=== PATIENT | male | born 1950 | race Caucasian/White ===

== ENCOUNTER 2017-09-14 14:21 | Inpatient (IN) ==
--- NOTE | 2017-09-14 14:33 | Emergency Department Note ---
Disposition Clinical Impression: Cellulitis Disposition: Admitted As Inpatient Condition: Fair Referrals: [facility]Other] [facility] Care Provider[facility] - Forms: ED Satisfaction Letter, Work/School Release General Adult HPI - General Chief complaint: ED General Medical Stated complaint: Septic Time Seen by Provider: 09/14/17 14:27 Source: patient, EMS - History of Present Illness Pain Scale: 0 - Related Data Home Medications Medication Instructions Recorded Confirmed Apixaban [Eliquis] 5 mg PO BID 09/14/17 09/14/17 Atenolol [Tenormin] 12.5 mg PO DAILY 09/14/17 09/14/17 Atorvastatin [Lipitor] 10 mg PO HS 09/14/17 09/14/17 Buspirone HCl [Buspar] 10 mg PO TID 09/14/17 09/14/17 Chlorhexidine Rinse 15 ml MM BID 09/14/17 09/14/17 Cholecalciferol (Vitamin D3) 1,000 unit PO DAILY 09/14/17 09/14/17 [Vitamin D3] Clopidogrel [Plavix] 75 mg PO DAILY 09/14/17 09/14/17 Cyclobenzaprine [Flexeril] 10 mg PO TID 09/14/17 09/14/17 Insulin LISPRO [HumaLOG] 3 - 8 units SQ TIDWM PRN 09/14/17 09/14/17 Ipratropium/Albuterol Neb [Duoneb] 3 ml IH Q6HR PRN 09/14/17 09/14/17 Metformin HCl [Glucophage Xr] 750 mg PO BID 09/14/17 Naproxen [Naprosyn] 500 mg PO BID 09/14/17 09/14/17 OxyCODONE Immed Rel [Roxicodone 30 30 mg PO TID 09/14/17 09/14/17 MG] Pantoprazole Sodium [Protonix] 40 mg PO BID 09/14/17 09/14/17 Potassium Chloride [K-Tab ER] 20 meq PO DAILY 09/14/17 09/14/17 Pregabalin [Lyrica] 100 mg PO QID 09/14/17 09/14/17 Tamsulosin HCl [Flomax] 0.4 mg PO DAILY 09/14/17 09/14/17 Vancomycin/0.9 % Sod Chloride 1 gm IV Q12H 09/14/17 09/14/17 [Vancomycin 1 G/100Ml-0.9% NaCl] Allergies Allergy/AdvReac Type Severity Reaction Status Date / Time aspirin Allergy Anaphylaxis Verified 09/14/17 16:21 bee venom protein (honey bee) Allergy Anaphylaxis Verified 09/14/17 16:21 Penicillins Allergy Anaphylaxis Verified 09/14/17 16:21 sucralfate Allergy Anaphylaxis Verified 09/14/17 16:21 Past Medical History - Past Medical History Medical history: Reports: COPD, diabetes Psychiatric history: Reports: no psych history - Social History Smoking Status: Current some day smoker Smokeless Tobacco Status: No Alcohol use: Reports: none Physical Exam - General General appearance: alert, in no apparent distress Course Vital Signs Temperature 99.9 F H 09/14/17 14:22 Pulse Rate 127 09/14/17 14:22 Respiratory Rate 18 09/14/17 14:22 Blood Pressure 137/77 09/14/17 14:22 O2 Sat by Pulse Oximetry 95 09/14/17 14:22 Temperature 99.9 F H 09/14/17 14:22 Pulse Rate 115 09/14/17 16:31 Respiratory Rate 18 09/14/17 16:31 Blood Pressure 96/74 09/14/17 16:31 O2 Sat by Pulse Oximetry 94 09/14/17 16:31 Oxygen Delivery Oxygen Delivery Nasal Cannula Medical Decision Making - Lab Data Lab Results 09/14/17 09/14/17 Range/Units 14:36 14:50 Lactic Acid 2.5 H (0.5-2.2) mmol/L Urine Color Yellow (Yellow) Urine Clarity Clear (Clear) Urine pH 6.0 (5.0-8.0) pH Units Ur Specific [place] > 1.030 H (1.010-1.025) Urine Protein 30 H (Neg-Trace) mg/dL Urine Glucose (UA) 100 H (Normal) mg/dL Urine Ketones Negative (Negative) mg/dL Urine Blood Negative (Negative) Urine Nitrite Negative (Negative) Urine Bilirubin Negative (Negative) Urine Urobilinogen Normal (Normal) mg/dL Ur Leukocyte Esterase Negative (Negative) Urine Microscopic RBC 5-15 H (0-3) per hpf Urine Microscopic WBC 5-15 H (0-3) per hpf Ur Squamous Epith Cells Moderate H (None-Few) per lpf Urine Bacteria None Seen (None-Few) per hpf Hyaline Casts None Seen (None-Few) per lpf Attestation Statement - Attestation Attestation: I examined this patient and my medical decision-making was reviewed with the Resident Physician. I agree with the documented findings, disposition and treatment plan as described except to the extent set forth below. [id number] time provided Patient arrives as a transfer from the [facility] with concern for sepsis. He has experienced tachycardia and fever and recently grew out gram- positive cocci from the blood cultures. He is being treated for cellulitis of his lower extremities with vancomycin and clindamycin. He is tachycardic on exam. But he does not appear in any acute distress. He does have ecchymosis and swelling to bilateral great toes from her recent blunt injury. I suspect this to be the source of the patient's infection
[2017-09-14 14:52] LABS: Bilirubin,Urine Negative (Negative); Blood,Urine Negative (Negative); Clarity,Urine Clear (Clear); Color,Urine Yellow (Yellow); Glucose,Urine (UA) 100 mg/dL (Normal); Ketones,Urine Negative (Negative); Leukocyte Esterase,Urine Negative (Negative); Nitrite,Urine Negative (Negative); Protein,Urine 30 mg/dL (Neg-Trace); Specific Gravity,Urine > 1.030 (1.010-1.025); Urobilinogen,Urine Normal (Normal)
[2017-09-14 14:54] LABS: Bacteria,Urine None Seen per hpf (None-Few); Hyaline Casts,Urine None Seen per lpf (None-Few); Squamous Epithelial Cell,Urine Moderate per lpf (None-Few)
--- NOTE | 2017-09-14 15:17 | Emergency Department Note ---
Disposition Clinical Impression: Cellulitis Qualifiers: Site of cellulitis: extremity Site of cellulitis of extremity: lower extremity Laterality: unspecified laterality Qualified Code(s): L03.119 - Cellulitis of unspecified part of limb Disposition: Admitted As Inpatient Condition: Fair Forms: ED Satisfaction Letter, Work/School Release Time of Disposition: 16:43 General Adult HPI - General Chief complaint: ED General Medical Stated complaint: Septic Time Seen by Provider: 09/14/17 14:27 Source: patient, EMS Mode of arrival: EMS Limitations: no limitations Nursing Notes Reviewed: Yes Vital Signs Reviewed: Yes - History of Present Illness HPI Narrative: 66-year-old male who presents to the emergency department from the [facility] as a transfer for positive blood cultures. His symptom here as they were looking wanting an infectious disease consult. He said patient dropped a heavy mass on his feet on both sides smashing him while he was trying to clean out his toes and up into his skin the cyanosis cellulitis. He was then admitted and placed on clindamycin and vancomycin. They stopped the clindamycin before they sent him over here he has only been on the vancomycin. They noticed that his feet were certainly a more read these have been marked. The saline as a spreading up his legs. They also did blood cultures and came back with gram-positive cocci. At this time I felt the patient needed to have an ID consult they sent him here for evaluation. All labs are been done. Prior to him coming here he also sent a disc which we are uploading into the system. Patient states he only hurts in the feet otherwise he has no pain or shortness of breath or any other symptoms. Disease having these chills with her his body. Patient did have a fever at the [facility]. Patient no other complaints including headache, blurry vision, neck pain, back pain, nausea, vomiting, chest pain, shortness of breath , abdominal pain, pain or tingling down the arms or legs, change in bowel moves , pain with urination. Pain Scale: 0 - Related Data Home Medications Medication Instructions Recorded Confirmed Apixaban [Eliquis] 5 mg PO BID 09/14/17 09/14/17 Atenolol [Tenormin] 12.5 mg PO DAILY 09/14/17 09/14/17 Atorvastatin [Lipitor] 10 mg PO HS 09/14/17 09/14/17 Buspirone HCl [Buspar] 10 mg PO TID 09/14/17 09/14/17 Chlorhexidine Rinse 15 ml MM BID 09/14/17 09/14/17 Cholecalciferol (Vitamin D3) 1,000 unit PO DAILY 09/14/17 09/14/17 [Vitamin D3] Clopidogrel [Plavix] 75 mg PO DAILY 09/14/17 09/14/17 Cyclobenzaprine [Flexeril] 10 mg PO TID 09/14/17 09/14/17 Insulin LISPRO [HumaLOG] 3 - 8 units SQ TIDWM PRN 09/14/17 09/14/17 Ipratropium/Albuterol Neb [Duoneb] 3 ml IH Q6HR PRN 09/14/17 09/14/17 Metformin HCl [Glucophage Xr] 750 mg PO BID 09/14/17 Naproxen [Naprosyn] 500 mg PO BID 09/14/17 09/14/17 OxyCODONE Immed Rel [Roxicodone 30 30 mg PO TID 09/14/17 09/14/17 MG] Pantoprazole Sodium [Protonix] 40 mg PO BID 09/14/17 09/14/17 Potassium Chloride [K-Tab ER] 20 meq PO DAILY 09/14/17 09/14/17 Pregabalin [Lyrica] 100 mg PO QID 09/14/17 09/14/17 Tamsulosin HCl [Flomax] 0.4 mg PO DAILY 09/14/17 09/14/17 Vancomycin/0.9 % Sod Chloride 1 gm IV Q12H 09/14/17 09/14/17 [Vancomycin 1 G/100Ml-0.9% NaCl] Allergies Allergy/AdvReac Type Severity Reaction Status Date / Time aspirin Allergy Anaphylaxis Verified 09/14/17 16:21 bee venom protein (honey bee) Allergy Anaphylaxis Verified 09/14/17 16:21 Penicillins Allergy Anaphylaxis Verified 09/14/17 16:21 sucralfate Allergy Anaphylaxis Verified 09/14/17 16:21 Review of Systems: 10 point review of systems done and negative unless otherwise stated in history of present illness. All systems ED: reviewed and negative except as stated. Review of Systems: As Per HPI Past Medical History - Past Medical History Attestation: Yes The following information was validated with the patient. Medical history: Reports: COPD, diabetes Psychiatric history: Reports: no psych history - Social History Smoking Status: Current some day smoker Smokeless Tobacco Status: No Alcohol use: Reports: none Physical Exam - General Limitations: no limitations General appearance: alert, in no apparent distress - Head Head exam: atraumatic, normocephalic, normal inspection - Eye Eye exam: Present: normal appearance - ENT ENT exam: normal exam, normal oropharynx, mucous membranes moist - Neck Neck exam: Present: normal inspection, full ROM, trachea midline - Chest Chest inspection: Present: normal inspection, symmetric chest wall rise - Respiratory Respiratory exam: Present: normal lung sounds bilaterally. Absent: respiratory distress, wheezes, accessory muscle use - Cardiovascular Cardiovascular exam: Present: regular rate - Abdominal Exam Abdominal exam: Present: soft, Non-Tender. Absent: tenderness, distention, guarding, rebound, rigidity - Expanded Lower Extremity Exam Lower leg exam: Present: normal inspection, full ROM Ankle exam: Present: normal inspection, full ROM Foot/toe exam: Present: full ROM, tenderness (Tenderness at the great toe bilaterally), swelling (Small swelling of the entire feet. Bilaterally), ecchymosis, erythema (Noticeable erythema with markings from the last cellulitis elixir it outside the markings on both feet bilaterally with going up into the ankles.), other (No signs of fluctuance or draining fluid at the site of the toes.) Neurovascular/Tendon exam: Present: normal capillary refill. Absent: pulse deficit, motor deficit, sensory deficit, tendon deficit - Back Exam Back exam: Present: normal inspection, full ROM. Absent: tenderness, CVA tenderness (R), CVA tenderness (L) - Neurological Exam Neurological exam: Present: alert, oriented X3 - Skin Skin exam: Present: warm, dry, intact, normal color Course Course Narrative: 66 [facility] as he is now septic meeting SIRS criteria as he was tachycardic as well as leukocytosis with a site of infection in the feet. We will get a urinalysis as well as chest x-ray. Continue the vancomycin will admit to the hospitalist service. [facility] the [facility] 12 showed a leukocytosis of 16.8 with a September 14 is now 11.0. Urinalysis had no acute findings. CMP had no acute findings other than a normalizing creatinine were was 1.31 is now 1.09. [facility] so that their blood cultures showed gram-positive cocci. Vital Signs Temperature 99.9 F H 09/14/17 14:22 Pulse Rate 127 09/14/17 14:22 Respiratory Rate 18 09/14/17 14:22 Blood Pressure 137/77 09/14/17 14:22 O2 Sat by Pulse Oximetry 95 09/14/17 14:22 Temperature 99.9 F H 09/14/17 14:22 Pulse Rate 127 09/14/17 14:22 Respiratory Rate 18 09/14/17 14:22 Blood Pressure 137/77 09/14/17 14:22 O2 Sat by Pulse Oximetry 95 09/14/17 14:22 Oxygen Delivery Oxygen Delivery Nasal Cannula Medical Decision Making - MDM Narrative Medical decision making narrative: 66-year-old male presenting to the emergency department from the [facility] for bacteremia. He was positive for gram-positive cocci. They have him on vancomycin and clindamycin. This is all for cellulitis in the foot. We did chest x-ray as well as basic labs and urinalysis which showed no other source of infection other than the feet. We did look at the wounds and it looks like the cellulitis is spreading as it is outside the drawn anthony. X-rays were done there which did not show any bone involvement. Patient denies fever here but at the [facility] he did a fever 100.4. We do not give making for fevers he is not feverish here. Patient will be admitted to the hospitalist service as they are looking for an infectious disease consult from the [facility]. Patient is admitted to hospice or stable condition. He was accepted by Dr. Lord Chest X-Ray 09/14/17 14:36 IMPRESSION: No evidence of pneumonia. Possible mild pulmonary vascular congestion. D/ / Brody Eubanks MD / Brody Eubanks MD Interpreting Provider: Brody Eubanks MD - Medical Records Medical records reviewed: Yes I reviewed the patient's medical records. - Lab Data Lab results reviewed: Yes I reviewed the patient's lab results. Lab Results 09/14/17 Range/Units 14:36 Urine Color Yellow (Yellow) Urine Clarity Clear (Clear) Urine pH 6.0 (5.0-8.0) pH Units Ur Specific [place] > 1.030 H (1.010-1.025) Urine Protein 30 H (Neg-Trace) mg/dL Urine Glucose (UA) 100 H (Normal) mg/dL Urine Ketones Negative (Negative) mg/dL Urine Blood Negative (Negative) Urine Nitrite Negative (Negative) Urine Bilirubin Negative (Negative) Urine Urobilinogen Normal (Normal) mg/dL Ur Leukocyte Esterase Negative (Negative) Urine Microscopic RBC 5-15 H (0-3) per hpf Urine Microscopic WBC 5-15 H (0-3) per hpf Ur Squamous Epith Cells Moderate H (None-Few) per lpf Urine Bacteria None Seen (None-Few) per hpf Hyaline Casts None Seen (None-Few) per lpf - Radiology Data Radiology results reviewed: Yes I reviewed the patient's radiology results.
[2017-09-14] MEDS ORDERED: Acetaminophen 325 MG TABLET PO ONE (17:41)
--- NOTE | 2017-09-14 17:41 | Internal Med History&Physical ---
Date of Encounter: 09/14/17 Time of Encounter: 17:00 Assessment and Plan (1) Cellulitis Current visit: Yes Status: Acute Patient with cellulitis of his left foot, x-ray shows no evidence of osteomyelitis. Patient will need podiatry consult. He is currently on vancomycin which I will continue, he was also started on Levaquin which I will also continue his Cipro for concerns of Pseudomonas. He should and has listed anaphylactic reaction to penicillin. I suspect he likely has significant vascular disease as well, and will likely need a vascular surgery consult at some point. We will await podiatry evaluation. From a perioperative perspective, patient is a moderate risk for surgical complications, however would not delay necessary surgery given his sepsis and acute infection. He will need close monitoring of his pulse oximetry given his underlying lung disease. Does have a good exercise tolerance of at least greater than 4 metabolic equivalents of energy prior to becoming ill with this infection. Patient is currently on vancomycin and Levaquin at least day #1, cannot tell from records. We will continue vancomycin IV, and Cipro to cover for potential pseudomonas infection. Patient has a history of anaphylaxis from penicillin. Qualifiers: Site of cellulitis: extremity Site of cellulitis of extremity: lower extremity Laterality: unspecified laterality Qualified Code(s): L03.119 - Cellulitis of unspecified part of limb (2) Staphylococcus aureus bacteremia Current visit: Yes Status: Acute Likely due to cellulitis of his foot. He is currently on vancomycin started at the [place]. We will continue this with pharmacy to dose. His blood cultures came positive on the . We will repeat blood cultures to assess clearance. Inf Disease consultation will be requested. I do not have lots of good records but I would at least say he is least vancomycin day 1, Levaquin day #1. We will attempt to clarify. (3) Sepsis affecting skin Current visit: Yes Status: Acute See above. Supportive care. IV fluids. Close monitoring. Sepsis protocol. Repeat Lactic Acid ordered this evening, IVF, telemetry, O2 (4) COPD (chronic obstructive pulmonary disease) Current visit: Yes Status: Acute No evidence of acute exacerbation. Will use aggressive bronchodilator therapy and incentive spirometry. Qualifiers: COPD type: unspecified COPD Qualified Code(s): J44.9 - Chronic obstructive pulmonary disease, unspecified (5) Lung nodule Current visit: Yes Status: Acute Concern for malignancy. Appears to have progressed since [facility] CAT scan in 2017. Future PET scan and oncology follow-up. (6) Lethargy Current visit: Yes Status: Acute Suspect multifactorial due to sepsis, multiple narcotics and Lyrica, but we will also check an ABG to rule out CO2 retention. As a nonfocal neurological exam. He is able to converse and is awake and oriented, but is somewhat slow mentation. (7) Tobacco abuse Current visit: Yes Status: Acute She has not smoked for over a month. Patient is encouraged for ongoing tobacco cessation. (8) PVD (peripheral vascular disease) Current visit: Yes Status: Acute Ending podiatry evaluation, will likely need vascular surgery evaluation as well. (9) Diabetes Current visit: Yes Status: Acute She was on oral medications at home. We will place on basal bolus insulin while in the hospital Check A1c. Qualifiers: Diabetes mellitus type: type 2 Diabetes mellitus complication status: with circulatory complication Diabetes mellitus terminal manager insulin use: without assisted use Qualified Code(s): E11.59 - Type 2 diabetes mellitus with other circulatory complications (10) HTN (hypertension) Current visit: Yes Status: Acute Blood pressure is currently controlled. Closely monitor. Qualifiers: Hypertension type: essential hypertension Qualified Code(s): I10 - Essential (primary) hypertension (11) CAD (coronary artery disease) Current visit: Yes Status: Acute Do not have records with regards to this. Continue medical management. I am checking an echocardiogram. Qualifiers: Coronary Disease-Associated Artery/Lesion type: unspecified vessel or lesion type [place] vs. transplanted heart: [place] heart Associated angina: without angina Qualified Code(s): I25.10 - Atherosclerotic heart disease of [place] coronary artery without angina pectoris (12) Chronic pain Current visit: Yes Status: Acute Due to peripheral neuropathy and chronic back pain. He is on Lyrica. Qualifiers: Chronic pain type: chronic pain syndrome Qualified Code(s): G89.4 - Chronic pain syndrome (13) Atrial fibrillation Current visit: Yes Status: Acute On Apixaban. Rate controlled Check coagulation is held due to potential need for surgery Qualifiers: Atrial fibrillation type: paroxysmal Qualified Code(s): I48.0 - Paroxysmal atrial fibrillation Internal Medicine - H&P: HPI Chief complaint: LEft foot redness and swelling Admitted From: Emergency Dept Plans for Post Hospital Care: Home History of present illness: Mr. Magana is a 66 year old male with multiple medical problems including COPD , sometimes on supplement oxygen, Afib on Apixaban, peripheral vascular disease , prior history of alcohol abuse, diabetes mellitus non-insulin requiring, DVT of the iliofemoral vein, sleep apnea, coronary artery disease, recently diagnosed left upper lobe lung nodule 1 cm, concern for malignancy and in need of a future PET scan, depression, chronic back pain, peripheral neuropathy. Patient is normally fairly active but does use oxygen on occasion. He states that he had his toenails trimmed about a week ago. He states that about shortly thereafter he began experiencing pain redness and swelling of his left foot. Patient presented to the [facility] where he was admitted for left foot cellulitis. Patient was admitted on 09/12/2017. He was seen by account review specialist, had a I&D done of his left toe I do not have any data with results to this. He was being treated with antibiotics including Levaquin and vancomycin during his hospital stay. Today he was noted to have 2 out of 2 blood cultures positive for staph aureus and he was referred here for further treatment and evaluation. He was sent to the emergency room and he is being admitted from the emergency department. states he denies fevers but does feel cold at times. He denies any chest pain. He does have shortness of breath which is not a new issue for him. His states that he has been somewhat somnolent since he became ill. Patient is not complaining of any pain in his foot but has noticed markedly redness and swelling. He denies any nausea, vomiting, diarrhea. No abdominal pain. He states he has never had a foot infection before. He does have peripheral neuropathy for which he takes Lyrica. He denies any trauma to his feet other than the recent trimming of his toenails. Of note has a history of a penicillin allergy with listed anaphylaxis as the reaction. Patient quit smoking 1 month ago. He has greater than a [id number] history. History of alcohol abuse but now drinks only on occasion. No drug use. On arrival to the emergency department patient met sepsis criteria with a temperature 99.9, heart rate of 127, respiratory rate of 18, blood pressure 137/ 72, O2 sat 98% on room air. On exam patient was ill-appearing and somnolent. His oropharynx showed markedly dry mucous membranes, skin was diaphoretic. Lungs show diminished breath sounds bilaterally, heart was tachycardic but no murmur. Abdomen was benign. Extremities showed evidence of severe peripheral vascular disease bilaterally with a red swollen left foot, predominantly on the dorsum of his foot and including the great toe. He had evidence of open wound which is appeared to heal on the lateral aspect of his distal great toe. No obvious drainage noted presently. His foot is somewhat dusky in appearance, a pulse is palpable dorsalis pedis, but diminished. Right foot shows evidence of peripheral vascular disease as well but no obvious infection. X-ray showed prominent pulmonary vasculature but no acute process. Patient was admitted for further treatment Past Med Surg Social Fam HX - Past Medical History Medical history: COPD, diabetes, peripheral artery disease Psychiatric history: depression - Past Surgical History Surgical History: cholecystectomy (States he had some vascular surgery to his left lower extremity.) - Social History Smoking Status: Current some day smoker Packs per day: To 2 packs per day for the last 60 years, states he quit 1 month ago Smokeless Tobacco Status: No Alcohol use: occasionally Drug use: none Occupational status: retired Current living situation: Home - Independent Activity Level: Independent ambulation Recent Out of Country Travel Within the Last 8 Weeks: No Exposure or Possible Exposure to Illness During Travel: No Internal Medicine - H&P: Meds Apixaban [Eliquis] 5 mg PO BID 09/14/17 [History] Atenolol [Tenormin] 12.5 mg PO DAILY 09/14/17 [History] Atorvastatin [Lipitor] 10 mg PO HS 09/14/17 [History] Buspirone HCl [Buspar] 10 mg PO TID 09/14/17 [History] Chlorhexidine Rinse 15 ml MM BID 09/14/17 [History] Cholecalciferol (Vitamin D3) [Vitamin D3] 1,000 unit PO DAILY 09/14/17 [History] Clopidogrel [Plavix] 75 mg PO DAILY 09/14/17 [History] Cyclobenzaprine [Flexeril] 10 mg PO TID 09/14/17 [History] Insulin LISPRO [HumaLOG] 3 - 8 units SQ TIDWM PRN 09/14/17 [History] Ipratropium/Albuterol Neb [Duoneb] 3 ml IH Q6HR PRN 09/14/17 [History] Metformin HCl [Glucophage Xr] 750 mg PO BID 09/14/17 [History] Naproxen [Naprosyn] 500 mg PO BID 09/14/17 [History] OxyCODONE Immed Rel [Roxicodone 30 MG] 30 mg PO TID 09/14/17 [History] Pantoprazole Sodium [Protonix] 40 mg PO BID 09/14/17 [History] Potassium Chloride [K-Tab ER] 20 meq PO DAILY 09/14/17 [History] Pregabalin [Lyrica] 100 mg PO QID 09/14/17 [History] Tamsulosin HCl [Flomax] 0.4 mg PO DAILY 09/14/17 [History] Vancomycin/0.9 % Sod Chloride [Vancomycin 1 G/100Ml-0.9% NaCl] 1 gm IV Q12H [History] 3 Allergy/AdvReac Type Severity Reaction Status Date / Time aspirin Allergy Anaphylaxis Verified 09/14/17 16:21 bee venom protein (honey bee) Allergy Anaphylaxis Verified 09/14/17 16:21 Penicillins Allergy Anaphylaxis Verified 09/14/17 16:21 sucralfate Allergy Anaphylaxis Verified 09/14/17 16:21 All Systems PM: A 10-system review of systems was performed and is negative for pertinent findings except as documented above in the HPI. Review of systems: Other than history of present illness a 10 point review of systems is negative. - Constitutional Constitutional: no chills, no fever(s), no night sweats - EENT Eyes: no change in vision, no discharge, no pain, no photophobia Ears: no ear discharge, no ear pain, no tinnitus Nose, mouth and throat: no dysphagia, no nasal discharge, no neck pain, no sore throat - Cardiovascular Cardiovascular ROS IM: no chest pain, no diaphoresis, no dyspnea, no lightheadedness, no palpitations, no syncope - Respiratory Respiratory: no cough, no dyspnea, no wheezing, no excessive phlegm production - Gastrointestinal Gastrointestinal: no abdominal pain, no diarrhea, no hematemesis, no hematochezia, no melena, no nausea, no vomiting - Musculoskeletal Musculoskeletal ROS IM: no numbness, no tingling - Integumentary Integumentary IM: no rash, no unusual bruising - Neurological Neurological ROS: no confusion, no convulsions, no focal weakness, no numbness, no tingling, no tremor(s) - Hematologic/Lymphatic Hematologic/Lymphatic: no easy bruising - Constitutional Vitals: Temp Pulse Resp BP Pulse Ox 99.9 F H 115 18 96/74 94 09/14/17 14:22 09/14/17 16:31 09/14/17 16:31 09/14/17 16:31 09/14/17 16:31 General appearance: Present: mild distress, A&O X 3 - Head Head exam: Present: atraumatic, normocephalic - Eye Eye exam: Present: conjuntiva pink, sclera anicteric - ENT ENT exam: Present: mucous membranes dry Additional comments: Poor dentition, multiple missing teeth, no obvious dental infection. - Respiratory Respiratory exam: Present: accessory muscle use, decreased breath sounds. Absent: rales, rhonchi, wheezes - Cardiovascular Cardiovascular exam: Present: +S1, +S2, tachycardia. Absent: diastolic murmur, gallop, rubs, systolic murmur - GI/Abdominal GI/Abdominal exam: Present: normal bowel sounds, soft, no peritoneal signs. Absent: distended, tenderness - Extremities Exam Extremities exam: Present: cyanotic, pedal edema, warm, radial pulses palpable and symmetrical. Absent: calf tenderness Additional comments: Reason has markedly swelling and erythema of his left foot, particularly on the dorsal aspect medially and including his great toe. Foot is also dusky in appearance with diminished dorsalis pedis pulse. Patient has what appears to be an area where 90 hours performed on his left great toe, no drainage noted presently He has evidence of peripheral vascular disease as well, with smooth shiny skin. His right foot has a similar appearance but without evidence of cellulitis or acute infection. Capillary refill less than 2.5 seconds - Skin Skin exam: Present: dry, mottled Internal Med - H&P Results - Labs Labs: Urine 09/14/17 Range/Units 14:36 Urine Color Yellow (Yellow) Urine Clarity Clear (Clear) Urine pH 6.0 (5.0-8.0) pH Units Ur Specific [place] > 1.030 H (1.010-1.025) Urine Protein 30 H (Neg-Trace) mg/dL Urine Glucose (UA) 100 H (Normal) mg/dL - Impressions ITS Impressions Chest X-Ray 09/14/17 14:36 IMPRESSION: No evidence of pneumonia. Possible mild pulmonary vascular congestion. D/ / Brody Eubanks MD / Brody Eubanks MD Interpreting Provider: Brody Eubanks MD
[2017-09-14] MEDS ORDERED: Ondansetron 4 MG/2 ML VIAL IVP PRN (18:13)
[2017-09-14] MEDS ORDERED: Acetaminophen 325 MG TABLET PO PRN (18:13)
[2017-09-14] MEDS ORDERED: Naloxone 0.4 MG/ML INJ IVP PRN (18:13)
[2017-09-14] MEDS ORDERED: *HR* HYDROcodone/Acet 5/325 mg TABLET PO PRN (18:13)
[2017-09-14] MEDS ORDERED: D5% in Water 1,000 ML IVC PRN (18:20)
[2017-09-14] MEDS ORDERED: Dextrose Gel 15 GM/37.5 ML TUBE PO PRN ×2 (18:20)
[2017-09-14] MEDS ORDERED: *HR* Dextrose 50 % in Water (Syg) 50 ML SYRINGE IVP PRN (18:20)
[2017-09-14] MEDS ORDERED: Albuterol 2.5 MG/3 ML NEBULIZER IH PRN (18:21)
[2017-09-14] MEDS ORDERED: SOD CHLORIDE IV SCH (18:30)
[2017-09-14] MEDS ORDERED: VANCOMYCIN IV SCH (18:30)
[2017-09-14] MEDS ORDERED: [UNRECOGNIZED DRUG - OTHER] IV SCH (18:30)
[2017-09-14] MEDS ORDERED: Vancomycin 1,250 MG in D5% in Water 250 ML IVPB SCH (19:00)
[2017-09-14] MEDS: Ipratropium/Albuterol Neb 3 ML IH SCH ×2 (19:29→21:54)
[2017-09-14] MEDS: 0.9 % Sodium Chloride w KCl 20 MEQ/1,000 ML MLS IVC SCH (19:59)
[2017-09-14] MEDS: Chlorhexidine Rinse 15 ML MOUTHWASH MM SCH (20:01)
[2017-09-14 21:33] LABS: Blood Urea Nitrogen 28 mg/dL (8-23); eGFR For African Americans > 60 (> 60); eGFR For Non-African Americans > 60 (> 60)
[2017-09-14 21:42] LABS: Vancomycin,Random 10.9 mcg/mL
--- NOTE | 2017-09-14 22:56 | Podiatry Consult Note ---
Date of Encounter: 09/14/17 Time of Encounter: 22:53 Assessment and Plan (1) Ischemia of foot Current visit: Yes Status: Acute At this time there seems to be more ischemia than infection. I recommend at this time ABIs and a vascular consult sooner than later. ABIs will be ordered and after the ABIs are received we can determine whether the patient is in need of foot amputation or proximal amputation. History of Present Illness Chief complaint: Ischemia of the digits with possible infection HPI: Mr. Magana is a 66 year old male who has difficulty in her medical history. Patient relates that he thinks he may drop something on his over a week ago. Patient relates that his feet feel numb. Patient relates that he has had vascular surgery in the past but is unsure of who the doctor was. Past Med Surg Social Fam HX - Past Medical History Medical history: COPD, diabetes, peripheral artery disease Psychiatric history: depression - Past Surgical History Surgical History: cholecystectomy - Social History Smoking Status: Former smoker Packs per day: To 2 packs per day for the last 60 years, states he quit 1 month ago Smokeless Tobacco Status: No Alcohol use: occasionally Drug use: none - Family History Father Living Status: Age at : 78 Cause of : Cancer Hx Family Respiratory Disorders: Yes (mesothelioma) Mother Living Status: Age at : 60 Cause of : during heart cath Hx Family Cardiac Disorders: Yes Medications and Allergies Apixaban [Eliquis] 5 mg PO BID 09/14/17 [History] Atenolol [Tenormin] 12.5 mg PO DAILY 09/14/17 [History] Atorvastatin [Lipitor] 10 mg PO HS 09/14/17 [History] Buspirone HCl [Buspar] 10 mg PO TID 09/14/17 [History] Chlorhexidine Rinse 15 ml MM BID 09/14/17 [History] Cholecalciferol (Vitamin D3) [Vitamin D3] 1,000 unit PO DAILY 09/14/17 [History] Clopidogrel [Plavix] 75 mg PO DAILY 09/14/17 [History] Cyclobenzaprine [Flexeril] 10 mg PO TID 09/14/17 [History] Insulin LISPRO [HumaLOG] 3 - 8 units SQ TIDWM PRN 09/14/17 [History] Ipratropium/Albuterol Neb [Duoneb] 3 ml IH Q6HR PRN 09/14/17 [History] Metformin HCl [Glucophage Xr] 750 mg PO BID 09/14/17 [History] Naproxen [Naprosyn] 500 mg PO BID 09/14/17 [History] OxyCODONE Immed Rel [Roxicodone 30 MG] 30 mg PO TID 09/14/17 [History] Pantoprazole Sodium [Protonix] 40 mg PO BID 09/14/17 [History] Potassium Chloride [K-Tab ER] 20 meq PO DAILY 09/14/17 [History] Pregabalin [Lyrica] 100 mg PO QID 09/14/17 [History] Tamsulosin HCl [Flomax] 0.4 mg PO DAILY 09/14/17 [History] Vancomycin/0.9 % Sod Chloride [Vancomycin 1 G/100Ml-0.9% NaCl] 1 gm IV Q12H [History] 3 Allergy/AdvReac Type Severity Reaction Status Date / Time aspirin Allergy Anaphylaxis Verified 09/14/17 16:21 bee venom protein (honey bee) Allergy Anaphylaxis Verified 09/14/17 16:21 Penicillins Allergy Anaphylaxis Verified 09/14/17 16:21 sucralfate Allergy Anaphylaxis Verified 09/14/17 16:21 All Systems Reviewed: A 10-system review of systems was performed and is negative for pertinent findings except as documented above in the HPI. Physical Exam - Constitutional Vitals: Temp Pulse Resp BP Pulse Ox 97.3 F L 85 16 102/65 97 09/14/17 20:45 09/14/17 20:45 09/14/17 21:54 09/14/17 20:45 09/14/17 21:54 Exam: Very difficult to palpate pulses and capillary fill time is sluggish. The great toe the left foot is noted to be ischemic, the ischemia extends to the metatarsophalangeal joint. The right foot has a small area of ischemia in the great toe which measures approximately 1 cm in diameter along the plantar lateral aspect of the toe. No excessive warmth was noted to the left foot in the area of the possible infection and cellulitis. The feet felt cool to the touch. Results - Labs Result Diagrams: 09/14/17 21:06 Labs: Abnormal lab results BUN 28 mg/dL (8-23) H 09/14/17 21:06 Lactic Acid 2.5 mmol/L (0.5-2.2) H 09/14/17 14:50 Ur Specific [place] > 1.030 (1.010-1.025) H 09/14/17 14:36 Urine Protein 30 mg/dL (Neg-Trace) H 09/14/17 14:36 Urine Glucose (UA) 100 mg/dL (Normal) H 09/14/17 14:36 Urine Microscopic RBC 5-15 per hpf (0-3) H 09/14/17 14:36 Urine Microscopic WBC 5-15 per hpf (0-3) H 09/14/17 14:36 Ur Squamous Epith Cells Moderate per lpf (None-Few) H 09/14/17 14:36 All other labs normal. Consult Discharge Plan - Plan [facility]errals: [facility]Primary Care Provider[facility] - [facility] [Other]
[2017-09-15 00:25] LABS: Hemoglobin A1C 7.2 %
[2017-09-15] MEDS: 0.9 % Sodium Chloride w KCl 20 MEQ/1,000 ML MLS IVC SCH ×5 (00:37→23:11)
[2017-09-15] MEDS: Vancomycin 1,250 MG in D5% in Water 250 ML IVPB SCH ×2 (00:37→12:18)
[2017-09-15] MEDS: Insulin LISPRO 300 UNITS/3 ML VIAL SQ SCH ×5 (00:38→21:10)
[2017-09-15] MEDS ORDERED: Nitroglycerin 0.4 MG TAB.SUBL SL PRN (02:00)
[2017-09-15] MEDS ORDERED: methylPREDNISolone 125 MG/2 ML VIAL IVP ONE (02:05)
[2017-09-15 03:35] LABS: Acinetobacter baumannii by PCR Not Detected (Not Detect); Candida albicans by PCR Not Detected (Not Detect); Candida glabrata by PCR Not Detected (Not Detect); Candida krusei by PCR Not Detected (Not Detect); Candida parapsilosis by PCR Not Detected (Not Detect); Candida tropicalis by PCR Not Detected (Not Detect); Enterococcus by PCR Not Detected (Not Detect); Escherichia coli by PCR ***DETECTED*** (Not Detect); Klebsiella oxytoca by PCR Not Detected (Not Detect); Klebsiella pneumoniae by PCR Not Detected (Not Detect); Pseudomonas aeruginosa by PCR Not Detected (Not Detect); Serratia marcescens by PCR Not Detected (Not Detect); Staphylococcus aureus by PCR Not Detected (Not Detect); Streptococcus agalactiae(B)PCR Not Detected (Not Detect); Streptococcus by PCR Not Detected (Not Detect); Streptococcus pneumoniae PCR Not Detected (Not Detect); Streptococcus pyogenes (A) PCR Not Detected (Not Detect); blaKPC Carbapenem-Resist Gene Not Detected (Not Detect); mecA Methicillin-Resist Gene Not Detected (Not Detect); vanA/B Vancomycin-Resist Genes Not Detected (Not Detect)
[2017-09-15 04:04] LABS: Alanine Aminotransferase 61 Units/L (7-52); Albumin 2.8 g/dL (3.5-5.7); Albumin/Globulin Ratio 0.8 (1.1-2.2); Alkaline Phosphatase 168 Units/L (34-104); Aspartate Amino Transferase 84 Units/L (13-39); BUN/Creatinine Ratio 24 (6-26); Bilirubin,Total 0.6 mg/dL (0.3-1.0); Blood Urea Nitrogen 26 mg/dL (8-23); Calcium 7.8 mg/dL (8.6-10.3); Carbon Dioxide 18 mEq/L (23-29); Chloride 108 mEq/L (98-107); Globulin 3.3 g/dL (2.4-3.5); Glucose 192 mg/dL (70-105); Magnesium 1.5 mg/dL (1.6-2.6); Osmolality,Calculated 292 (280-300); Potassium 3.5 mEq/L (3.5-5.1); Sodium 136 mEq/L (136-145); Total Protein 6.1 g/dL (6.4-8.9); eGFR For African Americans > 60 (> 60); eGFR For Non-African Americans > 60 (> 60)
[2017-09-15] MEDS: Ipratropium/Albuterol Neb 3 ML IH SCH ×6 (04:16→23:23)
[2017-09-15] MEDS ORDERED: Magnesium Sulfate 3 GM in D5% in Water 100 ML IVPB ONE (04:45)
--- NOTE | 2017-09-15 05:00 | Event Note ---
Date of Encounter: 09/15/17 Time of Encounter: 02:15 Paged by nursing d/t patient acutely dyspneic also complaining of moderate chest pressure. HR 120-130 and RR 25-30 initially. Expiratory wheezes heard throughout; PRN neb tx given -- rapid symptomatic relief with return to normal vitals. EKG showed no ischemic change. Troponin 0.75. Subsequent orders include Mg++ IVPB, recheck troponin at 0900 & 1500, and repeat EKG at 0900a.
[2017-09-15] MEDS ORDERED: Magnesium Sulfate 3 GM in 0.9 % Sodium Chloride 100 ML IVPB ONE (05:15)
[2017-09-15] MEDS: *HR* HYDROcodone/Acet 5/325 mg TABLET PO PRN ×3 (05:41→19:49)
[2017-09-15] MEDS: Chlorhexidine Rinse 15 ML MOUTHWASH MM SCH ×2 (07:51→19:50)
[2017-09-15] MEDS ORDERED: *HR* Heparin 5,000 UNIT/ML VIAL SQ SCH (08:00)
[2017-09-15 08:29] LABS: Acinetobacter baumannii by PCR Not Detected (Not Detect); Candida albicans by PCR Not Detected (Not Detect); Candida glabrata by PCR Not Detected (Not Detect); Candida krusei by PCR Not Detected (Not Detect); Candida parapsilosis by PCR Not Detected (Not Detect); Candida tropicalis by PCR Not Detected (Not Detect); Enterococcus by PCR Not Detected (Not Detect); Escherichia coli by PCR ***DETECTED*** (Not Detect); Klebsiella oxytoca by PCR Not Detected (Not Detect); Klebsiella pneumoniae by PCR Not Detected (Not Detect); Pseudomonas aeruginosa by PCR Not Detected (Not Detect); Serratia marcescens by PCR Not Detected (Not Detect); Staphylococcus aureus by PCR ***DETECTED*** (Not Detect); Streptococcus agalactiae(B)PCR ***DETECTED*** (Not Detect); Streptococcus by PCR ***DETECTED*** (Not Detect); Streptococcus pneumoniae PCR Not Detected (Not Detect); Streptococcus pyogenes (A) PCR Not Detected (Not Detect); blaKPC Carbapenem-Resist Gene Not Detected (Not Detect); mecA Methicillin-Resist Gene Not Detected (Not Detect); vanA/B Vancomycin-Resist Genes Not Detected (Not Detect)
[2017-09-15] MEDS ORDERED: *HR* Heparin 5,000 UNIT/ML VIAL IVP ONE (08:44)
[2017-09-15] MEDS ORDERED: *HR* Heparin 5,000 UNIT/ML VIAL IVP PRN (08:55)
[2017-09-15 09:53] LABS: Hematocrit 31.1 % (37.5-50.1); Hemoglobin 10.1 g/dL (12.9-16.9); Mean Corpuscular HGB Conc 32.5 g/dL (31.6-35.5); Mean Corpuscular Hemoglobin 28.6 pg (28.0-33.3); Mean Corpuscular Volume 88.1 fL (83.0-100.0); Mean Platelet Volume 11.7 fL (9.4-12.4); Platelet Count 141 K/mcL (140-400); Red Blood Count 3.53 M/mcL (4.19-5.50); Red Cell Distribution Width 13.7 % (11.5-14.5)
[2017-09-15 10:01] LABS: INR 1.5; Prothrombin Time 15.8 Seconds (9.4-12.1)
[2017-09-15] MEDS: Heparin 25,000 UNIT/500 ML D5W 25,000 UNIT/500 ML BAG IVC SCH (10:01)
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
[2017-09-15] MEDS ORDERED: Insulin DETEMIR 100 UNIT/ML X5UNITS SQ SCH (21:00)
--- NOTE | 2017-09-15 21:56 | Podiatry Progress Note ---
Date of Encounter: 09/15/17 Time of Encounter: 21:53 - Assessment and Plan (1) Ischemia of foot Current Visit: Yes Status: Acute After reviewing the preliminary ABIs, it appears as though the site may heal if we perform surgery. The patient was instructed that a left great toe amputation may be necessary. The patient was instructed that we will try to perform an incision and drainage but that may require a left great toe amputation. The surgery was discussed with the patient at length.Patient was informed of the risks and complications of surgery. These may include but are not limited to the following; nerve damage, numbness, tingling, RSD/CRPS, loss of motor function, loss of toe, loss of limb, loss of life, ischemia, wound healing issues, infection, scarring, keloid formation, continued pain, arthritis, non-union, mal-union, prominent hardware, displaced hardware, reaction to hardware, the need to remove hardware, bruising, continued limp, the need for future surgery, over correction, under correction, chronic swelling , the need for physical therapy, stiffness of joints, ulceration, slow healing, wound dehiscence, reaction to implant, reaction to sutures. The patient was informed of the possible conservative treatments available which may include but are not limited to the following: Orthotics, bracing, non -weight bearing, physical therapy, padding, taping, steroid injections, NSAIDS, casting. The patient was given the option to seek a second opinion. It was explained that surgery is an art and not an exact science therefore results cannot be guaranteed. All the patients questions and concerns were addressed. Patient agrees to have the surgery despite the possible risks and complications. Absolutely no guarantees were given or implied. Subjective Principal diagnosis: foot infection Interval history: The patient relates that he is feeling much better today. Patient relates that he is not as confused. Patient denies any other new issues. Objective - Vital Signs Vital Signs: Vital Signs Temp Pulse Resp BP Pulse Ox 09/15/17 20:05 16 98 09/15/17 19:29 97.8 F 85 16 119/72 97 09/15/17 15:23 16 97 09/15/17 15:00 97.6 F 85 15 125/72 93 09/15/17 11:57 17 98 09/15/17 10:32 97.6 F 85 15 104/67 98 09/15/17 08:56 99 09/15/17 07:44 16 99 09/15/17 06:42 97.9 F 89 16 108/66 95 09/15/17 04:27 98.1 F 96 15 102/66 96 09/15/17 04:16 16 96 09/15/17 00:19 98.5 F 83 15 117/69 92 09/14/17 21:54 16 97 Intake and Output 09/15/17 09/15/17 09/15/17 07:59 15:59 23:59 Intake Total 2600 / 2600 2280 / 2280 125 / 125 Output Total 300 / 300 400 / 400 800 / 800 Balance 2300 / 2300 1880 / 1880 -675 / -675 Intake: IV Fluids 1999 / 1999 1600 / 1600 125 / 125 KCl 20 mEq in 0.9% Sodium 1999 / 2000 1000 / 1000 Chloride 20 meq In 1,000 ml @ 200 mls/hr IVC .Q5H [facility] Rx#: [id number] Heparin 25,000 UNIT/500 ML D5W 125 / 125 25,000 unit In 500 ml @ 12 UNIT /KG/HR 19.599 mls/hr IVC .Q24H [facility] Rx#:[id number] Magnesium Sulfate 3 GM In 0.9 % 100 / 100 Sodium Chloride 100 ML @ 53 mls/hr IVPB ONCE ONE Rx#: [id number] Vancocin 1,250 MG In Dextrose 5 500 / 500 % 250 ML @ 166.667 mls/hr IVPB Q12H [facility] Rx#:[id number] Oral 600 / 600 680 / 680 0 / 0 Output: Urine 300 / 300 400 / 400 800 / 800 Other: Meal Breakfast Percent of Meal Consumed 100% # Voids 0 Weight 81.664 kg Blood Glucose* [phone] Patient Weight 09/15/17 23:59 Weight 81.664 kg - Exam Exam: Pedal pulses difficult to palpate. Capillary fill time intact to the digits 1 through 5 with the exception of the great toes which appear to be ischemic. No new open lesions. Continued erythema noted to the left foot great toe. - Lab Result Diagrams: 09/15/17 09:19 09/15/17 02:58 Labs: Abnormal lab results RBC 3.53 M/mcL (4.19-5.50) L 09/15/17 09:19 Hgb 10.1 g/dL (12.9-16.9) L 09/15/17 09:19 Hct 31.1 % (37.5-50.1) L 09/15/17 09:19 PT 15.8 Seconds (9.4-12.1) H 09/15/17 09:19 APTT 39.8 Seconds (26.0-36.0) H 09/15/17 15:40 Chloride 108 mEq/L (98-107) H 09/15/17 02:58 Carbon Dioxide 18 mEq/L (23-29) L 09/15/17 02:58 BUN 26 mg/dL (8-23) H 09/15/17 02:58 Glucose 192 mg/dL (70-105) H 09/15/17 02:58 POC Glucose 336 (58-89) H 09/15/17 16:33 Hemoglobin A1c 7.2 % (-5.6) H 09/14/17 22:25 Lactic Acid 2.4 mmol/L (0.5-2.2) H 09/14/17 22:25 Calcium 7.8 mg/dL (8.6-10.3) L 09/15/17 02:58 Magnesium 1.5 mg/dL (1.6-2.6) L 09/15/17 02:58 AST 84 Units/L (13-39) H 09/15/17 02:58 ALT 61 Units/L (7-52) H 09/15/17 02:58 Alkaline Phosphatase 168 Units/L (34-104) H 09/15/17 02:58 Troponin I 0.53 ng/mL (< 0.04) H* 09/15/17 15:40 Serum Total Protein 6.1 g/dL (6.4-8.9) L 09/15/17 02:58 Albumin 2.8 g/dL (3.5-5.7) L 09/15/17 02:58 Albumin/Globulin Ratio 0.8 (1.1-2.2) L 09/15/17 02:58 Ur Specific [place] > 1.030 (1.010-1.025) H 09/14/17 14:36 Urine Protein 30 mg/dL (Neg-Trace) H 09/14/17 14:36 Urine Glucose (UA) 100 mg/dL (Normal) H 09/14/17 14:36 Urine Microscopic RBC 5-15 per hpf (0-3) H 09/14/17 14:36 Urine Microscopic WBC 5-15 per hpf (0-3) H 09/14/17 14:36 Ur Squamous Epith Cells Moderate per lpf (None-Few) H 09/14/17 14:36 Enterobacteriac sp PCR DETECTED (Not Detect) A 09/14/17 14:50 E. coli (PCR) DETECTED (Not Detect) A 09/14/17 14:50 Consult Discharge Plan - Plan Referrals: [facility] [Other] [facility] [Primary Care Provider[facility] -
[2017-09-15] MEDS: *HR* Heparin 5,000 UNIT/ML VIAL IVP PRN (23:09)
--- NOTE | 2017-09-15 23:42 | Cardiology Consult Note ---
Date of Encounter: 09/16/17 Time of Encounter: 21:00 Assessment and Plan (1) Cellulitis Current Visit: Yes Status: Acute Cellulitis of both great toes, L > right, [facility], [facility] results pending, concerned for endocarditis with sepsis, appreciate antibiotic coverage per primary care team. Qualifiers: Site of cellulitis of extremity: toe Laterality: unspecified laterality Qualified Code(s): L03.039 - Cellulitis of unspecified toe (2) Elevated troponin I level Current Visit: Yes Status: Acute Elevation of troponin of unclear significance, concerned may be due to endocarditis, will make NPO at midnight for possible GAMALIEL, surface echo ordered. If no endocarditis then would consider LHC/possible when blood cultures clear. Would anticpate significant CAD, high probablilty of needing PCI, would like blood cultures clear before placement of endoluminal prosthesis. Serial EKGs and troponin. (3) PVD (peripheral vascular disease) Current Visit: Yes Status: Acute Severe bilateral lower extremity abnormal ABIs, will need AIf with bifem runoffs, eval for possible revascularization, recommend Vasc surgical consult for limb salvage in AM, coordination of cardiac cath and lower extremity angingrams for renal sparing. (4) Staphylococcus aureus bacteremia with sepsis Current Visit: Yes Status: Acute Appreciate ID consult, cultures pending. (5) Atrial fibrillation Current Visit: Yes Status: Acute Paroxysmal, regular rhythm this evening, systemic anticoagulation on hold. Qualifiers: Atrial fibrillation type: paroxysmal Qualified Code(s): I48.0 - Paroxysmal atrial fibrillation Discussion w patient/family: The assessment and plan as outlined above was discussed with the patient and/or family members who expressed understanding and agreement. All questions were answered. Thank you for involving us in the care of your patient. Please call with any questions. History of Present Illness Consult date: 09/15/17 Requesting physician: Rocael Diaz Consult reason: Elevated troponin Chief complaint: toe pain History of present illness: Mr. Magana is a 67 year old male who was referred to [facility] from the [facility] with sepsis, due to left foot cellulitis. He was recently admitted to the [facility] with complaints of redness and swelling in his left foot after dropping a piece of metal on his toes, subsequently trimming his bruised toenails, which became infected. He was evalutated by a [facility] it software engineer, had I&D, blood cultures x 2. which are reported positive for staph aureus, and the patient transferred for ID expertise. Noted in the initial lab work was a positive troponin, unexplained. The patient denies chest pain, pressure or shortness of breath. He admits to positive cardiac history with palpitations and shortness of breath following sub cut epi for a bee sting, with subsequent evaluation at the [facility] in [place], where he was told he had damaged the back of his heart. He denies previous LHC, reports last stress was at the [facility] in [place] three years ago, reportedly normal He is currently pain free, conversant, remembers most of his medical history but is easily confused. Past Med Surg Social Fam HX - Past Medical History Medical history: COPD, diabetes, peripheral artery disease Psychiatric history: depression - Past Surgical History Surgical History: cholecystectomy - Social History Smoking Status: Former smoker Packs per day: To 2 packs per day for the last 60 years, states he quit 1 month ago Smokeless Tobacco Status: No Alcohol use: occasionally Drug use: none - Family History Father Living Status: Age at : 78 Cause of : Cancer Hx Family Respiratory Disorders: Yes (mesothelioma) Mother Living Status: Age at : 60 Cause of : during heart cath Hx Family Cardiac Disorders: Yes Medications and Allergies Apixaban [Eliquis] 5 mg PO BID 09/14/17 [History] Atenolol [Tenormin] 12.5 mg PO DAILY 09/14/17 [History] Atorvastatin [Lipitor] 10 mg PO HS 09/14/17 [History] Buspirone HCl [Buspar] 10 mg PO TID 09/14/17 [History] Chlorhexidine Rinse 15 ml MM BID 09/14/17 [History] Cholecalciferol (Vitamin D3) [Vitamin D3] 1,000 unit PO DAILY 09/14/17 [History] Clopidogrel [Plavix] 75 mg PO DAILY 09/14/17 [History] Cyclobenzaprine [Flexeril] 10 mg PO TID 09/14/17 [History] Insulin LISPRO [HumaLOG] 3 - 8 units SQ TIDWM PRN 09/14/17 [History] Ipratropium/Albuterol Neb [Duoneb] 3 ml IH Q6HR PRN 09/14/17 [History] Metformin HCl [Glucophage Xr] 750 mg PO BID 09/14/17 [History] Naproxen [Naprosyn] 500 mg PO BID 09/14/17 [History] OxyCODONE Immed Rel [Roxicodone 30 MG] 30 mg PO TID 09/14/17 [History] Pantoprazole Sodium [Protonix] 40 mg PO BID 09/14/17 [History] Potassium Chloride [K-Tab ER] 20 meq PO DAILY 09/14/17 [History] Pregabalin [Lyrica] 100 mg PO QID 09/14/17 [History] Tamsulosin HCl [Flomax] 0.4 mg PO DAILY 09/14/17 [History] Vancomycin/0.9 % Sod Chloride [Vancomycin 1 G/100Ml-0.9% NaCl] 1 gm IV Q12H [History] 3 Allergy/AdvReac Type Severity Reaction Status Date / Time aspirin Allergy Anaphylaxis Verified 09/14/17 16:21 bee venom protein (honey bee) Allergy Anaphylaxis Verified 09/14/17 16:21 Penicillins Allergy Anaphylaxis Verified 09/14/17 16:21 sucralfate Allergy Anaphylaxis Verified 09/14/17 16:21 All Systems Review: A 10-system review of systems was performed and is negative for pertinent findings except as documented above in the HPI. - Constitutional Constitutional: fatigue, fever(s) - Cardiovascular Cardiovascular: leg edema, lightheadedness - Respiratory Respiratory: cough - Musculoskeletal Musculoskeletal: abnormal gait, other (Both greath toes are black, necrotic, non -tender) - Integumentary Integumentary: other (Great toes bilaterally red and swollen ) Physical Examination Vital Signs, Last 4 Hours Resp Pulse Ox 09/15/17 23:23 16 98 09/15/17 20:05 16 98 General: Conversant, No Apparent Distress HEENT: Atraumatic, Normocephaly Neck: No JVD, Normal carotid pulses Cardiac: Reg Rate and Rhythm, Normal S1 and S2 Lungs: Normal Breath Sounds, No Wheeze, Rales, Rhonchi, Other (breath sounds decreased) Neuro: Alert and responsive, No focal deficits noted Abdomen: Soft, Non-Tender Skin: No rashes noted on visualized skin Musculoskeletal: No Chest Wall Tenderness (both great toes black at distal phalnx, red and swollen on proximal toes bilat. ) Results 09/15/17 09:19 09/15/17 02:58 Lab Results 09/15/17 09/15/17 09/15/17 02:58 02:58 08:49 WBC Hgb Hct Plt Count INR APTT Sodium 136 Potassium 3.5 Chloride 108 H Carbon Dioxide 18 L BUN 26 H Creatinine 1.09 Glucose 192 H Calcium 7.8 L Magnesium 1.5 L Total Bilirubin 0.6 AST 84 H ALT 61 H Alkaline Phosphatase 168 H Troponin I 0.75 H* 0.69 H* 09/15/17 09/15/17 09/15/17 09:19 09:19 15:40 WBC 10.9 Hgb 10.1 L Hct 31.1 L Plt Count 141 INR 1.5 APTT 28.0 Sodium Potassium Chloride Carbon Dioxide BUN Creatinine Glucose Calcium Magnesium Total Bilirubin AST ALT Alkaline Phosphatase Troponin I 0.53 H* 09/15/17 09/15/17 15:40 22:18 WBC Hgb Hct Plt Count INR APTT 39.8 H 49.9 H Sodium Potassium Chloride Carbon Dioxide BUN Creatinine Glucose Calcium Magnesium Total Bilirubin AST ALT Alkaline Phosphatase Troponin I Consult Discharge Plan - Plan Referrals: [facility] [Other] [facility]Primary Care Provider[facility] -
[2017-09-16] MEDS: Vancomycin 1,250 MG in D5% in Water 250 ML IVPB SCH ×2 (01:00→17:30)
[2017-09-16] MEDS: Ipratropium/Albuterol Neb 3 ML IH SCH ×5 (03:55→19:57)
[2017-09-16] MEDS: Insulin LISPRO 300 UNITS/3 ML VIAL SQ SCH ×4 (05:41→16:47)
[2017-09-16 05:42] LABS: Basophils % 0.2 %; Eosinophils % 0.3 %; Hematocrit 29.5 % (37.5-50.1); Immature Granulocytes % 2.9 % (0-4); Lymphocytes # 1.4 K/mcL (0.6-4.6); Lymphocytes % 11.6 %; Mean Corpuscular HGB Conc 33.9 g/dL (31.6-35.5); Mean Corpuscular Volume 85.5 fL (83.0-100.0); Mean Platelet Volume 11.7 fL (9.4-12.4); Monocytes # 0.6 K/mcL (0.0-1.3); Monocytes % 4.7 %; Neutrophils # 9.6 K/mcL (1.6-8.9); Nucleated Red Blood Cells 0.2 /100 WBC (0); Platelet Count 182 K/mcL (140-400); Red Blood Count 3.45 M/mcL (4.19-5.50); Red Cell Distribution Width 13.9 % (11.5-14.5); Segmented Neutrophils % 80.3 %
[2017-09-16] MEDS: Heparin 25,000 UNIT/500 ML D5W 25,000 UNIT/500 ML BAG IVC SCH ×3 (05:46→23:28)
[2017-09-16 06:00] LABS: BUN/Creatinine Ratio 18 (6-26); Blood Urea Nitrogen 15 mg/dL (8-23); Calcium 8.6 mg/dL (8.6-10.3); Carbon Dioxide 22 mEq/L (23-29); Chloride 112 mEq/L (98-107); Chol/HDL Ratio 13.3 (0-4.9); Cholesterol 93 mg/dL (< 200); Glucose 207 mg/dL (70-105); HDL Cholesterol 7 mg/dL (40-59); LDL Cholesterol,Calculated 41 mg/dL (0-99); Osmolality,Calculated 295 (280-300); Potassium 3.2 mEq/L (3.5-5.1); Sodium 139 mEq/L (136-145); Triglycerides 226 mg/dL (< 150); eGFR For African Americans > 60 (> 60); eGFR For Non-African Americans > 60 (> 60)
[2017-09-16 06:16] LABS: Thyroid Stimulating Hormone 1.071 mcIU/mL (0.340-5.600)
[2017-09-16] MEDS: *HR* Heparin 5,000 UNIT/ML VIAL IVP PRN ×2 (06:20→17:28)
[2017-09-16] MEDS ORDERED: *HR* Midazolam HCl 5 MG/5 ML VIAL IVP ONE (09:05)
[2017-09-16] MEDS ORDERED: *HR* Water for inj. (sterile) 10 ML VIAL IV ONE (09:05)
[2017-09-16] MEDS ORDERED: *HR* Etomidate 40 MG/20 ML VIAL IVP ONE (09:05)
[2017-09-16] MEDS ORDERED: *HR* Midazolam HCl 2 MG/2 ML VIAL IV ONE (09:05)
[2017-09-16] MEDS: *HR* HYDROcodone/Acet 5/325 mg TABLET PO PRN (09:14)
[2017-09-16] MEDS: Chlorhexidine Rinse 15 ML MOUTHWASH MM SCH (09:14)
--- NOTE | 2017-09-16 11:21 | Cardiology Progress Note ---
Date of Encounter: 09/16/17 Time of Encounter: 11:14 Assessment and Plan (1) NSTEMI (non-ST elevated myocardial infarction) Current Visit: Yes Status: Acute Troponin elevated up to 0.75. Possible NSTEMI. He is asymptomatic. Cardiac risk factors include DM type II, HTN, HLD, and tobacco use. Reports LHC in the late . No intervention at that time. 06/22/17- Stress test was negative. TTE completed shows EF 55%. Mild MR. Mild to moderate tricuspid regurgitation, mild to moderate pulmonary hypertension. LHC indication, risk, adverse events, and benefits discussed. He agrees to proceed. Noted patient is allergic to asa- causes anaphylaxis. May need asa desensitization. Possible LHC tomorrow. On plavix, statin, and bb. Continue heparin gtt. (2) Staphylococcus aureus bacteremia Current Visit: Yes Status: Acute Blood culture positive for e-coli, strep agalectie, and staph aureus x2. GAMALIEL is recommended to r/o endocarditis. No vegitation seen on surface echo. No peripheral stigmata of endocarditis seen. GAMALIEL ordered for today. Planning for bilateral toe I&D and possible amputation for necrotic wounds. On IV antibiotics. (3) Atrial fibrillation Current Visit: Yes Status: Acute H/[facility]. On eliquis. Currently on hold and patient on eliquis. Currently NSR. Continue atenolol. Qualifiers: Atrial fibrillation type: paroxysmal Qualified Code(s): I48.0 - Paroxysmal atrial fibrillation Discussion w patient/family: The assessment and plan as outlined above was discussed with the patient and/or family members who expressed understanding and agreement. All questions were answered. Thank you for involving us in the care of your patient. Please call with any questions. Subjective Principal diagnosis: foot infection Interval history: Mr. Magana denies chest pain or SOB. Denies othopnea, PND, or edema. Denies palpitations. Objective Vital Signs, Last 4 Hours Temp Pulse Resp BP Pulse Ox 09/16/17 10:18 98.4 F 64 18 155/82 90 09/16/17 08:00 90 General: Conversant, No Apparent Distress HEENT: Atraumatic, Normocephaly, Mucus Membranes Moist Neck: No JVD, Normal carotid pulses Cardiac: Reg Rate and Rhythm, Normal S1 and S2, No Murmur Lungs: Normal Breath Sounds, No Wheeze, Rales, Rhonchi Neuro: Alert and responsive, No focal deficits noted Abdomen: Soft, Non-Tender Skin: No rashes noted on visualized skin Musculoskeletal: No Chest Wall Tenderness Extremities: No Edema, Normal Pulses, Other (Bilateral great toe necrotic.) Results 09/16/17 05:20 09/16/17 05:20 Lab Results 09/15/17 09/15/17 09/15/17 15:40 15:40 22:18 WBC Hgb Hct Plt Count APTT 39.8 H 49.9 H Sodium Potassium Chloride Carbon Dioxide BUN Creatinine Glucose Calcium Troponin I 0.53 H* TSH 09/16/17 09/16/17 09/16/17 05:20 05:20 05:20 WBC 11.9 H Hgb 10.0 L Hct 29.5 L Plt Count 182 APTT 46.8 H Sodium 139 Potassium 3.2 L Chloride 112 H Carbon Dioxide 22 L BUN 15 Creatinine 0.84 Glucose 207 H Calcium 8.6 Troponin I TSH 1.071 - Imaging and Cardiology Echo: report reviewed - EKG Interpretation EKG results cardiology: personally reviewed (SR with no acute ST changes.) Consult Discharge Plan - Plan Referrals: [facility] [Other] [facility] [Primary Care Provider] -
[2017-09-16] MEDS: 0.9 % Sodium Chloride w KCl 20 MEQ/1,000 ML MLS IVC SCH ×2 (12:49→19:06)
[2017-09-16] MEDS ORDERED: Lidocaine Viscous Oral Soln 15 ML SOLUTION MM PRN (13:06)
[2017-09-16] MEDS ORDERED: 0.9 % Sodium Chloride 500 ML IVC ONE ×2 (13:07→18:23)
[2017-09-16] MEDS ORDERED: Tetracaine/Benzocaine/Butamben 200MG/SPRAY (100SPY/BOT) MM ONE (13:07)
[2017-09-16] MEDS: *HR* FentaNYL (PF) 100 MCG/2 ML VIAL IVP PRN ×5 (13:55→14:15)
[2017-09-16] MEDS: *HR* Midazolam HCl 5 MG/5 ML VIAL IVP PRN ×5 (13:55→14:15)
[2017-09-16] MEDS ORDERED: *HR* HYDROcodone/Acet 5/325 mg TABLET PO PRN (15:19)
--- NOTE | 2017-09-16 15:29 | Allergy Consult Note ---
Date of Encounter: 09/17/17 Time of Encounter: 13:30 Assessment and Plan (1) Aspirin allergy Current Visit: Yes Status: Acute 09/16/17 at 1400: Patient has history of Aspirin and penicllin allergy. He is requiring heart catherization and cardiology is requesting desensitization. 1. I am unable to see patient at the time as he is in a procedure however we will plan to do aspirin desensitization when an ICU bed is available. 2. Please hold Beta aguila 3. NPO after midnight prior to procedure 4. He should have singulair and claritin the morning of procedure. 5. I also recommend penicillin testing at some point. If we are unable to do the desensitization tomorrow then I would consider doing a penicillin test which we could do on 3A. I would hold his beta aguila for this as well. 6. I spoke to ICU, Jimenez Oshea and podiatry for coordination of care. Updated: 09/17/17 at 1450 Patient is now intubated due to sepsis and I am unable to do aspirin desensitization or penicillin testing at this time. When patient is awake and oriented then please notify me if aspirin desensitization or penicillin testing is still needed. History of Present Illness Reason for consult: Drug allergy History of present illness: Patient is a 67 year old male who has a history of penicillin allergy and aspirin allergy. HPI is per chart review as patient is intubated at this time. Patient at first claimed that he had an upset stomach with aspirin but later on said that he collapsed and started shaking. Past Med Surg Social Fam HX - Past Medical History Medical history: COPD, diabetes, peripheral artery disease Psychiatric history: depression - Past Surgical History Surgical History: cholecystectomy, orthopedic, other - Social History Smoking Status: Former smoker Packs per day: To 2 packs per day for the last 60 years, states he quit 1 month ago Smokeless Tobacco Status: No Alcohol use: occasionally Drug use: none - Family History Father Living Status: Age at : 78 Cause of : Cancer Hx Family Respiratory Disorders: Yes (mesothelioma) Mother Living Status: Age at : 60 Cause of : during heart cath Hx Family Cardiac Disorders: Yes Medications and Allergies Apixaban [Eliquis] 5 mg PO BID 09/14/17 [History] Atenolol [Tenormin] 12.5 mg PO DAILY 09/14/17 [History] Atorvastatin [Lipitor] 10 mg PO HS 09/14/17 [History] Buspirone HCl [Buspar] 10 mg PO TID 09/14/17 [History] Chlorhexidine Rinse 15 ml MM BID 09/14/17 [History] Cholecalciferol (Vitamin D3) [Vitamin D3] 1,000 unit PO DAILY 09/14/17 [History] Clopidogrel [Plavix] 75 mg PO DAILY 09/14/17 [History] Cyclobenzaprine [Flexeril] 10 mg PO TID 09/14/17 [History] Insulin LISPRO [HumaLOG] 3 - 8 units SQ TIDWM PRN 09/14/17 [History] Ipratropium/Albuterol Neb [Duoneb] 3 ml IH Q6HR PRN 09/14/17 [History] Metformin HCl [Glucophage Xr] 750 mg PO BID 09/14/17 [History] Naproxen [Naprosyn] 500 mg PO BID 09/14/17 [History] OxyCODONE Immed Rel [Roxicodone 30 MG] 30 mg PO TID 09/14/17 [History] Pantoprazole Sodium [Protonix] 40 mg PO BID 09/14/17 [History] Potassium Chloride [K-Tab ER] 20 meq PO DAILY 09/14/17 [History] Pregabalin [Lyrica] 100 mg PO QID 09/14/17 [History] Tamsulosin HCl [Flomax] 0.4 mg PO DAILY 09/14/17 [History] Vancomycin/0.9 % Sod Chloride [Vancomycin 1 G/100Ml-0.9% NaCl] 1 gm IV Q12H [History] 3 Allergy/AdvReac Type Severity Reaction Status Date / Time aspirin Allergy Anaphylaxis Verified 09/14/17 16:21 bee venom protein (honey bee) Allergy Anaphylaxis Verified 09/14/17 16:21 Penicillins Allergy Anaphylaxis Verified 09/14/17 16:21 sucralfate Allergy Anaphylaxis Verified 09/14/17 16:21 ROS Allergy ROS unobtainable: due to endotracheal tube Allergy Exam Initial Vital Signs Temp Pulse Resp BP Pulse Ox 99.9 F H 127 18 137/77 95 09/14/17 14:22 09/14/17 14:22 09/14/17 14:22 09/14/17 14:22 09/14/17 14:22 - General physical appearance other (sedated) - Respiratory clear to auscultation - Integumentary other (swelling and breakdown of skin on toes) Results - Labs 09/17/17 05:30 09/17/17 05:30 Abnormal lab results WBC 11.9 K/mcL (4.3-11.1) H 09/16/17 05:20 RBC 3.45 M/mcL (4.19-5.50) L 09/16/17 05:20 Hgb 10.0 g/dL (12.9-16.9) L 09/16/17 05:20 Hct 29.5 % (37.5-50.1) L 09/16/17 05:20 Neutrophils # 9.6 K/mcL (1.6-8.9) H 09/16/17 05:20 Nucleated RBCs/100 WBC 0.2 /100 WBC (0) H 09/16/17 05:20 ESR 116 mm/hr (0-10) H 09/15/17 22:18 PT 15.8 Seconds (9.4-12.1) H 09/15/17 09:19 APTT 46.8 Seconds (26.0-36.0) H 09/16/17 05:20 Potassium 3.2 mEq/L (3.5-5.1) L 09/16/17 05:20 Chloride 112 mEq/L (98-107) H 09/16/17 05:20 Carbon Dioxide 22 mEq/L (23-29) L 09/16/17 05:20 Glucose 207 mg/dL (70-105) H 09/16/17 05:20 POC Glucose 192 (58-89) H 09/16/17 10:58 Hemoglobin A1c 7.2 % (-5.6) H 09/14/17 22:25 Lactic Acid 2.4 mmol/L (0.5-2.2) H 09/14/17 22:25 Magnesium 1.5 mg/dL (1.6-2.6) L 09/15/17 02:58 AST 84 Units/L (13-39) H 09/15/17 02:58 ALT 61 Units/L (7-52) H 09/15/17 02:58 Alkaline Phosphatase 168 Units/L (34-104) H 09/15/17 02:58 Troponin I 0.53 ng/mL (< 0.04) H* 09/15/17 15:40 C-Reactive Protein 203 mg/L (Less than 10) H 09/15/17 22:18 Serum Total Protein 6.1 g/dL (6.4-8.9) L 09/15/17 02:58 Albumin 2.8 g/dL (3.5-5.7) L 09/15/17 02:58 Albumin/Globulin Ratio 0.8 (1.1-2.2) L 09/15/17 02:58 Triglycerides 226 mg/dL (< 150) H 09/16/17 05:20 VLDL Cholesterol, Calc 45 mg/dL (< 31) H 09/16/17 05:20 HDL Cholesterol 7 mg/dL (40-59) L 09/16/17 05:20 Cholesterol/HDL Ratio 13.3 (0-4.9) H 09/16/17 05:20 Ur Specific [place] > 1.030 (1.010-1.025) H 09/14/17 14:36 Urine Protein 30 mg/dL (Neg-Trace) H 09/14/17 14:36 Urine Glucose (UA) 100 mg/dL (Normal) H 09/14/17 14:36 Urine Microscopic RBC 5-15 per hpf (0-3) H 09/14/17 14:36 Urine Microscopic WBC 5-15 per hpf (0-3) H 09/14/17 14:36 Ur Squamous Epith Cells Moderate per lpf (None-Few) H 09/14/17 14:36 Vancomycin Trough 13 mcg/mL (5-10) H 09/16/17 11:12 Enterobacteriac sp PCR DETECTED (Not Detect) A 09/14/17 14:50 E. coli (PCR) DETECTED (Not Detect) A 09/14/17 14:50 Diabetes panel 09/16/17 Range/Units 05:20 Sodium 139 (136-145) mEq/L Potassium 3.2 L (3.5-5.1) mEq/L Chloride 112 H (98-107) mEq/L Carbon Dioxide 22 L (23-29) mEq/L BUN 15 (8-23) mg/dL Creatinine 0.84 (0.70-1.30) mg/dL Glucose 207 H (70-105) mg/dL Calcium 8.6 (8.6-10.3) mg/dL Triglycerides 226 H (< 150) mg/dL HDL Cholesterol 7 L (40-59) mg/dL Thyroid panel 09/16/17 Range/Units 05:20 TSH 1.071 (0.340-5.600) mcIU/mL Calcium panel 09/16/17 Range/Units 05:20 Calcium 8.6 (8.6-10.3) mg/dL Pituitary panel 09/16/17 Range/Units 05:20 Sodium 139 (136-145) mEq/L Potassium 3.2 L (3.5-5.1) mEq/L Chloride 112 H (98-107) mEq/L Carbon Dioxide 22 L (23-29) mEq/L BUN 15 (8-23) mg/dL Creatinine 0.84 (0.70-1.30) mg/dL Glucose 207 H (70-105) mg/dL Calcium 8.6 (8.6-10.3) mg/dL TSH 1.071 (0.340-5.600) mcIU/mL Adrenal panel 09/16/17 Range/Units 05:20 Sodium 139 (136-145) mEq/L Potassium 3.2 L (3.5-5.1) mEq/L Chloride 112 H (98-107) mEq/L Carbon Dioxide 22 L (23-29) mEq/L BUN 15 (8-23) mg/dL Creatinine 0.84 (0.70-1.30) mg/dL Glucose 207 H (70-105) mg/dL Calcium 8.6 (8.6-10.3) mg/dL All other labs normal. Consult Discharge Plan - Plan Referrals: [facility] [Other] [facility] [Primary Care Provider[facility] -
[2017-09-16] MEDS ORDERED: Dextrose Gel 15 GM/37.5 ML TUBE PO PRN ×2 (15:58)
[2017-09-16] MEDS ORDERED: Naloxone 0.4 MG/ML INJ IVP PRN (15:58)
[2017-09-16] MEDS ORDERED: D5% in Water 1,000 ML IVC PRN (15:58)
[2017-09-16] MEDS ORDERED: 0.9 % Sodium Chloride w KCl 20 MEQ/1,000 ML MLS IVC SCH (15:58)
[2017-09-16] MEDS ORDERED: Acetaminophen 325 MG TABLET PO PRN (15:58)
[2017-09-16] MEDS ORDERED: Ondansetron 4 MG/2 ML VIAL IVP PRN (15:58)
[2017-09-16] MEDS ORDERED: *HR* Heparin 5,000 UNIT/ML VIAL IVP PRN (15:58)
[2017-09-16] MEDS ORDERED: Albuterol 2.5 MG/3 ML NEBULIZER IH PRN (15:58)
[2017-09-16] MEDS ORDERED: *HR* Dextrose 50 % in Water (Syg) 50 ML SYRINGE IVP PRN (15:58)
[2017-09-16] MEDS ORDERED: Nitroglycerin 0.4 MG TAB.SUBL SL PRN (15:58)
--- NOTE | 2017-09-16 17:27 | Podiatry Progress Note ---
Date of Encounter: 09/17/17 Time of Encounter: 12:30 - Assessment and Plan (1) Cellulitis Current Visit: Yes Status: Acute Cellulitis to the left great toe with eschar, scant amount of serous drainage observed to dressing. Dried eschar to the right great toe, no active drainage. WBC: 11.9, a febrile. Right HERMANN demonstrates moderate arterial insufficiency on the right at rest. Left HERMANN demonstrates mild arterial insufficiency on the left at rest. [facility] E. coli, GBS, and MSSA. Plan: Dr. Barbosa to plan on performing an I&D of the left great toe and possible amputation once Cardiology has cleared patient for surgery. Patient is scheduled to have a GAMALIEL today and a cardiac cath once an aspirin desensitization is completed. Currently receiving IV Cipro and Vancomycin. Spoke with Dr. Orellana in regards to completing a penicillin desensitization, consulted with Dr. Barbosa and agreeable to plan of care. Dr. Orellana will speak with the Hospitalist in the morning. Qualifiers: Site of cellulitis: extremity Site of cellulitis of extremity: toe Laterality: unspecified laterality Qualified Code(s): L03.039 - Cellulitis of unspecified toe (2) Diabetes Current Visit: Yes Status: Acute Glucose control and close monitoring to aid in wound healing. Qualifiers: Diabetes mellitus type: type 2 Diabetes mellitus complication status: with circulatory complication Diabetes mellitus complication detail: with peripheral angiopathy without gangrene Diabetes mellitus fci insulin use : without fci use Qualified Code(s): E11.51 - Type 2 diabetes mellitus with diabetic peripheral angiopathy without gangrene (3) Ischemia of foot Current Visit: Yes Status: Acute Arterial study completed on 09/15/17: Right HERMANN demonstrates moderate arterial insufficiency on the right at rest. Left HERMANN demonstrates mild arterial insufficiency on the left at rest. Vascular consulted. Subjective Principal diagnosis: foot infection Interval history: Patient is lying in bed with dressings intact to both feet. Patient was evaluated by Dr. Barbosa upon admission for cellulitis of the left great toe. Dr. Barbosa to plan on performing an I&D of the left great toe with possible amputation. Cardiology is at the bedside and are planning on performing a GAMALIEL today and a cardiac cath in the next few days once an aspirin desensitization is completed. No c/o pain, fever or chills. Objective - Vital Signs Vital Signs: Vital Signs Temp Pulse Resp BP Pulse Ox 09/16/17 15:50 98.1 F 84 14 149/85 93 09/16/17 13:08 97.8 F 84 18 158/88 94 09/16/17 11:20 18 90 09/16/17 10:18 98.4 F 64 18 155/82 90 09/16/17 08:00 90 09/16/17 06:59 98.6 F 84 16 147/80 94 09/16/17 04:16 98.3 F 90 16 121/65 97 09/15/17 23:23 16 98 09/15/17 20:05 16 98 09/15/17 19:29 97.8 F 85 16 119/72 97 Intake and Output 09/16/17 09/16/17 09/16/17 07:59 15:59 23:59 Intake Total 493 / 493 1286 / 1286 Output Total 850 / 850 225 / 225 Balance -357 / -357 1061 / 1061 Intake: IV Fluids 493 / 493 1286 / 1286 0.9 % Sodium Chloride 500 ML @ 286 / 286 150 mls/hr IVC .Q3H20M [facility] Rx#: [id number] KCl 20 mEq in 0.9% Sodium 1000 / 1000 Chloride 20 meq In 1,000 ml @ 75 mls/hr IVC .[id number] [facility] Rx#: [id number] Heparin 25,000 UNIT/500 ML D5W 243 / 243 25,000 unit In 500 ml @ 12 UNIT /KG/HR 19.599 mls/hr IVC .Q24H [facility] Rx#:[id number] Vancocin 1,250 MG In Dextrose 5 250 / 250 % 250 ML @ 166.667 mls/hr IVPB Q12H [facility] Rx#:[id number] Oral 0 / 0 Output: Urine 850 / 850 225 / 225 Other: Meal NPO Weight 81.565 kg 81.193 kg Blood Glucose* 198 192 133 Patient Weight 09/16/17 23:59 Weight 81.193 kg - Exam Exam: General appearance: alert awake oriented X 3. Calm and pleasant, no acute distress.. Vascular: Pedal pulses non palpable, Edema graded at 1+/4, Skin Temperature warm , No calf pain with manual compression. capillary refill time is immediate to digits. Neurologic: Sensation intact with light touch to foot. Integument: Eschar to the right great toe dorsal lateral aspect extending to the plantar aspect with light periwound erythema to dorsal aspect, no streaking , no pus, no odor, no active drainage. Eschar to the dorsal aspect of the left great toe, left great toe is erythematous and edematous, erythema is receding to dorsum of left foot, no pus, no odor, scant amount of serous drainage observed to dressing. - Lab Result Diagrams: 09/17/17 05:30 09/17/17 05:30 Labs: Abnormal lab results WBC 11.9 K/mcL (4.3-11.1) H 09/16/17 05:20 RBC 3.45 M/mcL (4.19-5.50) L 09/16/17 05:20 Hgb 10.0 g/dL (12.9-16.9) L 09/16/17 05:20 Hct 29.5 % (37.5-50.1) L 09/16/17 05:20 Neutrophils # 9.6 K/mcL (1.6-8.9) H 09/16/17 05:20 Nucleated RBCs/100 WBC 0.2 /100 WBC (0) H 09/16/17 05:20 ESR 116 mm/hr (0-10) H 09/15/17 22:18 PT 15.8 Seconds (9.4-12.1) H 09/15/17 09:19 APTT 56.6 Seconds (26.0-36.0) H 09/16/17 16:40 Potassium 3.2 mEq/L (3.5-5.1) L 09/16/17 05:20 Chloride 112 mEq/L (98-107) H 09/16/17 05:20 Carbon Dioxide 22 mEq/L (23-29) L 09/16/17 05:20 Glucose 207 mg/dL (70-105) H 09/16/17 05:20 POC Glucose 192 (58-89) H 09/16/17 10:58 Hemoglobin A1c 7.2 % (-5.6) H 09/14/17 22:25 Lactic Acid 2.4 mmol/L (0.5-2.2) H 09/14/17 22:25 Magnesium 1.5 mg/dL (1.6-2.6) L 09/15/17 02:58 AST 84 Units/L (13-39) H 09/15/17 02:58 ALT 61 Units/L (7-52) H 09/15/17 02:58 Alkaline Phosphatase 168 Units/L (34-104) H 09/15/17 02:58 Troponin I 0.53 ng/mL (< 0.04) H* 09/15/17 15:40 C-Reactive Protein 203 mg/L (Less than 10) H 09/15/17 22:18 Serum Total Protein 6.1 g/dL (6.4-8.9) L 09/15/17 02:58 Albumin 2.8 g/dL (3.5-5.7) L 09/15/17 02:58 Albumin/Globulin Ratio 0.8 (1.1-2.2) L 09/15/17 02:58 Triglycerides 226 mg/dL (< 150) H 09/16/17 05:20 VLDL Cholesterol, Calc 45 mg/dL (< 31) H 09/16/17 05:20 HDL Cholesterol 7 mg/dL (40-59) L 09/16/17 05:20 Cholesterol/HDL Ratio 13.3 (0-4.9) H 09/16/17 05:20 Ur Specific Mutual > 1.030 (1.010-1.025) H 09/14/17 14:36 Urine Protein 30 mg/dL (Neg-Trace) H 09/14/17 14:36 Urine Glucose (UA) 100 mg/dL (Normal) H 09/14/17 14:36 Urine Microscopic RBC 5-15 per hpf (0-3) H 09/14/17 14:36 Urine Microscopic WBC 5-15 per hpf (0-3) H 09/14/17 14:36 Ur Squamous Epith Cells Moderate per lpf (None-Few) H 09/14/17 14:36 Vancomycin Trough 13 mcg/mL (5-10) H 09/16/17 11:12 Enterobacteriac sp PCR DETECTED (Not Detect) A 09/14/17 14:50 E. coli (PCR) DETECTED (Not Detect) A 09/14/17 14:50 Consult Discharge Plan - Plan Referrals: [facility] [Other] [facility] Care Provider[facility] -
--- NOTE | 2017-09-16 17:55 | Internal Med Progress Note ---
Date of Encounter: 09/16/17 Time of Encounter: 17:46 - Assessment and plan (1) Severe sepsis Current Visit: Yes Status: Acute Assessment and plan: [facility] as G+ve cocci in blood however here now he is growing G-ve rods - mostly E. Coli Cont Vancomycin + Cipro He is allergic to PCN ID consulted will obtain updated [facility] Cont gentle IV hydration He did not have GAMALIEL today will talk to Card about this Pt still look very spetic and high risk for shock.. Need higher level of care and close monitoring will transfer him to ( step down unit ) (2) Ischemia of foot Current Visit: Yes Status: Acute Assessment and plan: Need amputation of Left great toe and I & D of rt foot Podiatry and Vascular surgery on board waiting on cardiac eval (3) E coli bacteremia Current Visit: Yes Status: Acute (4) NSTEMI (non-ST elevated myocardial infarction) Current Visit: Yes Status: Acute Assessment and plan: Currently on Heparin gtt cont Plavix Need C Card on board.. planning on GAMALIEL prior to that (5) PVD (peripheral vascular disease) Current Visit: Yes Status: Acute Assessment and plan: He does have significant PAD Right HERMANN demonstrates moderate arterial insufficiency on the right at rest. Left HERMANN demonstrates mild arterial insufficiency on the left at rest. Vascular surgery on board (6) CAD (coronary artery disease) Current Visit: Yes Status: Acute Qualifiers: Coronary Disease-Associated Artery/Lesion type: unspecified vessel or lesion type [place] vs. transplanted heart: [place] heart Associated angina: without angina Qualified Code(s): I25.10 - Atherosclerotic heart disease of [place] coronary artery without angina pectoris (7) Atrial fibrillation Current Visit: Yes Status: Acute Assessment and plan: Paroxysmal A fib rate controlled on Heparin gtt Qualifiers: Atrial fibrillation type: paroxysmal Qualified Code(s): I48.0 - Paroxysmal atrial fibrillation (8) Aspirin allergy Current Visit: Yes Status: Acute Assessment and plan: Consulted allergic specialist for desensitization (9) COPD (chronic obstructive pulmonary disease) Current Visit: Yes Status: Acute Assessment and plan: No evidence of acute exacerbation. With chronic hypoxemic respiratory failure(usually wears oxygen at home) Continue scheduled DuoNeb nebs, when necessary albuterol, incentive spirometry Qualifiers: COPD type: unspecified COPD Qualified Code(s): J44.9 - Chronic obstructive pulmonary disease, unspecified (10) Tobacco abuse Current Visit: Yes Status: Acute Assessment and plan: Patient has greater than 100 pack year history One month ago after being told he has a lung nodule. Ongoing cessation is encouraged - Subjective Interval history: Mr. Magana is a 66 year old male with known COPD, HTN, DM2 and severe PAD who was [place] [facility] [place] with [place], due to left foot cellulitis. He was recently admitted [place] the [place] with complaints of redness and swelling in his left foot after dropping a piece of metal on his toes, subsequently trimming his bruised toenails, which became infected. He was evalutated by a [facility] larriman helper, had I&D, blood cultures x 2. which are reported positive for staph aureus, and the patient transferred here for further care. Pt was admitted here and started him on on empirical abx Cipro and Vancomycin. He is allergic to PCN. Later he developed NSTEMI, his Trop peaked at 0.75. Pt was seen by Card and suggested for GAMALIEL first then LHC.. However he did not co operate this afternoon for GAMALIEL even under sedation. Pt is c/o of [place] now , looks little confused. Denied any CP / SOB. Talked to pt's at bed side and explained to her about current care - Constitutional Vitals: Temp Pulse Resp BP Pulse Ox 98.1 F 84 14 149/85 93 09/16/17 15:50 09/16/17 15:50 09/16/17 15:50 09/16/17 15:50 09/16/17 15:50 General appearance: Present: mild distress, A&O X 3, answers questions appropriately - Head Head exam: Present: atraumatic, normal inspection - Neck Neck exam general surgery: Present: supple - Respiratory Respiratory exam: Present: decreased breath sounds, wheezes. Absent: rales, respiratory distress, rhonchi - Cardiovascular Cardiovascular exam: Present: RRR, +S1, +S2, tachycardia - GI/Abdominal GI/Abdominal exam: Present: normal bowel sounds, soft. Absent: rebound, rigid, tenderness - Extremities Exam Extremities exam: Present: pedal edema, tenderness (b/l foot). Absent: calf tenderness Additional comments: Severely diminished peripheral pulses The great toe the left foot seems to be ischemic with black discoloration Small area of discoloration noticed over Rt great toe plantar lateral region Erythema noticed in both foot Internal Medicine: Result - Labs CBC & Chem 7: 09/16/17 05:20 09/16/17 05:20 Labs: Short CBC 09/16/17 Range/Units 05:20 WBC 11.9 H (4.3-11.1) K/mcL Hgb 10.0 L (12.9-16.9) g/dL Hct 29.5 L (37.5-50.1) % Plt Count 182 (140-400) K/mcL Neutrophils # 9.6 H (1.6-8.9) K/mcL BMP 09/16/17 05:20 Sodium 139 Potassium 3.2 L Chloride 112 H Carbon Dioxide 22 L BUN 15 Creatinine 0.84 Glucose 207 H Calcium 8.6 - ABG Interpretation ABG results: PT/INR, D-dimer PT 15.8 Seconds (9.4-12.1) H 09/15/17 09:19 - Impressions Impressions Echocardiogram 09/14/17 18:24 Impressions: LVEF 55%. Mild left ventricular diastolic dysfunction. Normal right ventricular structure and function. Mild mitral regurgitation. Mild-moderate tricuspid regurgitation. Mild-moderate pulmonary hypertension. Left Ventricular Wall Motion: Rest Echo Findings All wall segments showed normal motion. Findings: Study Quality * Technically adequate exam. ECG Findings * Normal sinus rhythm. Left Ventricle * LVEF 55%. * Normal LV chamber size, wall thickness and function. * Mild left ventricular diastolic dysfunction. Right Ventricle * Normal right ventricular structure and function. Left Atrium * Moderately dilated left atrium. Right Atrium * Normal right atrial size. Aortic Valve * No aortic regurgitation. * Trileaflet aortic valve. * No aortic stenosis. Mitral Valve * Normal mitral valve structure. * No mitral stenosis. * Mild mitral regurgitation. Tricuspid Valve * Normal tricuspid valve structure. * Mild-moderate tricuspid regurgitation. * Estimated RA pressure is 8 mmHg. * Estimated RVSP is 49 mmHg. * Mild-moderate pulmonary hypertension. Pulmonic Valve * Pulmonic valve is not well visualized. * No pulmonic stenosis. * No pulmonic regurgitation. Pulmonary Artery * Pulmonary artery not well visualized. Aorta * Normally sized aortic root. Interatrial Septum * No evidence of PFO by color Doppler. Pericardium * There is no pericardial effusion present. IVC * The IVC is not dilated. * < 50% respiratory change. Consult Discharge Plan - Plan Referrals: [facility] [Other] [facility] Provider[facility] -
[2017-09-16] MEDS ORDERED: *HR* OxyCODONE/APAP 5/325 TABLET PO PRN (18:20)
[2017-09-16] MEDS ORDERED: Haloperidol Lactate 5 MG/ML VIAL IVP PRN (19:01)
[2017-09-16 19:12] LABS: Basophils # 0.1 K/mcL (0.0-0.2); Basophils % 0.4 %; Eosinophils # 0.1 K/mcL (0.0-0.6); Eosinophils % 0.5 %; Hematocrit 33.5 % (37.5-50.1); Hemoglobin 10.8 g/dL (12.9-16.9); Immature Granulocytes % 3.9 % (0-4); Lymphocytes # 3.5 K/mcL (0.6-4.6); Lymphocytes % 23.5 %; Mean Corpuscular HGB Conc 32.2 g/dL (31.6-35.5); Mean Corpuscular Hemoglobin 28.7 pg (28.0-33.3); Mean Corpuscular Volume 89.1 fL (83.0-100.0); Mean Platelet Volume 11.1 fL (9.4-12.4); Monocytes % 6.5 %; Neutrophils # 9.8 K/mcL (1.6-8.9); Nucleated Red Blood Cells 0.3 /100 WBC (0); Platelet Count 274 K/mcL (140-400); Red Blood Count 3.76 M/mcL (4.19-5.50); Red Cell Distribution Width 14.3 % (11.5-14.5); Segmented Neutrophils % 65.2 %
[2017-09-16 19:30] LABS: BUN/Creatinine Ratio 13 (6-26); Blood Urea Nitrogen 14 mg/dL (8-23); Carbon Dioxide 17 mEq/L (23-29); Chloride 109 mEq/L (98-107); Glucose 266 mg/dL (70-105); Magnesium 1.6 mg/dL (1.6-2.6); Osmolality,Calculated 296 (280-300); Potassium 3.4 mEq/L (3.5-5.1); Sodium 138 mEq/L (136-145); eGFR For African Americans > 60 (> 60); eGFR For Non-African Americans > 60 (> 60)
[2017-09-16] MEDS ORDERED: *HR* LORazepam 2 MG/ML VIAL IVP ONE ×2 (19:44→21:04)
[2017-09-16] MEDS ORDERED: *HR* Metoprolol 5 MG/5 ML VIAL IVP PRN (19:45)
[2017-09-16] MEDS ORDERED: *HR* LORazepam 2 MG/ML VIAL ONE ×2 (20:18→20:59)
[2017-09-16] MEDS ORDERED: 0.9 % Sodium Chloride 1,000 ML ONE (20:18)
--- NOTE | 2017-09-16 20:29 | Event Note ---
Date of Encounter: 09/16/17 Time of Encounter: 20:00 Sign out by day shift pt has anxiety, tachycardia to 150s. Saw pt bedside, pt is anxious, c/o chest pain and SOB. Lungs are clear. HR 130-150, sinus rhythm. EKG shows new I, AVL T wave inversion. Lab shows WBC 15k, increased from 11k this morning. Lactate 7.0. Consider sepsis. - Give IVF 1000ml stat, cont 125ml/hr, repeat lactate in 6 hours. - Add meropenam 500mg iv q8hr - Pt is already on heparin drip, plavix, BB, and liptor, add metoprolol iv PRN, ativan for anxiety. - Cont closely monitor pt.
[2017-09-16] MEDS ORDERED: *HR* Metoprolol 5 MG/5 ML VIAL IVP ONE (20:30)
[2017-09-16 20:40] LABS: Platelet Estimate Normal (Normal); Reactive Lymphocytes Present (Not Present)
[2017-09-16] MEDS ORDERED: Insulin DETEMIR 100 UNIT/ML X5UNITS SQ SCH (21:00)
[2017-09-16] MEDS ORDERED: Chlorhexidine Rinse 15 ML MOUTHWASH MM SCH (21:00)
[2017-09-16 21:23] LABS: ABG Base Excess -11 mEq/L (-2 to 3); ABG HCO3 14 mEq/L (21-27); ABG Oxygen Saturation 82 % (95-98); ABG PCO2 28 mmHg (35-45); ABG PO2 50 mmHg (85-104); ABG TCO2 15 mEq/L (20-26)
[2017-09-16] MEDS ORDERED: *HR* FentaNYL (PF) 100 MCG/2 ML VIAL ONE (21:42)
[2017-09-16] MEDS ORDERED: Lacri-Lube 3.5 GM TUBE BOTH EYES PRN (21:57)
--- NOTE | 2017-09-16 22:17 | Event Note ---
<Cade Garcia - Last Filed: 09/16/17 22:25> Date of Encounter: 09/16/17 Time of Encounter: 21:30 Patient was transported to the ICU due to respiratory distress in the setting of severe sepsis. Patient was tachycardic with HR 133 bpm and O2 saturation was 89%. Patient was combative and was placed in restraints. Was given the following medications for sedation prior to intubation: 4 mg versed, 100 mcg fentayl, 40 mg etomidate, which was ineffective, and then 50 mg rocuronium. Patient was then intubated by RT. Lung sounds appreciated b/l on physical exam post intubation. CXR has been ordered to verify correct tube placement. He was placed on the following ventilator settings: RR 16, TV 550, FiO2 100%, and PEEP of 5. Patient was also started on fentanyl drip at 50 mcg/hr and propofol drip at 5mcg/kg/min. <Nereyda Dc - Last Filed: 09/17/17 00:03> Date of Encounter: 09/16/17 Time of Encounter: 21:30
[2017-09-16] MEDS: FentaNYL (PF) 1,000 MCG in 0.9 % Sodium Chloride 80 ML IVC SCH (23:05)
[2017-09-17 00:07] LABS: ABG Base Excess -9 mEq/L (-2 to 3); ABG HCO3 18 mEq/L (21-27); ABG Oxygen Saturation 98 % (95-98); ABG PCO2 37 mmHg (35-45); ABG PH 7.28 pH Units (7.32-7.45); ABG PO2 113 mmHg (85-104); ABG TCO2 19 mEq/L (20-26); Blood Gas Modality VC; Blood Gas PEEP 5 cm H2O; Blood Gas Respiration Rate 16; Blood Gas VT 550 cc
[2017-09-17] MEDS: Lacri-Lube 3.5 GM TUBE BOTH EYES SCH ×7 (00:11→23:33)
[2017-09-17] MEDS: Ipratropium/Albuterol Neb 3 ML IH SCH ×7 (00:16→23:04)
[2017-09-17] MEDS: Insulin LISPRO 300 UNITS/3 ML VIAL SQ SCH ×8 (00:21→23:33)
[2017-09-17 00:38] LABS: BUN/Creatinine Ratio 19 (6-26); Blood Urea Nitrogen 19 mg/dL (8-23); Calcium 7.8 mg/dL (8.6-10.3); Carbon Dioxide 16 mEq/L (23-29); Chloride 113 mEq/L (98-107); Glucose 291 mg/dL (70-105); Magnesium 1.6 mg/dL (1.6-2.6); Osmolality,Calculated 299 (280-300); Sodium 138 mEq/L (136-145); eGFR For African Americans > 60 (> 60); eGFR For Non-African Americans > 60 (> 60)
[2017-09-17] MEDS ORDERED: Magnesium Sulfate 2 GM in D5% in Water 100 ML IVPB ONE (00:49)
[2017-09-17] MEDS ORDERED: Meropenem 500 MG in Water for inj. (sterile) 20 ML 10 ML IVPB SCH (01:00)
[2017-09-17] MEDS: methylPREDNISolone 125 MG/2 ML VIAL IVP SCH ×2 (01:22→08:32)
[2017-09-17] MEDS ORDERED: Albumin 25% 25gram/100mL 25 GM/100 ML IV.SOLN IVPB ONE (01:50)
[2017-09-17] MEDS ORDERED: Furosemide 20 MG/2 ML VIAL IVP ONE (01:50)
[2017-09-17] MEDS: 0.9 % Sodium Chloride w KCl 20 MEQ/1,000 ML MLS IVC SCH ×3 (03:18→17:59)
[2017-09-17 05:41] LABS: Basophils % 0.2 %; Eosinophils % 0.1 %; Hematocrit 30.3 % (37.5-50.1); Immature Granulocytes % 2.1 % (0-4); Lymphocytes # 1.1 K/mcL (0.6-4.6); Lymphocytes % 12.2 %; Mean Corpuscular Hemoglobin 28.9 pg (28.0-33.3); Mean Corpuscular Volume 87.6 fL (83.0-100.0); Mean Platelet Volume 11.5 fL (9.4-12.4); Monocytes # 0.3 K/mcL (0.0-1.3); Monocytes % 3.8 %; Neutrophils # 7.1 K/mcL (1.6-8.9); Nucleated Red Blood Cells 0.3 /100 WBC (0); Platelet Count 190 K/mcL (140-400); Red Blood Count 3.46 M/mcL (4.19-5.50); Red Cell Distribution Width 14.6 % (11.5-14.5); Segmented Neutrophils % 81.6 %
[2017-09-17] MEDS: *HR* Heparin 5,000 UNIT/ML VIAL IVP PRN (06:00)
[2017-09-17 06:05] LABS: VBG PH 7.33 pH Units (7.32-7.42)
[2017-09-17] MEDS: Vancomycin 1,250 MG in D5% in Water 250 ML IVPB SCH (06:14)
[2017-09-17 06:22] LABS: BUN/Creatinine Ratio 19 (6-26); Blood Urea Nitrogen 21 mg/dL (8-23); Calcium 7.9 mg/dL (8.6-10.3); Carbon Dioxide 20 mEq/L (23-29); Chloride 109 mEq/L (98-107); Glucose 284 mg/dL (70-105); Osmolality,Calculated 299 (280-300); Phosphorous 3.7 mg/dL (2.7-4.5); Potassium 4.3 mEq/L (3.5-5.1); Sodium 138 mEq/L (136-145); eGFR For African Americans > 60 (> 60); eGFR For Non-African Americans > 60 (> 60)
[2017-09-17] MEDS: FentaNYL (PF) 1,000 MCG in 0.9 % Sodium Chloride 80 ML IVC SCH ×2 (07:40→17:54)
--- NOTE | 2017-09-17 08:05 | Pulmonology Consult Note ---
<Seth Mckenzie - Last Filed: 09/17/17 14:29> Date of Encounter: 09/17/17 Time of Encounter: 08:05 Assessment and Plan (1) Respiratory failure with hypoxia Current Visit: Yes Status: Acute Patient was found to be in respiratory distress up on the floor with tachycardia of 133 and O2 89% He was also found to be initially combative and required excessive sedation with 4 mg of Versed, 100 mcg of fentanyl and 40 mg of etomidate that was not effective. 50mg Rocuronium was added and provided adequate sedation for intubation by respiratory therapy. Chest x-ray demonstrates corrective placement and noted worsening pulmonary edema at that time Chest x-ray this morning shows significant improvement in vascular congestion Etiology for flash pulmonary edema vs severe sepsis Ventilator settings: 16, 550, 10, 5 Sedation: Versed, fentanyl, Precedex Most recent ABG demonstrates pH 7.28, PCO2 37, PO2 113, HCO3 18 Sputum cultures pending We will continue ventilator support with IV antibiotics and bronchodilators Patient remains high-risk and we will continue to monitor closely for today (2) NSTEMI (non-ST elevated myocardial infarction) Current Visit: Yes Status: Acute Patient is now on ACS protocol with heparin drip Cardiology was consulted to manage Plan for GAMALIEL today Patient documented anaphylactic reaction to aspirin that should be desensitized prior to [facility] Plavix, statin (3) Diabetic wet gangrene of the foot Current Visit: Yes Status: Acute Podiatry and vascular surgery on board History of diabetes and peripheral vascular disease Diminished peripheral pulses in the dorsalis pedis on the left ABIs in the left were 0.96 in the right 0.76 Examination demonstrates area of eschar about the left great toe that is erythematous We will defer to podiatry recommendations, but we will continue IV antibiotics and plan for I&D with possible amputation pending GAMALIEL results (4) Severe sepsis Current Visit: Yes Status: Acute Records from the [place] demonstrate gram-positive cocci in the blood, however he is now growing Escherichia coli and GBS Continue IV antibiotics with vancomycin, meropenem and ciprofloxacin Continue gentle IVF GAMALIEL scheduled for today Patient continues to be high risk for septic shock and will require close monitoring throughout the day (5) E coli bacteremia Current Visit: Yes Status: Acute First blood cultures positive for Escherichia coli Second culture positive for Escherichia coli and GBS We will continue IV antibiotics with Vanc, meropenem and Cipro (6) PVD (peripheral vascular disease) Current Visit: Yes Status: Acute No history of reversal peripheral vascular disease Right HERMANN 0.76 and left HERMANN 0.96 Vascular consulted (7) Diabetes Current Visit: Yes Status: Acute Every 6 Accu-Cheks Blood sugars have been up to 280s today Increasing to high-dose sliding scale (8) HTN (hypertension) Current Visit: Yes Status: Acute (9) CAD (coronary artery disease) Current Visit: Yes Status: Acute (10) Aspirin allergy Current Visit: Yes Status: Acute Dr. Orellana was consulted for possible desensitization prior to [facility] (11) COPD (chronic obstructive pulmonary disease) Current Visit: Yes Status: Acute No evidence of acute exacerbation Schedule duonebs As needed albuterol (12) Tobacco abuse Current Visit: Yes Status: Acute Patient has a greater than 100 pack years smoking (13) Lung nodule Current Visit: Yes Status: Acute Concerning for malignancy especially given his extensive tobacco abuse history, and the fact that it has increased size from a prior scan in November 2016 Will ultimately need a PET scan and oncology consultation. (14) DVT prophylaxis Current Visit: Yes Status: Acute Continue heparin drip History of Present Illness History of present illness: Mr. Magana is a very pleasant 67-year-old male with a significant past history of COPD, A. fib on Apixaban, peripheral vascular disease, there is history of alcohol abuse, 100 pack year smoking history, [id number] diabetes, DVT of iliofemoral vein, KEELY, coronary artery disease, depression, chronic back pain, peripheral neuropathy and was recently diagnosed left upper lobe lung nodule 1 cm that was concerning for malignancy and need of a future PET scan presents to the [facility] as a direct transfer [facility]. Patient was admitted on 09/12/17 for left foot cellulitis and was being treated with Levaquin and vancomycin. Patient was seen by general scrap worker that had an I&D done on his left toe. Patient was found to have positive blood cultures DA was subsequently trended to the [facility] emergency room for further management. On arrival, sepsis criteria was met with temperature 99.9, heart rate 127, respiratory rate 18 and BP 137/72. His left foot was somewhat dusky in appearance with a diminished dorsalis pedis pulse. Initial x- ray shows no evidence of osteomyelitis. Initial troponin was 0.75. Podiatry, cardiology and vascular were consulted. Mr. Magana was admitted and started on vancomycin, meropenem and ciprofloxacin. Podiatry was scheduling a I&D with possible amputation but was waiting for cardiology to evaluate. Most recent echocardiogram showed EF of 55% , mild LV diastolic dysfunction, mild MR, mild to moderate TR with no wall motion and modalities. Patient was otherwise asymptomatic and started and NSTEMI procotol with heparin. Cardiology recommended initial evaluation with GAMALIEL but had to terminate the study due to desaturation when obtaining adequate conscious sedation. Patient also has a documented allergy to penicillin with anaphylaxis. Dr. Ramirez to follow-up with possible desensitization. Last night , patient became tachycardic, hypoxic and combative. Significant sedation was required and ultimately patient was intubated and transferred to the intensive care unit for further monitoring. On my evaluation this morning, patient is resting comfortably on the ventilator with Versed, fentanyl and Precedex. Ventilator settings are at 16, 550, 100, 5. Most recent ABG shows pH 7.28, PCO2 37, PO2 113, HCO3 18. Chest x-ray demonstrates what appears to be flash pulmonary edema last night resulting in his tachycardia and hypoxia. Repeat chest x-ray this morning shows significant improvement. Examination of his left foot this morning demonstrates findings consistent with wet gangrene versus ischemic colitis. ABIs were done and showed 0.76 on the right and 0.96 on the left. Blood cultures came back positive for Escherichia coli 2 with second set showing Escherichia coli and group B strep. Discussed the case with cardiology this morning and determined that the GAMALIEL would be very feasible today and they agreed. Pending results of the GAMALIEL, we will proceed with podiatry's plan for I&D and possible amputation as well as desensitization of aspirin for possible left heart cath from cardiology. We will continue to follow patient and offer further recommendations. Past Med Surg Social Fam HX - Past Medical History Medical history: COPD, diabetes, peripheral artery disease Psychiatric history: depression - Past Surgical History Surgical History: cholecystectomy, orthopedic, other - Social History Smoking Status: Former smoker Packs per day: To 2 packs per day for the last 60 years, states he quit 1 month ago Smokeless Tobacco Status: No Alcohol use: occasionally Drug use: none - Family History Father Living Status: Age at : 78 Cause of : Cancer Hx Family Respiratory Disorders: Yes (mesothelioma) Mother Living Status: Age at : 60 Cause of : during heart cath Hx Family Cardiac Disorders: Yes Medications and Allergies Apixaban [Eliquis] 5 mg PO BID 09/14/17 [History] Atenolol [Tenormin] 12.5 mg PO DAILY 09/14/17 [History] Atorvastatin [Lipitor] 10 mg PO HS 09/14/17 [History] Buspirone HCl [Buspar] 10 mg PO TID 09/14/17 [History] Chlorhexidine Rinse 15 ml MM BID 09/14/17 [History] Cholecalciferol (Vitamin D3) [Vitamin D3] 1,000 unit PO DAILY 09/14/17 [History] Clopidogrel [Plavix] 75 mg PO DAILY 09/14/17 [History] Cyclobenzaprine [Flexeril] 10 mg PO TID 09/14/17 [History] Insulin LISPRO [HumaLOG] 3 - 8 units SQ TIDWM PRN 09/14/17 [History] Ipratropium/Albuterol Neb [Duoneb] 3 ml IH Q6HR PRN 09/14/17 [History] Metformin HCl [Glucophage Xr] 750 mg PO BID 09/14/17 [History] Naproxen [Naprosyn] 500 mg PO BID 09/14/17 [History] OxyCODONE Immed Rel [Roxicodone 30 MG] 30 mg PO TID 09/14/17 [History] Pantoprazole Sodium [Protonix] 40 mg PO BID 09/14/17 [History] Potassium Chloride [K-Tab ER] 20 meq PO DAILY 09/14/17 [History] Pregabalin [Lyrica] 100 mg PO QID 09/14/17 [History] Tamsulosin HCl [Flomax] 0.4 mg PO DAILY 09/14/17 [History] Vancomycin/0.9 % Sod Chloride [Vancomycin 1 G/100Ml-0.9% NaCl] 1 gm IV Q12H [History] 3 Allergy/AdvReac Type Severity Reaction Status Date / Time aspirin Allergy Anaphylaxis Verified 09/14/17 16:21 bee venom protein (honey bee) Allergy Anaphylaxis Verified 09/14/17 16:21 Penicillins Allergy Anaphylaxis Verified 09/14/17 16:21 sucralfate Allergy Anaphylaxis Verified 09/14/17 16:21 ROS unobtainable: due to endotracheal tube All Systems: A 10-system review of systems was performed and is negative for pertinent findings except as documented above in the HPI. Physical Examination Vital Signs: Vital Signs, Last 4 Hours Temp Pulse Resp BP Pulse Ox 09/17/17 07:34 19 102/72 100 09/17/17 07:28 97.7 F 09/17/17 07:00 69 20 98/77 100 09/17/17 06:30 20 107/77 100 09/17/17 06:00 70 21 107/77 100 09/17/17 05:00 73 25 102/71 100 09/17/17 04:59 73 25 102/71 100 General appearance: no acute distress Eyes: nonicteric ENT: oropharynx moist Neck: supple Effort: normal Inspection: normal Auscultation: bilateral: diminished breath sounds (with crackles) Cardiovascular: regular rate and rhythm Gastrointestinal: normoactive bowel sounds, non-distended Integumentary: normal Extremities: no cyanosis, no edema, no clubbing Musculoskeletal: no deformities, ROM normal unable to assess due to mental status Ventilator Settings Ventilator Settings: Ventilator Settings, Last 8 Hours Ventilator Mode VC+ Ventilator Mode VC+ Ventilator Mode A/C Ventilator Mode A/C Ventilator Mode A/C Ventilator Mode A/C Ventilator Mode A/C Ventilator Mode A/C Ventilator Mode A/C Ventilator Mode A/C Ventilator Mode A/C Ventilator Mode A/C Ventilator Tidal Volume 550 Setting Ventilator Tidal Volume 550 Setting Ventilator Tidal Volume 550 Setting Ventilator Tidal Volume 550 Setting Ventilator Tidal Volume 550 Setting Ventilator Tidal Volume 550 Setting Ventilator Tidal Volume 550 Setting Ventilator Tidal Volume 550 Setting Ventilator Tidal Volume 550 Setting Ventilator Tidal Volume 550 Setting Ventilator Tidal Volume 550 Setting Ventilator Tidal Volume 550 Setting Ventilator Respiratory Rate 16 Setting Ventilator Respiratory Rate 16 Setting Ventilator Respiratory Rate 16 Setting Ventilator Respiratory Rate 16 Setting Ventilator Respiratory Rate 16 Setting Ventilator Respiratory Rate 16 Setting Ventilator Respiratory Rate 16 Setting Ventilator Respiratory Rate 16 Setting Ventilator Respiratory Rate 16 Setting Ventilator Respiratory Rate 16 Setting Ventilator Respiratory Rate 16 Setting Ventilator Respiratory Rate 16 Setting Actual Respiratory Rate 21 Actual Respiratory Rate 20 Actual Respiratory Rate 20 Actual Respiratory Rate 21 Actual Respiratory Rate 20 Actual Respiratory Rate 20 Actual Respiratory Rate 24 Actual Respiratory Rate 24 Actual Respiratory Rate 22 Actual Respiratory Rate 25 Actual Respiratory Rate 22 Actual Respiratory Rate 28 Positive End Expiratory 5 Pressure Positive End Expiratory 5 Pressure Positive End Expiratory 5 Pressure Positive End Expiratory 5 Pressure Positive End Expiratory 5 Pressure Positive End Expiratory 5 Pressure Positive End Expiratory 5 Pressure Positive End Expiratory 5 Pressure Positive End Expiratory 5 Pressure Positive End Expiratory 5 Pressure Positive End Expiratory 5 Pressure Positive End Expiratory 5 Pressure Peak Inspiratory Airway 25 Pressure Peak Inspiratory Airway 29 Pressure Peak Inspiratory Airway 26 Pressure Peak Inspiratory Airway 26 Pressure Peak Inspiratory Airway 27 Pressure Peak Inspiratory Airway 23 Pressure Peak Inspiratory Airway 25 Pressure Peak Inspiratory Airway 24 Pressure Peak Inspiratory Airway 26 Pressure Peak Inspiratory Airway 27 Pressure Peak Inspiratory Airway 29 Pressure Peak Inspiratory Airway 29 Pressure Results - Laboratory Findings CBC and BMP: 09/17/17 05:30 09/17/17 05:30 ABG ABG pH 7.28 pH Units (7.32-7.45) L 09/17/17 00:04 ABG pCO2 37 mmHg (35-45) 09/17/17 00:04 ABG pO2 113 mmHg (85-104) H D 09/17/17 00:04 ABG O2 Saturation 98 % (95-98) 09/17/17 00:04 PT/INR, D-dimer PT 15.8 Seconds (9.4-12.1) H 09/15/17 09:19 Abnormal lab findings: Abnormal lab results RBC 3.46 M/mcL (4.19-5.50) L 09/17/17 05:30 Hgb 10.0 g/dL (12.9-16.9) L 09/17/17 05:30 Hct 30.3 % (37.5-50.1) L 09/17/17 05:30 RDW 14.6 % (11.5-14.5) H 09/17/17 05:30 Nucleated RBCs/100 WBC 0.3 /100 WBC (0) H 09/17/17 05:30 Reactive Lymphocytes Present (Not Present) A 09/16/17 19:01 ESR 116 mm/hr (0-10) H 09/15/17 22:18 PT 15.8 Seconds (9.4-12.1) H 09/15/17 09:19 APTT 43.7 Seconds (26.0-36.0) H 09/17/17 05:30 ABG pH 7.28 pH Units (7.32-7.45) L 09/17/17 00:04 ABG pO2 113 mmHg (85-104) H D 09/17/17 00:04 ABG HCO3 18 mEq/L (21-27) L 09/17/17 00:04 ABG Total CO2 19 mEq/L (20-26) L 09/17/17 00:04 ABG Base Excess -9 mEq/L (-2 to 3) L 09/17/17 00:04 Chloride 109 mEq/L (98-107) H 09/17/17 05:30 Carbon Dioxide 20 mEq/L (23-29) L 09/17/17 05:30 Glucose 284 mg/dL (70-105) H 09/17/17 05:30 POC Glucose 295 (58-89) H 09/17/17 05:40 Hemoglobin A1c 7.2 % (-5.6) H 09/14/17 22:25 Calcium 7.9 mg/dL (8.6-10.3) L 09/17/17 05:30 Venous Ioniz Calcium 1.10 mmol/L (1.15-1.35) L 09/17/17 06:03 AST 84 Units/L (13-39) H 09/15/17 02:58 ALT 61 Units/L (7-52) H 09/15/17 02:58 Alkaline Phosphatase 168 Units/L (34-104) H 09/15/17 02:58 Troponin I 0.49 ng/mL (< 0.04) H* 09/16/17 23:54 C-Reactive Protein 203 mg/L (Less than 10) H 09/15/17 22:18 B-Natriuretic Peptide 787 pg/mL (Less than 100) H 09/16/17 23:21 Serum Total Protein 6.1 g/dL (6.4-8.9) L 09/15/17 02:58 Albumin 2.8 g/dL (3.5-5.7) L 09/15/17 02:58 Albumin/Globulin Ratio 0.8 (1.1-2.2) L 09/15/17 02:58 Triglycerides 226 mg/dL (< 150) H 09/16/17 05:20 VLDL Cholesterol, Calc 45 mg/dL (< 31) H 09/16/17 05:20 HDL Cholesterol 7 mg/dL (40-59) L 09/16/17 05:20 Cholesterol/HDL Ratio 13.3 (0-4.9) H 09/16/17 05:20 Ur Specific Mentor > 1.030 (1.010-1.025) H 09/14/17 14:36 Urine Protein 30 mg/dL (Neg-Trace) H 09/14/17 14:36 Urine Glucose (UA) 100 mg/dL (Normal) H 09/14/17 14:36 Urine Microscopic RBC 5-15 per hpf (0-3) H 09/14/17 14:36 Urine Microscopic WBC 5-15 per hpf (0-3) H 09/14/17 14:36 Ur Squamous Epith Cells Moderate per lpf (None-Few) H 09/14/17 14:36 Vancomycin Trough 13 mcg/mL (5-10) H 09/16/17 11:12 Enterobacteriac sp PCR DETECTED (Not Detect) A 09/14/17 14:50 E. coli (PCR) DETECTED (Not Detect) A 09/14/17 14:50 - Clinical Findings Intake & Output: Intake & Output 09/16/17 09/17/17 09/17/17 23:59 07:59 15:59 Intake Total 1236.5 / 1236.5 793.5 / 793.5 Output Total 125 / 125 1175 / 1175 Balance 1111.5 / 1111.5 -381.5 / -381.5 Weight 85.7 kg Consult Discharge Plan - Plan Referrals: [facility] [Other] [facility]Primary Care Provider[facility] - <Eusebia Rosales S - Last Filed: 09/17/17 22:28> Date of Encounter: 09/17/17 All Systems: A 10-system review of systems was performed and is negative for pertinent findings except as documented above in the HPI. Physical Examination Vital Signs: Vital Signs, Last 4 Hours Temp Pulse Resp BP Pulse Ox 09/17/17 21:04 18 114/71 100 09/17/17 21:00 63 18 114/71 100 09/17/17 20:00 65 16 119/71 99 09/17/17 19:20 21 121/79 100 09/17/17 19:00 70 21 121/79 100 09/17/17 18:45 98.3 F 09/17/17 18:00 66 17 124/76 100 Ventilator Settings Ventilator Settings: Ventilator Settings, Last 8 Hours Ventilator Mode VC+ Ventilator Mode VC+ Ventilator Mode VC+ Ventilator Mode VC+ Ventilator Mode VC+ Ventilator Mode VC+ Ventilator Mode VC+ Ventilator Mode VC+ Ventilator Mode VC+ Ventilator Mode VC+ Ventilator Mode VC+ Ventilator Mode VC+ Ventilator Tidal Volume 550 Setting Ventilator Tidal Volume 550 Setting Ventilator Tidal Volume 550 Setting Ventilator Tidal Volume 550 Setting Ventilator Tidal Volume 550 Setting Ventilator Tidal Volume 550 Setting Ventilator Tidal Volume 550 Setting Ventilator Tidal Volume 550 Setting Ventilator Tidal Volume 550 Setting Ventilator Tidal Volume 550 Setting Ventilator Tidal Volume 550 Setting Ventilator Tidal Volume 550 Setting Ventilator Respiratory Rate 16 Setting Ventilator Respiratory Rate 16 Setting Ventilator Respiratory Rate 16 Setting Ventilator Respiratory Rate 16 Setting Ventilator Respiratory Rate 16 Setting Ventilator Respiratory Rate 16 Setting Ventilator Respiratory Rate 16 Setting Ventilator Respiratory Rate 16 Setting Ventilator Respiratory Rate 16 Setting Ventilator Respiratory Rate 16 Setting Ventilator Respiratory Rate 16 Setting Ventilator Respiratory Rate 16 Setting Actual Respiratory Rate 18 Actual Respiratory Rate 18 Actual Respiratory Rate 16 Actual Respiratory Rate 21 Actual Respiratory Rate 20 Actual Respiratory Rate 19 Actual Respiratory Rate 18 Actual Respiratory Rate 21 Positive End Expiratory 5 Pressure Positive End Expiratory 5 Pressure Positive End Expiratory 5 Pressure Positive End Expiratory 5 Pressure Positive End Expiratory 5 Pressure Positive End Expiratory 5 Pressure Positive End Expiratory 5 Pressure Positive End Expiratory 5 Pressure Positive End Expiratory 5 Pressure Positive End Expiratory 5 Pressure Positive End Expiratory 5 Pressure Positive End Expiratory 5 Pressure Peak Inspiratory Airway 12 Pressure Peak Inspiratory Airway 24 Pressure Peak Inspiratory Airway 22 Pressure Peak Inspiratory Airway 14 Pressure Peak Inspiratory Airway 16 Pressure Peak Inspiratory Airway 16 Pressure Peak Inspiratory Airway 11 Pressure Peak Inspiratory Airway 18 Pressure Results - Laboratory Findings CBC and BMP: 09/17/17 05:30 09/17/17 05:30 ABG ABG pH 7.28 pH Units (7.32-7.45) L 09/17/17 00:04 ABG pCO2 37 mmHg (35-45) 09/17/17 00:04 ABG pO2 113 mmHg (85-104) H D 09/17/17 00:04 ABG O2 Saturation 98 % (95-98) 09/17/17 00:04 PT/INR, D-dimer PT 15.8 Seconds (9.4-12.1) H 09/15/17 09:19 Abnormal lab findings: Abnormal lab results RBC 3.46 M/mcL (4.19-5.50) L 09/17/17 05:30 Hgb 10.0 g/dL (12.9-16.9) L 09/17/17 05:30 Hct 30.3 % (37.5-50.1) L 09/17/17 05:30 RDW 14.6 % (11.5-14.5) H 09/17/17 05:30 Nucleated RBCs/100 WBC 0.3 /100 WBC (0) H 09/17/17 05:30 Reactive Lymphocytes Present (Not Present) A 09/16/17 19:01 ESR 116 mm/hr (0-10) H 09/15/17 22:18 PT 15.8 Seconds (9.4-12.1) H 09/15/17 09:19 APTT 129.0 Seconds (26.0-36.0) H* 09/17/17 18:50 Heparin Anti-Xa, Unfract 0.82 IU/mL (0.30-0.70) H 09/17/17 18:50 ABG pH 7.28 pH Units (7.32-7.45) L 09/17/17 00:04 ABG pO2 113 mmHg (85-104) H D 09/17/17 00:04 ABG HCO3 18 mEq/L (21-27) L 09/17/17 00:04 ABG Total CO2 19 mEq/L (20-26) L 09/17/17 00:04 ABG Base Excess -9 mEq/L (-2 to 3) L 09/17/17 00:04 Chloride 109 mEq/L (98-107) H 09/17/17 05:30 Carbon Dioxide 20 mEq/L (23-29) L 09/17/17 05:30 Glucose 284 mg/dL (70-105) H 09/17/17 05:30 POC Glucose 295 (58-89) H 09/17/17 05:40 Hemoglobin A1c 7.2 % (-5.6) H 09/14/17 22:25 Calcium 7.9 mg/dL (8.6-10.3) L 09/17/17 05:30 Venous Ioniz Calcium 1.10 mmol/L (1.15-1.35) L 09/17/17 06:03 AST 84 Units/L (13-39) H 09/15/17 02:58 ALT 61 Units/L (7-52) H 09/15/17 02:58 Alkaline Phosphatase 168 Units/L (34-104) H 09/15/17 02:58 Troponin I 0.49 ng/mL (< 0.04) H* 09/16/17 23:54 C-Reactive Protein 203 mg/L (Less than 10) H 09/15/17 22:18 B-Natriuretic Peptide 787 pg/mL (Less than 100) H 09/16/17 23:21 Serum Total Protein 6.1 g/dL (6.4-8.9) L 09/15/17 02:58 Albumin 2.8 g/dL (3.5-5.7) L 09/15/17 02:58 Albumin/Globulin Ratio 0.8 (1.1-2.2) L 09/15/17 02:58 Triglycerides 226 mg/dL (< 150) H 09/16/17 05:20 VLDL Cholesterol, Calc 45 mg/dL (< 31) H 09/16/17 05:20 HDL Cholesterol 7 mg/dL (40-59) L 09/16/17 05:20 Cholesterol/HDL Ratio 13.3 (0-4.9) H 09/16/17 05:20 Ur Specific Mentor > 1.030 (1.010-1.025) H 09/14/17 14:36 Urine Protein 30 mg/dL (Neg-Trace) H 09/14/17 14:36 Urine Glucose (UA) 100 mg/dL (Normal) H 09/14/17 14:36 Urine Microscopic RBC 5-15 per hpf (0-3) H 09/14/17 14:36 Urine Microscopic WBC 5-15 per hpf (0-3) H 09/14/17 14:36 Ur Squamous Epith Cells Moderate per lpf (None-Few) H 09/14/17 14:36 Vancomycin Trough 13 mcg/mL (5-10) H 09/16/17 11:12 Enterobacteriac sp PCR DETECTED (Not Detect) A 09/14/17 14:50 E. coli (PCR) DETECTED (Not Detect) A 09/14/17 14:50 - Clinical Findings Intake & Output: Intake & Output 09/17/17 09/17/17 09/17/17 07:59 15:59 23:59 Intake Total 793.5 / 793.5 824 / 824 405 / 405 Output Total 1175 / 1175 575 / 575 510 / 510 Balance -381.5 / -381.5 249 / 249 -105 / -105 - Attending Attestation I saw and evaluated this patient and my medical decision-making was reviewed with the Resident Physician. I agree with the documented findings, disposition and treatment plan as described except to the extent set forth below. We independently had [id number] contact with the patient I spent of 40 minutes Critical Care time with this patient. It involved decision making of high complexity to assess, manipulate, and support vital organ system failure and/or to prevent further life threatening deterioration of the patient's condition. The time involved in the performance of separately reportable procedures was not counted toward critical care time. Patient seen and examined at bedside Labs, radiology, chart personally reviewed. [employer]AK[employer] WORKER:Patient is not following commands is intubated and sedated Toxic /metabolic encephalopathy due to underlying severe sepsis Pulm:Patient developed acute respiratory failure secondary to pulmonary edema secondary to worsening diastolic dysfunction vs pneumonia to continue low tidal volume ventilation Cards:Patient has an NSTEMI needs cardiac cath troponin are trending down needs aspirin desensitization GAMALIEL today as he is intubated and sedated FEN-GI:NPO Renal: Labs reviewed ID:MSSA and E coli bactremia will need foot amputation as foot is most likely source appreciate ID consult Antibiotics to be changed to Cefazolin Heme/Onc: Labs reviewed Endo: Glucose Monitored Integ/MSK: Skin Care per routine ICU Nursing Protocol to prevent ulcers. Patient has left foot most likely wet gangrene Lines: Has peripheral lines Dispo: Critically ill CODE:Full Code
[2017-09-17] MEDS ORDERED: Aminoglycoside Consult 1 EACH MC ONE (08:23)
[2017-09-17] MEDS: Chlorhexidine Rinse 15 ML MOUTHWASH MM SCH ×2 (08:32→20:59)
--- NOTE | 2017-09-17 08:54 | Event Note ---
Date of Encounter: 09/17/17 Time of Encounter: 08:50 - Cardiology Event Note Mr. Magana was intubated last night due to respiratory distress. CXR shows multi-lobular pneumonia verses pulmonary edema. IVF discontinued. IV antibiotics adjusted by primary team. IV diuretic given. Unable to complete GAMALIEL yesterday due to patient not cooperative despite sedation. Will order GAMALIEL to be completed today while intubated and sedated. Currently hemodynamically stable. HR 60 SR. Noted to have sinus tachycardia yesterday. Now resolved. LHC recommended prior to surgery for troponin elevation/ NSTEMI. Immunology consulted for asa desensitization prior to LHC. Plan for GAMALIEL today.
[2017-09-17] MEDS ORDERED: Meropenem 1,000 MG in Water for inj. (sterile) 10 ML IVP SCH (09:00)
--- NOTE | 2017-09-17 12:29 | Vascular/Endovasc Consult Note ---
Date of Encounter: 09/17/17 Time of Encounter: 11:15 Assessment and Plan (1) Atherosclerosis of [place] arteries of extremities with gangrene, bilateral legs Current Visit: Yes Status: Chronic The patient has cellulitis, ulcerations and gangrenous changes in his feet. His right HERMANN and waveforms are consistent with moderate disease. His left HERMANN is normal and his waveforms are mildly abnormal. He has pedal signals bilaterally. Podiatry has recommended debridement with possible toe amputation. His vascular labs studies support wound healing. He is currently intubated and septic with bacteremia. Recommended continue with antibiotics. Treat source of infection with debridement, incision and drainage and amputation if required when patient is stable for procedures. His peripheral vascular disease may be further evaluated after resolution of his bacteremia and acute issues. (2) Cellulitis Current Visit: Yes Status: Acute Qualifiers: Site of cellulitis: extremity Site of cellulitis of extremity: toe Laterality: unspecified laterality Qualified Code(s): L03.039 - Cellulitis of unspecified toe (3) Staphylococcus aureus bacteremia with sepsis Current Visit: Yes Status: Acute (4) COPD (chronic obstructive pulmonary disease) Current Visit: Yes Status: Acute Qualifiers: COPD type: unspecified COPD Qualified Code(s): J44.9 - Chronic obstructive pulmonary disease, unspecified (5) Tobacco abuse Current Visit: Yes Status: Acute (6) Atrial fibrillation Current Visit: Yes Status: Acute Qualifiers: Atrial fibrillation type: paroxysmal Qualified Code(s): I48.0 - Paroxysmal atrial fibrillation - History of Present Illness Consult date: 09/17/17 Requesting physician: Eusebia Rosales Consult reason: Peripheral vascular disease with gangrene. Chief complaint: Peripheral vascular disease with gangrene History of present illness: Mr. Magana is a 67 year old male with a history of diabetes, hypertension, COPD, coronary artery disease, atrial fibrillation, tobacco abuse and peripheral vascular disease. He underwent a trimming of his toenails and then presented with cellulitis on his left foot. He underwent incision and drainage and was treated with antibiotics. He was seen in the ER and noted to be septic. He was started on antibiotics. Podiatry was consulted for further evaluation. A left great toe amputation was recommended if incision and drainage did not resolve his symptoms. He was noted to have an elevated troponin and a left heart cath was planned. The patient was noted to be bacteremic. He required intubation due to his sepsis. Vascular surgery was made aware of the consultation today by Dr. Rosales. Past Med Surg Social Fam HX - Past Medical History Medical history: COPD, diabetes, peripheral artery disease Psychiatric history: depression - Past Surgical History Surgical History: cholecystectomy, orthopedic, other - Social History Smoking Status: Former smoker Packs per day: To 2 packs per day for the last 60 years, states he quit 1 month ago Smokeless Tobacco Status: No Alcohol use: occasionally Drug use: none - Family History Father Living Status: Age at : 78 Cause of : Cancer Hx Family Respiratory Disorders: Yes (mesothelioma) Mother Living Status: Age at : 60 Cause of : during heart cath Hx Family Cardiac Disorders: Yes Medications and Allergies Apixaban [Eliquis] 5 mg PO BID 09/14/17 [History] Atenolol [Tenormin] 12.5 mg PO DAILY 09/14/17 [History] Atorvastatin [Lipitor] 10 mg PO HS 09/14/17 [History] Buspirone HCl [Buspar] 10 mg PO TID 09/14/17 [History] Chlorhexidine Rinse 15 ml MM BID 09/14/17 [History] Cholecalciferol (Vitamin D3) [Vitamin D3] 1,000 unit PO DAILY 09/14/17 [History] Clopidogrel [Plavix] 75 mg PO DAILY 09/14/17 [History] Cyclobenzaprine [Flexeril] 10 mg PO TID 09/14/17 [History] Insulin LISPRO [HumaLOG] 3 - 8 units SQ TIDWM PRN 09/14/17 [History] Ipratropium/Albuterol Neb [Duoneb] 3 ml IH Q6HR PRN 09/14/17 [History] Metformin HCl [Glucophage Xr] 750 mg PO BID 09/14/17 [History] Naproxen [Naprosyn] 500 mg PO BID 09/14/17 [History] OxyCODONE Immed Rel [Roxicodone 30 MG] 30 mg PO TID 09/14/17 [History] Pantoprazole Sodium [Protonix] 40 mg PO BID 09/14/17 [History] Potassium Chloride [K-Tab ER] 20 meq PO DAILY 09/14/17 [History] Pregabalin [Lyrica] 100 mg PO QID 09/14/17 [History] Tamsulosin HCl [Flomax] 0.4 mg PO DAILY 09/14/17 [History] Vancomycin/0.9 % Sod Chloride [Vancomycin 1 G/100Ml-0.9% NaCl] 1 gm IV Q12H [History] 3 Allergy/AdvReac Type Severity Reaction Status Date / Time aspirin Allergy Anaphylaxis Verified 09/14/17 16:21 bee venom protein (honey bee) Allergy Anaphylaxis Verified 09/14/17 16:21 Penicillins Allergy Anaphylaxis Verified 09/14/17 16:21 sucralfate Allergy Anaphylaxis Verified 09/14/17 16:21 ROS unobtainable: due to endotracheal tube, due to mental status All Systems Review: A 10-system review of systems was performed and is negative for pertinent findings except as documented above in the HPI. Exam Vital Signs, Last 4 Hours Temp Pulse Resp BP Pulse Ox 09/17/17 12:00 83 25 122/75 100 09/17/17 11:49 96.5 F L 09/17/17 11:00 71 20 119/78 99 09/17/17 10:24 20 118/81 99 09/17/17 10:00 65 21 118/81 100 09/17/17 09:50 100 09/17/17 09:00 65 21 119/78 99 HEENT: Present: Pupils equal Neck: Absent: Lymphadenopathy, Left Carotid bruit, Right Carotid bruit, Tracheal deviation Cardiac: Present: Normal S1 and S2, No Murmur Lungs: Present: Decreased breath sounds Neuro: Present: Other (sedated and intubated) Abdomen: Present: Soft, Non-tender. Absent: Masses Vascular: Present: Pulse, diminished (pedal signals present on doppler), Color/ Temperature (feet warm, bilateral forefeet cool) Skin: Present: Wound/ulcer(s) (bilateral forefoot cellulutis with ulcerations, some gangrenouts changes. Purulence noted) Consult Discharge Plan - Plan Referrals: [facility] [Other] [facility] [Primary Care Provider] -
[2017-09-17] MEDS: Pantoprazole 40 MG VIAL IVP SCH (14:26)
--- NOTE | 2017-09-17 14:31 | Infectious Disease Consult ---
Date of Encounter: 09/17/17 Time of Encounter: 14:29 Assessment and Plan (1) Severe sepsis Status: Acute Assessment and plan: The patient had fever and leukocytosis on admission to the [facility]. He had tachycardia and leukocytosis on the day he was transferred here. He developed tachycardia and leukocytosis with hypotension and lactic acidosis yesterday. Likely secondary to bacteremia and foot cellulitis. Improved. WBC and lactic acid has normalized. Tachycardia has resolved. He is no longer hypotensive. Blood cultures obtained at the [facility] 09/12/17 x 1 set was positive for MSSA. Repeat culture obtained at the [facility] 09/15/17 is NGTD x 1 set. Additional blood cultures drawn here are positive 2/2 sets for E. coli and 1/2 sets for MSSA (per PCR) and GBS. (2) Bacteremia Status: Acute Assessment and plan: Causative organism: MSSA, E. coli, GBS. Source likely foot cellulitis. Blood cultures obtained at the [facility] 09/12/17 x 1 set was positive for MSSA. Repeat culture obtained at the [facility] 09/15/17 is NGTD x 1 set. Additional blood cultures drawn here are positive 2/2 sets for E. coli and 1/2 sets for MSSA (per PCR) and GBS. Not sure if this is complicated or not since we don't know if there is osteomyelitis or not. Repeat blood cultures x 2 sets drawn 09/16/17 are pending. TTE negative for vegetations. GAMALIEL attempted, but patient unable to be sedated. Per cardiology, will attempt while the patient is sedated on the ventilator. The patient has a documented allergy to Vancomycin with anaphylactic reaction. Discussed this with the patient's sisters who state the patient got a rash when he had PCN several years ago. Discontinue Vancomycin. Start cefazolin 2 grams IV Q8H and monitor closely for signs of allergic reaction. Continue Cipro 400mg IV Q12H. Discontinue Meropenem. Duration of treatment depends on the clinical picture. Monitor renal function and for drug toxicity and dose-adjust antibiotics. (3) Cellulitis Status: Acute Assessment and plan: Location: Bilateral feet, left>right Secondary to bilateral foot trauma. Causative organism E. coli, GBS, and MSSA per wound culture of the left foot obtained at the [facility]. E. coli is randolph-sensitive. ESR 116. X-ray of the left foot done at the [facility] showed no evidence of OM or subcutaneous gas. Podiatry consulted and following. Recommend surgical intervention, but awaiting cardiac clearance prior to surgery. Check CRP. Consider MRI of the feet to evaluate further for OM when the patient is more stable. Recommend getting good intra-op cultures when the patient goes to surgery. Antibiotics as above. Wound care per podiatry's recommendations. Qualifiers: Qualified Code(s): L03.039 - Cellulitis of unspecified toe (4) Respiratory failure with hypoxia Status: Acute Assessment and plan: Likely secondary to fluid volume overload. The patient became hypoxic, dyspneic,hypotensive, and tachycardic requiring emergent intubation. CXR shows findings consistent with pulmonary edema vs. multilobar pneumonia. Given the clinical picture, this is more likely fluid overload. Vent management per the pulmonology team. Check flu PCR. Qualifiers: Qualified Code(s): J96.01 - Acute respiratory failure with hypoxia (5) Lung nodule Status: Acute Assessment and plan: Noted on CT scan at the [facility]. Further evaluation and management per the pulmonology team. (6) PVD (peripheral vascular disease) Status: Acute Assessment and plan: ABIs consistent with moderate RLE disease, left was normal. Vascular surgery consulted. Await recommendations. (7) Diabetes Status: Acute Assessment and plan: HgbA1C 7.2%. Recommend aggressive glucose monitoring and control to promote wound healing and prevent re-infection. Qualifiers: Qualified Code(s): E11.51 - Type 2 diabetes mellitus with diabetic peripheral angiopathy without gangrene (8) HTN (hypertension) Status: Acute Qualifiers: Qualified Code(s): I10 - Essential (primary) hypertension (9) CAD (coronary artery disease) Status: Acute Assessment and plan: Cardiology consulted and following. Qualifiers: Qualified Code(s): I25.10 - Atherosclerotic heart disease of [place] coronary artery without angina pectoris (10) Atrial fibrillation Status: Acute Assessment and plan: Currently is NSR with rate controlled. Cardiology consulted and following. Qualifiers: Qualified Code(s): I48.0 - Paroxysmal atrial fibrillation (11) NSTEMI (non-ST elevated myocardial infarction) Status: Acute Assessment and plan: Troponin peaked at 0.75. Cardiology consulted and following. Plan for LHC when more stable. (12) Aspirin allergy Status: Acute Assessment and plan: [place] Allergy consulted and plan for ASA desensitization when more stable. (13) COPD (chronic obstructive pulmonary disease) Status: Acute Qualifiers: Qualified Code(s): J44.9 - Chronic obstructive pulmonary disease, unspecified Infectious Disease HPI - Data of Consult Patient: new to practice Consult date: 09/17/17 Requesting Physician: Rocael Diaz Primary Care Provider: KO [facility] Family Provider: ADY - Consult Narrative Reason for consult: Foot infection, bacteremia History of present illness: Mr. Magana is a 67 year old male has medical history of COPD, diabetes, A. fib , PVD, alcohol abuse, obstructive sleep apnea, CAD, and peripheral neuropathy. The patient was admitted to the hospital September 14 for bacteremia and cellulitis. We are consulted 2 for antibiotic recommendations regarding left foot cellulitis and bacteremia. , The patient is a 67-year-old male with past medical history as stated above. The patient is currently intubated and sedated on the ventilator so much of the information is obtained from the medical record. There is currently not any family at the bedside during my examination. Apparently, the patient had some sort of trauma to his bilateral feet about a week prior to admission. He apparently trimmed his toenails too short and they became infected. He presented to the [facility] for evaluation where he was admitted for IV antibiotics. While there, he was noted to have bacteremia. His blood cultures came back +1 out of 1 set on September 12 for MSSA. Additional blood cultures obtained September 15 were -1 out of 1 sets. He was treated empirically with IV vancomycin and Levaquin prior to transfer here. He also had a wound culture of the left foot that grew out group B strep, MSSA, and pansensitive Escherichia coli. Once his blood cultures came back positive he was transferred here for additional evaluation. Upon arrival to our emergency department, the patient was afebrile, but he was tachycardic. She was noted to have had a fever with a MAXIMUM TEMPERATURE of 100.4 at the DC. He also had leukocytosis upon presentation there. Additional laboratory studies revealed bandemia with a normal lactic acid. Blood cultures were obtained 2 sets and came back +2 out of 2 sets for Escherichia coli and 1 out of 2 sets for group B strep and MSSA. Chest x-ray was completed that showed mild pulmonary vascular congestion. He was started on IV vancomycin and IV Cipro and admitted to the hospital for further evaluation. Upon admission, the patient was evaluated by podiatry who wears concern about possible ischemia of the toes and recommended ankle-brachial index studies and a vascular consult. The eyes showed moderate disease in the right lower extremity and normal vasculature in the left lower extremity. She also began to complain of chest pain and elevated troponin cardiology was consulted who recommended an echocardiogram and a left heart catheter. Site, the patient began to deteriorate and he became tachycardic with chest pain, shortness of breath, rigors, hypotension, and hypoxia. His lactic acid went up to 7. He was subsequently intubated and transferred to the intensive care unit. A chest x- ray showed bilateral diffuse airspace disease concerning for pulmonary edema versus multilobular pneumonia. This morning, the patient's white blood cell count is normal. His lactic acidosis has resolved. Currently, he is on IV Cipro , IV meropenem, and IV vancomycin. Cardiology did attempt a GAMALIEL yesterday to evaluate for endocarditis due to the bacteremia, but the patient was unable to be adequately sedated to complete the test and it was canceled. Additionally, the tenoner operator was consulted for possible aspirin desensitization due to the patient's elevated troponin and need for aspirin. at this time, the patient remains intubated and sedated and is unable to provide me with any information Pertaining to the review of systems portion of the exam. CC: Rocael Diaz Past Med Surg Social Fam HX - Past Medical History Source: old records reviewed, nursing notes reviewed Medical history: COPD, diabetes, peripheral artery disease, other (ETOH abuse, PVD, DVT, KEELY, CAD, left upper lobe lung nodule) Psychiatric history: depression - Past Surgical History Surgical History: cholecystectomy, orthopedic, other - Social History Smoking Status: Former smoker Packs per day: To 2 packs per day for the last 60 years, states he quit 1 month ago Smokeless Tobacco Status: No Alcohol use: occasionally Drug use: none - Family History Father Living Status: Age at : 78 Cause of : Cancer Hx Family Respiratory Disorders: Yes (mesothelioma) Mother Living Status: Age at : 60 Cause of : during heart cath Hx Family Cardiac Disorders: Yes Infectious Disease-CN:Meds Apixaban [Eliquis] 5 mg PO BID 09/14/17 [History] Atenolol [Tenormin] 12.5 mg PO DAILY 09/14/17 [History] Atorvastatin [Lipitor] 10 mg PO HS 09/14/17 [History] Buspirone HCl [Buspar] 10 mg PO TID 09/14/17 [History] Chlorhexidine Rinse 15 ml MM BID 09/14/17 [History] Cholecalciferol (Vitamin D3) [Vitamin D3] 1,000 unit PO DAILY 09/14/17 [History] Clopidogrel [Plavix] 75 mg PO DAILY 09/14/17 [History] Cyclobenzaprine [Flexeril] 10 mg PO TID 09/14/17 [History] Insulin LISPRO [HumaLOG] 3 - 8 units SQ TIDWM PRN 09/14/17 [History] Ipratropium/Albuterol Neb [Duoneb] 3 ml IH Q6HR PRN 09/14/17 [History] Metformin HCl [Glucophage Xr] 750 mg PO BID 09/14/17 [History] Naproxen [Naprosyn] 500 mg PO BID 09/14/17 [History] OxyCODONE Immed Rel [Roxicodone 30 MG] 30 mg PO TID 09/14/17 [History] Pantoprazole Sodium [Protonix] 40 mg PO BID 09/14/17 [History] Potassium Chloride [K-Tab ER] 20 meq PO DAILY 09/14/17 [History] Pregabalin [Lyrica] 100 mg PO QID 09/14/17 [History] Tamsulosin HCl [Flomax] 0.4 mg PO DAILY 09/14/17 [History] Vancomycin/0.9 % Sod Chloride [Vancomycin 1 G/100Ml-0.9% NaCl] 1 gm IV Q12H [History] 3 Allergy/AdvReac Type Severity Reaction Status Date / Time aspirin Allergy Anaphylaxis Verified 09/14/17 16:21 bee venom protein (honey bee) Allergy Anaphylaxis Verified 09/14/17 16:21 Penicillins Allergy Anaphylaxis Verified 09/14/17 16:21 sucralfate Allergy Anaphylaxis Verified 09/14/17 16:21 ROS unobtainable: due to endotracheal tube, due to mental status Exam - Constitutional Vitals: Temp Pulse Resp BP Pulse Ox 96.5 F L 64 20 129/82 100 09/17/17 11:49 09/17/17 12:00 09/17/17 13:22 09/17/17 13:22 09/17/17 13:22 General appearance: average body habitus, no acute distress, no febrile - Head Head exam: Present: atraumatic, normal inspection, normocephalic - Eye Eye exam: Present: normal appearance, PERRL Pupils: Present: normal accommodation - ENT ENT exam: Present: mucous membranes moist - Neck Neck exam: Present: normal inspection - Respiratory Respiratory exam: Present: rales (Bilaterally). Absent: respiratory distress, rhonchi, wheezes Additional comments: O2 via the ventilator with FiO2 30%, Tv 550, PEEP 5. - Cardiovascular Cardiovascular exam: Present: RRR, +S1, +S2 - GI/Abdominal GI/Abdominal exam: Present: distended, normal bowel sounds, soft. Absent: tenderness Additional comments: OG tube draining gastric contents. Cr catheter noted to be draining clear yellow urine. - Extremities Exam Extremities exam: Absent: joint swelling, pedal edema, tenderness Additional comments: Erythema noted to the left dorsal and plantar forefoot, including the left great toe. Ecchymosis noted to the left great toe with areas of dry necrosis. Left great toe skin peeling. Serous drainage noted. Right great toe with ecchymosis noted to the lateral aspect. Dry necrosis noted to the nail bed. Erythema noted overlying the dorsal and Plantar aspects of the right great toe. No drainage noted. - Neurological Exam Neurological exam: Present: altered (Sedated) Additional comments: Does not open eyes to verbal stimuli or follow commands. - Skin Skin exam: Present: dry, intact, normal color, warm Infectious Disease CN: Results - Labs CBC & Chem 7: 09/17/17 05:30 09/17/17 05:30 Cultures: Cultures 09/14/17 14:45 Blood Culture - Preliminary Peripheral Venipuncture Escherichia coli Strep agalactiae - (Group B) 09/14/17 14:50 Blood Culture - Final Peripheral Venipuncture Escherichia coli Serology: Serology 09/14/17 09/14/17 09/14/17 Range/Units 14:50 14:45 14:36 Urine Color Yellow (Yellow) Urine Clarity Clear (Clear) Urine pH 6.0 (5.0-8.0) pH Units Ur Specific [place] > 1.030 H (1.010-1.025) Urine Protein 30 H (Neg-Trace) mg/dL Urine Glucose (UA) 100 H (Normal) mg/dL Urine Ketones Negative (Negative) mg/dL Urine Blood Negative (Negative) Urine Nitrite Negative (Negative) Urine Bilirubin Negative (Negative) Urine Urobilinogen Normal (Normal) mg/dL Ur Leukocyte Esterase Negative (Negative) Urine Microscopic RBC 5-15 H (0-3) per hpf Urine Microscopic WBC 5-15 H (0-3) per hpf Ur Squamous Epith Cells Moderate H (None-Few) per lpf Urine Bacteria None Seen (None-Few) per hpf Hyaline Casts None Seen (None-Few) per lpf A. baumannii (PCR) Not Detected Not Detected (Not Detect) [place] albicans (PCR) Not Detected Not Detected (Not Detect) C. glabrata (PCR) Not Detected Not Detected (Not Detect) C. krusei (PCR) Not Detected Not Detected (Not Detect) C. parapsilosis (PCR) Not Detected Not Detected (Not Detect) C. tropicalis (PCR) Not Detected Not Detected (Not Detect) Enterobacteriac sp PCR DETECTED A DETECTED A (Not Detect) E. cloacae complex PCR Not Detected Not Detected (Not Detect) Enterococcus sp PCR Not Detected Not Detected (Not Detect) E. coli (PCR) DETECTED A DETECTED A (Not Detect) H. influenzae (PCR) Not Detected Not Detected (Not Detect) Klebsiella oxytoca PCR Not Detected Not Detected (Not Detect) Klebsiella pneumoniae Not Detected Not Detected (Not Detect) List. monocytogenes PCR Not Detected Not Detected (Not Detect) N. meningitidis (PCR) Not Detected Not Detected (Not Detect) Proteus species (PCR) Not Detected Not Detected (Not Detect) Serratia marcescens PCR Not Detected Not Detected (Not Detect) Staphylococcus sp PCR Not Detected DETECTED A (Not Detect) Staph aureus (PCR) Not Detected DETECTED A (Not Detect) mecA-Methicil Res Gene Not Detected Not Detected (Not Detect) Streptococcus sp PCR Not Detected DETECTED A (Not Detect) Group A Strep DNA Not Detected Not Detected (Not Detect) Group B Strep (PCR) Not Detected DETECTED A (Not Detect) Strep pneumoniae (PCR) Not Detected Not Detected (Not Detect) P. aeruginosa (PCR) Not Detected Not Detected (Not Detect) Nadya/B-Vanco Res Genes Not Detected Not Detected (Not Detect) KPC (blaKPC) Detect PCR Not Detected Not Detected (Not Detect) Consult Discharge Plan - Plan Referrals: [facility] [Other] [facility],PCP [Primary Care Provider] - - Attending Attestation I examined this patient and my medical decision-making was reviewed with the Resident Physician. I agree with the documented findings, disposition and treatment plan as described except to the extent set forth below. This is an addendum to original report dictated by Lindsey Borrego CNP. Please refer to Jodi note for full detail. Patient is 67-year-old gentleman that was transferred to [place] from the [facility] with bilateral lower extremity lesions and bacteremia. Apparently patient has had lower extremity lesions and was having weakness and fatigue and fevers and went to the [facility] for evaluation. Cultures were taken from the lower extremity lesions and they grew MSSA, Escherichia coli and group B strep. Patients blood culture was also positive for MSSA so was transferred here for evaluation. Since the patient has been here initially he was stable and started on appropriate antibiotics, patient went into what appears to be septic shock versus cardiogenic shock versus hypovolemic shock and was given aggressive fluid about +67 L. Patient went into acute respiratory failure requiring vent support. X-ray of the chest reveals either multifocal pneumonia versus fluid overload. Patient has been on broad-spectrum antibiotics and was evaluated by podiatry and I appreciate the recommendations. At this point after long discussion with the and the sister who were both at bedside, patients 2 older sisters are at his house sick with the flu. Patient apparently also has penicillin allergies and the thought was that he had anaphylaxis with penicillin allergies but on further questioning the family and checking with her older sister who remembers the episode apparently the patient only had a rash with penicillin. Patient did have a TTE which was not impressive and a GAMALIEL was not performed because he could not sedate the patient. At this point I agree with the antibiotics, I will probably stop the vancomycin and the meropenem and start the patient on cefazolin and continue ciprofloxacin. Monitor closely for possible allergic reaction including hives or angioedema. Patient has tolerated meropenem. Check influenza PCR Continue to monitor labs and for drug toxicity. Dose adjust antibiotics based on creatinine clearance. We will continue to follow.
[2017-09-17] MEDS: Heparin 25,000 UNIT/500 ML D5W 25,000 UNIT/500 ML BAG IVC SCH (15:57)
[2017-09-17] MEDS: CeFAZolin Premix DUPLEX 2,000 MG/50 ML BAG IVPB SCH ×2 (16:02→23:32)
[2017-09-17 16:57] LABS: Influenza A PCR Negative (Negative); Influenza B PCR Negative (Negative)
--- NOTE | 2017-09-17 17:22 | Electrocardiograph Report ---
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
--- NOTE | 2017-09-17 17:23 | Electrocardiograph Report ---
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
[2017-09-17 19:39] LABS: Heparin anti-factor XA UFH 0.82 IU/mL (0.30-0.70)
[2017-09-17] MEDS ORDERED: Meropenem 500 MG in Water for inj. (sterile) 10 ML IVP SCH (19:44)
--- NOTE | 2017-09-17 19:44 | Electrocardiograph Report ---
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
[2017-09-18] MEDS: FentaNYL (PF) 1,000 MCG in 0.9 % Sodium Chloride 80 ML IVC SCH (02:45)
[2017-09-18] MEDS: 0.9 % Sodium Chloride w KCl 20 MEQ/1,000 ML MLS IVC SCH ×2 (02:47→09:00)
[2017-09-18 03:13] LABS: Activated Partial Thrombo Time 124.9 Seconds (26.0-36.0)
[2017-09-18 03:17] LABS: Heparin anti-factor XA UFH 0.75 IU/mL (0.30-0.70)
[2017-09-18] MEDS: Ipratropium/Albuterol Neb 3 ML IH SCH ×7 (03:46→23:09)
[2017-09-18] MEDS: Lacri-Lube 3.5 GM TUBE BOTH EYES SCH ×5 (03:50→20:13)
[2017-09-18 04:06] LABS: ABG Base Excess -1 mEq/L (-2 to 3); ABG HCO3 24 mEq/L (21-27); ABG Oxygen Saturation 98 % (95-98); ABG PCO2 38 mmHg (35-45); ABG PO2 103 mmHg (85-104); ABG TCO2 25 mEq/L (20-26); Blood Gas Modality VC; Blood Gas PEEP 5 cm H2O; Blood Gas Respiration Rate 16; Blood Gas VT 550 cc
[2017-09-18 04:27] LABS: Basophils % 0.2 %; Hemoglobin 10.4 g/dL (12.9-16.9); Immature Granulocytes % 3.1 % (0-4); Lymphocytes # 2.1 K/mcL (0.6-4.6); Lymphocytes % 13.4 %; Mean Corpuscular HGB Conc 32.5 g/dL (31.6-35.5); Mean Corpuscular Hemoglobin 28.7 pg (28.0-33.3); Mean Corpuscular Volume 88.2 fL (83.0-100.0); Mean Platelet Volume 11.6 fL (9.4-12.4); Monocytes # 0.7 K/mcL (0.0-1.3); Monocytes % 4.5 %; Neutrophils # 12.5 K/mcL (1.6-8.9); Nucleated Red Blood Cells 0.4 /100 WBC (0); Platelet Count 226 K/mcL (140-400); Red Blood Count 3.63 M/mcL (4.19-5.50); Red Cell Distribution Width 14.4 % (11.5-14.5); Segmented Neutrophils % 78.8 %
[2017-09-18 04:38] LABS: BUN/Creatinine Ratio 21 (6-26); Blood Urea Nitrogen 21 mg/dL (8-23); Calcium 8.2 mg/dL (8.6-10.3); Carbon Dioxide 27 mEq/L (23-29); Chloride 110 mEq/L (98-107); Glucose 158 mg/dL (70-105); Osmolality,Calculated 298 (280-300); Potassium 3.3 mEq/L (3.5-5.1); Sodium 141 mEq/L (136-145); eGFR For African Americans > 60 (> 60); eGFR For Non-African Americans > 60 (> 60)
[2017-09-18 06:16] LABS: Magnesium 2.4 mg/dL (1.6-2.6)
[2017-09-18] MEDS: Insulin LISPRO 300 UNITS/3 ML VIAL SQ SCH ×3 (06:23→19:11)
--- NOTE | 2017-09-18 06:40 | Pulmonology Progress Note ---
<Seth Mckenzie - Last Filed: 09/18/17 12:13> Date of Encounter: 09/18/17 Time of Encounter: 06:40 Assessment and Plan (1) Respiratory failure with hypoxia Current Visit: Yes Status: Acute Repeat chest and his morning shows improvement of pulmonary congestion Most recent ABG demonstrates pH 7.40, PCO2 38, PO2 103, HCO3 24 Sputum cultures pending Patient self extubated at 0938 and is sating well on BiPAP. We will continue BiPAP with IV antibiotics, bronchodilators and Lasix From a cardiovascular and pulmonary standpoint, patient is stable enough to proceed with I&D/possible amputation today Qualifiers: Chronicity: acute Qualified Code(s): J96.01 - Acute respiratory failure with hypoxia (2) NSTEMI (non-ST elevated myocardial infarction) Current Visit: Yes Status: Acute Patient is now on ACS protocol with heparin drip Cardiology was consulted to manage GAMALIEL shows no valvular vegetations Patient documented anaphylactic reaction to aspirin that should be desensitized prior to [facility] - Spoke with Dr. Orellana today and will plan on de-sensitization tomorrow Plavix, statin (3) Diabetic wet gangrene of the foot Current Visit: Yes Status: Suspected Podiatry and vascular surgery on board History of diabetes and peripheral vascular disease Diminished peripheral pulses in the dorsalis pedis on the left ABIs in the left were 0.96 in the right 0.76 Examination demonstrates area of eschar about the left great toe that is erythematous Spoke with podiatry this morning and will proceed with I&D with possible amputation today (4) Severe sepsis Current Visit: Yes Status: Acute Likely etiology due to bacteremia and foot cellulitis The patient had fever and leukocytosis on admission to the [facility]. He had tachycardia and leukocytosis on the day he was transferred here. He developed tachycardia and leukocytosis with hypotension and lactic acidosis yesterday. WBC has bumped up to 15.8 this morning Additional blood cultures were drawn here on 09/16/17 are pending (5) E coli bacteremia Current Visit: Yes Status: Acute Blood cultures obtained at the [facility] 09/12/17 x 1 set was positive for MSSA. Repeat culture obtained at the [facility] 09/15/17 is NGTD x 1 set. Additional blood cultures drawn here are positive 2/2 sets for E. coli and 1/2 sets for MSSA (per PCR) and GBS. Repeat blood cultures x 2 sets drawn 09/16/17 are pending. Infectious disease was consulted - Recommend discontinuing vancomycin and meropenem and continuing with Cipro and cefazolin (6) PVD (peripheral vascular disease) Current Visit: Yes Status: Acute No history of reversal peripheral vascular disease Right HERMANN 0.76 and left HERMANN 0.96 Vascular consulted (7) Diabetes Current Visit: Yes Status: Acute Every 6hr Accu-Cheks Blood sugars have improved since yesterday after increasing to high-dose sliding scale Qualifiers: Diabetes mellitus type: type 2 Diabetes mellitus complication status: with circulatory complication Diabetes mellitus complication detail: with peripheral angiopathy without gangrene Diabetes mellitus detention insulin use : without detention use Qualified Code(s): E11.51 - Type 2 diabetes mellitus with diabetic peripheral angiopathy without gangrene (8) HTN (hypertension) Current Visit: Yes Status: Acute Qualifiers: Hypertension type: essential hypertension Qualified Code(s): I10 - Essential (primary) hypertension (9) CAD (coronary artery disease) Current Visit: Yes Status: Acute Qualifiers: Coronary Disease-Associated Artery/Lesion type: unspecified vessel or lesion type [place] vs. transplanted heart: [place] heart Associated angina: without angina Qualified Code(s): I25.10 - Atherosclerotic heart disease of [place] coronary artery without angina pectoris (10) Aspirin allergy Current Visit: Yes Status: Acute Dr. Orellana was consulted for desensitization prior to [facility] tomorrow (11) COPD (chronic obstructive pulmonary disease) Current Visit: Yes Status: Acute No evidence of acute exacerbation Schedule duonebs As needed albuterol Qualifiers: COPD type: unspecified COPD Qualified Code(s): J44.9 - Chronic obstructive pulmonary disease, unspecified (12) Tobacco abuse Current Visit: Yes Status: Acute Patient has a greater than 100 pack years smoking (13) Lung nodule Current Visit: Yes Status: Acute Concerning for malignancy especially given his extensive tobacco abuse history, and the fact that it has increased size from a prior scan in November 2016 Will ultimately need a PET scan and oncology consultation. (14) DVT prophylaxis Current Visit: Yes Status: Acute Continue heparin drip Subjective Principal diagnosis: foot infection Interval history: Patient is admitted for ischemic cellulitis of his left foot, NSTEMI in respiratory failure with hypoxia Patient is resting complaint at this morning No concerns overnight per nursing Patient appears comfortable on sedation Objective PUL Vital signs: Last Vital Signs Temp 96.6 F L 09/18/17 02:51 Pulse 55 09/18/17 06:00 Resp 16 09/18/17 06:15 BP 122/71 09/18/17 06:15 Pulse Ox 100 09/18/17 06:15 General appearance: no acute distress Eyes: nonicteric ENT: oropharynx moist Auscultation: bilateral: diminished breath sounds Cardiovascular: regular rate and rhythm Gastrointestinal: normoactive bowel sounds, non-distended Integumentary: other (Left foot with great toe evident area of black eschar that is erythematous ) Extremities: cyanosis (Left great toe) Musculoskeletal: other (See above) unable to assess due to mental status Ventilator Settings Ventilator Settings: Ventilator Settings, Last 8 Hours Ventilator Mode VC+ Ventilator Mode VC+ Ventilator Mode VC+ Ventilator Mode VC+ Ventilator Mode VC+ Ventilator Mode VC+ Ventilator Mode VC+ Ventilator Mode VC+ Ventilator Mode VC+ Ventilator Mode VC+ Ventilator Mode VC+ Ventilator Mode VC+ Ventilator Mode VC+ Ventilator Tidal Volume 550 Setting Ventilator Tidal Volume 550 Setting Ventilator Tidal Volume 550 Setting Ventilator Tidal Volume 550 Setting Ventilator Tidal Volume 550 Setting Ventilator Tidal Volume 550 Setting Ventilator Tidal Volume 550 Setting Ventilator Tidal Volume 550 Setting Ventilator Tidal Volume 550 Setting Ventilator Tidal Volume 550 Setting Ventilator Tidal Volume 550 Setting Ventilator Tidal Volume 550 Setting Ventilator Tidal Volume 550 Setting Ventilator Respiratory Rate 16 Setting Ventilator Respiratory Rate 16 Setting Ventilator Respiratory Rate 16 Setting Ventilator Respiratory Rate 16 Setting Ventilator Respiratory Rate 16 Setting Ventilator Respiratory Rate 16 Setting Ventilator Respiratory Rate 16 Setting Ventilator Respiratory Rate 16 Setting Ventilator Respiratory Rate 16 Setting Ventilator Respiratory Rate 16 Setting Ventilator Respiratory Rate 16 Setting Ventilator Respiratory Rate 16 Setting Ventilator Respiratory Rate 16 Setting Actual Respiratory Rate 16 Actual Respiratory Rate 16 Actual Respiratory Rate 16 Actual Respiratory Rate 16 Actual Respiratory Rate 16 Actual Respiratory Rate 16 Actual Respiratory Rate 16 Actual Respiratory Rate 18 Actual Respiratory Rate 16 Actual Respiratory Rate 16 Actual Respiratory Rate 16 Actual Respiratory Rate 16 Positive End Expiratory 5 Pressure Positive End Expiratory 5 Pressure Positive End Expiratory 5 Pressure Positive End Expiratory 5 Pressure Positive End Expiratory 5 Pressure Positive End Expiratory 5 Pressure Positive End Expiratory 5 Pressure Positive End Expiratory 5 Pressure Positive End Expiratory 5 Pressure Positive End Expiratory 5 Pressure Positive End Expiratory 5 Pressure Positive End Expiratory 5 Pressure Positive End Expiratory 5 Pressure Peak Inspiratory Airway 26 Pressure Peak Inspiratory Airway 27 Pressure Peak Inspiratory Airway 27 Pressure Peak Inspiratory Airway 32 Pressure Peak Inspiratory Airway 34 Pressure Peak Inspiratory Airway 32 Pressure Peak Inspiratory Airway 34 Pressure Peak Inspiratory Airway 23 Pressure Peak Inspiratory Airway 24 Pressure Peak Inspiratory Airway 21 Pressure Peak Inspiratory Airway 30 Pressure Peak Inspiratory Airway 21 Pressure Results - Laboratory Findings CBC and BMP: 09/18/17 04:15 09/18/17 04:15 ABG ABG pH 7.40 pH Units (7.32-7.45) 09/18/17 04:02 ABG pCO2 38 mmHg (35-45) 09/18/17 04:02 ABG pO2 103 mmHg (85-104) 09/18/17 04:02 ABG O2 Saturation 98 % (95-98) 09/18/17 04:02 PT/INR, D-dimer PT 15.8 Seconds (9.4-12.1) H 09/15/17 09:19 Abnormal lab findings: Abnormal lab results WBC 15.8 K/mcL (4.3-11.1) H D 09/18/17 04:15 RBC 3.63 M/mcL (4.19-5.50) L 09/18/17 04:15 Hgb 10.4 g/dL (12.9-16.9) L 09/18/17 04:15 Hct 32.0 % (37.5-50.1) L 09/18/17 04:15 Neutrophils # 12.5 K/mcL (1.6-8.9) H 09/18/17 04:15 Nucleated RBCs/100 WBC 0.4 /100 WBC (0) H 09/18/17 04:15 Reactive Lymphocytes Present (Not Present) A 09/16/17 19:01 ESR 116 mm/hr (0-10) H 09/15/17 22:18 PT 15.8 Seconds (9.4-12.1) H 09/15/17 09:19 APTT 124.9 Seconds (26.0-36.0) H* 09/18/17 02:36 Heparin Anti-Xa, Unfract 0.75 IU/mL (0.30-0.70) H 09/18/17 02:36 Potassium 3.3 mEq/L (3.5-5.1) L 09/18/17 04:15 Chloride 110 mEq/L (98-107) H 09/18/17 04:15 Glucose 158 mg/dL (70-105) H 09/18/17 04:15 POC Glucose 229 (58-89) H 09/17/17 23:18 Hemoglobin A1c 7.2 % (-5.6) H 09/14/17 22:25 Calcium 8.2 mg/dL (8.6-10.3) L 09/18/17 04:15 Venous Ioniz Calcium 1.10 mmol/L (1.15-1.35) L 09/17/17 06:03 AST 84 Units/L (13-39) H 09/15/17 02:58 ALT 61 Units/L (7-52) H 09/15/17 02:58 Alkaline Phosphatase 168 Units/L (34-104) H 09/15/17 02:58 Troponin I 0.49 ng/mL (< 0.04) H* 09/16/17 23:54 C-Reactive Protein 203 mg/L (Less than 10) H 09/15/17 22:18 B-Natriuretic Peptide 787 pg/mL (Less than 100) H 09/16/17 23:21 Serum Total Protein 6.1 g/dL (6.4-8.9) L 09/15/17 02:58 Albumin 2.8 g/dL (3.5-5.7) L 09/15/17 02:58 Albumin/Globulin Ratio 0.8 (1.1-2.2) L 09/15/17 02:58 Triglycerides 226 mg/dL (< 150) H 09/16/17 05:20 VLDL Cholesterol, Calc 45 mg/dL (< 31) H 09/16/17 05:20 HDL Cholesterol 7 mg/dL (40-59) L 09/16/17 05:20 Cholesterol/HDL Ratio 13.3 (0-4.9) H 09/16/17 05:20 Ur Specific [place] > 1.030 (1.010-1.025) H 09/14/17 14:36 Urine Protein 30 mg/dL (Neg-Trace) H 09/14/17 14:36 Urine Glucose (UA) 100 mg/dL (Normal) H 09/14/17 14:36 Urine Microscopic RBC 5-15 per hpf (0-3) H 09/14/17 14:36 Urine Microscopic WBC 5-15 per hpf (0-3) H 09/14/17 14:36 Ur Squamous Epith Cells Moderate per lpf (None-Few) H 09/14/17 14:36 Vancomycin Trough 13 mcg/mL (5-10) H 09/16/17 11:12 Enterobacteriac sp PCR DETECTED (Not Detect) A 09/14/17 14:50 E. coli (PCR) DETECTED (Not Detect) A 09/14/17 14:50 - Microbiology Findings Microbiology Findings: Microbiology, Last 48 Hours 09/16/17 22:19 Blood Culture - Preliminary Peripheral Venipuncture No growth. 09/16/17 22:19 Blood Culture - Preliminary Peripheral Venipuncture No growth. - Clinical Findings Intake & Output: Intake & Output 09/17/17 09/17/17 09/18/17 15:59 23:59 07:59 Intake Total 824 / 824 605 / 605 488 / 488 Output Total 575 / 575 685 / 685 100 / 100 Balance 249 / 249 -80 / -80 388 / 388 Weight 85.7 kg Consult Discharge Plan - Plan Referrals: [facility] [Other] [facility] Care Provider[facility] - <Eusebia Rosales - Last Filed: 09/18/17 22:21> Date of Encounter: 09/18/17 Objective PUL Vital signs: Last Vital Signs Temp 98.7 F 09/18/17 20:53 Pulse 82 09/18/17 21:15 Resp 17 09/18/17 21:15 BP 154/87 09/18/17 21:15 Pulse Ox 100 09/18/17 21:15 Results - Laboratory Findings CBC and BMP: 09/18/17 04:15 09/18/17 04:15 ABG ABG pH 7.40 pH Units (7.32-7.45) 09/18/17 04:02 ABG pCO2 38 mmHg (35-45) 09/18/17 04:02 ABG pO2 103 mmHg (85-104) 09/18/17 04:02 ABG O2 Saturation 98 % (95-98) 09/18/17 04:02 PT/INR, D-dimer PT 15.8 Seconds (9.4-12.1) H 09/15/17 09:19 Abnormal lab findings: Abnormal lab results WBC 15.8 K/mcL (4.3-11.1) H D 09/18/17 04:15 RBC 3.63 M/mcL (4.19-5.50) L 09/18/17 04:15 Hgb 10.4 g/dL (12.9-16.9) L 09/18/17 04:15 Hct 32.0 % (37.5-50.1) L 09/18/17 04:15 Neutrophils # 12.5 K/mcL (1.6-8.9) H 09/18/17 04:15 Nucleated RBCs/100 WBC 0.4 /100 WBC (0) H 09/18/17 04:15 Reactive Lymphocytes Present (Not Present) A 09/16/17 19:01 ESR 116 mm/hr (0-10) H 09/15/17 22:18 PT 15.8 Seconds (9.4-12.1) H 09/15/17 09:19 APTT 271.5 Seconds (26.0-36.0) H* D 09/18/17 08:45 Heparin Anti-Xa, Unfract 1.17 IU/mL (0.30-0.70) H* 09/18/17 08:45 Potassium 3.3 mEq/L (3.5-5.1) L 09/18/17 04:15 Chloride 110 mEq/L (98-107) H 09/18/17 04:15 Glucose 158 mg/dL (70-105) H 09/18/17 04:15 POC Glucose 229 (58-89) H 09/17/17 23:18 Hemoglobin A1c 7.2 % (-5.6) H 09/14/17 22:25 Calcium 8.2 mg/dL (8.6-10.3) L 09/18/17 04:15 Venous Ioniz Calcium 1.10 mmol/L (1.15-1.35) L 09/17/17 06:03 AST 84 Units/L (13-39) H 09/15/17 02:58 ALT 61 Units/L (7-52) H 09/15/17 02:58 Alkaline Phosphatase 168 Units/L (34-104) H 09/15/17 02:58 Troponin I 0.49 ng/mL (< 0.04) H* 09/16/17 23:54 C-Reactive Protein 203 mg/L (Less than 10) H 09/15/17 22:18 B-Natriuretic Peptide 787 pg/mL (Less than 100) H 09/16/17 23:21 Serum Total Protein 6.1 g/dL (6.4-8.9) L 09/15/17 02:58 Albumin 2.8 g/dL (3.5-5.7) L 09/15/17 02:58 Albumin/Globulin Ratio 0.8 (1.1-2.2) L 09/15/17 02:58 Triglycerides 226 mg/dL (< 150) H 09/16/17 05:20 VLDL Cholesterol, Calc 45 mg/dL (< 31) H 09/16/17 05:20 HDL Cholesterol 7 mg/dL (40-59) L 09/16/17 05:20 Cholesterol/HDL Ratio 13.3 (0-4.9) H 09/16/17 05:20 Ur Specific [place] > 1.030 (1.010-1.025) H 09/14/17 14:36 Urine Protein 30 mg/dL (Neg-Trace) H 09/14/17 14:36 Urine Glucose (UA) 100 mg/dL (Normal) H 09/14/17 14:36 Urine Microscopic RBC 5-15 per hpf (0-3) H 09/14/17 14:36 Urine Microscopic WBC 5-15 per hpf (0-3) H 09/14/17 14:36 Ur Squamous Epith Cells Moderate per lpf (None-Few) H 09/14/17 14:36 Vancomycin Trough 13 mcg/mL (5-10) H 09/16/17 11:12 Enterobacteriac sp PCR DETECTED (Not Detect) A 09/14/17 14:50 E. coli (PCR) DETECTED (Not Detect) A 09/14/17 14:50 - Microbiology Findings Microbiology Findings: Microbiology, Last 48 Hours 09/16/17 22:19 Blood Culture - Preliminary Peripheral Venipuncture No growth. 09/16/17 22:19 Blood Culture - Preliminary Peripheral Venipuncture No growth. - Clinical Findings Intake & Output: Intake & Output 09/18/17 09/18/17 09/18/17 07:59 15:59 23:59 Intake Total 595 / 595 350 / 350 50 / 50 Output Total 225 / 225 2350 / 2350 300 / 300 Balance 370 / 370 -2000 / -2000 -250 / -250 Weight 85.7 kg - Attending Attestation I saw and evaluated this patient and my medical decision-making was reviewed with the Resident Physician. I agree with the documented findings, disposition and treatment plan as described except to the extent set forth below. We independently had [id number] contact with the patient I spent of 32 minutes Critical Care time with this patient. It involved decision making of high complexity to assess, manipulate, and support vital organ system failure and/or to prevent further life threatening deterioration of the patient's condition. The time involved in the performance of separately reportable procedures was not counted toward critical care time. Patient seen and examined at bedside Labs, radiology, chart personally reviewed. TECHNICAL SUPPORT ENGINEER:Patient is following commands improving toxic/metabolic encephalopathy Pulm:Patient developed acute respiratory failure secondary to pulmonary edema secondary to worsening diastolic dysfunction vs pneumonia improved gas exchange , patient self extubated decided to put him on BIPAP instead of reintubating observed his gas exchange was adequate Cards:Patient has an NSTEMI needs cardiac cath troponin are trended down needs aspirin desensitization GAMALIEL showed no vegetation since patient is extubated he can go for [facility] and Aspirin desensitization can be done . FEN-GI:NPO Renal: Labs reviewed ID:MSSA and E coli bactremia will need foot amputation as foot is most likely source appreciate ID consult Antibiotics to continue the current regimen of antibiotics , patient is schedule for toe amputation by podiatry Heme/Onc: Labs reviewed Endo: Glucose Monitored Integ/MSK: Skin Care per routine ICU Nursing Protocol to prevent ulcers. Patient has left foot - wet gangrene Lines: Has peripheral lines Dispo: Critically ill CODE:Full Code
[2017-09-18] MEDS: CeFAZolin Premix DUPLEX 2,000 MG/50 ML BAG IVPB SCH ×3 (08:35→23:29)
[2017-09-18] MEDS: Chlorhexidine Rinse 15 ML MOUTHWASH MM SCH ×2 (08:35→20:14)
[2017-09-18] MEDS: Pantoprazole 40 MG VIAL IVP SCH (08:35)
[2017-09-18] MEDS: Heparin 25,000 UNIT/500 ML D5W 25,000 UNIT/500 ML BAG IVC SCH (09:11)
[2017-09-18] MEDS: Furosemide 20 MG/2 ML VIAL IVP SCH (09:15)
[2017-09-18 09:20] LABS: Activated Partial Thrombo Time 271.5 Seconds (26.0-36.0)
[2017-09-18 09:31] LABS: Heparin anti-factor XA UFH 1.17 IU/mL (0.30-0.70)
[2017-09-18] MEDS ORDERED: *HR* LORazepam 2 MG/ML VIAL IVP PRN (11:10)
--- NOTE | 2017-09-18 12:04 | Cardiology Progress Note ---
Date of Encounter: 09/18/17 Time of Encounter: 09:00 Assessment and Plan (1) NSTEMI (non-ST elevated myocardial infarction) Current Visit: Yes Status: Acute Troponin elevated up to 0.75. Possible NSTEMI. He is asymptomatic. Cardiac risk factors include DM type II, HTN, HLD, and tobacco use. Reports [facility] in the late 1989'. No intervention at that time. 06/22/17- Stress test was negative. TTE completed shows EF 55%. Mild MR. Mild to moderate tricuspid regurgitation, mild to moderate pulmonary hypertension. GAMALIEL showed no vegetation but showed mild to moderate reduction in LV function since TTE completed 09/15/17. [facility] indication, risk, adverse events, and benefits discussed. He agreed to proceed. Noted patient is allergic to asa- causes anaphylaxis. Will need asa desensitization. Unfortunately, patient was intubated secondary to respiratory distress on 09/16/16. Asa desensitization was not able to be completed until extubation. Discussed care with primary team today. Due to necrotic toes and high risk for developing septic shock he is recommended to proceed with surgery today. At this point if risk out-weights benefit of waiting for cardiac work-up patient should proceed with surgery. (2) Staphylococcus aureus bacteremia Current Visit: Yes Status: Acute Blood culture positive for e-coli, strep agalectie, and staph aureus x2. GAMALIEL did not show vegetation. ID following. Planning for amputation of bilateral toes today. (3) Atrial fibrillation Current Visit: Yes Status: Acute H/[facility]F [facility] report. On eliquis. Currently on hold and patient on eliquis. Currently NSR. No afib seen. Atenolol on hold for asa desensitization. Qualifiers: Qualified Code(s): I48.0 - Paroxysmal atrial fibrillation Discussion w patient/family: The assessment and plan as outlined above was discussed with the patient and/or family members who expressed understanding and agreement. All questions were answered. Thank you for involving us in the care of your patient. Please call with any questions. Subjective Principal diagnosis: foot infection Interval history: Mr. Magana seen and evaluated this morning. Patient on mechanical ventilation and sedation on my exam. Nurse notified me shortly after that patient self extubated and was placed on bipap. Objective Vital Signs, Last 4 Hours Pulse Resp BP Pulse Ox 09/18/17 11:30 72 09/18/17 11:00 68 12 115/94 100 09/18/17 10:00 77 20 155/92 100 09/18/17 09:38 14 117/107 100 09/18/17 09:00 77 21 142/85 100 General: No Apparent Distress, Other (intubated and sedated) HEENT: Atraumatic, Normocephaly, Mucus Membranes Moist Neck: No JVD, Normal carotid pulses Cardiac: Reg Rate and Rhythm, Normal S1 and S2, No Murmur Lungs: Normal Breath Sounds, No Wheeze, Rales, Rhonchi Neuro: No focal deficits noted, Other (Unable to follow commands due to self extubation) Abdomen: Soft, Non-Tender Skin: No rashes noted on visualized skin Musculoskeletal: No Chest Wall Tenderness Extremities: No Clubbing, No Cyanosis, No Edema, Normal Pulses, Other (Bilat large toes are necrotic. ) Results 09/18/17 04:15 09/18/17 04:15 Lab Results 09/17/17 09/18/17 09/18/17 18:50 02:36 04:15 WBC 15.8 H D Hgb 10.4 L Hct 32.0 L Plt Count 226 APTT 129.0 H* 124.9 H* Sodium Potassium Chloride Carbon Dioxide BUN Creatinine Glucose Calcium Magnesium 09/18/17 09/18/17 04:15 08:45 WBC Hgb Hct Plt Count APTT 271.5 H* D Sodium 141 Potassium 3.3 L Chloride 110 H Carbon Dioxide 27 BUN 21 Creatinine 0.98 Glucose 158 H Calcium 8.2 L Magnesium 2.4 - Imaging and Cardiology Cardiac cath: report reviewed - EKG Interpretation EKG results cardiology: personally reviewed Consult Discharge Plan - Plan Referrals: [facility] [Other] [facility]Primary Care Provider[facility] -
--- NOTE | 2017-09-18 13:26 | Infectious Disease Progress No ---
Date of Encounter: 09/18/17 Time of Encounter: 13:23 - Assessment and Plan (1) Severe sepsis Current Visit: Yes Status: Acute The patient had fever and leukocytosis on admission to the [facility]. He had tachycardia and leukocytosis on the day he was transferred here. He developed tachycardia and leukocytosis with hypotension and lactic acidosis yesterday. Likely secondary to bacteremia and foot cellulitis. Improved. WBC elevated today. Tachycardia and hypotension have resolved.. Blood cultures obtained at the [facility] 09/12/17 x 1 set was positive for MSSA. Repeat culture obtained at the [facility] 09/15/17 is NGTD x 1 set. Additional blood cultures drawn here are positive 2/2 sets for E. coli and 1/2 sets for MSSA (per PCR) and GBS. Repeat blood cultures drawn 09/16/17 are NGTD x 2 sets. (2) Bacteremia Current Visit: Yes Status: Acute Causative organism: MSSA, E. coli, GBS. Source likely foot cellulitis. Blood cultures obtained at the [facility] 09/12/17 x 1 set was positive for MSSA. Repeat culture obtained at the [facility] 09/15/17 is NGTD x 1 set. Additional blood cultures drawn here are positive 2/2 sets for E. coli and 1/2 sets for MSSA (per PCR) and GBS. Repeat blood cultures 09/16/17 are NGTD 2/2 sets. Not sure if this is complicated or not since we don't know if there is osteomyelitis or not. TTE negative for vegetations. GAMALIEL negative for vegetations. The patient has a documented allergy to Vancomycin with anaphylactic reaction. Discussed this with the patient's sisters who state the patient got a rash when he had PCN several years ago. Continue cefazolin 2 grams IV Q8H. Discontinue Cipro. Duration of treatment depends on the clinical picture. Monitor renal function and for drug toxicity and dose-adjust antibiotics. (3) Cellulitis Current Visit: Yes Status: Acute Location: Bilateral feet, left>right Secondary to bilateral foot trauma. Causative organism E. coli, GBS, and MSSA per wound culture of the left foot obtained at the [facility]. E. coli is randolph-sensitive. ESR 116. X-ray of the left foot done at the [facility] showed no evidence of OM or subcutaneous gas. Podiatry consulted and following. Recommend surgical intervention, but awaiting cardiac clearance prior to surgery. ESR 116, CRP 203. Consider MRI of the feet to evaluate further for OM when the patient is more stable. Recommend getting good intra-op cultures when the patient goes to surgery. Antibiotics as above. Wound care per podiatry's recommendations. Qualifiers: Site of cellulitis: extremity Site of cellulitis of extremity: toe Laterality: unspecified laterality Qualified Code(s): L03.039 - Cellulitis of unspecified toe (4) Respiratory failure with hypoxia Current Visit: Yes Status: Acute Likely secondary to fluid volume overload. The patient became hypoxic, dyspneic,hypotensive, and tachycardic requiring emergent intubation. CXR shows findings consistent with pulmonary edema vs. multilobar pneumonia. Given the clinical picture, this is more likely fluid overload. CXR this morning improved. Self-extubated and is tolerating BIPAP well. Further management per the pulmonology team. Flu PCR negative. Qualifiers: Chronicity: acute Qualified Code(s): J96.01 - Acute respiratory failure with hypoxia (5) Lung nodule Current Visit: Yes Status: Acute Noted on CT scan at the [facility]. Further evaluation and management per the pulmonology team. (6) PVD (peripheral vascular disease) Current Visit: Yes Status: Acute ABIs consistent with moderate RLE disease, left was normal. Vascular surgery consulted. Await recommendations. (7) Diabetes Current Visit: Yes Status: Acute HgbA1C 7.2%. Recommend aggressive glucose monitoring and control to promote wound healing and prevent re-infection. Qualifiers: Diabetes mellitus type: type 2 Diabetes mellitus complication status: with circulatory complication Diabetes mellitus complication detail: with peripheral angiopathy without gangrene Diabetes mellitus skilled nursing insulin use : without oil heaterman use Qualified Code(s): E11.51 - Type 2 diabetes mellitus with diabetic peripheral angiopathy without gangrene (8) HTN (hypertension) Current Visit: Yes Status: Acute Qualifiers: Hypertension type: essential hypertension Qualified Code(s): I10 - Essential (primary) hypertension (9) CAD (coronary artery disease) Current Visit: Yes Status: Acute Cardiology consulted and following. Qualifiers: Coronary Disease-Associated Artery/Lesion type: unspecified vessel or lesion type [place] vs. transplanted heart: [place] heart Associated angina: without angina Qualified Code(s): I25.10 - Atherosclerotic heart disease of [place] coronary artery without angina pectoris (10) Atrial fibrillation Current Visit: Yes Status: Acute Currently is NSR with rate controlled. Cardiology consulted and following. Qualifiers: Atrial fibrillation type: paroxysmal Qualified Code(s): I48.0 - Paroxysmal atrial fibrillation (11) NSTEMI (non-ST elevated myocardial infarction) Current Visit: Yes Status: Acute Troponin peaked at 0.75. Cardiology consulted and following. Plan for LHC when more stable. (12) Aspirin allergy Current Visit: Yes Status: Acute Ibeth Allergy consulted and plan for ASA desensitization when more stable. (13) COPD (chronic obstructive pulmonary disease) Current Visit: Yes Status: Acute Qualifiers: COPD type: unspecified COPD Qualified Code(s): J44.9 - Chronic obstructive pulmonary disease, unspecified - Subjective Interval history: Patient seen and examined. No acute events noted overnight. Patient self- extubated this morning and is currently on Bipap and tolerating well. Remains somewhat sedated as sedation turned off 15 minutes prior to exam. Denies pain, but otherwise does not offer any ROS information. No new issues per nursing. Infect Dis PN-Objective Data - Labs CBC & Chem 7: 09/18/17 04:15 09/18/17 04:15 Labs: Laboratory Results - last 24 hr 09/17/17 09/17/17 09/17/17 11:02 15:50 15:54 WBC RBC Hgb Hct MCV MCH MCHC RDW Plt Count MPV Immature Gran % Seg Neutrophils % Lymphocytes % Monocytes % Eosinophils % Basophils % Neutrophils # Lymphocytes # Monocytes # Eosinophils # Basophils # Nucleated RBCs/100 WBC APTT Heparin Anti-Xa, Unfract Sample Site ABG pH ABG pCO2 ABG pO2 ABG HCO3 ABG Total CO2 ABG O2 Saturation ABG Base Excess José Luis Test Respiration Rate O2 Delivery Device Blood Gas Modality Inspired O2 Tidal Volume PEEP Sodium Potassium Chloride Carbon Dioxide BUN Creatinine Est GFR ( Amer) Est GFR (Non-Af Amer) BUN/Creatinine Ratio Glucose POC Glucose 343 H 300 H Calculated Osmolality Calcium Magnesium Influenza Type A (PCR) Negative Influenza Type B (PCR) Negative 09/17/17 09/17/17 09/18/17 18:50 23:18 02:36 WBC RBC Hgb Hct MCV MCH MCHC RDW Plt Count MPV Immature Gran % Seg Neutrophils % Lymphocytes % Monocytes % Eosinophils % Basophils % Neutrophils # Lymphocytes # Monocytes # Eosinophils # Basophils # Nucleated RBCs/100 WBC APTT 129.0 H* 124.9 H* Heparin Anti-Xa, Unfract 0.82 H 0.75 H Sample Site ABG pH ABG pCO2 ABG pO2 ABG HCO3 ABG Total CO2 ABG O2 Saturation ABG Base Excess José Luis Test Respiration Rate O2 Delivery Device Blood Gas Modality Inspired O2 Tidal Volume PEEP Sodium Potassium Chloride Carbon Dioxide BUN Creatinine Est GFR ( Amer) Est GFR (Non-Af Amer) BUN/Creatinine Ratio Glucose POC Glucose 229 H Calculated Osmolality Calcium Magnesium Influenza Type A (PCR) Influenza Type B (PCR) 09/18/17 09/18/17 09/18/17 04:02 04:15 04:15 WBC 15.8 H D RBC 3.63 L Hgb 10.4 L Hct 32.0 L MCV 88.2 MCH 28.7 MCHC 32.5 RDW 14.4 Plt Count 226 MPV 11.6 Immature Gran % 3.1 Seg Neutrophils % 78.8 Lymphocytes % 13.4 Monocytes % 4.5 Eosinophils % 0.0 Basophils % 0.2 Neutrophils # 12.5 H Lymphocytes # 2.1 Monocytes # 0.7 Eosinophils # 0.0 Basophils # 0.0 Nucleated RBCs/100 WBC 0.4 H APTT Heparin Anti-Xa, Unfract Sample Site R Radial ABG pH 7.40 ABG pCO2 38 ABG pO2 103 ABG HCO3 24 ABG Total CO2 25 ABG O2 Saturation 98 ABG Base Excess -1 José Luis Test N/A Respiration Rate 16 O2 Delivery Device Adult Vent Blood Gas Modality VC Inspired O2 30.0 Tidal Volume 550 PEEP 5 Sodium 141 Potassium 3.3 L Chloride 110 H Carbon Dioxide 27 BUN 21 Creatinine 0.98 Est GFR ( Amer) > 60 Est GFR (Non-Af Amer) > 60 BUN/Creatinine Ratio 21 Glucose 158 H POC Glucose Calculated Osmolality 298 Calcium 8.2 L Magnesium 2.4 Influenza Type A (PCR) Influenza Type B (PCR) 09/18/17 08:45 WBC RBC Hgb Hct MCV MCH MCHC RDW Plt Count MPV Immature Gran % Seg Neutrophils % Lymphocytes % Monocytes % Eosinophils % Basophils % Neutrophils # Lymphocytes # Monocytes # Eosinophils # Basophils # Nucleated RBCs/100 WBC APTT 271.5 H* D Heparin Anti-Xa, Unfract 1.17 H* Sample Site ABG pH ABG pCO2 ABG pO2 ABG HCO3 ABG Total CO2 ABG O2 Saturation ABG Base Excess José Luis Test Respiration Rate O2 Delivery Device Blood Gas Modality Inspired O2 Tidal Volume PEEP Sodium Potassium Chloride Carbon Dioxide BUN Creatinine Est GFR ( Amer) Est GFR (Non-Af Amer) BUN/Creatinine Ratio Glucose POC Glucose Calculated Osmolality Calcium Magnesium Influenza Type A (PCR) Influenza Type B (PCR) Cultures: Cultures 09/16/17 22:19 Blood Culture - Preliminary Peripheral Venipuncture No growth. 09/16/17 22:19 Blood Culture - Preliminary Peripheral Venipuncture No growth. Serology 09/17/17 Range/Units 15:50 Influenza Type A (PCR) Negative (Negative) Influenza Type B (PCR) Negative (Negative) - Impressions Impressions KUB X-Ray 09/17/17 12:47 IMPRESSION: Orogastric tube appears vertically oriented within the descending portion the duodenum. D/ / Jhony Duque MD / Jhony Duque MD Interpreting Provider: Jhony Duque MD Chest X-Ray 09/18/17 00:46 IMPRESSION: Endotracheal tube tip is in the mid thoracic trachea, approximately 3 cm above the jareth. Improving bilateral airspace disease. D/ / Elizabeth Sosa MD / Elizabeth Sosa MD Interpreting Provider: Elizabeth Sosa MD Exam - Constitutional Vitals: Temp Pulse Resp BP Pulse Ox 97.7 F 72 12 115/94 100 09/18/17 07:15 09/18/17 11:30 09/18/17 11:00 09/18/17 11:00 09/18/17 11:00 General appearance: average body habitus, cooperative, no acute distress - Head Head exam: Present: atraumatic, normal inspection, normocephalic - Eye Eye exam: Present: EOMI, normal appearance, PERRL Pupils: Present: normal accommodation Additional comments: No subconjunctival hemorrhage noted. - ENT ENT exam: Present: mucous membranes moist - Neck Neck exam: Present: normal inspection - Respiratory Respiratory exam: Present: CTAB. Absent: rales, respiratory distress, rhonchi, wheezes - Cardiovascular Cardiovascular exam: Present: RRR, +S1, +S2 - GI/Abdominal GI/Abdominal exam: Present: normal bowel sounds, soft. Absent: distended, tenderness Additional comments: Cr catheter noted to be draining clear yellow urine. - Extremities Exam Extremities exam: Absent: joint swelling, pedal edema, tenderness Additional comments: Bilateral foot dressings C/D/I. - Neurological Exam Neurological exam: Present: alert. Absent: oriented X3 (Non-verbal at this time. ) Additional comments: Does not follow commands. - Skin Skin exam: Present: dry, intact, normal color, warm Consult Discharge Plan - Plan Referrals: [facility] [Other] [facility] [Primary Care Provider] - - Attending Attestation I examined this patient and my medical decision-making was reviewed with the Resident Physician. I agree with the documented findings, disposition and treatment plan as described except to the extent set forth below.
--- NOTE | 2017-09-18 15:18 | Anesthesia Evaluation PreOp ---
Date of Encounter: 09/18/17 Time of Encounter: 15:15 - Past History Planned Operation: amputation left great toe Cardiac History: HTN, Hyperlipidemia, Arrhythmia (PAF), Other (CAD, PAD with gangrene LE) Pulmonary History: Former smoker, COPD, Other (self extubated this morning) TECHNICAL PLANNER History: Denies Any Significant HX Other Medical History: Diabetes Type II Anesthesia History: No Prior Anesthetic Complications, Past Anesthesia (jasmin, ortho) Alcohol Use: occasionally Drug use: none Medications and Allergies Apixaban [Eliquis] 5 mg PO BID 09/14/17 [History] Atenolol [Tenormin] 12.5 mg PO DAILY 09/14/17 [History] Atorvastatin [Lipitor] 10 mg PO HS 09/14/17 [History] Buspirone HCl [Buspar] 10 mg PO TID 09/14/17 [History] Chlorhexidine Rinse 15 ml MM BID 09/14/17 [History] Cholecalciferol (Vitamin D3) [Vitamin D3] 1,000 unit PO DAILY 09/14/17 [History] Clopidogrel [Plavix] 75 mg PO DAILY 09/14/17 [History] Cyclobenzaprine [Flexeril] 10 mg PO TID 09/14/17 [History] Insulin LISPRO [HumaLOG] 3 - 8 units SQ TIDWM PRN 09/14/17 [History] Ipratropium/Albuterol Neb [Duoneb] 3 ml IH Q6HR PRN 09/14/17 [History] Metformin HCl [Glucophage Xr] 750 mg PO BID 09/14/17 [History] Naproxen [Naprosyn] 500 mg PO BID 09/14/17 [History] OxyCODONE Immed Rel [Roxicodone 30 MG] 30 mg PO TID 09/14/17 [History] Pantoprazole Sodium [Protonix] 40 mg PO BID 09/14/17 [History] Potassium Chloride [K-Tab ER] 20 meq PO DAILY 09/14/17 [History] Pregabalin [Lyrica] 100 mg PO QID 09/14/17 [History] Tamsulosin HCl [Flomax] 0.4 mg PO DAILY 09/14/17 [History] Vancomycin/0.9 % Sod Chloride [Vancomycin 1 G/100Ml-0.9% NaCl] 1 gm IV Q12H [History] 3 Allergy/AdvReac Type Severity Reaction Status Date / Time aspirin Allergy Anaphylaxis Verified 09/14/17 16:21 bee venom protein (honey bee) Allergy Anaphylaxis Verified 09/14/17 16:21 Penicillins Allergy Anaphylaxis Verified 09/14/17 16:21 sucralfate Allergy Anaphylaxis Verified 09/14/17 16:21 - Meds/Allergy Pre-op Review Medications Reviewed: Yes Allergies Reviewed: Yes Beta Blockers on Current Med List: Yes (ordered iv prn) Anesthesia Results - Labs 09/18/17 04:15 09/18/17 04:15 - Imaging Additional studies: GMAALIEL: Impressions: Valvular vegetations are not visualized. LV systolic function appears mild to moderately reduced on this study, new when compared to TTE performed 09/15/2017. TTE: Impressions: LVEF 55%. Mild left ventricular diastolic dysfunction. Normal right ventricular structure and function. Mild mitral regurgitation. Mild-moderate tricuspid regurgitation. Mild-moderate pulmonary hypertension. Anesthesia Exam Selected Entries 09/18/17 11:00 09/18/17 14:00 Temperature 98.1 F Pulse Rate 60 Respiratory Rate 13 Blood Pressure 149/78 O2 Sat by Pulse Oximetry 100 Oxygen Delivery Method BiPAP - HEENT Pupil (Motor): EOMI Mallampati: III (patient has BiPAP in place, unable to evaluate airway) - TECHNICAL PLANNER LOC: Confused (and sedated) TECHNICAL PLANNER Motor: Normal RUE, Normal LUE, Normal RLE, Normal LLE, Normal Face TECHNICAL PLANNER Sensory: Normal: RUE, LUE, RLE, LLE, Face - Cardiac Rhythm: Regular Murmur: None - Pulmonary Breath Sounds: bilateral Clear Respiratory Effort: Symmetrical Anesthesia Assess/Plan ASA Score: 4 Modified Myah Scale for Level of Consciousness: Drowsy, but responsive to commands Anesthetic Plan: MAC Monitoring Plan: Standard Monitors Recovery Plan: ICU (girlfriend of 14 years gives consent for MAC. I did make them aware that we will try to avoid intubation but it is a possibility)
[2017-09-18] MEDS ORDERED: Bupivacaine/Clonidine Syringe 1 EACH SYRINGE ONE (17:14)
[2017-09-18] MEDS ORDERED: 0.9 % Sodium Chloride 1,000 ML ONE (17:16)
[2017-09-18] MEDS ORDERED: *HR* Midazolam HCl 2 MG/2 ML VIAL ONE (17:47)
[2017-09-19] MEDS: Insulin LISPRO 300 UNITS/3 ML VIAL SQ SCH ×4 (00:28→18:10)
[2017-09-19] MEDS: Lacri-Lube 3.5 GM TUBE BOTH EYES SCH ×3 (00:28→08:35)
[2017-09-19] MEDS: OXYCODONE Oral CONC 10 MG/0.5 ML ORAL.SYG SL SCH ×6 (01:03→19:45)
[2017-09-19] MEDS: Ipratropium/Albuterol Neb 3 ML IH SCH ×5 (03:21→19:45)
[2017-09-19 06:19] LABS: VBG Ionized Calcium 1.04 mmol/L (1.15-1.35); VBG PH 7.45 pH Units (7.32-7.42)
[2017-09-19 06:45] LABS: Magnesium 1.8 mg/dL (1.6-2.6); Phosphorous 3.5 mg/dL (2.7-4.5); Potassium 2.9 mEq/L (3.5-5.1)
--- NOTE | 2017-09-19 06:56 | Pulmonology Progress Note ---
<Seth Mckenzie - Last Filed: 09/19/17 10:49> Date of Encounter: 09/19/17 Time of Encounter: 06:52 Assessment and Plan (1) Respiratory failure with hypoxia Current Visit: Yes Status: Acute Repeat chest x-ray are shows improvement of pulmonary congestion Most recent ABG demonstrates pH 7.49, PCO2 42, PO2 119, HCO3 32 Sputum cultures pending Patient self extubated at 0938 yesterday Tolerating BiPAP well overnight We will continue BiPAP with IV antibiotics, bronchodilators and Lasix and monitor closely throughout the day Qualifiers: Chronicity: acute Qualified Code(s): J96.01 - Acute respiratory failure with hypoxia (2) NSTEMI (non-ST elevated myocardial infarction) Current Visit: Yes Status: Acute Patient is now on ACS protocol with heparin drip Cardiology was consulted to manage GAMALIEL shows no valvular vegetations Patient documented anaphylactic reaction to aspirin that should be desensitized prior to [facility] Spoke with Dr. Orellana and will perform de-sensitization today with subsequent left heart cath (3) Ischemia of foot Current Visit: Yes Status: Acute POD #1 status post left great toe amputation and I&D of the right great toe Dressings are clean dry and intact Management per podiatry Pain control adequate (4) Severe sepsis Current Visit: Yes Status: Acute Likely etiology due to bacteremia and foot cellulitis The patient had fever and leukocytosis on admission to the [facility]. He had tachycardia and leukocytosis on the day he was transferred here. He developed tachycardia and leukocytosis with hypotension and lactic acidosis WBC trending Additional blood cultures were drawn here on 09/16/17 showed no growth to date (5) Bacteremia Current Visit: Yes Status: Acute Blood cultures obtained at the [facility] 09/12/17 x 1 set was positive for MSSA. Repeat culture obtained at the [facility] 09/15/17 is NGTD x 1 set. Additional blood cultures drawn here are positive 2/2 sets for E. coli and 1/2 sets for MSSA (per PCR) and GBS. 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 will likely reuiqre 4 week regimen (6) PVD (peripheral vascular disease) Current Visit: Yes Status: Acute No history of reversal peripheral vascular disease Right HERMANN 0.76 and left HERMANN 0.96 Vascular consulted (7) Diabetes Current Visit: Yes Status: Acute Every 6hr Accu-Cheks Blood sugars have improved after increasing to high-dose sliding scale Qualifiers: Diabetes mellitus type: type 2 Diabetes mellitus complication status: with circulatory complication Diabetes mellitus complication detail: with peripheral angiopathy without gangrene Diabetes mellitus penitentiary insulin use : without penitentiary use Qualified Code(s): E11.51 - Type 2 diabetes mellitus with diabetic peripheral angiopathy without gangrene (8) HTN (hypertension) Current Visit: Yes Status: Acute Qualifiers: Hypertension type: essential hypertension Qualified Code(s): I10 - Essential (primary) hypertension (9) CAD (coronary artery disease) Current Visit: Yes Status: Acute Qualifiers: Coronary Disease-Associated Artery/Lesion type: unspecified vessel or lesion type [place] vs. transplanted heart: [place] heart Associated angina: without angina Qualified Code(s): I25.10 - Atherosclerotic heart disease of [place] coronary artery without angina pectoris (10) Aspirin allergy Current Visit: Yes Status: Acute Dr. Orellana was consulted for desensitization prior to [facility] today (11) COPD (chronic obstructive pulmonary disease) Current Visit: Yes Status: Acute No evidence of acute exacerbation Schedule duonebs As needed albuterol Qualifiers: COPD type: unspecified COPD Qualified Code(s): J44.9 - Chronic obstructive pulmonary disease, unspecified (12) Tobacco abuse Current Visit: Yes Status: Acute Patient has a greater than 100 pack years smoking (13) Lung nodule Current Visit: Yes Status: Acute Concerning for malignancy especially given his extensive tobacco abuse history, and the fact that it has increased size from a prior scan in November 2016 Will ultimately need a PET scan and oncology consultation. (14) DVT prophylaxis Current Visit: Yes Status: Acute Continue heparin drip Subjective Principal diagnosis: foot infection Interval history: Patient is admitted for ischemic cellulitis of his left foot, NSTEMI in respiratory failure with hypoxia POD#1 s/p left great toe amputation and partial thickness amputation of right great toe Plan for ASA de-sensitization today Patient is resting comfortably this morning Adequate pain control No concerns overnight per nursing Objective PUL Vital signs: Last Vital Signs Temp 99.4 F 09/19/17 04:54 Pulse 81 09/19/17 06:00 Resp 22 09/19/17 06:00 BP 152/81 09/19/17 06:00 Pulse Ox 100 09/19/17 06:00 General appearance: no acute distress Eyes: nonicteric ENT: other (BiPAP in place) Effort: normal Auscultation: bilateral: diminished breath sounds (Lower lobes) Cardiovascular: regular rate and rhythm Gastrointestinal: normoactive bowel sounds, non-distended Integumentary: other (Dressings intact bilateral feet; no shadowing present or drainage) Extremities: no edema, pulses normal Musculoskeletal: no deformities other (Patient is able to state his full name but is unable to answer where he is and his date of . Unaware of baseline) Results - Laboratory Findings CBC and BMP: 09/19/17 07:49 09/19/17 07:49 ABG ABG pH 7.40 pH Units (7.32-7.45) 09/18/17 04:02 ABG pCO2 38 mmHg (35-45) 09/18/17 04:02 ABG pO2 103 mmHg (85-104) 09/18/17 04:02 ABG O2 Saturation 98 % (95-98) 09/18/17 04:02 PT/INR, D-dimer PT 15.8 Seconds (9.4-12.1) H 09/15/17 09:19 Abnormal lab findings: Abnormal lab results WBC 15.8 K/mcL (4.3-11.1) H D 09/18/17 04:15 RBC 3.63 M/mcL (4.19-5.50) L 09/18/17 04:15 Hgb 10.4 g/dL (12.9-16.9) L 09/18/17 04:15 Hct 32.0 % (37.5-50.1) L 09/18/17 04:15 Neutrophils # 12.5 K/mcL (1.6-8.9) H 09/18/17 04:15 Nucleated RBCs/100 WBC 0.4 /100 WBC (0) H 09/18/17 04:15 Reactive Lymphocytes Present (Not Present) A 09/16/17 19:01 ESR 116 mm/hr (0-10) H 09/15/17 22:18 PT 15.8 Seconds (9.4-12.1) H 09/15/17 09:19 APTT 43.6 Seconds (26.0-36.0) H D 09/19/17 06:03 Heparin Anti-Xa, Unfract 1.17 IU/mL (0.30-0.70) H* 09/18/17 08:45 VBG pH 7.45 pH Units (7.32-7.42) H 09/19/17 06:17 Potassium 2.9 mEq/L (3.5-5.1) L 09/19/17 06:03 Chloride 110 mEq/L (98-107) H 09/18/17 04:15 Glucose 158 mg/dL (70-105) H 09/18/17 04:15 POC Glucose 93 (58-89) H 09/19/17 00:26 Hemoglobin A1c 7.2 % (-5.6) H 09/14/17 22:25 Calcium 8.2 mg/dL (8.6-10.3) L 09/18/17 04:15 Venous Ioniz Calcium 1.04 mmol/L (1.15-1.35) L 09/19/17 06:17 AST 84 Units/L (13-39) H 09/15/17 02:58 ALT 61 Units/L (7-52) H 09/15/17 02:58 Alkaline Phosphatase 168 Units/L (34-104) H 09/15/17 02:58 Troponin I 0.49 ng/mL (< 0.04) H* 09/16/17 23:54 C-Reactive Protein 203 mg/L (Less than 10) H 09/15/17 22:18 B-Natriuretic Peptide 787 pg/mL (Less than 100) H 09/16/17 23:21 Serum Total Protein 6.1 g/dL (6.4-8.9) L 09/15/17 02:58 Albumin 2.8 g/dL (3.5-5.7) L 09/15/17 02:58 Albumin/Globulin Ratio 0.8 (1.1-2.2) L 09/15/17 02:58 Triglycerides 226 mg/dL (< 150) H 09/16/17 05:20 VLDL Cholesterol, Calc 45 mg/dL (< 31) H 09/16/17 05:20 HDL Cholesterol 7 mg/dL (40-59) L 09/16/17 05:20 Cholesterol/HDL Ratio 13.3 (0-4.9) H 09/16/17 05:20 Ur Specific Wolsey > 1.030 (1.010-1.025) H 09/14/17 14:36 Urine Protein 30 mg/dL (Neg-Trace) H 09/14/17 14:36 Urine Glucose (UA) 100 mg/dL (Normal) H 09/14/17 14:36 Urine Microscopic RBC 5-15 per hpf (0-3) H 09/14/17 14:36 Urine Microscopic WBC 5-15 per hpf (0-3) H 09/14/17 14:36 Ur Squamous Epith Cells Moderate per lpf (None-Few) H 09/14/17 14:36 Vancomycin Trough 13 mcg/mL (5-10) H 09/16/17 11:12 Enterobacteriac sp PCR DETECTED (Not Detect) A 09/14/17 14:50 E. coli (PCR) DETECTED (Not Detect) A 09/14/17 14:50 - Microbiology Findings Microbiology Findings: Microbiology, Last 48 Hours 09/16/17 22:19 Blood Culture - Preliminary Peripheral Venipuncture No growth. 09/16/17 22:19 Blood Culture - Preliminary Peripheral Venipuncture No growth. - Clinical Findings Intake & Output: Intake & Output 09/18/17 09/18/17 09/19/17 15:59 23:59 07:59 Intake Total 350 / 350 50 / 50 258 / 258 Output Total 2350 / 2350 300 / 300 675 / 675 Balance -2000 / -2000 -250 / -250 -417 / -417 Weight 84.7 kg Consult Discharge Plan - Plan Referrals: [facility] [Other] [facility]Primary Care Provider[facility] - <Eusebia Rosales - Last Filed: 09/19/17 23:26> Date of Encounter: 09/19/17 Objective PUL Vital signs: Last Vital Signs Temp 99.4 F 09/19/17 20:12 Pulse 75 09/19/17 22:00 Resp 14 09/19/17 22:00 BP 113/56 09/19/17 22:00 Pulse Ox 96 09/19/17 22:00 Results - Laboratory Findings CBC and BMP: 09/19/17 07:49 09/19/17 17:27 ABG ABG pH 7.49 pH Units (7.32-7.45) H 09/19/17 07:51 ABG pCO2 42 mmHg (35-45) 09/19/17 07:51 ABG pO2 119 mmHg (85-104) H 09/19/17 07:51 ABG O2 Saturation 99 % (95-98) H 09/19/17 07:51 PT/INR, D-dimer PT 15.8 Seconds (9.4-12.1) H 09/15/17 09:19 Abnormal lab findings: Abnormal lab results WBC 12.0 K/mcL (4.3-11.1) H 09/19/17 07:49 RBC 3.73 M/mcL (4.19-5.50) L 09/19/17 07:49 Hgb 10.8 g/dL (12.9-16.9) L 09/19/17 07:49 Hct 32.7 % (37.5-50.1) L 09/19/17 07:49 Nucleated RBCs/100 WBC 0.6 /100 WBC (0) H 09/19/17 07:49 Reactive Lymphocytes Present (Not Present) A 09/19/17 07:49 ESR 116 mm/hr (0-10) H 09/15/17 22:18 PT 15.8 Seconds (9.4-12.1) H 09/15/17 09:19 APTT 53.7 Seconds (26.0-36.0) H 09/19/17 20:00 Heparin Anti-Xa, Unfract 1.17 IU/mL (0.30-0.70) H* 09/18/17 08:45 ABG pH 7.49 pH Units (7.32-7.45) H 09/19/17 07:51 ABG pO2 119 mmHg (85-104) H 09/19/17 07:51 ABG HCO3 32 mEq/L (21-27) H 09/19/17 07:51 ABG Total CO2 33 mEq/L (20-26) H 09/19/17 07:51 ABG O2 Saturation 99 % (95-98) H 09/19/17 07:51 ABG Base Excess 8 mEq/L (-2 to 3) H 09/19/17 07:51 VBG pH 7.45 pH Units (7.32-7.42) H 09/19/17 06:17 Potassium 3.2 mEq/L (3.5-5.1) L 09/19/17 17:27 Glucose 148 mg/dL (70-105) H 09/19/17 07:49 POC Glucose 187 (58-89) H 09/19/17 12:05 Hemoglobin A1c 7.2 % (-5.6) H 09/14/17 22:25 Calculated Osmolality 301 (280-300) H 09/19/17 07:49 Calcium 8.1 mg/dL (8.6-10.3) L 09/19/17 07:49 Venous Ioniz Calcium 1.04 mmol/L (1.15-1.35) L 09/19/17 06:17 AST 84 Units/L (13-39) H 09/15/17 02:58 ALT 61 Units/L (7-52) H 09/15/17 02:58 Alkaline Phosphatase 168 Units/L (34-104) H 09/15/17 02:58 Troponin I 0.49 ng/mL (< 0.04) H* 09/16/17 23:54 C-Reactive Protein 203 mg/L (Less than 10) H 09/15/17 22:18 B-Natriuretic Peptide 787 pg/mL (Less than 100) H 09/16/17 23:21 Serum Total Protein 6.1 g/dL (6.4-8.9) L 09/15/17 02:58 Albumin 2.8 g/dL (3.5-5.7) L 09/15/17 02:58 Albumin/Globulin Ratio 0.8 (1.1-2.2) L 09/15/17 02:58 Triglycerides 226 mg/dL (< 150) H 09/16/17 05:20 VLDL Cholesterol, Calc 45 mg/dL (< 31) H 09/16/17 05:20 HDL Cholesterol 7 mg/dL (40-59) L 09/16/17 05:20 Cholesterol/HDL Ratio 13.3 (0-4.9) H 09/16/17 05:20 Ur Specific [place] > 1.030 (1.010-1.025) H 09/14/17 14:36 Urine Protein 30 mg/dL (Neg-Trace) H 09/14/17 14:36 Urine Glucose (UA) 100 mg/dL (Normal) H 09/14/17 14:36 Urine Microscopic RBC 5-15 per hpf (0-3) H 09/14/17 14:36 Urine Microscopic WBC 5-15 per hpf (0-3) H 09/14/17 14:36 Ur Squamous Epith Cells Moderate per lpf (None-Few) H 09/14/17 14:36 Vancomycin Trough 13 mcg/mL (5-10) H 09/16/17 11:12 Enterobacteriac sp PCR DETECTED (Not Detect) A 09/14/17 14:50 E. coli (PCR) DETECTED (Not Detect) A 09/14/17 14:50 - Microbiology Findings Microbiology Findings: Microbiology, Last 48 Hours 09/16/17 22:19 Blood Culture - Preliminary Peripheral Venipuncture Gram Negative Jonathan Gram Positive Cocci 09/16/17 22:19 Blood Culture - Preliminary Peripheral Venipuncture No growth. - Clinical Findings Intake & Output: Intake & Output 09/19/17 09/19/17 09/19/17 07:59 15:59 23:59 Intake Total 258 / 258 299 / 299 428 / 428 Output Total 950 / 950 1800 / 1800 900 / 900 Balance -692 / -692 -1501 / -1501 -472 / -472 Weight 84.7 kg - Attending Attestation - Attending Attestation I saw and evaluated this patient and my medical decision-making was reviewed with the Resident Physician. I agree with the documented findings, disposition and treatment plan as described except to the extent set forth below. We independently had [id number] contact with the patient Patient seen and examined at bedside Labs, radiology, chart personally reviewed. 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:Patient is following commands improving toxic/metabolic encephalopathy Pulm:Patient developed acute respiratory failure secondary to pulmonary edema secondary to worsening diastolic dysfunction vs pneumonia improved gas exchange , patient did well on BIPAP will continue BIPAP at night Cards:Patient has an NSTEMI needs cardiac cath troponin are trended down needs aspirin desensitization GAMALIEL showed no vegetation Aspirin desensitization done patient declined C today FEN-GI:Advance diet as tolerated Renal: Labs reviewed ID:MSSA and E coli bactremia had Heme/Onc: Labs reviewed toe amputation and I and D appreciate Podiatry managment , Appreciate ID consult to continue Cefazolin Endo: Glucose Monitored Integ/MSK: Skin Care per routine ICU Nursing Protocol to prevent ulcers. Patient has left foot - wet gangrene supported by I and D , toe amputation Lines: Has peripheral lines Dispo: Critically ill High chance of respiratory failure to continue BIPAP at night CODE:Full Code
--- NOTE | 2017-09-19 07:24 | Operative Note ---
Date of procedure: 09/18/17 Pre-op diagnosis: Infection left and right foot with ischemic left great toe Post-op diagnosis: same Procedure: Incision and drainage left and right foot with amputation of left great toe Complications: None Anesthesia: MAC, local Surgeon: Lb Barbosa Was there an curatorial assistant present: No Estimated blood loss (cc): 5 Specimen: Left great toe culture and pathologic specimen Condition: stable Disposition: ICU Procedure in Detail: The patient was administered IV antibiotics. The patient was transported to the operative room and placed on operating table. Following very light anesthesia the extremity was scrubbed prepped and draped in the usual aseptic fashion. A timeout was performed. An incision was made and deepened through subcutaneous tissue with care taken to identify and retract all vital neurovascular structures. The incision was made circumferentially around the great toe of the left foot and the left great toe was disarticulated at the metatarsal phalangeal joint and the bone was removed from the field. The bone was noted to be ischemic, the tissue surrounding the bone was noted to be ischemic. There is also noted to be infection and tissue damage by infection along the dorsum of the left great toe. Tissue was excised consisting of epidermis, dermis, subcutaneous, fascia, bone. There is mild bleeding noted and a tourniquet was inflated briefly towards the end of the case. The mild drainage was cultured and the toe was sent to pathology. A flap was utilized from the plantar aspect to cover the metatarsal head. The site was irrigated with copious amounts of normal saline. The incision was loosely approximated but not completely closed to allow continued drainage if infection persists. A dry sterile dressing was applied. The attention was then directed to the right great toe. A small incision was made and a very mild amount of drainage was noted. The dark eschar along the lateral aspect of the right great toe was inspected and a small amount of the ischemic tissue was excised to better evaluate the tissue deep to the ischemic tissue. There is noted to be viable tissue deep to the ischemia and there is a high probability that the ischemic tissue will slough off and the ischemic site will heal from the ground up. The site was irrigated and the debridement consisted of epidermis, dermis, subcutaneous tissue. The size of the eschar measures approximately 3 cm in diameter and is on the lateral aspect of the right great toe. A dry sterile dressing was applied. The patient tolerated the procedure and anesthesia well and was transported to the recovery room with vital signs stable and vascular status intact to both feet. The patient will be re-admitted to the floor per anesthesia. The patient and family were instructed that there is a good chance that this wound may not heal and may require long-term wound care. I instructed them that although the ABIs are normal, sometimes they can be falsely elevated. The patient was instructed that he could get recurrent infection as well and that the right great toe has a chance of not healing or getting infected due to the ischemic tissue but that at this time I feel as though there is a possibility that it will heal. The patient will remain minimal weightbearing.
[2017-09-19 07:55] LABS: ABG Base Excess 8 mEq/L (-2 to 3); ABG HCO3 32 mEq/L (21-27); ABG Oxygen Saturation 99 % (95-98); ABG PCO2 42 mmHg (35-45); ABG PH 7.49 pH Units (7.32-7.45); ABG PO2 119 mmHg (85-104); ABG TCO2 33 mEq/L (20-26); Blood Gas Modality CPAP/PS; Blood Gas PEEP 6 cm H2O; Blood Gas Pressure Support 12 cm H2O
[2017-09-19] MEDS ORDERED: Aspirin desensitization 1 mg/ml PO ONE ×3 (08:00)
[2017-09-19] MEDS ORDERED: Aspirin desensitization 4 mg/ml PO ONE ×4 (08:00)
[2017-09-19] MEDS ORDERED: Loratadine 10 MG TABLET PO ONE (08:00)
[2017-09-19] MEDS ORDERED: methylPREDNISolone 125 MG/2 ML VIAL IVP PRN (08:00)
[2017-09-19] MEDS ORDERED: Famotidine 20 MG/2 ML VIAL IVP PRN (08:00)
[2017-09-19] MEDS ORDERED: *HR* EPINEPHrine 1 MG/10 ML SYRINGE IVP PRN (08:00)
[2017-09-19] MEDS ORDERED: *HR* EPINEPHrine 1 MG/ML AMPUL IM PRN (08:00)
[2017-09-19 08:31] LABS: Hematocrit 32.7 % (37.5-50.1); Hemoglobin 10.8 g/dL (12.9-16.9); Mean Corpuscular Volume 87.7 fL (83.0-100.0); Mean Platelet Volume 11.2 fL (9.4-12.4); Nucleated Red Blood Cells 0.6 /100 WBC (0); Platelet Count 253 K/mcL (140-400); Red Blood Count 3.73 M/mcL (4.19-5.50)
[2017-09-19 08:34] LABS: BUN/Creatinine Ratio 21 (6-26); Blood Urea Nitrogen 18 mg/dL (8-23); Calcium 8.1 mg/dL (8.6-10.3); Carbon Dioxide 27 mEq/L (23-29); Chloride 106 mEq/L (98-107); Glucose 148 mg/dL (70-105); Osmolality,Calculated 301 (280-300); Sodium 143 mEq/L (136-145); eGFR For African Americans > 60 (> 60); eGFR For Non-African Americans > 60 (> 60)
--- NOTE | 2017-09-19 08:39 | Vascular/[facility] Progress Note ---
Date of Encounter: 09/18/17 Time of Encounter: 16:15 - Assessment and plan (1) Atherosclerosis of [place] arteries of extremities with gangrene, bilateral legs Current Visit: Yes Status: Chronic The patient has cellulitis, ulcerations and gangrenous changes in his feet. His right HERMANN and waveforms are consistent with moderate disease. His left HERMANN is normal and his waveforms are mildly abnormal. He has pedal signals bilaterally. He is scheduled to undergo debridement and possible toe amputation today. May proceed from a vascular surgery perspective. (2) Cellulitis Current Visit: Yes Status: Acute Qualifiers: Site of cellulitis: extremity Site of cellulitis of extremity: toe Laterality: unspecified laterality Qualified Code(s): L03.039 - Cellulitis of unspecified toe (3) Staphylococcus aureus bacteremia with sepsis Current Visit: Yes Status: Acute (4) COPD (chronic obstructive pulmonary disease) Current Visit: Yes Status: Acute Qualifiers: COPD type: unspecified COPD Qualified Code(s): J44.9 - Chronic obstructive pulmonary disease, unspecified (5) Tobacco abuse Current Visit: Yes Status: Acute (6) Atrial fibrillation Current Visit: Yes Status: Acute Qualifiers: Atrial fibrillation type: paroxysmal Qualified Code(s): I48.0 - Paroxysmal atrial fibrillation - Subjective Interval history: The patient is now extubated and on BIPAP. He is responsive and comfortable. Vital Signs, Last 4 Hours Temp Pulse Resp BP Pulse Ox 09/19/17 08:00 100 22 135/80 99 09/19/17 07:42 83 09/19/17 07:41 17 150/87 100 09/19/17 07:00 97.4 F L 83 20 157/87 100 09/19/17 06:00 81 22 152/81 100 09/19/17 05:00 71 22 149/81 95 09/19/17 04:54 99.4 F - Physical Examination General: Present: No Apparent Distress HEENT: Present: Pupils equal Cardiac: Present: Reg Rate and Rhythm Lungs: Present: Normal Breath Sounds Neuro: Present: Alert and responsive, Motor nerves grossly intact, Sensory nerves grossly intact Results 09/19/17 07:49 09/19/17 07:49 Lab Results, Last 24 hours 09/18/17 09/19/17 09/19/17 08:45 06:03 06:03 WBC Hgb Hct Plt Count APTT 271.5 H* D 43.6 H D Sodium 142 Potassium 2.9 L Chloride Carbon Dioxide BUN Creatinine Glucose Calcium Magnesium 1.8 09/19/17 09/19/17 07:49 07:49 WBC 12.0 H Hgb 10.8 L Hct 32.7 L Plt Count 253 APTT Sodium 143 Potassium 3.0 L Chloride 106 Carbon Dioxide 27 BUN 18 Creatinine 0.84 Glucose 148 H Calcium 8.1 L Magnesium Consult Discharge Plan - Plan Referrals: [facility] [Other] [facility] [Primary Care Provider] -
[2017-09-19] MEDS ORDERED: Potassium Chloride Elixir 20 MEQ/15 ML UDC PO ONE (08:41)
[2017-09-19] MEDS: Furosemide 20 MG/2 ML VIAL IVP SCH (08:44)
[2017-09-19] MEDS: Pantoprazole 40 MG VIAL IVP SCH (08:44)
[2017-09-19] MEDS: CeFAZolin Premix DUPLEX 2,000 MG/50 ML BAG IVPB SCH ×2 (08:44→16:05)
[2017-09-19] MEDS ORDERED: Aspirin 81 MG TAB.CHEW PO ONE (09:00)
[2017-09-19] MEDS: Chlorhexidine Rinse 15 ML MOUTHWASH MM SCH ×2 (09:02→20:20)
--- NOTE | 2017-09-19 10:19 | Event Note ---
Date of Encounter: 09/19/17 Time of Encounter: 10:13 - Cardiology Event Note Patient is now extubated and on nasal cannula. S/p I&D of bilateral big toes. No complications from procedure. He will be undergoing asa desensitization today with plan for [facility]. Plan of care and [facility] R/B/A reviewed with patient and significant other. They agree to proceed later today. All questions answered. Restart statin. BB on hold due to asa desensitization. On heparin gtt per primary team. Past 48 hours for ACS treatment with heparin, ok to d/c from cardiology standpoint.
[2017-09-19 11:37] LABS: Lymphocytes # 2.6 K/mcL (0.6-4.6); Neutrophils # 8.4 K/mcL (1.6-8.9); Platelet Estimate Normal (Normal)
[2017-09-19 11:38] LABS: Reactive Lymphocytes Present (Not Present)
--- NOTE | 2017-09-19 13:23 | Allergy Procedure Note ---
Date of procedure: 09/19/17 Pre-op diagnosis: aspirin allergy Post-op diagnosis: same Procedure: Aspirin Desensitization Patient with history of aspirin allergy. See consult note for HPI details. I discussed risk and benefits with patient. I explained to patient the risk of an allergic reaction including itching, hives, swelling, airway closure, diarrhea, vomiting, drop in blood pressure, heart attack, or . I have explained that he is at increased risk due to recent beta aguila use. Written consent obtained. He has stopped his beta aguila for 24 hours prior to procedure. Patient was premedicated with singulair 10mg and claritin 10mg. Epinephrine, benadryl at bedside. Dose 1- 0.1mg aspirin given PO, patient observed closely x 15 minutes, exam unchanged, patient denies any new complaints, vitals unchanged(see vitals recorded under vitals section) Dose 2- 0.3mg aspirin given PO, patient observed closely x 15 minutes, exam unchanged, patient denies any new complaints, vitals unchanged(see vitals recorded under vitals section) Dose 3- 1mg aspirin given PO, patient observed closely x 15 minutes, exam unchanged, patient denies any new complaints, vitals unchanged(see vitals recorded under vitals section) Dose 4- 3mg aspirin given PO, patient observed closely x 15 minutes, exam unchanged, patient denies any new complaints, vitals unchanged(see vitals recorded under vitals section) Dose 5-10mg aspirin given PO, patient observed closely x 15 minutes, exam unchanged, patient denies any new complaints, vitals unchanged(see vitals recorded under vitals section) Dose 6-20mgmg aspirin given PO, patient observed closely x 15 minutes, exam unchanged, patient denies any new complaints, vitals unchanged(see vitals recorded under vitals section) Dose 7-40mg aspirin given PO, patient observed closely x 15 minutes, exam unchanged, patient denies any new complaints, vitals unchanged(see vitals recorded under vitals section) Dose 8-81mg aspirin given PO, patient observed closely x 60 minutes, exam unchanged, patient denies any new complaints, vitals unchanged(see vitals recorded under vitals section) Patient has tolerated the procedure well. He is desensitized to aspirin. He should take 81mg daily. If he goes longer than 48 hours without aspirin he should then not take it and would need the procedure again. Total time spent with patient 3hours Anesthesia: none Was there an congressional assistant present: No Condition: stable
[2017-09-19] MEDS ORDERED: 0.9 % Sodium Chloride 1,000 ML ONE (13:32)
[2017-09-19] MEDS ORDERED: Heparin 1,000 UNITS/500 mL 0 ML ONE (13:33)
[2017-09-19] MEDS ORDERED: Nitroglycerin 1,000 MCG/10 ML VIAL IV ONE (13:33)
[2017-09-19] MEDS ORDERED: *HR* Heparin 10,000 UNIT/10 ML VIAL ONE (13:33)
[2017-09-19] MEDS ORDERED: ISOVUE-370 200 ML INFUS..BTL IV ONE (13:33)
--- NOTE | 2017-09-19 13:36 | Infectious Disease Progress No ---
Date of Encounter: 09/19/17 Time of Encounter: 13:34 - Assessment and Plan (1) Severe sepsis Current Visit: Yes Status: Acute The patient had fever and leukocytosis on admission to the [facility]. He had tachycardia and leukocytosis on the day he was transferred here. He developed tachycardia and leukocytosis with hypotension and lactic acidosis yesterday. Likely secondary to bacteremia and foot cellulitis. Improved. WBC elevated today. Tachycardia and hypotension have resolved.. Blood cultures obtained at the [facility] 09/12/17 x 1 set was positive for MSSA. Repeat culture obtained at the [facility] 09/15/17 is NGTD x 1 set. Additional blood cultures drawn here are positive 2/2 sets for E. coli and 1/2 sets for MSSA (per PCR) and GBS. Repeat blood cultures drawn 09/16/17 are NGTD x 2 sets. (2) Bacteremia Current Visit: Yes Status: Acute Causative organism: MSSA, E. coli, GBS. Source likely foot cellulitis. Blood cultures obtained at the [facility] 09/12/17 x 1 set was positive for MSSA. Repeat culture obtained at the [facility] 09/15/17 is NGTD x 1 set. Additional blood cultures drawn here are positive 2/2 sets for E. coli and 1/2 sets for MSSA (per PCR) and GBS. Repeat blood cultures 09/16/17 are NGTD 2/2 sets. Not sure if this is complicated or not since we don't know if there is osteomyelitis or not. TTE negative for vegetations. GAMALIEL negative for vegetations. The patient has a documented allergy to Vancomycin with anaphylactic reaction. Discussed this with the patient's sisters who state the patient got a rash when he had PCN several years ago. Continue cefazolin 2 grams IV Q8H. He has been tolerating it without evidence of reaction. Duration of treatment depends on the clinical picture, but the patient will likely require a prolonged course of IV antibiotics due to the infection in his feet. Monitor renal function and for drug toxicity and dose-adjust antibiotics. (3) Cellulitis Current Visit: Yes Status: Acute Location: Bilateral feet, left>right Secondary to bilateral foot trauma. Causative organism E. coli, GBS, and MSSA per wound culture of the left foot obtained at the [facility]. E. coli is randolph-sensitive. X-ray of the left foot done at the [facility] showed no evidence of OM or subcutaneous gas. Podiatry consulted and following. Status post I & D of the left foot with great toe amputation and right great toe I & D. Operative note reviewed. Some pus noted. Ischemic changes of the bone noted as well. Pathology and cultures pending. ESR 116, CRP 203. Antibiotics as above. Wound care per podiatry's recommendations. Duration of treatment depends on the clinical picture, but likely 6 weeks of antibiotics based on the extent of the infection. Qualifiers: Site of cellulitis: extremity Site of cellulitis of extremity: toe Laterality: unspecified laterality Qualified Code(s): L03.039 - Cellulitis of unspecified toe (4) Respiratory failure with hypoxia Current Visit: Yes Status: Acute Likely secondary to fluid volume overload. The patient became hypoxic, dyspneic,hypotensive, and tachycardic requiring emergent intubation. CXR shows findings consistent with pulmonary edema vs. multilobar pneumonia. Given the clinical picture, this was more likely fluid overload. CXR 09/18/17 improved. Self-extubated 09/18/17. Doing well on high flow O2 at this time. Further management per the pulmonology team. Flu PCR negative. Qualifiers: Chronicity: acute Qualified Code(s): J96.01 - Acute respiratory failure with hypoxia (5) Lung nodule Current Visit: Yes Status: Acute Noted on CT scan at the [facility]. Further evaluation and management per the pulmonology team. (6) PVD (peripheral vascular disease) Current Visit: Yes Status: Acute ABIs consistent with moderate RLE disease, left was normal. Vascular surgery consulted. Await recommendations. (7) Diabetes Current Visit: Yes Status: Acute HgbA1C 7.2%. Recommend aggressive glucose monitoring and control to promote wound healing and prevent re-infection. Qualifiers: Diabetes mellitus type: type 2 Diabetes mellitus complication status: with circulatory complication Diabetes mellitus complication detail: with peripheral angiopathy without gangrene Diabetes mellitus continuous churn buttermaker insulin use : without [facility] use Qualified Code(s): E11.51 - Type 2 diabetes mellitus with diabetic peripheral angiopathy without gangrene (8) HTN (hypertension) Current Visit: Yes Status: Acute Qualifiers: Hypertension type: essential hypertension Qualified Code(s): I10 - Essential (primary) hypertension (9) CAD (coronary artery disease) Current Visit: Yes Status: Acute Cardiology consulted and following. Plan for LHC after ASA desensitization complete. Qualifiers: Coronary Disease-Associated Artery/Lesion type: unspecified vessel or lesion type [place] vs. transplanted heart: [place] heart Associated angina: without angina Qualified Code(s): I25.10 - Atherosclerotic heart disease of [place] coronary artery without angina pectoris (10) Atrial fibrillation Current Visit: Yes Status: Acute Currently is NSR with rate controlled. Cardiology consulted and following. Qualifiers: Atrial fibrillation type: paroxysmal Qualified Code(s): I48.0 - Paroxysmal atrial fibrillation (11) NSTEMI (non-ST elevated myocardial infarction) Current Visit: Yes Status: Acute Troponin peaked at 0.75. Cardiology consulted and following. Plan for LHC when more stable. (12) Aspirin allergy Current Visit: Yes Status: Acute [place] All[facility] consulted. ASA desensitization ongoing at this time. (13) COPD (chronic obstructive pulmonary disease) Current Visit: Yes Status: Acute Qualifiers: COPD type: unspecified COPD Qualified Code(s): J44.9 - Chronic obstructive pulmonary disease, unspecified - Subjective Interval history: Patient seen and examined. No acute events noted overnight. Patient on high flow O2, tolerating well. Denies fevers, chills, or rigors. Denies chest pain, shortness of breath, or cough. Reports some back pain, but denies N/T. Reports pain in the bilateral feet. Denies nausea, vomiting, or diarrhea. States he is currently NPO, but he feels hungry and would like to have something to eat. Denies abdominal pain. Cr catheter remains patent. Denies oral thrush or new skin lesions. Infect Dis PN-Objective Data - Labs CBC & Chem 7: 09/19/17 07:49 09/19/17 07:49 Labs: Laboratory Results - last 24 hr 09/18/17 09/18/17 09/19/17 11:16 23:30 00:26 WBC RBC Hgb Hct MCV MCH MCHC RDW Plt Count MPV Seg Neutrophils % Band Neutrophils % Lymphocytes % Monocytes % Neutrophils # Lymphocytes # Monocytes # Nucleated RBCs/100 WBC Reactive Lymphocytes Platelet Estimate APTT Sample Site ABG pH ABG pCO2 ABG pO2 ABG HCO3 ABG Total CO2 ABG O2 Saturation ABG Base Excess José Luis Test VBG pH O2 Delivery Device Blood Gas Modality Inspired O2 PEEP Pressure Support Sodium Potassium Chloride Carbon Dioxide BUN Creatinine Est GFR ( Amer) Est GFR (Non-Af Amer) BUN/Creatinine Ratio Glucose POC Glucose 101 H 64 93 H Calculated Osmolality Calcium Venous Ioniz Calcium Phosphorus Magnesium 09/19/17 09/19/17 09/19/17 06:03 06:03 06:10 WBC RBC Hgb Hct MCV MCH MCHC RDW Plt Count MPV Seg Neutrophils % Band Neutrophils % Lymphocytes % Monocytes % Neutrophils # Lymphocytes # Monocytes # Nucleated RBCs/100 WBC Reactive Lymphocytes Platelet Estimate APTT 43.6 H D Sample Site ABG pH ABG pCO2 ABG pO2 ABG HCO3 ABG Total CO2 ABG O2 Saturation ABG Base Excess José Luis Test VBG pH O2 Delivery Device Blood Gas Modality Inspired O2 PEEP Pressure Support Sodium 142 Potassium 2.9 L Chloride Carbon Dioxide BUN Creatinine Est GFR ( Amer) Est GFR (Non-Af Amer) BUN/Creatinine Ratio Glucose POC Glucose 84 Calculated Osmolality Calcium Venous Ioniz Calcium Phosphorus 3.5 Magnesium 1.8 09/19/17 09/19/17 09/19/17 06:17 07:49 07:49 WBC 12.0 H RBC 3.73 L Hgb 10.8 L Hct 32.7 L MCV 87.7 MCH 29.0 MCHC 33.0 RDW 14.0 Plt Count 253 MPV 11.2 Seg Neutrophils % 68.0 Band Neutrophils % 2.0 Lymphocytes % 22.0 Monocytes % 8.0 Neutrophils # 8.4 Lymphocytes # 2.6 Monocytes # 1.0 Nucleated RBCs/100 WBC 0.6 H Reactive Lymphocytes Present A Platelet Estimate Normal APTT Sample Site ABG pH ABG pCO2 ABG pO2 ABG HCO3 ABG Total CO2 ABG O2 Saturation ABG Base Excess José Luis Test VBG pH 7.45 H O2 Delivery Device Blood Gas Modality Inspired O2 PEEP Pressure Support Sodium 143 Potassium 3.0 L Chloride 106 Carbon Dioxide 27 BUN 18 Creatinine 0.84 Est GFR ( Amer) > 60 Est GFR (Non-Af Amer) > 60 BUN/Creatinine Ratio 21 Glucose 148 H POC Glucose Calculated Osmolality 301 H Calcium 8.1 L Venous Ioniz Calcium 1.04 L Phosphorus Magnesium 09/19/17 09/19/17 09/19/17 07:51 12:05 12:18 WBC RBC Hgb Hct MCV MCH MCHC RDW Plt Count MPV Seg Neutrophils % Band Neutrophils % Lymphocytes % Monocytes % Neutrophils # Lymphocytes # Monocytes # Nucleated RBCs/100 WBC Reactive Lymphocytes Platelet Estimate APTT 39.8 H Sample Site R Radial ABG pH 7.49 H ABG pCO2 42 ABG pO2 119 H ABG HCO3 32 H ABG Total CO2 33 H ABG O2 Saturation 99 H ABG Base Excess 8 H José Luis Test Positive VBG pH O2 Delivery Device BiPAP Blood Gas Modality CPAP/PS Inspired O2 40.0 PEEP 6 Pressure Support 12 Sodium Potassium Chloride Carbon Dioxide BUN Creatinine Est GFR ( Amer) Est GFR (Non-Af Amer) BUN/Creatinine Ratio Glucose POC Glucose 187 H Calculated Osmolality Calcium Venous Ioniz Calcium Phosphorus Magnesium Cultures: Cultures 09/16/17 22:19 Blood Culture - Preliminary Peripheral Venipuncture Gram Negative Jonathan Gram Positive Cocci 09/16/17 22:19 Blood Culture - Preliminary Peripheral Venipuncture No growth. Serology 09/17/17 Range/Units 15:50 Influenza Type A (PCR) Negative (Negative) Influenza Type B (PCR) Negative (Negative) Exam - Constitutional Vitals: Temp Pulse Resp BP Pulse Ox 98.5 F 68 20 119/64 98 09/19/17 11:00 09/19/17 13:00 09/19/17 13:00 09/19/17 13:00 09/19/17 13:00 General appearance: average body habitus, cooperative, no acute distress - Head Head exam: Present: atraumatic, normal inspection, normocephalic - Eye Eye exam: Present: EOMI, normal appearance, PERRL Pupils: Present: normal accommodation Additional comments: No subconjunctival hemorrhage noted. - ENT ENT exam: Present: mucous membranes moist - Neck Neck exam: Present: normal inspection - Respiratory Respiratory exam: Present: CTAB. Absent: rales, respiratory distress, rhonchi, wheezes - Cardiovascular Cardiovascular exam: Present: RRR, +S1, +S2 - GI/Abdominal GI/Abdominal exam: Present: normal bowel sounds, soft. Absent: distended, tenderness Additional comments: Cr catheter noted to be draining clear yellow urine. - Extremities Exam Extremities exam: Present: tenderness (bilateral feet). Absent: joint swelling , pedal edema Additional comments: Bilateral foot dressings C/D/I. - Back Exam Back exam: Present: normal inspection. Absent: paraspinal tenderness, vertebral tenderness - Neurological Exam Neurological exam: Present: alert, oriented X3, no focal deficits - Psychiatric Psychiatric exam: Present: normal affect, normal mood - Skin Skin exam: Present: dry, intact, normal color, warm - VTE Documentation of Mechanical Device: Intermittent pneumatic compression device Consult Discharge Plan - Plan Referrals: [facility] [Other] [place],PCP [Primary Care Provider] - - Attending Attestation I examined this patient and my medical decision-making was reviewed with the Resident Physician. I agree with the documented findings, disposition and treatment plan as described except to the extent set forth below.
--- NOTE | 2017-09-19 14:53 | Cardiology Progress Note ---
Date of Encounter: 09/19/17 Time of Encounter: 14:48 Assessment and Plan (1) NSTEMI (non-ST elevated myocardial infarction) Current Visit: Yes Status: Acute Troponin elevated up to 0.75. Possible NSTEMI. He is asymptomatic. Cardiac risk factors include DM type II, HTN, HLD, and tobacco use. 06/22/17- Stress test was negative. TTE completed shows EF 55%. Mild MR. Mild to moderate tricuspid regurgitation, mild to moderate pulmonary hypertension. GAMALIEL showed no vegetation but showed mild to moderate reduction in LV function since TTE completed 09/15/17. Repeat limited study to check EF. LHC indication, risk, adverse events, and benefits discussed. Noted patient is allergic to asa- and asa desensitization completed. He initially agreed to proceed. Patient now refusing to proceed. Above findings reviewed with patient and significant other. He would like to consider at another time. Limited TTE ordered to re-assess EF. EF decreased on GAMALIEL. Asa, statin, and bb recommended. (2) Staphylococcus aureus bacteremia Current Visit: Yes Status: Acute Blood culture positive for e-coli, strep agalectie, and staph aureus x2. GAMALIEL did not show vegetation. ID following. s/p I&D of BLE. (3) Atrial fibrillation Current Visit: Yes Status: Acute [facility] On eliquis. Currently on hold and patient on eliquis. Currently NSR. No afib seen. Atenolol on hold for asa desensitization. Now completed will restart bb. Qualifiers: Atrial fibrillation type: paroxysmal Qualified Code(s): I48.0 - Paroxysmal atrial fibrillation Discussion w patient/family: The assessment and plan as outlined above was discussed with the patient and/or family members who expressed understanding and agreement. All questions were answered. Thank you for involving us in the care of your patient. Please call with any questions. Subjective Principal diagnosis: foot infection Interval history: Mr. Magana seen and evaluated this morning. Patient was given asa desensitization without complication. Initially we planned for LHC as recommended. He is now declining LHC due to over-all not feeling well. Objective Vital Signs, Last 4 Hours Temp Pulse Resp BP Pulse Ox 09/19/17 13:00 68 20 119/64 98 09/19/17 12:00 65 18 122/61 99 09/19/17 11:33 16 99 09/19/17 11:07 74 09/19/17 11:00 98.5 F 74 20 115/63 99 General: Conversant, No Apparent Distress HEENT: Atraumatic, Normocephaly, Mucus Membranes Moist Neck: No JVD, Normal carotid pulses Cardiac: Reg Rate and Rhythm, Normal S1 and S2, No Murmur Lungs: Normal Breath Sounds, No Wheeze, Rales, Rhonchi Neuro: Alert and responsive, No focal deficits noted Abdomen: Soft, Non-Tender Skin: No rashes noted on visualized skin Musculoskeletal: No Chest Wall Tenderness Extremities: No Clubbing, No Cyanosis, Other (Bilat feet with foot dressing intact, no edema. 1/4+ pulses.) Results 09/19/17 07:49 09/19/17 07:49 Lab Results 09/19/17 09/19/17 09/19/17 06:03 06:03 07:49 WBC 12.0 H Hgb 10.8 L Hct 32.7 L Plt Count 253 APTT 43.6 H D Sodium 142 Potassium 2.9 L Chloride Carbon Dioxide BUN Creatinine Glucose Calcium Magnesium 1.8 09/19/17 09/19/17 07:49 12:18 WBC Hgb Hct Plt Count APTT 39.8 H Sodium 143 Potassium 3.0 L Chloride 106 Carbon Dioxide 27 BUN 18 Creatinine 0.84 Glucose 148 H Calcium 8.1 L Magnesium - Imaging and Cardiology Echo: report reviewed - EKG Interpretation EKG results cardiology: personally reviewed - VTE Documentation of Mechanical Device: Intermittent pneumatic compression device Consult Discharge Plan - Plan Referrals: [facility] [Other] [facility] [Primary Care Provider] -
--- NOTE | 2017-09-19 17:54 | Podiatry Progress Note ---
Date of Encounter: 09/19/17 Time of Encounter: 17:10 - Assessment and Plan (1) Cellulitis Current Visit: Yes Status: Acute S/p Incision and drainage left and right foot with amputation of left great toe by Dr. Barbosa on 09/18/17. WBC: 12.0, a febrile. ESR 116, CRP 203. [facility] isolated E. coli, GBS, and MSSA. Intra op cultures pending. Plan: Dressing changed at bedside, betadine moistened gauze applied to both great toes with dry sterile gauze, kerlix and tape. Antibiotic recommendations per ID. Will most likely need 6 weeks of IV antibiotics. Protective weight bearing to right foot with post op shoe, Non weight bearing to left foot with walker or crutches once patient is medically stable. Weight to only be applied to left heel with transferring. Order placed for post o p shoe bilaterally. Will continue to monitor both great toes daily. Qualifiers: Site of cellulitis: extremity Site of cellulitis of extremity: toe Laterality: unspecified laterality Qualified Code(s): L03.039 - Cellulitis of unspecified toe (2) Diabetes Current Visit: Yes Status: Acute Glucose control and close monitoring to aid in wound healing. Qualifiers: Diabetes mellitus type: type 2 Diabetes mellitus complication status: with circulatory complication Diabetes mellitus complication detail: with peripheral angiopathy without gangrene Diabetes mellitus r d intern insulin use : without [facility] use Qualified Code(s): E11.51 - Type 2 diabetes mellitus with diabetic peripheral angiopathy without gangrene (3) Ischemia of foot Current Visit: Yes Status: Acute Arterial study completed on 09/15/17: Right HERMANN demonstrates moderate arterial insufficiency on the right at rest. Left HERMANN demonstrates mild arterial insufficiency on the left at rest. Vascular consulted. Subjective Principal diagnosis: foot infection Interval history: Patient is lying in bed with dressings intact to both feet. Patient is s/p Incision and drainage left and right foot with amputation of left great toe by Dr. Barbosa on 09/18/17. Patient is lying in bed with girlfriend at bedside. Patient underwent an Aspirin desensitization today. Patient had a GAMALIEL and is now waiting to have an echocardiogram. Objective - Vital Signs Vital Signs: Vital Signs Temp Pulse Resp BP Pulse Ox 09/19/17 17:00 75 18 130/73 95 09/19/17 16:17 16 99 02/01/18 16:00 80 20 140/75 100 09/19/17 15:55 76 09/19/17 15:00 98.3 F 68 20 146/79 99 09/19/17 14:00 67 20 129/75 99 09/19/17 13:00 68 20 119/64 98 09/19/17 12:00 65 18 122/61 99 09/19/17 11:33 16 99 09/19/17 11:07 74 09/19/17 11:00 98.5 F 74 20 115/63 99 09/19/17 09:00 67 24 114/59 96 09/19/17 08:00 100 22 135/80 99 09/19/17 07:42 83 09/19/17 07:41 17 150/87 100 09/19/17 07:00 97.4 F L 83 20 157/87 100 09/19/17 06:00 81 22 152/81 100 09/19/17 05:00 71 22 149/81 95 09/19/17 04:54 99.4 F 09/19/17 04:30 87 19 159/83 100 09/19/17 04:00 81 09/19/17 03:21 20 100 09/19/17 03:00 86 17 149/90 100 09/19/17 02:00 99.9 F H 84 16 147/71 98 09/19/17 01:00 96 17 156/85 100 09/19/17 00:30 103 20 173/100 100 09/19/17 00:14 101.1 F H 09/19/17 00:00 103 09/18/17 23:10 12 100 09/18/17 23:00 87 14 150/84 100 09/18/17 22:00 89 20 151/86 98 09/18/17 21:15 82 17 154/87 100 09/18/17 20:53 98.7 F 09/18/17 20:30 85 14 159/92 96 09/18/17 20:00 87 20 157/81 100 09/18/17 19:45 84 24 154/84 100 09/18/17 19:44 17 100 09/18/17 19:30 80 22 152/90 100 09/18/17 19:15 81 22 150/84 100 09/18/17 19:00 75 20 152/87 100 09/18/17 18:35 81 20 143/84 100 Intake and Output 09/19/17 09/19/17 09/19/17 07:59 15:59 23:59 Intake Total 258 / 258 299 / 299 200 / 200 Output Total 950 / 950 1800 / 1800 750 / 750 Balance -692 / -692 -1501 / -1501 -550 / -550 Intake: IV Fluids 258 / 258 249 / 249 FentaNYL (PF) 1,000 MCG In 0.9 85 / 85 % Sodium Chloride 80 ML @ 50 MCG/HR 5 mls/hr IVC CONT [facility] Rx #:[id number] Heparin 25,000 UNIT/500 ML D5W 123 / 123 199 / 199 25,000 unit In 500 ml @ 12 UNIT /KG/HR 19.599 mls/hr IVC .Q24H [facility] Rx#:[id number] Diprivan 1,000 mg In 100 ml @ 5 0 / 0 MCG/KG/MIN 2.571 mls/hr IVC . Q24H [facility] Rx#:[id number] Ancef Premix DUPLEX 2,000 mg In 50 / 50 50 / 50 50 ml @ 100 mls/hr IVPB Q8HR [facility] Rx#:[id number] Oral 0 / 0 50 / 50 200 / 200 Output: Catheter 950 / 950 1800 / 1800 750 / 750 Other: Weight 84.7 kg Blood Glucose* 84 Patient Weight 09/19/17 23:59 Weight 84.7 kg - Exam Exam: General appearance: alert awake oriented X 3. Calm and pleasant, no acute distress.. Vascular: Pedal pulses palpable, Edema graded at 1+/4, Skin Temperature warm, No calf pain with manual compression. capillary refill time is immediate to digits. Neurologic: Sensation intact with light touch to both feet. Integument: S/p: retention sutures intact to the left foot, periwound erythema, no streaking, scant amount of bloody drainage observed to dressing, no pus, no odor. Right great toe: medial aspect of right great toe with red granulation tissue, lateral aspect with intact eschar to the dorsal lateral aspect extending to the plantar aspect with light periwound erythema to dorsal aspect, no streaking, no pus, no odor, no active drainage. - Lab Result Diagrams: 09/19/17 07:49 09/19/17 17:27 Labs: Abnormal lab results WBC 12.0 K/mcL (4.3-11.1) H 09/19/17 07:49 RBC 3.73 M/mcL (4.19-5.50) L 09/19/17 07:49 Hgb 10.8 g/dL (12.9-16.9) L 09/19/17 07:49 Hct 32.7 % (37.5-50.1) L 09/19/17 07:49 Nucleated RBCs/100 WBC 0.6 /100 WBC (0) H 09/19/17 07:49 Reactive Lymphocytes Present (Not Present) A 09/19/17 07:49 ESR 116 mm/hr (0-10) H 09/15/17 22:18 PT 15.8 Seconds (9.4-12.1) H 09/15/17 09:19 APTT 39.8 Seconds (26.0-36.0) H 09/19/17 12:18 Heparin Anti-Xa, Unfract 1.17 IU/mL (0.30-0.70) H* 09/18/17 08:45 ABG pH 7.49 pH Units (7.32-7.45) H 09/19/17 07:51 ABG pO2 119 mmHg (85-104) H 09/19/17 07:51 ABG HCO3 32 mEq/L (21-27) H 09/19/17 07:51 ABG Total CO2 33 mEq/L (20-26) H 09/19/17 07:51 ABG O2 Saturation 99 % (95-98) H 09/19/17 07:51 ABG Base Excess 8 mEq/L (-2 to 3) H 09/19/17 07:51 VBG pH 7.45 pH Units (7.32-7.42) H 09/19/17 06:17 Potassium 3.0 mEq/L (3.5-5.1) L 09/19/17 07:49 Glucose 148 mg/dL (70-105) H 09/19/17 07:49 POC Glucose 187 (58-89) H 09/19/17 12:05 Hemoglobin A1c 7.2 % (-5.6) H 09/14/17 22:25 Calculated Osmolality 301 (280-300) H 09/19/17 07:49 Calcium 8.1 mg/dL (8.6-10.3) L 09/19/17 07:49 Venous Ioniz Calcium 1.04 mmol/L (1.15-1.35) L 09/19/17 06:17 AST 84 Units/L (13-39) H 09/15/17 02:58 ALT 61 Units/L (7-52) H 09/15/17 02:58 Alkaline Phosphatase 168 Units/L (34-104) H 09/15/17 02:58 Troponin I 0.49 ng/mL (< 0.04) H* 09/16/17 23:54 C-Reactive Protein 203 mg/L (Less than 10) H 09/15/17 22:18 B-Natriuretic Peptide 787 pg/mL (Less than 100) H 09/16/17 23:21 Serum Total Protein 6.1 g/dL (6.4-8.9) L 09/15/17 02:58 Albumin 2.8 g/dL (3.5-5.7) L 09/15/17 02:58 Albumin/Globulin Ratio 0.8 (1.1-2.2) L 09/15/17 02:58 Triglycerides 226 mg/dL (< 150) H 09/16/17 05:20 VLDL Cholesterol, Calc 45 mg/dL (< 31) H 09/16/17 05:20 HDL Cholesterol 7 mg/dL (40-59) L 09/16/17 05:20 Cholesterol/HDL Ratio 13.3 (0-4.9) H 09/16/17 05:20 Ur Specific [place] > 1.030 (1.010-1.025) H 09/14/17 14:36 Urine Protein 30 mg/dL (Neg-Trace) H 09/14/17 14:36 Urine Glucose (UA) 100 mg/dL (Normal) H 09/14/17 14:36 Urine Microscopic RBC 5-15 per hpf (0-3) H 09/14/17 14:36 Urine Microscopic WBC 5-15 per hpf (0-3) H 09/14/17 14:36 Ur Squamous Epith Cells Moderate per lpf (None-Few) H 09/14/17 14:36 Vancomycin Trough 13 mcg/mL (5-10) H 09/16/17 11:12 Enterobacteriac sp PCR DETECTED (Not Detect) A 09/14/17 14:50 E. coli (PCR) DETECTED (Not Detect) A 09/14/17 14:50 Microbiology, Last 48 Hours 09/16/17 22:19 Blood Culture - Preliminary Peripheral Venipuncture Gram Negative Jonathan Gram Positive Cocci 09/16/17 22:19 Blood Culture - Preliminary Peripheral Venipuncture No growth. - VTE Documentation of Mechanical Device: Intermittent pneumatic compression device Consult Discharge Plan - Plan Referrals: [facility] [Other] [facility] [Primary Care Provider] -
[2017-09-19] MEDS: Heparin 25,000 UNIT/500 ML D5W 25,000 UNIT/500 ML BAG IVC SCH (20:25)
[2017-09-20] MEDS: Insulin LISPRO 300 UNITS/3 ML VIAL SQ SCH ×5 (00:07→20:55)
[2017-09-20] MEDS: OXYCODONE Oral CONC 10 MG/0.5 ML ORAL.SYG SL SCH ×3 (00:19→07:36)
[2017-09-20] MEDS: CeFAZolin Premix DUPLEX 2,000 MG/50 ML BAG IVPB SCH ×3 (00:19→15:19)
[2017-09-20] MEDS: Ipratropium/Albuterol Neb 3 ML IH SCH ×7 (03:40→23:09)
[2017-09-20 05:03] LABS: Potassium 3.2 mEq/L (3.5-5.1)
--- NOTE | 2017-09-20 06:58 | Pulmonology Progress Note ---
<Seth Mckenzie - Last Filed: 09/20/17 10:55> Date of Encounter: 09/20/17 Time of Encounter: 06:58 Assessment and Plan (1) Respiratory failure with hypoxia Current Visit: Yes Status: Acute Repeat chest x-ray are shows improvement of pulmonary congestion Most recent ABG demonstrates pH 7.49, PCO2 42, PO2 119, HCO3 32 Sputum cultures pending Patient self extubated at 0938 two days ago Patient required 1 hour of BiPAP overnight and has been otherwise stable on NC 5 L We will continue BiPAP as needed with NC at all times. IV antibiotics, bronchodilators and Lasix to PO and likely transfer out of unit today Qualifiers: Chronicity: acute Qualified Code(s): J96.01 - Acute respiratory failure with hypoxia (2) NSTEMI (non-ST elevated myocardial infarction) Current Visit: Yes Status: Acute Patient is on ACS protocol with heparin drip Cardiology was consulted to manage GAMALIEL shows no valvular vegetations Patient documented anaphylactic reaction to aspirin that should be desensitized prior to [facility] Patient underwent successful de-sensitization yesterday Patient ultimately refused further intervention with [facility] will proceed with medical management Discontinuing heparin drip today and will transition back to [facility] for his history of PAF (3) Cardiomyopathy Current Visit: Yes Status: Acute Likely etiology due to ischemia Echocardiogram on 09/14/17 demonstrates EF of 55% Repeat echo on 09/19/17 showed EF of 30-35% with global LV systolic dysfunction Patient declined left heart cath after aspirin desensitization Defer to cardiology but will continue optimal medical management Aspirin, statin, Plavix, switching to Coreg and adding Zestril Qualifiers: Cardiomyopathy type: unspecified Qualified Code(s): I42.9 - Cardiomyopathy , unspecified (4) Ischemia of foot Current Visit: Yes Status: Acute POD #2 status post left great toe amputation and I&D of the right great toe Dressings are clean dry and intact Management per podiatry Pain control adequate Intraoperative cultures pending (5) Severe sepsis Current Visit: Yes Status: Acute Likely etiology due to bacteremia and foot cellulitis The patient had fever and leukocytosis on admission to the [facility]. He had tachycardia and leukocytosis on the day he was transferred here. He developed tachycardia and leukocytosis with hypotension and lactic acidosis WBC trending down to 12 Additional blood cultures were drawn here on 09/16/17 showed Escherichia coli with gram-positive cocci 1 with the other set showing no growth to date (6) Bacteremia Current Visit: Yes Status: Acute Blood cultures obtained at the [facility] 09/12/17 x 1 set was positive for MSSA. Repeat culture obtained at the [facility] 09/15/17 is NGTD x 1 set. Additional blood cultures drawn here are positive 2/2 sets for E. coli and 1/2 sets for MSSA (per PCR) and GBS. Repeat blood cultures x 1 set drawn 09/16/17 showed E. Coli and GP Cocci with other blood culture 1 drawn 09/16/17 showing no growth to date Infectious disease was consulted - Recommend discontinuing vancomycin and meropenem and continuing with Cipro and cefazolin - Defer to ID for exterminator helper termite management will likely require 6 week regimen - PICC line placement was ordered for today (7) Atrial fibrillation Current Visit: Yes Status: Acute [facility] We will continue with beta blockade and xarelto Qualifiers: Atrial fibrillation type: paroxysmal Qualified Code(s): I48.0 - Paroxysmal atrial fibrillation (8) PVD (peripheral vascular disease) Current Visit: Yes Status: Acute No history of reversal peripheral vascular disease Right HERMANN 0.76 and left HERMANN 0.96 (9) Diabetes Current Visit: Yes Status: Acute Switch to TIDAC with HS MDSS Qualifiers: Diabetes mellitus type: type 2 Diabetes mellitus complication status: with circulatory complication Diabetes mellitus complication detail: with peripheral angiopathy without gangrene Diabetes mellitus exterminator helper termite insulin use : without jail use Qualified Code(s): E11.51 - Type 2 diabetes mellitus with diabetic peripheral angiopathy without gangrene (10) HTN (hypertension) Current Visit: Yes Status: Acute Qualifiers: Hypertension type: essential hypertension Qualified Code(s): I10 - Essential (primary) hypertension (11) CAD (coronary artery disease) Current Visit: Yes Status: Acute Qualifiers: Coronary Disease-Associated Artery/Lesion type: unspecified vessel or lesion type [place] vs. transplanted heart: [place] heart Associated angina: without angina Qualified Code(s): I25.10 - Atherosclerotic heart disease of [place] coronary artery without angina pectoris (12) Aspirin allergy Current Visit: Yes Status: Acute Successful desensitization yesterday (13) COPD (chronic obstructive pulmonary disease) Current Visit: Yes Status: Acute No evidence of acute exacerbation Schedule duonebs As needed albuterol Qualifiers: COPD type: unspecified COPD Qualified Code(s): J44.9 - Chronic obstructive pulmonary disease, unspecified (14) Tobacco abuse Current Visit: Yes Status: Acute Patient has a greater than 100 pack years smoking (15) Lung nodule Current Visit: Yes Status: Acute Concerning for malignancy especially given his extensive tobacco abuse history, and the fact that it has increased size from a prior scan in November 2016 Will ultimately need a PET scan and oncology consultation. (16) DVT prophylaxis Current Visit: Yes Status: Acute Transition from heparin drip to elliquis Subjective Principal diagnosis: foot infection Interval history: Patient is admitted for ischemic cellulitis of his left foot, NSTEMI in respiratory failure with hypoxia POD#2 s/p left great toe amputation and partial thickness amputation of right great toe Successful ASA de-sensitization today Patient is resting comfortably this morning Adequate pain control No concerns overnight per nursing Patient only required roughly 1 hour BiPAP overnight and was otherwise on nasal cannula at 5 L Objective PUL Vital signs: Last Vital Signs Temp 98.3 F 09/20/17 04:23 Pulse 74 09/20/17 06:00 Resp 18 09/20/17 06:00 BP 137/73 09/20/17 06:00 Pulse Ox 98 09/20/17 06:00 General appearance: no acute distress Eyes: nonicteric ENT: oropharynx moist Neck: supple Auscultation: bilateral: other (Crackles) Cardiovascular: regular rate and rhythm Gastrointestinal: normoactive bowel sounds, non-distended Integumentary: normal Extremities: no cyanosis, no edema, no clubbing Musculoskeletal: no deformities Results - Laboratory Findings CBC and BMP: 09/20/17 04:37 09/20/17 04:37 ABG ABG pH 7.49 pH Units (7.32-7.45) H 09/19/17 07:51 ABG pCO2 42 mmHg (35-45) 09/19/17 07:51 ABG pO2 119 mmHg (85-104) H 09/19/17 07:51 ABG O2 Saturation 99 % (95-98) H 09/19/17 07:51 PT/INR, D-dimer PT 15.8 Seconds (9.4-12.1) H 09/15/17 09:19 Abnormal lab findings: Abnormal lab results WBC 12.0 K/mcL (4.3-11.1) H 09/19/17 07:49 RBC 3.73 M/mcL (4.19-5.50) L 09/19/17 07:49 Hgb 10.8 g/dL (12.9-16.9) L 09/19/17 07:49 Hct 32.7 % (37.5-50.1) L 09/19/17 07:49 Nucleated RBCs/100 WBC 0.6 /100 WBC (0) H 09/19/17 07:49 Reactive Lymphocytes Present (Not Present) A 09/19/17 07:49 ESR 116 mm/hr (0-10) H 09/15/17 22:18 PT 15.8 Seconds (9.4-12.1) H 09/15/17 09:19 APTT 61.3 Seconds (26.0-36.0) H 09/20/17 03:19 Heparin Anti-Xa, Unfract 1.17 IU/mL (0.30-0.70) H* 09/18/17 08:45 ABG pH 7.49 pH Units (7.32-7.45) H 09/19/17 07:51 ABG pO2 119 mmHg (85-104) H 09/19/17 07:51 ABG HCO3 32 mEq/L (21-27) H 09/19/17 07:51 ABG Total CO2 33 mEq/L (20-26) H 09/19/17 07:51 ABG O2 Saturation 99 % (95-98) H 09/19/17 07:51 ABG Base Excess 8 mEq/L (-2 to 3) H 09/19/17 07:51 VBG pH 7.45 pH Units (7.32-7.42) H 09/19/17 06:17 Potassium 3.2 mEq/L (3.5-5.1) L 09/20/17 04:37 Glucose 148 mg/dL (70-105) H 09/19/17 07:49 POC Glucose 126 (58-89) H 09/20/17 05:28 Hemoglobin A1c 7.2 % (-5.6) H 09/14/17 22:25 Calculated Osmolality 301 (280-300) H 09/19/17 07:49 Calcium 8.1 mg/dL (8.6-10.3) L 09/19/17 07:49 Venous Ioniz Calcium 1.04 mmol/L (1.15-1.35) L 09/19/17 06:17 AST 84 Units/L (13-39) H 09/15/17 02:58 ALT 61 Units/L (7-52) H 09/15/17 02:58 Alkaline Phosphatase 168 Units/L (34-104) H 09/15/17 02:58 Troponin I 0.49 ng/mL (< 0.04) H* 09/16/17 23:54 C-Reactive Protein 203 mg/L (Less than 10) H 09/15/17 22:18 B-Natriuretic Peptide 787 pg/mL (Less than 100) H 09/16/17 23:21 Serum Total Protein 6.1 g/dL (6.4-8.9) L 09/15/17 02:58 Albumin 2.8 g/dL (3.5-5.7) L 09/15/17 02:58 Albumin/Globulin Ratio 0.8 (1.1-2.2) L 09/15/17 02:58 Triglycerides 226 mg/dL (< 150) H 09/16/17 05:20 VLDL Cholesterol, Calc 45 mg/dL (< 31) H 09/16/17 05:20 HDL Cholesterol 7 mg/dL (40-59) L 09/16/17 05:20 Cholesterol/HDL Ratio 13.3 (0-4.9) H 09/16/17 05:20 Ur Specific [place] > 1.030 (1.010-1.025) H 09/14/17 14:36 Urine Protein 30 mg/dL (Neg-Trace) H 09/14/17 14:36 Urine Glucose (UA) 100 mg/dL (Normal) H 09/14/17 14:36 Urine Microscopic RBC 5-15 per hpf (0-3) H 09/14/17 14:36 Urine Microscopic WBC 5-15 per hpf (0-3) H 09/14/17 14:36 Ur Squamous Epith Cells Moderate per lpf (None-Few) H 09/14/17 14:36 Vancomycin Trough 13 mcg/mL (5-10) H 09/16/17 11:12 Enterobacteriac sp PCR DETECTED (Not Detect) A 09/14/17 14:50 E. coli (PCR) DETECTED (Not Detect) A 09/14/17 14:50 - Microbiology Findings Microbiology Findings: Microbiology, Last 48 Hours 09/16/17 22:19 Blood Culture - Preliminary Peripheral Venipuncture Gram Negative Jonathan Gram Positive Cocci 09/16/17 22:19 Blood Culture - Preliminary Peripheral Venipuncture No growth. - Clinical Findings Intake & Output: Intake & Output 09/19/17 09/19/17 09/20/17 15:59 23:59 07:59 Intake Total 299 / 299 428 / 428 319 / 319 Output Total 1800 / 1800 900 / 900 350 / 350 Balance -1501 / -1501 -472 / -472 -31 / -31 Weight 81.5 kg - VTE Documentation of Mechanical Device: Intermittent pneumatic compression device Consult Discharge Plan - Plan Referrals: [facility] [Other] [facility]Primary Care Provider[facility] - <Eusebia Rosales - Last Filed: 09/20/17 22:36> Date of Encounter: 09/20/17 Objective PUL Vital signs: Last Vital Signs Temp 98.6 F 09/20/17 20:54 Pulse 68 09/20/17 20:54 Resp 12 09/20/17 21:10 BP 162/73 09/20/17 20:54 Pulse Ox 92 09/20/17 21:10 Results - Laboratory Findings CBC and BMP: 09/20/17 04:37 09/20/17 04:37 ABG ABG pH 7.49 pH Units (7.32-7.45) H 09/19/17 07:51 ABG pCO2 42 mmHg (35-45) 09/19/17 07:51 ABG pO2 119 mmHg (85-104) H 09/19/17 07:51 ABG O2 Saturation 99 % (95-98) H 09/19/17 07:51 PT/INR, D-dimer PT 15.8 Seconds (9.4-12.1) H 09/15/17 09:19 Abnormal lab findings: Abnormal lab results RBC 3.76 M/mcL (4.19-5.50) L 09/20/17 04:37 Hgb 10.8 g/dL (12.9-16.9) L 09/20/17 04:37 Hct 33.2 % (37.5-50.1) L 09/20/17 04:37 Nucleated RBCs/100 WBC 0.6 /100 WBC (0) H 09/19/17 07:49 Reactive Lymphocytes Present (Not Present) A 09/19/17 07:49 ESR 116 mm/hr (0-10) H 09/15/17 22:18 PT 15.8 Seconds (9.4-12.1) H 09/15/17 09:19 APTT 61.3 Seconds (26.0-36.0) H 09/20/17 03:19 Heparin Anti-Xa, Unfract 1.17 IU/mL (0.30-0.70) H* 09/18/17 08:45 ABG pH 7.49 pH Units (7.32-7.45) H 09/19/17 07:51 ABG pO2 119 mmHg (85-104) H 09/19/17 07:51 ABG HCO3 32 mEq/L (21-27) H 09/19/17 07:51 ABG Total CO2 33 mEq/L (20-26) H 09/19/17 07:51 ABG O2 Saturation 99 % (95-98) H 09/19/17 07:51 ABG Base Excess 8 mEq/L (-2 to 3) H 09/19/17 07:51 VBG pH 7.45 pH Units (7.32-7.42) H 09/19/17 06:17 Potassium 3.2 mEq/L (3.5-5.1) L 09/20/17 04:37 Glucose 141 mg/dL (70-105) H 09/20/17 04:37 POC Glucose 126 (58-89) H 09/20/17 05:28 Hemoglobin A1c 7.2 % (-5.6) H 09/14/17 22:25 Calcium 7.9 mg/dL (8.6-10.3) L 09/20/17 04:37 Venous Ioniz Calcium 1.04 mmol/L (1.15-1.35) L 09/19/17 06:17 AST 84 Units/L (13-39) H 09/15/17 02:58 ALT 61 Units/L (7-52) H 09/15/17 02:58 Alkaline Phosphatase 168 Units/L (34-104) H 09/15/17 02:58 Troponin I 0.49 ng/mL (< 0.04) H* 09/16/17 23:54 C-Reactive Protein 203 mg/L (Less than 10) H 09/15/17 22:18 B-Natriuretic Peptide 787 pg/mL (Less than 100) H 09/16/17 23:21 Serum Total Protein 6.1 g/dL (6.4-8.9) L 09/15/17 02:58 Albumin 2.8 g/dL (3.5-5.7) L 09/15/17 02:58 Albumin/Globulin Ratio 0.8 (1.1-2.2) L 09/15/17 02:58 Triglycerides 226 mg/dL (< 150) H 09/16/17 05:20 VLDL Cholesterol, Calc 45 mg/dL (< 31) H 09/16/17 05:20 HDL Cholesterol 7 mg/dL (40-59) L 09/16/17 05:20 Cholesterol/HDL Ratio 13.3 (0-4.9) H 09/16/17 05:20 Ur Specific [place] > 1.030 (1.010-1.025) H 09/14/17 14:36 Urine Protein 30 mg/dL (Neg-Trace) H 09/14/17 14:36 Urine Glucose (UA) 100 mg/dL (Normal) H 09/14/17 14:36 Urine Microscopic RBC 5-15 per hpf (0-3) H 09/14/17 14:36 Urine Microscopic WBC 5-15 per hpf (0-3) H 09/14/17 14:36 Ur Squamous Epith Cells Moderate per lpf (None-Few) H 09/14/17 14:36 Vancomycin Trough 13 mcg/mL (5-10) H 09/16/17 11:12 Enterobacteriac sp PCR DETECTED (Not Detect) A 09/14/17 14:50 E. coli (PCR) DETECTED (Not Detect) A 09/14/17 14:50 - Microbiology Findings Microbiology Findings: Microbiology, Last 48 Hours 09/18/17 18:09 Wound Culture - Final Left Foot Strep agalactiae - (Group B) 09/16/17 22:19 Blood Culture - Preliminary Peripheral Venipuncture Escherichia coli Gram Positive Cocci - Clinical Findings Intake & Output: Intake & Output 09/20/17 09/20/17 09/20/17 07:59 15:59 23:59 Intake Total 319 / 319 172 / 172 Output Total 600 / 600 725 / 725 Balance -281 / -281 -553 / -553 Weight 81.5 kg 84.9 kg - Attending Attestation - Attending Attestation I saw and evaluated this patient and my medical decision-making was reviewed with the Resident Physician. I agree with the documented findings, disposition and treatment plan as described except to the extent set forth below. We independently had [id number] contact with the patient Patient seen and examined at bedside Labs, radiology, chart personally reviewed. 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 Patient is on Cefazolin will need 6 weeks of antibiotics will need PICC line Heme/Onc: Labs reviewed toe amputation and I and D appreciate Podiatry managment , Appreciate ID consult to continue Cefazolin will need 6 weeks of antibiotics PICC consult placed Endo: Glucose Monitored Integ/MSK: Skin Care per routine ICU Nursing Protocol to prevent ulcers. Patient has left foot - wet gangrene supported by I and D , toe amputation Lines: Has peripheral lines Dispo: Critically ill High chance of respiratory failure to continue BIPAP at night CODE:Full Code
[2017-09-20 07:45] LABS: Basophils % 0.2 %; Eosinophils # 0.1 K/mcL (0.0-0.6); Eosinophils % 0.9 %; Hematocrit 33.2 % (37.5-50.1); Hemoglobin 10.8 g/dL (12.9-16.9); Immature Granulocytes % 1.5 % (0-4); Lymphocytes % 20.3 %; Mean Corpuscular HGB Conc 32.5 g/dL (31.6-35.5); Mean Corpuscular Hemoglobin 28.7 pg (28.0-33.3); Mean Corpuscular Volume 88.3 fL (83.0-100.0); Mean Platelet Volume 11.4 fL (9.4-12.4); Monocytes # 0.3 K/mcL (0.0-1.3); Monocytes % 3.3 %; Neutrophils # 7.1 K/mcL (1.6-8.9); Platelet Count 216 K/mcL (140-400); Red Blood Count 3.76 M/mcL (4.19-5.50); Segmented Neutrophils % 73.8 %
--- NOTE | 2017-09-20 07:58 | Vascular/[facility] Progress Note ---
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 His wound appears to be healing. continue antibiotics as directed. He has pedal signals by doppler bilaterally. He may follow-up with vascular surgery after discharge. (2) Cellulitis Current Visit: Yes Status: Acute Qualifiers: Site of cellulitis: extremity Site of cellulitis of extremity: toe Laterality: unspecified laterality Qualified Code(s): L03.039 - Cellulitis of unspecified toe (3) COPD (chronic obstructive pulmonary disease) Current Visit: Yes Status: Acute Qualifiers: COPD type: unspecified COPD Qualified Code(s): J44.9 - Chronic obstructive pulmonary disease, unspecified (4) Tobacco abuse Current Visit: Yes Status: Acute He was counseled regarding smoking cesastion. (5) Atrial fibrillation Current Visit: Yes Status: Chronic Qualifiers: Atrial fibrillation type: paroxysmal Qualified Code(s): I48.0 - Paroxysmal atrial fibrillation (6) CAD (coronary artery disease) Current Visit: Yes Status: Chronic The patient is declining a left heart cath. He was advised to consider a heart cath in the near future to reduce his risk of heart attack and . Qualifiers: Coronary Disease-Associated Artery/Lesion type: unspecified vessel or lesion type [place] vs. transplanted heart: tribal heart Associated angina: without angina Qualified Code(s): I25.10 - Atherosclerotic heart disease of [place] coronary artery without angina pectoris - Subjective Interval history: The patient is alert and repsonsive. He states that he is comfortable. He is declining a left heart cath today because he "does not feel he needs on right now". He denies chest pain or shortness of breath. Vital Signs, Last 4 Hours Temp Pulse Resp BP Pulse Ox 09/20/17 07:50 16 94 09/20/17 07:30 84 09/20/17 07:00 98.6 F 74 20 153/74 98 09/20/17 06:00 74 18 137/73 98 09/20/17 05:00 76 20 122/60 97 09/20/17 04:23 98.3 F 09/20/17 04:00 73 16 119/60 95 - Physical Examination General: Present: Conversant, No Apparent Distress HEENT: Present: Pupils equal Neck: Absent: JVD Cardiac: Present: Reg Rate and Rhythm Lungs: Present: Normal Breath Sounds, No Wheeze, Rales, Rhonchi Neuro: Present: Alert and responsive Vascular: Present: Normal capillary refill, Pulse, diminished (pedal signals present bilaterally), Surgical incisions (toe amputation wound clean and dry without any drainage). Absent: Cyanosis, Edema Abdomen: Present: Soft, Non-tender - VTE Documentation of Mechanical Device: Intermittent pneumatic compression device Results 09/20/17 04:37 09/20/17 04:37 Lab Results, Last 24 hours 09/19/17 09/19/17 09/19/17 07:49 07:49 12:18 WBC 12.0 H Hgb 10.8 L Hct 32.7 L Plt Count 253 APTT 39.8 H Sodium 143 Potassium 3.0 L Chloride 106 Carbon Dioxide 27 BUN 18 Creatinine 0.84 Glucose 148 H Calcium 8.1 L 09/19/17 09/19/17 09/20/17 17:27 20:00 03:19 WBC Hgb Hct Plt Count APTT 53.7 H 61.3 H Sodium Potassium 3.2 L Chloride Carbon Dioxide BUN Creatinine Glucose Calcium 09/20/17 09/20/17 04:37 04:37 WBC 9.6 Hgb 10.8 L Hct 33.2 L Plt Count 216 APTT Sodium Potassium 3.2 L Chloride Carbon Dioxide BUN Creatinine Glucose Calcium Consult Discharge Plan - Plan Referrals: [facility] [Other] [facility]Primary Care Provider[facility] -
--- NOTE | 2017-09-20 07:59 | Vascular/[facility] Progress Note ---
Date of Encounter: 09/19/17 Time of Encounter: 15:30 - Assessment and plan (1) Atherosclerosis of [place] arteries of extremities with gangrene, bilateral legs Current Visit: Yes Status: Chronic The patient has cellulitis, ulcerations and gangrenous changes in his feet. His right HERMANN and waveforms are consistent with moderate disease. His left HERMANN is normal and his waveforms are mildly abnormal. He has pedal signals bilaterally. He underwent debridement with a left great toe amputation. His wound appears to be healing. He has pedal signals and his feet are warm. He may follow-up with vascular surgery after discharge. (2) Cellulitis Current Visit: Yes Status: Acute Qualifiers: Site of cellulitis: extremity Site of cellulitis of extremity: toe Laterality: unspecified laterality Qualified Code(s): L03.039 - Cellulitis of unspecified toe (3) Staphylococcus aureus bacteremia with sepsis Current Visit: Yes Status: Acute (4) COPD (chronic obstructive pulmonary disease) Current Visit: Yes Status: Acute Qualifiers: COPD type: unspecified COPD Qualified Code(s): J44.9 - Chronic obstructive pulmonary disease, unspecified (5) Tobacco abuse Current Visit: Yes Status: Acute (6) Atrial fibrillation Current Visit: Yes Status: Acute Qualifiers: Atrial fibrillation type: paroxysmal Qualified Code(s): I48.0 - Paroxysmal atrial fibrillation - Subjective Interval history: The patient is now extubated and on BIPAP. He is responsive and comfortable. Vital Signs, Last 4 Hours Temp Pulse Resp BP Pulse Ox 09/20/17 07:50 16 94 09/20/17 07:30 84 09/20/17 07:00 98.6 F 74 20 153/74 98 09/20/17 06:00 74 18 137/73 98 09/20/17 05:00 76 20 122/60 97 09/20/17 04:23 98.3 F 09/20/17 04:00 73 16 119/60 95 - VTE Documentation of Mechanical Device: Intermittent pneumatic compression device Results 09/20/17 04:37 09/20/17 04:37 Lab Results, Last 24 hours 09/19/17 09/19/17 09/19/17 07:49 07:49 12:18 WBC 12.0 H Hgb 10.8 L Hct 32.7 L Plt Count 253 APTT 39.8 H Sodium 143 Potassium 3.0 L Chloride 106 Carbon Dioxide 27 BUN 18 Creatinine 0.84 Glucose 148 H Calcium 8.1 L 09/19/17 09/19/17 09/20/17 17:27 20:00 03:19 WBC Hgb Hct Plt Count APTT 53.7 H 61.3 H Sodium Potassium 3.2 L Chloride Carbon Dioxide BUN Creatinine Glucose Calcium 09/20/17 09/20/17 04:37 04:37 WBC 9.6 Hgb 10.8 L Hct 33.2 L Plt Count 216 APTT Sodium Potassium 3.2 L Chloride Carbon Dioxide BUN Creatinine Glucose Calcium Consult Discharge Plan - Plan Referrals: [facility] [Other] [facility] [Primary Care Provider[facility] -
[2017-09-20 08:43] LABS: BUN/Creatinine Ratio 18 (6-26); Blood Urea Nitrogen 16 mg/dL (8-23); Calcium 7.9 mg/dL (8.6-10.3); Carbon Dioxide 26 mEq/L (23-29); Chloride 103 mEq/L (98-107); Glucose 141 mg/dL (70-105); Osmolality,Calculated 296 (280-300); Sodium 141 mEq/L (136-145); eGFR For African Americans > 60 (> 60); eGFR For Non-African Americans > 60 (> 60)
[2017-09-20 08:56] LABS: Platelet Estimate Normal (Normal)
[2017-09-20] MEDS ORDERED: Apixaban 5 MG TABLET PO SCH (09:00)
[2017-09-20] MEDS ORDERED: Furosemide 20 MG TABLET PO SCH (09:00)
[2017-09-20] MEDS ORDERED: Aspirin 81 MG TAB.CHEW PO SCH (09:00)
--- NOTE | 2017-09-20 09:30 | Cardiology Progress Note ---
Date of Encounter: 09/20/17 Time of Encounter: 07:45 Assessment and Plan (1) NSTEMI (non-ST elevated myocardial infarction) Current Visit: Yes Status: Acute Troponin elevated up to 0.75. Possible NSTEMI. He is asymptomatic. Cardiac risk factors include DM type II, HTN, HLD, and tobacco use. 06/22/17- Stress test was negative. TTE completed shows EF 55%. Mild MR. Mild to moderate tricuspid regurgitation, mild to moderate pulmonary hypertension. GAMALIEL showed no vegetation but showed mild to moderate reduction in LV function since TTE completed 09/15/17. Repeat limited study ordered to check EF. LHC indication, risk, adverse events, and benefits discussed. Noted patient is allergic to asa- and asa desensitization completed. He initially agreed to proceed. Patient now refusing to proceed. I had a long discussion regarding findings above and LHC. He adamantly continues to decline LHC. Cardiology will sign off. If patient changes his mind or change in status please let us know. Continue asa, plavix, statin, and bb. Out patient will be made in 1-2 weeks with [facility]. (2) Staphylococcus aureus bacteremia Current Visit: Yes Status: Acute Blood culture positive for e-coli, strep agalectie, and staph aureus x2. GAMALIEL did not show vegetation. ID following. s/p I&D of BLE. (3) Atrial fibrillation Current Visit: Yes Status: Acute H/o PAF per report. On eliquis. Patient unsure of history. Currently eliquis on hold. Ok to re-start if no procedures panned.. Currently NSR. No afib seen during stay. Continue atenolol. Qualifiers: Atrial fibrillation type: paroxysmal Qualified Code(s): I48.0 - Paroxysmal atrial fibrillation Discussion w patient/family: The assessment and plan as outlined above was discussed with the patient and/or family members who expressed understanding and agreement. All questions were answered. Thank you for involving us in the care of your patient. Please call with any questions. Subjective Principal diagnosis: foot infection Interval history: Mr. Magana seen and evaluated this morning. No new complaints. Continues to decline LHC. Objective Vital Signs, Last 4 Hours Temp Pulse Resp BP Pulse Ox 09/20/17 09:00 70 16 153/74 98 09/20/17 08:00 68 18 119/60 96 09/20/17 07:50 16 94 09/20/17 07:30 84 09/20/17 07:00 98.6 F 74 20 153/74 98 09/20/17 06:00 74 18 137/73 98 General: Conversant, No Apparent Distress HEENT: Atraumatic, Normocephaly, Mucus Membranes Moist Neck: No JVD, Normal carotid pulses Cardiac: Reg Rate and Rhythm, Normal S1 and S2, No Murmur Lungs: Normal Breath Sounds, No Wheeze, Rales, Rhonchi Neuro: Alert and responsive, No focal deficits noted Abdomen: Soft, Non-Tender Skin: No rashes noted on visualized skin Musculoskeletal: No Chest Wall Tenderness Extremities: No Clubbing, No Cyanosis, Normal Pulses, Other (Dressing D/I on BLE. 1= DP pulses bilat. ) Results 09/20/17 04:37 09/20/17 04:37 Lab Results 09/19/17 09/19/17 09/19/17 12:18 17:27 20:00 WBC Hgb Hct Plt Count APTT 39.8 H 53.7 H Sodium Potassium 3.2 L Chloride Carbon Dioxide BUN Creatinine Glucose Calcium 09/20/17 09/20/17 09/20/17 03:19 04:37 04:37 WBC 9.6 Hgb 10.8 L Hct 33.2 L Plt Count 216 APTT 61.3 H Sodium 141 Potassium 3.2 L Chloride 103 Carbon Dioxide 26 BUN 16 Creatinine 0.87 Glucose 141 H Calcium 7.9 L - Imaging and Cardiology Echo: report reviewed - EKG Interpretation EKG results cardiology: personally reviewed - VTE Documentation of Mechanical Device: Intermittent pneumatic compression device Consult Discharge Plan - Plan Referrals: [facility] [Other] [facility] [Primary Care Provider] -
[2017-09-20] MEDS ORDERED: OXYCODONE Oral CONC 10 MG/0.5 ML ORAL.SYG SL PRN (10:49)
--- NOTE | 2017-09-20 10:58 | Infectious Disease Progress No ---
Date of Encounter: 09/20/17 Time of Encounter: 10:56 - Assessment and Plan (1) Severe sepsis Current Visit: Yes Status: Acute The patient had fever and leukocytosis on admission to the [facility]. He had tachycardia and leukocytosis on the day he was transferred here. He developed tachycardia and leukocytosis with hypotension and lactic acidosis yesterday. Likely secondary to bacteremia and foot cellulitis. Improved. WBC normal today. Tachycardia and hypotension have resolved.. Blood cultures obtained at the [facility] 09/12/17 x 1 set was positive for MSSA. Repeat culture obtained at the [facility] 09/15/17 is NGTD x 1 set. Additional blood cultures drawn here are positive 2/2 sets for E. coli and 1/2 sets for MSSA (per PCR) and GBS. Repeat blood cultures drawn 09/16/17 are positive x 1/2 sets for GPC and E. coli. Final ID and sensitivities are pending. (2) Bacteremia Current Visit: Yes Status: Acute Causative organism: MSSA, E. coli, GBS. Source likely foot cellulitis. Blood cultures obtained at the [facility] 09/12/17 x 1 set was positive for MSSA. Repeat culture obtained at the [facility] 09/15/17 is NGTD x 1 set. Additional blood cultures drawn here are positive 2/2 sets for E. coli and 1/2 sets for MSSA (per PCR) and GBS. Repeat blood cultures drawn 09/16/17 are positive x 1/2 sets for GPC and E. coli. Final ID and sensitivities are pending. Not sure if this is complicated or not since we don't know if there is osteomyelitis or not. TTE negative for vegetations. GAMALIEL negative for vegetations. The patient has a documented allergy to PCN with anaphylactic reaction. Discussed this with the patient's sisters who state the patient got a rash when he had PCN several years ago. Repeat blood cultures x 2 sets now. Continue cefazolin 2 grams IV Q8H. He has been tolerating it without evidence of reaction. Duration of treatment depends on the clinical picture, but the patient will likely require a prolonged course of IV antibiotics due to the infection in his feet. Monitor renal function and for drug toxicity and dose-adjust antibiotics. Avoid insertion of central venous access until blood cultures are negative x 48 hours. (3) Cellulitis Current Visit: Yes Status: Acute Location: Bilateral feet, left>right Secondary to bilateral foot trauma. Causative organism E. coli, GBS, and MSSA per wound culture of the left foot obtained at the [facility]. E. coli is randolph-sensitive. X-ray of the left foot done at the [facility] showed no evidence of OM or subcutaneous gas. Podiatry consulted and following. Status post I & D of the left foot with great toe amputation and right great toe I & D. Operative note reviewed. Some pus noted. Ischemic changes of the bone noted as well. Pathology pending. Culture positive for GBS. ESR 116, CRP 203. Antibiotics as above. Wound care per podiatry's recommendations. Duration of treatment depends on the clinical picture, but likely 6 weeks of antibiotics based on the extent of the infection. Qualifiers: Site of cellulitis: extremity Site of cellulitis of extremity: toe Laterality: unspecified laterality Qualified Code(s): L03.039 - Cellulitis of unspecified toe (4) Respiratory failure with hypoxia Current Visit: Yes Status: Acute Likely secondary to fluid volume overload. The patient became hypoxic, dyspneic,hypotensive, and tachycardic requiring emergent intubation. CXR shows findings consistent with pulmonary edema vs. multilobar pneumonia. Given the clinical picture, this was more likely fluid overload. CXR 09/18/17 improved. Self-extubated 09/18/17. Doing well on nasal cannula O2 at this time. Further management per the pulmonology team. Flu PCR negative. Qualifiers: Chronicity: acute Qualified Code(s): J96.01 - Acute respiratory failure with hypoxia (5) Lung nodule Current Visit: Yes Status: Acute Noted on CT scan at the [facility]. Further evaluation and management per the pulmonology team. (6) PVD (peripheral vascular disease) Current Visit: Yes Status: Acute ABIs consistent with moderate RLE disease, left was normal. Vascular surgery consulted. No intervention required at this time. (7) Diabetes Current Visit: Yes Status: Acute HgbA1C 7.2%. Recommend aggressive glucose monitoring and control to promote wound healing and prevent re-infection. Qualifiers: Diabetes mellitus type: type 2 Diabetes mellitus complication status: with circulatory complication Diabetes mellitus complication detail: with peripheral angiopathy without gangrene Diabetes mellitus buttermaker helper insulin use : without long-term use Qualified Code(s): E11.51 - Type 2 diabetes mellitus with diabetic peripheral angiopathy without gangrene (8) HTN (hypertension) Current Visit: Yes Status: Acute Qualifiers: Hypertension type: essential hypertension Qualified Code(s): I10 - Essential (primary) hypertension (9) CAD (coronary artery disease) Current Visit: Yes Status: Chronic Cardiology consulted and following. Patient refusing LHC at this time. Medical management per the primary and cardiology teams. Qualifiers: Coronary Disease-Associated Artery/Lesion type: unspecified vessel or lesion type [place] vs. transplanted heart: [place] heart Associated angina: without angina Qualified Code(s): I25.10 - Atherosclerotic heart disease of [place] coronary artery without angina pectoris (10) Atrial fibrillation Current Visit: Yes Status: Chronic Currently is NSR with rate controlled. Cardiology consulted and following. Qualifiers: Atrial fibrillation type: paroxysmal Qualified Code(s): I48.0 - Paroxysmal atrial fibrillation (11) NSTEMI (non-ST elevated myocardial infarction) Current Visit: Yes Status: Acute Troponin peaked at 0.75. Cardiology consulted and following. Patient refusing LHC. (12) Aspirin allergy Current Visit: Yes Status: Acute Ibeth Allergy consulted. Status post ASA desensitization. (13) COPD (chronic obstructive pulmonary disease) Current Visit: Yes Status: Acute Qualifiers: COPD type: unspecified COPD Qualified Code(s): J44.9 - Chronic obstructive pulmonary disease, unspecified - Subjective Interval history: Patient seen and examined. No acute events noted overnight. Patient on nasal cannula O2, tolerating well. Denies fevers, chills, or rigors. Denies chest pain , shortness of breath, or cough. Reports some back pain, but denies N/T. Reports pain in the bilateral feet and legs as well. Denies nausea, vomiting, or diarrhea. States he is too tired to eat this morning. Denies abdominal pain. Cr catheter remains patent. Denies oral thrush or new skin lesions. Infect Dis PN-Objective Data - Labs CBC & Chem 7: 09/20/17 04:37 09/20/17 04:37 Labs: Laboratory Results - last 24 hr 09/19/17 09/19/17 09/19/17 06:10 07:49 12:05 WBC RBC Hgb Hct MCV MCH MCHC RDW Plt Count MPV Immature Gran % Seg Neutrophils % 68.0 Band Neutrophils % 2.0 Lymphocytes % 22.0 Monocytes % 8.0 Eosinophils % Basophils % Neutrophils # 8.4 Lymphocytes # 2.6 Monocytes # 1.0 Eosinophils # Basophils # Reactive Lymphocytes Present A Platelet Estimate Normal APTT Sodium Potassium Chloride Carbon Dioxide BUN Creatinine Est GFR ( Amer) Est GFR (Non-Af Amer) BUN/Creatinine Ratio Glucose POC Glucose 84 187 H Calculated Osmolality Calcium 09/19/17 09/19/17 09/19/17 12:18 17:27 20:00 WBC RBC Hgb Hct MCV MCH MCHC RDW Plt Count MPV Immature Gran % Seg Neutrophils % Band Neutrophils % Lymphocytes % Monocytes % Eosinophils % Basophils % Neutrophils # Lymphocytes # Monocytes # Eosinophils # Basophils # Reactive Lymphocytes Platelet Estimate APTT 39.8 H 53.7 H Sodium Potassium 3.2 L Chloride Carbon Dioxide BUN Creatinine Est GFR ( Amer) Est GFR (Non-Af Amer) BUN/Creatinine Ratio Glucose POC Glucose Calculated Osmolality Calcium 09/19/17 09/20/17 09/20/17 23:28 03:19 04:37 WBC RBC Hgb Hct MCV MCH MCHC RDW Plt Count MPV Immature Gran % Seg Neutrophils % Band Neutrophils % Lymphocytes % Monocytes % Eosinophils % Basophils % Neutrophils # Lymphocytes # Monocytes # Eosinophils # Basophils # Reactive Lymphocytes Platelet Estimate APTT 61.3 H Sodium 141 Potassium 3.2 L Chloride 103 Carbon Dioxide 26 BUN 16 Creatinine 0.87 Est GFR ( Amer) > 60 Est GFR (Non-Af Amer) > 60 BUN/Creatinine Ratio 18 Glucose 141 H POC Glucose 103 H Calculated Osmolality 296 Calcium 7.9 L 09/20/17 09/20/17 04:37 05:28 WBC 9.6 RBC 3.76 L Hgb 10.8 L Hct 33.2 L MCV 88.3 MCH 28.7 MCHC 32.5 RDW 14.0 Plt Count 216 MPV 11.4 Immature Gran % 1.5 Seg Neutrophils % 73.8 Band Neutrophils % Lymphocytes % 20.3 Monocytes % 3.3 Eosinophils % 0.9 Basophils % 0.2 Neutrophils # 7.1 Lymphocytes # 2.0 Monocytes # 0.3 Eosinophils # 0.1 Basophils # 0.0 Reactive Lymphocytes Platelet Estimate Normal APTT Sodium Potassium Chloride Carbon Dioxide BUN Creatinine Est GFR ( Amer) Est GFR (Non-Af Amer) BUN/Creatinine Ratio Glucose POC Glucose 126 H Calculated Osmolality Calcium Cultures: Cultures 09/18/17 18:09 Wound Culture - Final Left Foot Strep agalactiae - (Group B) 09/16/17 22:19 Blood Culture - Preliminary Peripheral Venipuncture Escherichia coli Gram Positive Cocci 09/16/17 22:19 Blood Culture - Preliminary Peripheral Venipuncture No growth. Serology 09/17/17 Range/Units 15:50 Influenza Type A (PCR) Negative (Negative) Influenza Type B (PCR) Negative (Negative) - Impressions Impressions Echocardiogram Limited Views 09/19/17 14:48 Impressions: LVEF 30-35%. Normal LV chamber size and wall thickness. Grossly, global left ventricular systolic dysfunction. Atypical septal motion of unclear etiology. Compared to prior TTE report, LVEF has decreased. Future studies should be completed with contrast enhancement. Left Ventricular Wall Motion: Rest Echo Findings The apex, apical inferior, mid inferior, basal inferior, apical anterior, mid anterior, basal anterior, apical septal, mid inferior septal, basal inferior septal, apical lateral, mid anterior lateral, basal anterior lateral, mid anterior septal, mid inferior lateral, basal anterior septal and basal inferior lateral mortensen were hypokinetic. Findings: Study Quality * Technically sub-optimal due to poor echocardiographic windows. ECG Findings * Normal sinus rhythm. Left Ventricle * LVEF 30-35%. * Normal LV chamber size and wall thickness. * Grossly, global left ventricular systolic dysfunction. * Atypical septal motion of unclear etiology. Right Ventricle * Normal right ventricular structure and function. Aorta * Normally sized aortic root. Pericardium * The pericardium appears normal. Exam - Constitutional Vitals: Temp Pulse Resp BP Pulse Ox 98.6 F 72 18 155/98 95 09/20/17 07:00 09/20/17 10:00 09/20/17 10:00 09/20/17 10:00 09/20/17 10:00 General appearance: average body habitus, cooperative, no acute distress - Head Head exam: Present: atraumatic, normal inspection, normocephalic - Eye Eye exam: Present: EOMI, normal appearance, PERRL Pupils: Present: normal accommodation Additional comments: No subconjunctival hemorrhage noted. - ENT ENT exam: Present: mucous membranes moist - Neck Neck exam: Present: normal inspection - Respiratory Respiratory exam: Present: CTAB. Absent: rales, respiratory distress, rhonchi, wheezes - Cardiovascular Cardiovascular exam: Present: RRR, +S1, +S2 - GI/Abdominal GI/Abdominal exam: Present: normal bowel sounds, soft. Absent: distended, tenderness Additional comments: Cr catheter draining clear yellow urine. - Extremities Exam Additional comments: Left foot surgical site dressing partially off with guaze stuck to the wound bed. Erythema improved. No foul odor or rolan drainage. Right foot dressing C/D/I. - Back Exam Back exam: Present: normal inspection. Absent: vertebral tenderness - Neurological Exam Neurological exam: Present: alert, oriented X3, no focal deficits - Psychiatric Psychiatric exam: Present: normal affect, normal mood - Skin Skin exam: Present: dry, intact, normal color, warm - VTE Documentation of Mechanical Device: Intermittent pneumatic compression device Consult Discharge Plan - Plan Referrals: [facility] [Other] [facility] [Primary Care Provider[facility] - - Attending Attestation I examined this patient and my medical decision-making was reviewed with the Resident Physician. I agree with the documented findings, disposition and treatment plan as described except to the extent set forth below.
[2017-09-20] MEDS ORDERED: Sennosides/Docusate Sodium TABLET PO SCH (11:00)
[2017-09-20] MEDS ORDERED: Dextrose Gel 15 GM/37.5 ML TUBE PO PRN ×2 (11:03)
[2017-09-20] MEDS ORDERED: Ondansetron 4 MG/2 ML VIAL IVP PRN (11:03)
[2017-09-20] MEDS ORDERED: D5% in Water 1,000 ML IVC PRN (11:03)
[2017-09-20] MEDS ORDERED: Nitroglycerin 0.4 MG TAB.SUBL SL PRN (11:03)
[2017-09-20] MEDS ORDERED: Haloperidol Lactate 5 MG/ML VIAL IVP PRN (11:03)
[2017-09-20] MEDS ORDERED: Naloxone 0.4 MG/ML INJ IVP PRN (11:03)
[2017-09-20] MEDS ORDERED: *HR* LORazepam 2 MG/ML VIAL IVP PRN (11:03)
[2017-09-20] MEDS ORDERED: *HR* Dextrose 50 % in Water (Syg) 50 ML SYRINGE IVP PRN (11:03)
[2017-09-20] MEDS ORDERED: Albuterol 2.5 MG/3 ML NEBULIZER IH PRN (11:03)
[2017-09-20] MEDS ORDERED: Acetaminophen 325 MG TABLET PO PRN (11:03)
[2017-09-20] MEDS ORDERED: Insulin LISPRO 300 UNITS/3 ML VIAL SQ SCH ×2 (11:30→21:00)
[2017-09-20] MEDS: *HR* OxyCODONE/APAP 5/325 TABLET PO PRN ×2 (12:18→18:08)
[2017-09-20] MEDS: OXYCODONE Oral CONC 10 MG/0.5 ML ORAL.SYG SL PRN ×2 (15:19→21:01)
--- NOTE | 2017-09-20 15:23 | Podiatry Progress Note ---
Date of Encounter: 09/20/17 Time of Encounter: 14:00 - Assessment and Plan (1) Cellulitis Current Visit: Yes Status: Acute S/p Incision and drainage left and right foot with amputation of left great toe by Dr. Barbosa on 09/18/17. Dressing removed at bedside today, cleansed with saline. Pat dry. Appears to be healing as expected. Left foot- adaptic 4x4 and kerlex applied to surgical site Right foot- medial great toe has moderate amount of serous/white drainage causing maceration to toe #2, painted with betadine, maxsorb AG strip and 4x4 applied to wick drainage. Covered with kerlix. WBC: 9.6, a febrile. Will undergo a LHC in a couple of days [facility] isolated E. coli, GBS, and MSSA. Intra op cultures pending. Continue cofezolin 2g Q8H per ID- Has post op shoe at bedside. Qualifiers: Site of cellulitis: extremity Site of cellulitis of extremity: toe Laterality: unspecified laterality Qualified Code(s): L03.039 - Cellulitis of unspecified toe (2) Diabetes Current Visit: Yes Status: Acute Strict glucose control to limit complications and promote healing Qualifiers: Diabetes mellitus type: type 2 Diabetes mellitus complication status: with circulatory complication Diabetes mellitus complication detail: with peripheral angiopathy without gangrene Diabetes mellitus care home insulin use : without intermediate designer use Qualified Code(s): E11.51 - Type 2 diabetes mellitus with diabetic peripheral angiopathy without gangrene Subjective Principal diagnosis: foot infection Interval history: Patient is lying in bed with dressings intact to both feet. Patient is s/p Incision and drainage left and right foot with amputation of left great toe by Dr. Barbosa on 09/18/17. Patient is lying in bed with girlfriend at bedside. Patient underwent GAMALIEL and echocardiogram, was recommended a LHC based on EF 35% - opted to undergo procedure- will likely go on Saturday or Saturday. Denies any pain or issues at this time. Objective - Vital Signs Vital Signs: Vital Signs Temp Pulse Resp BP Pulse Ox 09/20/17 12:09 98.2 F 09/20/17 11:52 72 09/20/17 11:25 16 93 09/20/17 10:00 72 18 155/98 95 09/20/17 09:00 70 16 153/74 98 09/20/17 08:00 68 18 119/60 96 09/20/17 07:50 16 94 09/20/17 07:30 84 09/20/17 07:00 98.6 F 74 20 153/74 98 09/20/17 06:00 74 18 137/73 98 09/20/17 05:00 76 20 122/60 97 09/20/17 04:23 98.3 F 09/20/17 04:00 73 16 119/60 95 09/20/17 03:40 16 95 09/20/17 03:00 80 14 123/71 95 09/20/17 02:00 92 12 114/77 96 09/20/17 01:00 90 16 130/84 100 09/20/17 00:27 99.6 F 09/20/17 00:01 13 127/68 96 09/20/17 00:00 82 17 127/68 96 09/19/17 23:00 80 18 141/77 95 09/19/17 22:00 75 14 113/56 96 09/19/17 21:00 72 16 120/59 98 09/19/17 20:12 99.4 F 09/19/17 20:01 86 20 126/78 100 09/19/17 19:46 17 152/78 94 09/19/17 19:00 80 18 139/78 100 09/19/17 18:00 76 18 106/56 97 09/19/17 17:00 75 18 130/73 95 09/19/17 16:17 16 99 09/19/17 16:00 80 20 140/75 100 09/19/17 15:55 76 Intake and Output 09/19/17 09/20/17 09/20/17 23:59 07:59 15:59 Intake Total 428 / 428 319 / 319 122 / 122 Output Total 900 / 900 600 / 600 325 / 325 Balance -472 / -472 -281 / -281 -203 / -203 Intake: IV Fluids 228 / 228 319 / 319 122 / 122 Heparin 25,000 UNIT/500 ML D5W 178 / 178 269 / 269 122 / 122 25,000 unit In 500 ml @ 12 UNIT /KG/HR 19.599 mls/hr IVC .Q24H [facility] Rx#:[id number] Ancef Premix DUPLEX 2,000 mg In 50 / 50 50 / 50 50 ml @ 100 mls/hr IVPB Q8HR [facility] Rx#:[id number] Oral 200 / 200 Output: Catheter 900 / 900 600 / 600 325 / 325 Other: Meal Lunch Percent of Meal Consumed 50% Weight 81.5 kg Blood Glucose* 140 Patient Weight 09/20/17 23:59 Weight 81.5 kg - Exam Exam: General appearance: alert awake oriented X 3. Calm and pleasant, no acute distress.. Vascular: Pedal pulses palpable, Edema graded at 1+/4, Skin Temperature warm, No calf pain with manual compression. capillary refill time is immediate to digits. Neurologic: Sensation intact with light touch to both feet. Integument: S/p: retention sutures intact to the left foot, periwound erythema, no streaking, scant amount of bloody drainage observed to dressing, no pus, no odor. Right great toe: medial aspect of right great toe with red granulation tissue, lateral aspect with intact eschar to the dorsal lateral aspect extending to the plantar aspect with light periwound erythema to dorsal aspect, no streaking, no pus, no odor, active serous/white dressing to lateral aspect of toe causing slight maceration to medial aspect of toe #2. - Lab Result Diagrams: 09/20/17 04:37 09/20/17 04:37 Labs: Abnormal lab results RBC 3.76 M/mcL (4.19-5.50) L 09/20/17 04:37 Hgb 10.8 g/dL (12.9-16.9) L 09/20/17 04:37 Hct 33.2 % (37.5-50.1) L 09/20/17 04:37 Nucleated RBCs/100 WBC 0.6 /100 WBC (0) H 09/19/17 07:49 Reactive Lymphocytes Present (Not Present) A 09/19/17 07:49 ESR 116 mm/hr (0-10) H 09/15/17 22:18 PT 15.8 Seconds (9.4-12.1) H 09/15/17 09:19 APTT 61.3 Seconds (26.0-36.0) H 09/20/17 03:19 Heparin Anti-Xa, Unfract 1.17 IU/mL (0.30-0.70) H* 09/18/17 08:45 ABG pH 7.49 pH Units (7.32-7.45) H 09/19/17 07:51 ABG pO2 119 mmHg (85-104) H 09/19/17 07:51 ABG HCO3 32 mEq/L (21-27) H 09/19/17 07:51 ABG Total CO2 33 mEq/L (20-26) H 09/19/17 07:51 ABG O2 Saturation 99 % (95-98) H 09/19/17 07:51 ABG Base Excess 8 mEq/L (-2 to 3) H 09/19/17 07:51 VBG pH 7.45 pH Units (7.32-7.42) H 09/19/17 06:17 Potassium 3.2 mEq/L (3.5-5.1) L 09/20/17 04:37 Glucose 141 mg/dL (70-105) H 09/20/17 04:37 POC Glucose 126 (58-89) H 09/20/17 05:28 Hemoglobin A1c 7.2 % (-5.6) H 09/14/17 22:25 Calcium 7.9 mg/dL (8.6-10.3) L 09/20/17 04:37 Venous Ioniz Calcium 1.04 mmol/L (1.15-1.35) L 09/19/17 06:17 AST 84 Units/L (13-39) H 09/15/17 02:58 ALT 61 Units/L (7-52) H 09/15/17 02:58 Alkaline Phosphatase 168 Units/L (34-104) H 09/15/17 02:58 Troponin I 0.49 ng/mL (< 0.04) H* 09/16/17 23:54 C-Reactive Protein 203 mg/L (Less than 10) H 09/15/17 22:18 B-Natriuretic Peptide 787 pg/mL (Less than 100) H 09/16/17 23:21 Serum Total Protein 6.1 g/dL (6.4-8.9) L 09/15/17 02:58 Albumin 2.8 g/dL (3.5-5.7) L 09/15/17 02:58 Albumin/Globulin Ratio 0.8 (1.1-2.2) L 09/15/17 02:58 Triglycerides 226 mg/dL (< 150) H 09/16/17 05:20 VLDL Cholesterol, Calc 45 mg/dL (< 31) H 09/16/17 05:20 HDL Cholesterol 7 mg/dL (40-59) L 09/16/17 05:20 Cholesterol/HDL Ratio 13.3 (0-4.9) H 09/16/17 05:20 Ur Specific [place] > 1.030 (1.010-1.025) H 09/14/17 14:36 Urine Protein 30 mg/dL (Neg-Trace) H 09/14/17 14:36 Urine Glucose (UA) 100 mg/dL (Normal) H 09/14/17 14:36 Urine Microscopic RBC 5-15 per hpf (0-3) H 09/14/17 14:36 Urine Microscopic WBC 5-15 per hpf (0-3) H 09/14/17 14:36 Ur Squamous Epith Cells Moderate per lpf (None-Few) H 09/14/17 14:36 Vancomycin Trough 13 mcg/mL (5-10) H 09/16/17 11:12 Enterobacteriac sp PCR DETECTED (Not Detect) A 09/14/17 14:50 E. coli (PCR) DETECTED (Not Detect) A 09/14/17 14:50 Microbiology, Last 48 Hours 09/18/17 18:09 Wound Culture - Final Left Foot Strep agalactiae - (Group B) 09/16/17 22:19 Blood Culture - Preliminary Peripheral Venipuncture Escherichia coli Gram Positive Cocci - VTE Documentation of Mechanical Device: Intermittent pneumatic compression device Consult Discharge Plan - Plan Referrals: [facility] [Other] [facility] [Primary Care Provider] -
[2017-09-20] MEDS: Apixaban 5 MG TABLET PO SCH (20:54)
[2017-09-20] MEDS: Sennosides/Docusate Sodium TABLET PO SCH (20:54)
[2017-09-21] MEDS: CeFAZolin Premix DUPLEX 2,000 MG/50 ML BAG IVPB SCH ×4 (00:13→23:48)
[2017-09-21] MEDS: *HR* OxyCODONE/APAP 5/325 TABLET PO PRN ×4 (00:29→23:48)
[2017-09-21] MEDS: Ipratropium/Albuterol Neb 3 ML IH SCH ×6 (04:10→23:54)
[2017-09-21] MEDS: OXYCODONE Oral CONC 10 MG/0.5 ML ORAL.SYG SL PRN ×3 (06:21→20:01)
[2017-09-21] MEDS: Insulin LISPRO 300 UNITS/3 ML VIAL SQ SCH ×4 (08:07→20:11)
[2017-09-21] MEDS: Furosemide 20 MG TABLET PO SCH (08:33)
[2017-09-21] MEDS: Apixaban 5 MG TABLET PO SCH (08:33)
[2017-09-21] MEDS: Aspirin 81 MG TAB.CHEW PO SCH (08:34)
[2017-09-21] MEDS: Sennosides/Docusate Sodium TABLET PO SCH ×2 (08:34→20:00)
[2017-09-21 09:23] LABS: Basophils % 0.3 %; Eosinophils # 0.2 K/mcL (0.0-0.6); Eosinophils % 1.5 %; Hematocrit 34.5 % (37.5-50.1); Hemoglobin 11.6 g/dL (12.9-16.9); Immature Granulocytes % 0.7 % (0-4); Lymphocytes # 1.9 K/mcL (0.6-4.6); Lymphocytes % 13.6 %; Mean Corpuscular HGB Conc 33.6 g/dL (31.6-35.5); Mean Corpuscular Hemoglobin 29.2 pg (28.0-33.3); Mean Corpuscular Volume 86.9 fL (83.0-100.0); Mean Platelet Volume 10.4 fL (9.4-12.4); Monocytes # 0.5 K/mcL (0.0-1.3); Monocytes % 3.4 %; Neutrophils # 11.4 K/mcL (1.6-8.9); Platelet Count 244 K/mcL (140-400); Red Blood Count 3.97 M/mcL (4.19-5.50); Red Cell Distribution Width 13.8 % (11.5-14.5); Segmented Neutrophils % 80.5 %
[2017-09-21 09:41] LABS: BUN/Creatinine Ratio 17 (6-26); Blood Urea Nitrogen 15 mg/dL (8-23); Calcium 8.4 mg/dL (8.6-10.3); Carbon Dioxide 27 mEq/L (23-29); Chloride 101 mEq/L (98-107); Glucose 158 mg/dL (70-105); Osmolality,Calculated 284 (280-300); Potassium 3.6 mEq/L (3.5-5.1); Sodium 135 mEq/L (136-145); eGFR For African Americans > 60 (> 60); eGFR For Non-African Americans > 60 (> 60)
[2017-09-21 09:47] LABS: Platelet Estimate Normal (Normal)
--- NOTE | 2017-09-21 13:52 | Internal Med Progress Note ---
Date of Encounter: 09/21/17 Time of Encounter: 12:25 - Assessment and plan (1) Respiratory failure with hypoxia Current Visit: Yes Status: Resolved Assessment and plan: Resolved secondary to volume overload in the setting of CHF decompensation Continue PO dose of lasix O2 supplementation continue to closely monitor fluid restriction diet monitor daily weight strict I/Os Qualifiers: Chronicity: acute Qualified Code(s): J96.01 - Acute respiratory failure with hypoxia (2) Severe sepsis Current Visit: Yes Status: Resolved Assessment and plan: Secondary to E.coli bacteremia and Staph bacteremia clinically improving awaiting repeat blood culture results ID on board continue Cefazolin at this time PICC line in place 2D echo negative for vegatations (3) Bacteremia Current Visit: Yes Status: Acute Assessment and plan: as listed above awaiting repeat blood culture results (4) Acute exacerbation of CHF (congestive heart failure) Current Visit: Yes Status: Acute Assessment and plan: 2D echo reported LVEF of 30-35% with global LV systolic dysfunction, this is an acute change in his LVEF pt needs [facility] however has been changing his mind about going through with the procedure at this point Cardiology on board and consultation appreciated tentatively scheduled for [facility] on Saturday Qualifiers: Congestive heart failure type: systolic Qualified Code(s): I50.23 - Acute on chronic systolic (congestive) heart failure (5) Cellulitis Current Visit: Yes Status: Acute Assessment and plan: continue IV abx Qualifiers: Site of cellulitis: extremity Site of cellulitis of extremity: toe Laterality: unspecified laterality Qualified Code(s): L03.039 - Cellulitis of unspecified toe (6) Atherosclerosis of [place] arteries of extremities with gangrene, bilateral legs Current Visit: Yes Status: Chronic Assessment and plan: s/p left great toe amputation and I&D of right great toe (date of procedure: ) continue daily dressing changes podiatry on board and consultation appreciated awaiting wound intraop wound cultures pain control (7) Aspirin allergy Current Visit: Yes Status: Acute Assessment and plan: pt underwent aspirin desensitization in the ICU (8) Atrial fibrillation Current Visit: Yes Status: Chronic Assessment and plan: rate controlled with BB anticoagulated with Eliquis Qualifiers: Atrial fibrillation type: paroxysmal Qualified Code(s): I48.0 - Paroxysmal atrial fibrillation (9) CAD (coronary artery disease) Current Visit: Yes Status: Chronic Qualifiers: Coronary Disease-Associated Artery/Lesion type: unspecified vessel or lesion type [place] vs. transplanted heart: [place] heart Associated angina: without angina Qualified Code(s): I25.10 - Atherosclerotic heart disease of [place] coronary artery without angina pectoris (10) COPD (chronic obstructive pulmonary disease) Current Visit: Yes Status: Chronic Assessment and plan: not in acute exacerbation continue home meds Qualifiers: COPD type: unspecified COPD Qualified Code(s): J44.9 - Chronic obstructive pulmonary disease, unspecified (11) Diabetes Current Visit: Yes Status: Chronic Assessment and plan: continue sliding scale insulin algorithm monitor FS and BG ADA diet Qualifiers: Diabetes mellitus type: type 2 Diabetes mellitus complication status: with circulatory complication Diabetes mellitus complication detail: with peripheral angiopathy without gangrene Diabetes mellitus penitentiary insulin use : without penitentiary use Qualified Code(s): E11.51 - Type 2 diabetes mellitus with diabetic peripheral angiopathy without gangrene (12) DVT prophylaxis Current Visit: Yes Status: Acute Assessment and plan: on Eliquis (13) NSTEMI (non-ST elevated myocardial infarction) Current Visit: Yes Status: Acute Assessment and plan: Cardio on board awaiting pt's agreement for LHC continue medical management (ASA, Statin, BB, Plavix) (14) PVD (peripheral vascular disease) Current Visit: Yes Status: Acute Assessment and plan: vascular consult appreciated - Subjective Interval history: Patient is a 67y/o male who is transferred from the ICU overnight. Pt was admitted to the ICU for acute respiratory failure secondary to pulmonary edema/CHF decompensation requiring intubation. He was extubated on 09/18/17. Pt was also treated for severe sepsis secondary to bacteremia and infected foot ulcer. Was reported to have gangrenous left great toe requiring amputation. He also was found to have elevated TNI concerning for NSTEMI and LHC has been recommended however pt has been changing his mind on daily basis due to which is LHC has been postponed. At this time he is in agreement to getting LHC, cardiology on board, and tentatively scheduled for LHC on Saturday. Patient seen and examined at bedside. Reports of pain in b/l feet, but denies any chest pain or shortness of breath at this time. - Constitutional Vitals: Temp Pulse Resp BP Pulse Ox 98.8 F 77 17 125/67 96 09/21/17 10:36 09/21/17 10:36 09/21/17 10:36 09/21/17 10:36 09/21/17 10:36 General appearance: Present: A&O X 3, no acute distress, answers questions appropriately - Head Head exam: Present: atraumatic, normocephalic - Eye Eye exam: Present: conjuntiva pink, sclera anicteric - Respiratory Respiratory exam: Absent: respiratory distress, wheezes - Cardiovascular Cardiovascular exam: Present: RRR, +S1, +S2. Absent: diastolic murmur, gallop, rubs, systolic murmur - GI/Abdominal GI/Abdominal exam: Present: normal bowel sounds, soft, no peritoneal signs. Absent: distended, tenderness - Extremities Exam Extremities exam: Present: warm, radial pulses palpable and symmetrical. Absent : calf tenderness, pedal edema (dressing intact in bilateral feet ) - Neurological Exam Neurological exam: Present: alert, oriented X3 - Psychiatric Psychiatric exam: Present: normal affect, normal mood Internal Medicine: Result - Labs CBC & Chem 7: 09/21/17 09:07 09/21/17 09:07 Labs: Short CBC 09/21/17 Range/Units 09:07 WBC 14.1 H (4.3-11.1) K/mcL Hgb 11.6 L (12.9-16.9) g/dL Hct 34.5 L (37.5-50.1) % Plt Count 244 (140-400) K/mcL Neutrophils # 11.4 H (1.6-8.9) K/mcL BMP 09/21/17 09:07 Sodium 135 L Potassium 3.6 Chloride 101 Carbon Dioxide 27 BUN 15 Creatinine 0.86 Glucose 158 H Calcium 8.4 L - ABG Interpretation ABG results: ABG ABG pH 7.49 pH Units (7.32-7.45) H 09/19/17 07:51 ABG pCO2 42 mmHg (35-45) 09/19/17 07:51 ABG pO2 119 mmHg (85-104) H 09/19/17 07:51 ABG O2 Saturation 99 % (95-98) H 09/19/17 07:51 PT/INR, D-dimer PT 15.8 Seconds (9.4-12.1) H 09/15/17 09:19 - VTE Documentation of Mechanical Device: Intermittent pneumatic compression device Consult Discharge Plan - Plan Referrals: [facility] [Other] [facility] [Primary Care Provider] -
[2017-09-22] MEDS: OXYCODONE Oral CONC 10 MG/0.5 ML ORAL.SYG SL PRN ×4 (03:05→23:21)
[2017-09-22] MEDS: Ipratropium/Albuterol Neb 3 ML IH SCH ×6 (03:57→23:24)
[2017-09-22 06:15] LABS: Basophils % 0.3 %; Eosinophils # 0.2 K/mcL (0.0-0.6); Eosinophils % 1.9 %; Hematocrit 32.2 % (37.5-50.1); Hemoglobin 10.4 g/dL (12.9-16.9); Immature Granulocytes % 0.7 % (0-4); Lymphocytes % 21.1 %; Mean Corpuscular HGB Conc 32.3 g/dL (31.6-35.5); Mean Corpuscular Hemoglobin 28.4 pg (28.0-33.3); Mean Platelet Volume 10.5 fL (9.4-12.4); Monocytes # 0.5 K/mcL (0.0-1.3); Monocytes % 5.1 %; Neutrophils # 6.8 K/mcL (1.6-8.9); Platelet Count 230 K/mcL (140-400); Red Blood Count 3.66 M/mcL (4.19-5.50); Red Cell Distribution Width 13.6 % (11.5-14.5); Segmented Neutrophils % 70.9 %
[2017-09-22 06:37] LABS: BUN/Creatinine Ratio 18 (6-26); Blood Urea Nitrogen 15 mg/dL (8-23); Calcium 8.4 mg/dL (8.6-10.3); Carbon Dioxide 27 mEq/L (23-29); Chloride 103 mEq/L (98-107); Glucose 114 mg/dL (70-105); Magnesium 1.9 mg/dL (1.6-2.6); Osmolality,Calculated 286 (280-300); Phosphorous 2.9 mg/dL (2.7-4.5); Potassium 3.5 mEq/L (3.5-5.1); Sodium 137 mEq/L (136-145); eGFR For African Americans > 60 (> 60); eGFR For Non-African Americans > 60 (> 60)
[2017-09-22] MEDS: Furosemide 20 MG TABLET PO SCH (08:08)
[2017-09-22] MEDS: Sennosides/Docusate Sodium TABLET PO SCH ×2 (08:08→19:51)
[2017-09-22] MEDS: *HR* OxyCODONE/APAP 5/325 TABLET PO PRN ×2 (08:08→14:28)
[2017-09-22] MEDS: Aspirin 81 MG TAB.CHEW PO SCH (08:09)
[2017-09-22] MEDS: Insulin LISPRO 300 UNITS/3 ML VIAL SQ SCH ×3 (08:09→17:08)
[2017-09-22] MEDS: CeFAZolin Premix DUPLEX 2,000 MG/50 ML BAG IVPB SCH ×3 (09:45→23:21)
--- NOTE | 2017-09-22 15:10 | Internal Med Progress Note ---
Date of Encounter: 09/22/17 Time of Encounter: 14:46 - Assessment and plan (1) Respiratory failure with hypoxia Current Visit: Yes Status: Resolved Assessment and plan: Resolved secondary to volume overload in the setting of CHF decompensation Continue PO dose of lasix O2 supplementation continue to closely monitor fluid restriction diet monitor daily weight strict I/Os Qualifiers: Chronicity: acute Qualified Code(s): J96.01 - Acute respiratory failure with hypoxia (2) Severe sepsis Current Visit: Yes Status: Resolved Assessment and plan: Secondary to E.coli bacteremia and Staph bacteremia clinically improving repeat blood culture prelim reported No growth ID on board continue Cefazolin at this time PICC line in place 2D echo negative for vegatations (3) Bacteremia Current Visit: Yes Status: Acute Assessment and plan: as listed above awaiting repeat blood culture results (4) Acute exacerbation of CHF (congestive heart failure) Current Visit: Yes Status: Acute Assessment and plan: 2D echo reported LVEF of 30-35% with global LV systolic dysfunction, this is an acute change in his LVEF pt in agreement to [facility] in am (09/23/17) NPO after midnight eliquis on hold Cardiology on board and consultation appreciated Qualifiers: Congestive heart failure type: systolic Qualified Code(s): I50.23 - Acute on chronic systolic (congestive) heart failure (5) Cellulitis Current Visit: Yes Status: Acute Assessment and plan: continue IV abx Qualifiers: Site of cellulitis: extremity Site of cellulitis of extremity: toe Laterality: unspecified laterality Qualified Code(s): L03.039 - Cellulitis of unspecified toe (6) Atherosclerosis of [place] arteries of extremities with gangrene, bilateral legs Current Visit: Yes Status: Chronic Assessment and plan: s/p left great toe amputation and I&D of right great toe (date of procedure: ) continue daily dressing changes podiatry on board and consultation appreciated wound cultures positive for Strep Agalactiae (Group B) pain control (7) Aspirin allergy Current Visit: Yes Status: Acute Assessment and plan: pt underwent aspirin desensitization in the ICU (8) Atrial fibrillation Current Visit: Yes Status: Chronic Assessment and plan: rate controlled with BB holding Eliquis for [facility] in am Qualifiers: Atrial fibrillation type: paroxysmal Qualified Code(s): I48.0 - Paroxysmal atrial fibrillation (9) CAD (coronary artery disease) Current Visit: Yes Status: Chronic Assessment and plan: scheduled for LHC in am continue ASA, PLavix, STatin, BB Qualifiers: Coronary Disease-Associated Artery/Lesion type: unspecified vessel or lesion type [place] vs. transplanted heart: [place] heart Associated angina: without angina Qualified Code(s): I25.10 - Atherosclerotic heart disease of [place] coronary artery without angina pectoris (10) COPD (chronic obstructive pulmonary disease) Current Visit: Yes Status: Chronic Assessment and plan: not in acute exacerbation continue home meds Qualifiers: COPD type: unspecified COPD Qualified Code(s): J44.9 - Chronic obstructive pulmonary disease, unspecified (11) Diabetes Current Visit: Yes Status: Chronic Assessment and plan: continue sliding scale insulin algorithm monitor FS and BG ADA diet Qualifiers: Diabetes mellitus type: type 2 Diabetes mellitus complication status: with circulatory complication Diabetes mellitus complication detail: with peripheral angiopathy without gangrene Diabetes mellitus assistant terminal manager insulin use : without residential use Qualified Code(s): E11.51 - Type 2 diabetes mellitus with diabetic peripheral angiopathy without gangrene (12) DVT prophylaxis Current Visit: Yes Status: Acute Assessment and plan: SCD (13) NSTEMI (non-ST elevated myocardial infarction) Current Visit: Yes Status: Acute Assessment and plan: Cardio on board LHC in am (09/23/17) continue medical management (ASA, Statin, BB, Plavix) (14) PVD (peripheral vascular disease) Current Visit: Yes Status: Acute Assessment and plan: vascular consult appreciated - Subjective Interval history: Patient is a 67y/o male who is transferred from the ICU overnight(09/21/17) Pt was admitted to the ICU for acute respiratory failure secondary to pulmonary edema/CHF decompensation requiring intubation. He was extubated on 09/18/17. Pt was also treated for severe sepsis secondary to bacteremia and infected foot ulcer. Was reported to have gangrenous left great toe requiring amputation. He also was found to have elevated TNI concerning for NSTEMI and LHC has been recommended however pt has been changing his mind on daily basis due to which is LHC has been postponed. At this time he is in agreement to getting LHC, cardiology on board, and tentatively scheduled for LHC on Saturday(09/23/17). Patient seen and examined at bedside. Reports of pain in b/l feet and pain is not appropriately controlled with the current pain medications. Pt in agreement to undergoing LHC in am. Cristina on hold for LHC in am (09/23/17) NPO after midnight - Constitutional Vitals: Temp Pulse Resp BP Pulse Ox 98 F 62 16 110/69 96 09/22/17 11:25 09/22/17 11:25 09/22/17 11:25 09/22/17 11:25 09/22/17 11:25 General appearance: Present: A&O X 3, no acute distress, answers questions appropriately - Head Head exam: Present: atraumatic, normocephalic - Eye Eye exam: Present: conjuntiva pink, sclera anicteric - Respiratory Respiratory exam: Present: CTAB. Absent: rales, respiratory distress, wheezes - Cardiovascular Cardiovascular exam: Present: RRR, +S1, +S2. Absent: diastolic murmur, gallop, rubs, systolic murmur - GI/Abdominal GI/Abdominal exam: Present: normal bowel sounds, soft, no peritoneal signs. Absent: distended, tenderness - Extremities Exam Extremities exam: Present: warm, radial pulses palpable and symmetrical ( dressing intact in bilateral feet ). Absent: calf tenderness - Neurological Exam Neurological exam: Present: alert, oriented X3 - Psychiatric Psychiatric exam: Present: normal affect, normal mood Internal Medicine: Result - Labs CBC & Chem 7: 09/22/17 05:59 09/22/17 05:59 Labs: Short CBC 09/22/17 Range/Units 05:59 WBC 9.6 (4.3-11.1) K/mcL Hgb 10.4 L (12.9-16.9) g/dL Hct 32.2 L (37.5-50.1) % Plt Count 230 (140-400) K/mcL Neutrophils # 6.8 (1.6-8.9) K/mcL BMP 09/22/17 05:59 Sodium 137 Potassium 3.5 Chloride 103 Carbon Dioxide 27 BUN 15 Creatinine 0.83 Glucose 114 H Calcium 8.4 L - ABG Interpretation ABG results: ABG ABG pH 7.49 pH Units (7.32-7.45) H 09/19/17 07:51 ABG pCO2 42 mmHg (35-45) 09/19/17 07:51 ABG pO2 119 mmHg (85-104) H 09/19/17 07:51 ABG O2 Saturation 99 % (95-98) H 09/19/17 07:51 PT/INR, D-dimer PT 15.8 Seconds (9.4-12.1) H 09/15/17 09:19 - VTE Documentation of Mechanical Device: Intermittent pneumatic compression device Consult Discharge Plan - Plan Referrals: [facility] [Other] [facility] [Primary Care Provider] -
[2017-09-22] MEDS: *HR* OxyCODONE/APAP 7.5/325 TABLET PO PRN (19:51)
[2017-09-23] MEDS: Insulin LISPRO 300 UNITS/3 ML VIAL SQ SCH ×5 (00:22→20:52)
[2017-09-23] MEDS: Ipratropium/Albuterol Neb 3 ML IH SCH ×6 (04:01→23:56)
[2017-09-23] MEDS: OXYCODONE Oral CONC 10 MG/0.5 ML ORAL.SYG SL PRN (04:42)
[2017-09-23 05:55] LABS: Basophils % 0.2 %; Eosinophils # 0.2 K/mcL (0.0-0.6); Hematocrit 31.6 % (37.5-50.1); Hemoglobin 10.6 g/dL (12.9-16.9); Immature Granulocytes % 0.5 % (0-4); Lymphocytes # 2.1 K/mcL (0.6-4.6); Lymphocytes % 19.4 %; Mean Corpuscular HGB Conc 33.5 g/dL (31.6-35.5); Mean Corpuscular Hemoglobin 28.4 pg (28.0-33.3); Mean Corpuscular Volume 84.7 fL (83.0-100.0); Mean Platelet Volume 10.5 fL (9.4-12.4); Monocytes # 0.6 K/mcL (0.0-1.3); Monocytes % 5.3 %; Neutrophils # 7.8 K/mcL (1.6-8.9); Platelet Count 242 K/mcL (140-400); Red Blood Count 3.73 M/mcL (4.19-5.50); Red Cell Distribution Width 13.6 % (11.5-14.5); Segmented Neutrophils % 72.6 %
[2017-09-23 06:37] LABS: BUN/Creatinine Ratio 19 (6-26); Blood Urea Nitrogen 15 mg/dL (8-23); Calcium 8.6 mg/dL (8.6-10.3); Carbon Dioxide 26 mEq/L (23-29); Chloride 102 mEq/L (98-107); Glucose 125 mg/dL (70-105); Magnesium 1.8 mg/dL (1.6-2.6); Osmolality,Calculated 282 (280-300); Phosphorous 3.1 mg/dL (2.7-4.5); Potassium 3.4 mEq/L (3.5-5.1); Sodium 135 mEq/L (136-145); eGFR For African Americans > 60 (> 60); eGFR For Non-African Americans > 60 (> 60)
[2017-09-23] MEDS: *HR* OxyCODONE/APAP 7.5/325 TABLET PO PRN (07:51)
[2017-09-23] MEDS: Sennosides/Docusate Sodium TABLET PO SCH ×2 (07:52→20:53)
[2017-09-23] MEDS: Aspirin 81 MG TAB.CHEW PO SCH (07:52)
[2017-09-23] MEDS: Furosemide 20 MG TABLET PO SCH (07:52)
[2017-09-23] MEDS: CeFAZolin Premix DUPLEX 2,000 MG/50 ML BAG IVPB SCH ×3 (08:01→17:19)
--- NOTE | 2017-09-23 09:10 | Event Note ---
Date of Encounter: 09/23/17 Time of Encounter: 08:30 - Cardiology Event Note Seen and examined. Called by Hospitalist, Dr. De La Torre, patient is now agreeable for LHC. Please refer to last progress note by Cardiology, patient had declined LHC multiple times. Alternatives, risks, and benefits discussed at length. Patient is agreeable to proceed with LHC with possible PCI today. Indication: new cardiomyopathy, NSTEMI. Last dose of Eliquis (PAF) on Saturday at 08:33 AM. Vitals, labs stable this AM. Patient discussed and reviewed with Dr. Aguilar and also intervention, Dr. Carrillo. Further recommendations to follow. Short CBC 09/23/17 Range/Units 05:18 WBC 10.7 (4.3-11.1) K/mcL Hgb 10.6 L (12.9-16.9) g/dL Hct 31.6 L (37.5-50.1) % Plt Count 242 (140-400) K/mcL Neutrophils # 7.8 (1.6-8.9) K/mcL BMP 09/23/17 Range/Units 05:18 Sodium 135 L (136-145) mEq/L Potassium 3.4 L (3.5-5.1) mEq/L Chloride 102 (98-107) mEq/L Carbon Dioxide 26 (23-29) mEq/L BUN 15 (8-23) mg/dL Creatinine 0.80 (0.70-1.30) mg/dL Glucose 125 H (70-105) mg/dL Calcium 8.6 (8.6-10.3) mg/dL Limited Echocardiogram 09/19/17 LVEF 30-35%. Normal LV chamber size and wall thickness. Grossly, global left ventricular systolic dysfunction. Atypical septal motion of unclear etiology. Compared to prior TTE report, LVEF has decreased. Future studies should be completed with contrast enhancement. Left Ventricular Wall Motion: Rest Echo Findings: The apex, apical inferior, mid inferior, basal inferior, apical anterior, mid anterior, basal anterior, apical septal, mid inferior septal, basal inferior septal, apical lateral, mid anterior lateral, basal anterior lateral, mid anterior septal, mid inferior lateral, basal anterior septal and basal inferior lateral mortensen were hypokinetic.
--- NOTE | 2017-09-23 09:41 | Pre-Sedation Evaluation ---
Pre-sedation evaluation - Pre-sedation checklist Date of procedure: 09/19/17 Procedure: C Recent Vitals: Last Vital Signs Temp 98.2 F 09/23/17 07:29 Pulse 54 09/23/17 07:29 Resp 16 09/23/17 07:42 BP 111/66 09/23/17 07:29 Pulse Ox 92 09/23/17 07:42 H&P (including ROS) documented in medical record: Yes Previous reaction to sedatives/anesthetics: No Dietary Status: Clear fluids after Midnight Dentition: dentures removed ASA Classification *see protocol: CLASS II-Mild systemic disease Plan of Care: Pt appropriate candidate for procedure/moderate/conscious sedation
[2017-09-23] MEDS: *HR* OxyCODONE Immed Rel 15 MG TABLET PO PRN ×2 (11:30→20:54)
--- NOTE | 2017-09-23 12:02 | Internal Med Progress Note ---
Date of Encounter: 09/23/17 Time of Encounter: 10:56 - Assessment and plan (1) Respiratory failure with hypoxia Current Visit: Yes Status: Resolved Assessment and plan: Resolved secondary to volume overload in the setting of CHF decompensation Continue PO dose of lasix O2 supplementation continue to closely monitor fluid restriction diet monitor daily weight strict I/Os Qualifiers: Chronicity: acute Qualified Code(s): J96.01 - Acute respiratory failure with hypoxia (2) Severe sepsis Current Visit: Yes Status: Resolved Assessment and plan: Secondary to E.coli bacteremia and Staph bacteremia clinically improving repeat blood culture prelim reported No growth ID on board continue Cefazolin at this time PICC line in place 2D echo negative for vegatations (3) Bacteremia Current Visit: Yes Status: Acute Assessment and plan: as listed above (4) Acute exacerbation of CHF (congestive heart failure) Current Visit: Yes Status: Acute Assessment and plan: 2D echo reported LVEF of 30-35% with global LV systolic dysfunction, this is an acute change in his LVEF pt in agreement to [facility], scheduled for [facility] later today (09/23/17) eliquis on hold until after the procedure Cardiology on board and consultation appreciated Qualifiers: Congestive heart failure type: systolic Qualified Code(s): I50.23 - Acute on chronic systolic (congestive) heart failure (5) Cellulitis Current Visit: Yes Status: Acute Assessment and plan: continue IV abx daily wound care as per podiatry podiatry evaluation appreciated Qualifiers: Site of cellulitis: extremity Site of cellulitis of extremity: toe Laterality: unspecified laterality Qualified Code(s): L03.039 - Cellulitis of unspecified toe (6) Atherosclerosis of [place] arteries of extremities with gangrene, bilateral legs Current Visit: Yes Status: Chronic Assessment and plan: s/p left great toe amputation and I&D of right great toe (date of procedure: ) continue daily dressing changes podiatry on board and consultation appreciated wound cultures positive for Strep Agalactiae (Group B) pain control (7) Aspirin allergy Current Visit: Yes Status: Acute Assessment and plan: pt underwent aspirin desensitization in the ICU (8) Atrial fibrillation Current Visit: Yes Status: Chronic Assessment and plan: rate controlled with BB holding Eliquis for [facility] restart eliquis after [facility] Qualifiers: Atrial fibrillation type: paroxysmal Qualified Code(s): I48.0 - Paroxysmal atrial fibrillation (9) CAD (coronary artery disease) Current Visit: Yes Status: Chronic Assessment and plan: scheduled for [facility] today(09/23/17) continue ASA, PLavix, STatin, BB Qualifiers: Coronary Disease-Associated Artery/Lesion type: unspecified vessel or lesion type [place] vs. transplanted heart: [place] heart Associated angina: without angina Qualified Code(s): I25.10 - Atherosclerotic heart disease of [place] coronary artery without angina pectoris (10) COPD (chronic obstructive pulmonary disease) Current Visit: Yes Status: Chronic Assessment and plan: not in acute exacerbation continue home meds Qualifiers: COPD type: unspecified COPD Qualified Code(s): J44.9 - Chronic obstructive pulmonary disease, unspecified (11) Diabetes Current Visit: Yes Status: Chronic Assessment and plan: continue sliding scale insulin algorithm monitor FS and BG ADA diet Qualifiers: Diabetes mellitus type: type 2 Diabetes mellitus complication status: with circulatory complication Diabetes mellitus complication detail: with peripheral angiopathy without gangrene Diabetes mellitus skilled nursing insulin use : without termite exterminator helper use Qualified Code(s): E11.51 - Type 2 diabetes mellitus with diabetic peripheral angiopathy without gangrene (12) DVT prophylaxis Current Visit: Yes Status: Acute Assessment and plan: SCD (13) NSTEMI (non-ST elevated myocardial infarction) Current Visit: Yes Status: Acute Assessment and plan: Cardio on board [facility] today (09/23/17) continue medical management (ASA, Statin, BB, Plavix) (14) PVD (peripheral vascular disease) Current Visit: Yes Status: Acute Assessment and plan: vascular consult appreciated (15) Hypokalemia Current Visit: Yes Status: Acute Assessment and plan: K supplemented continue to monitor electrolytes and replace as needed - Subjective Interval history: Patient is a 67y/o male who is transferred from the ICU overnight(09/21/17) Pt was admitted to the ICU for acute respiratory failure secondary to pulmonary edema/CHF decompensation requiring intubation. He was extubated on 09/18/17. Pt was also treated for severe sepsis secondary to bacteremia and infected foot ulcer. Was reported to have gangrenous left great toe requiring amputation. He also was found to have elevated TNI concerning for NSTEMI and LHC has been recommended however pt has been changing his mind on daily basis due to which is LHC has been postponed. At this time he is in agreement to getting LHC, cardiology on board, and tentatively scheduled for LHC on Saturday(09/23/17). Patient seen and examined at bedside. Resting in bed. Reports of pain being better controlled. Scheduled for LHC later today (09/23/17) - Constitutional Vitals: Temp Pulse Resp BP Pulse Ox 97.4 F L 48 14 118/72 99 09/23/17 11:49 09/23/17 11:49 09/23/17 11:49 09/23/17 11:49 09/23/17 11:49 General appearance: Present: A&O X 3, no acute distress, answers questions appropriately - Head Head exam: Present: atraumatic, normocephalic - Eye Eye exam: Present: conjuntiva pink, sclera anicteric - Respiratory Respiratory exam: Present: CTAB. Absent: respiratory distress, wheezes - Cardiovascular Cardiovascular exam: Present: RRR, +S1, +S2. Absent: diastolic murmur, gallop, rubs, systolic murmur - GI/Abdominal GI/Abdominal exam: Present: normal bowel sounds, soft, no peritoneal signs. Absent: distended, tenderness - Extremities Exam Extremities exam: Present: warm, radial pulses palpable and symmetrical ( dressing intact in bilateral feet ). Absent: calf tenderness - Neurological Exam Neurological exam: Present: alert, oriented X3 - Psychiatric Psychiatric exam: Present: normal affect, normal mood Internal Medicine: Result - Labs CBC & Chem 7: 09/23/17 05:18 09/23/17 05:18 Labs: Short CBC 09/23/17 Range/Units 05:18 WBC 10.7 (4.3-11.1) K/mcL Hgb 10.6 L (12.9-16.9) g/dL Hct 31.6 L (37.5-50.1) % Plt Count 242 (140-400) K/mcL Neutrophils # 7.8 (1.6-8.9) K/mcL BMP 09/23/17 05:18 Sodium 135 L Potassium 3.4 L Chloride 102 Carbon Dioxide 26 BUN 15 Creatinine 0.80 Glucose 125 H Calcium 8.6 - ABG Interpretation ABG results: ABG ABG pH 7.49 pH Units (7.32-7.45) H 09/19/17 07:51 ABG pCO2 42 mmHg (35-45) 09/19/17 07:51 ABG pO2 119 mmHg (85-104) H 09/19/17 07:51 ABG O2 Saturation 99 % (95-98) H 09/19/17 07:51 PT/INR, D-dimer PT 15.8 Seconds (9.4-12.1) H 09/15/17 09:19 - VTE Documentation of Mechanical Device: Intermittent pneumatic compression device Consult Discharge Plan - Plan Referrals: [facility] [Other] [facility] [Primary Care Provider] -
[2017-09-23] MEDS ORDERED: *HR* Heparin 10,000 UNIT/10 ML VIAL ONE (13:04)
[2017-09-23] MEDS ORDERED: ISOVUE-370 200 ML INFUS..BTL IV ONE (13:05)
[2017-09-23] MEDS ORDERED: 0.9 % Sodium Chloride 1,000 ML ONE ×2 (13:05→14:36)
[2017-09-23] MEDS ORDERED: Heparin 1,000 UNITS/500 mL 500 ML ONE (13:05)
[2017-09-23] MEDS ORDERED: Nitroglycerin 1,000 MCG/10 ML VIAL IV ONE (13:06)
--- NOTE | 2017-09-23 13:19 | Infectious Disease Progress No ---
Date of Encounter: 09/23/17 Time of Encounter: 13:17 - Assessment and Plan (1) Severe sepsis Current Visit: Yes Status: Resolved The patient had fever and leukocytosis on admission to the [facility]. He had tachycardia and leukocytosis on the day he was transferred here. He developed tachycardia and leukocytosis with hypotension and lactic acidosis yesterday. Likely secondary to bacteremia and foot cellulitis. Improved. WBC normal. Tachycardia and hypotension have resolved.. Blood cultures obtained at the [facility] 09/12/17 x 1 set was positive for MSSA. Repeat culture obtained at the [facility] 09/15/17 is negative x 1 set. Additional blood cultures drawn here are positive 2/2 sets for E. coli and 1/2 sets for MSSA (per PCR) and GBS. Repeat blood cultures drawn 09/16/17 are positive x 1/2 sets for GPC and E. coli. GPC not able to be isolated on the culture. Additional repeat blood cultures drawn 09/20/17 and 09/21/17 are NGTD x 4 sets. (2) Bacteremia Current Visit: Yes Status: Acute Causative organism: MSSA, E. coli, GBS. Source likely foot cellulitis. Blood cultures obtained at the [facility] 09/12/17 x 1 set was positive for MSSA. Repeat culture obtained at the [facility] 09/15/17 is negative x 1 set. Additional blood cultures drawn here are positive 2/2 sets for E. coli and 1/2 sets for MSSA (per PCR) and GBS. Repeat blood cultures drawn 09/16/17 are positive x 1/2 sets for GPC and E. coli. Unable to grow GPC out on culture, but likely GBS. Complicated due to OM. TTE negative for vegetations. GAMALIEL negative for vegetations. The patient has a documented allergy to PCN with anaphylactic reaction. Discussed this with the patient's sisters who state the patient got a rash when he had PCN several years ago. Continue cefazolin 2 grams IV Q8H. He has been tolerating it without evidence of reaction. Duration of treatment depends on the clinical picture, but the patient will likely require a prolonged course of IV antibiotics due to the infection in his feet. Monitor renal function and for drug toxicity and dose-adjust antibiotics. (3) Cellulitis Current Visit: Yes Status: Acute Location: Bilateral feet, left>right Secondary to bilateral foot trauma. Causative organism E. coli, GBS, and MSSA per wound culture of the left foot obtained at the [facility]. E. coli is randolph-sensitive. X-ray of the left foot done at the [facility] showed no evidence of OM or subcutaneous gas. Podiatry consulted and following. Status post I & D of the left foot with great toe amputation and right great toe I & D. Operative note reviewed. Some pus noted. Ischemic changes of the bone noted as well. Pathology shows findings consistent with gangrenous changes. Culture positive for GBS. ESR 116, CRP 203. Antibiotics as above. Wound care per podiatry's recommendations. Duration of treatment depends on the clinical picture, but likely 6 weeks of antibiotics based on the extent of the infection. Qualifiers: Site of cellulitis: extremity Site of cellulitis of extremity: toe Laterality: unspecified laterality Qualified Code(s): L03.039 - Cellulitis of unspecified toe (4) Respiratory failure with hypoxia Current Visit: Yes Status: Resolved Likely secondary to fluid volume overload. The patient became hypoxic, dyspneic,hypotensive, and tachycardic requiring emergent intubation. CXR shows findings consistent with pulmonary edema vs. multilobar pneumonia. Given the clinical picture, this was more likely fluid overload. CXR 09/18/17 improved. Self-extubated 09/18/17. Doing well on nasal cannula O2 at this time. Further management per the pulmonology team. Flu PCR negative. Qualifiers: Chronicity: acute Qualified Code(s): J96.01 - Acute respiratory failure with hypoxia (5) Lung nodule Current Visit: Yes Status: Acute Noted on CT scan at the [facility]. Further evaluation and management per the pulmonology team. (6) PVD (peripheral vascular disease) Current Visit: Yes Status: Acute ABIs consistent with moderate RLE disease, left was normal. Vascular surgery consulted. No intervention required at this time. (7) Diabetes Current Visit: Yes Status: Chronic HgbA1C 7.2%. Recommend aggressive glucose monitoring and control to promote wound healing and prevent re-infection. Qualifiers: Diabetes mellitus type: type 2 Diabetes mellitus complication status: with circulatory complication Diabetes mellitus complication detail: with peripheral angiopathy without gangrene Diabetes mellitus long term care administrator insulin use : without long term care administrator use Qualified Code(s): E11.51 - Type 2 diabetes mellitus with diabetic peripheral angiopathy without gangrene (8) HTN (hypertension) Current Visit: Yes Status: Acute Qualifiers: Hypertension type: essential hypertension Qualified Code(s): I10 - Essential (primary) hypertension (9) CAD (coronary artery disease) Current Visit: Yes Status: Chronic Cardiology consulted and following. Patient refusing LHC at this time. Medical management per the primary and cardiology teams. Qualifiers: Coronary Disease-Associated Artery/Lesion type: unspecified vessel or lesion type [place] vs. transplanted heart: [place] heart Associated angina: without angina Qualified Code(s): I25.10 - Atherosclerotic heart disease of [place] coronary artery without angina pectoris (10) Atrial fibrillation Current Visit: Yes Status: Chronic Currently is NSR with rate controlled. Cardiology consulted and following. Qualifiers: Atrial fibrillation type: paroxysmal Qualified Code(s): I48.0 - Paroxysmal atrial fibrillation (11) NSTEMI (non-ST elevated myocardial infarction) Current Visit: Yes Status: Acute Troponin peaked at 0.75. Cardiology consulted and following. LHC scheduled for today. (12) Aspirin allergy Current Visit: Yes Status: Acute Ibeth Allergy consulted. Status post ASA desensitization. (13) COPD (chronic obstructive pulmonary disease) Current Visit: Yes Status: Chronic Qualifiers: COPD type: unspecified COPD Qualified Code(s): J44.9 - Chronic obstructive pulmonary disease, unspecified - Subjective Interval history: Patient seen and examined. No acute events noted overnight. Patient on nasal cannula O2, tolerating well. Denies fevers, chills, or rigors. Denies chest pain , shortness of breath, or cough. Denies back pain, but states he feels generally sore from lying in bed. Reports neuropathic pain to the BLE, but denies pain at the surgical site. Denies nausea, vomiting, or diarrhea. States his appetite is getting better. Denies abdominal pain. Denies urinary complaints since aquino catheter removal. Denies oral thrush or new skin lesions. Infect Dis PN-Objective Data - Labs CBC & Chem 7: 09/23/17 05:18 09/23/17 05:18 Labs: Laboratory Results - last 24 hr 09/21/17 09/21/17 09/22/17 16:21 19:57 07:56 WBC RBC Hgb Hct MCV MCH MCHC RDW Plt Count MPV Immature Gran % Seg Neutrophils % Lymphocytes % Monocytes % Eosinophils % Basophils % Neutrophils # Lymphocytes # Monocytes # Eosinophils # Basophils # Sodium Potassium Chloride Carbon Dioxide BUN Creatinine Est GFR ( Amer) Est GFR (Non-Af Amer) BUN/Creatinine Ratio Glucose POC Glucose 143 H 112 H 124 H Calculated Osmolality Calcium Phosphorus Magnesium 09/22/17 09/22/17 09/22/17 11:27 16:24 19:47 WBC RBC Hgb Hct MCV MCH MCHC RDW Plt Count MPV Immature Gran % Seg Neutrophils % Lymphocytes % Monocytes % Eosinophils % Basophils % Neutrophils # Lymphocytes # Monocytes # Eosinophils # Basophils # Sodium Potassium Chloride Carbon Dioxide BUN Creatinine Est GFR ( Amer) Est GFR (Non-Af Amer) BUN/Creatinine Ratio Glucose POC Glucose 176 H 143 H 147 H Calculated Osmolality Calcium Phosphorus Magnesium 09/23/17 09/23/17 05:18 05:18 WBC 10.7 RBC 3.73 L Hgb 10.6 L Hct 31.6 L MCV 84.7 MCH 28.4 MCHC 33.5 RDW 13.6 Plt Count 242 MPV 10.5 Immature Gran % 0.5 Seg Neutrophils % 72.6 Lymphocytes % 19.4 Monocytes % 5.3 Eosinophils % 2.0 Basophils % 0.2 Neutrophils # 7.8 Lymphocytes # 2.1 Monocytes # 0.6 Eosinophils # 0.2 Basophils # 0.0 Sodium 135 L Potassium 3.4 L Chloride 102 Carbon Dioxide 26 BUN 15 Creatinine 0.80 Est GFR ( Amer) > 60 Est GFR (Non-Af Amer) > 60 BUN/Creatinine Ratio 19 Glucose 125 H POC Glucose Calculated Osmolality 282 Calcium 8.6 Phosphorus 3.1 Magnesium 1.8 Cultures: Cultures 09/18/17 18:09 Anaerobic Culture - Final Left Foot No anaerobes were recovered. 09/21/17 09:07 Blood Culture - Preliminary Peripheral Venipuncture No growth. 09/21/17 09:07 Blood Culture - Preliminary Peripheral Venipuncture No growth. 09/20/17 10:51 Blood Culture - Preliminary Peripheral Venipuncture No growth. 09/20/17 10:51 Blood Culture - Preliminary Peripheral Venipuncture No growth. 09/16/17 22:19 Blood Culture - Final Peripheral Venipuncture No growth. 09/16/17 22:19 Blood Culture - Final Peripheral Venipuncture Escherichia coli Gram Positive Cocci 09/18/17 18:09 Wound Culture - Final Left Foot Strep agalactiae - (Group B) Serology 09/17/17 Range/Units 15:50 Influenza Type A (PCR) Negative (Negative) Influenza Type B (PCR) Negative (Negative) Exam - Constitutional Vitals: Temp Pulse Resp BP Pulse Ox 97.4 F L 48 14 118/72 99 09/23/17 11:49 09/23/17 11:49 09/23/17 11:49 09/23/17 11:49 09/23/17 11:49 General appearance: average body habitus, cooperative, no acute distress - Head Head exam: Present: atraumatic, normal inspection, normocephalic - Eye Eye exam: Present: EOMI, normal appearance, PERRL Pupils: Present: normal accommodation - ENT ENT exam: Present: mucous membranes moist - Neck Neck exam: Present: normal inspection - Respiratory Respiratory exam: Present: CTAB. Absent: rales, respiratory distress, rhonchi, wheezes - Cardiovascular Cardiovascular exam: Present: RRR, +S1, +S2 - GI/Abdominal GI/Abdominal exam: Present: normal bowel sounds, soft. Absent: distended, tenderness - Extremities Exam Additional comments: Bilateral foot dressings C/D/I. No evidence of redness, warmth, or tenderness of the proximal extremities. - Neurological Exam Neurological exam: Present: alert, oriented X3, no focal deficits - Psychiatric Psychiatric exam: Present: normal affect, normal mood - Skin Skin exam: Present: dry, intact, normal color, warm - VTE Documentation of Mechanical Device: Intermittent pneumatic compression device Consult Discharge Plan - Plan Referrals: [facility] [Other] [facility]Primary Care Provider[facility] - - Attending Attestation I examined this patient and my medical decision-making was reviewed with the Resident Physician. I agree with the documented findings, disposition and treatment plan as described except to the extent set forth below.
[2017-09-23] MEDS ORDERED: *HR* Midazolam HCl 2 MG/2 ML VIAL ONE (14:33)
[2017-09-23] MEDS ORDERED: *HR* FentaNYL (PF) 100 MCG/2 ML VIAL ONE (14:33)
--- NOTE | 2017-09-23 15:23 | Podiatry Progress Note ---
Date of Encounter: 09/23/17 Time of Encounter: 12:30 - Assessment and Plan (1) Cellulitis Current Visit: Yes Status: Acute S/p Incision and drainage left and right foot with amputation of left great toe by Dr. Barbosa on 09/18/17. WBC: 10.7, a febrile. ESR 116, CRP 203. [facility] isolated E. coli, GBS, and MSSA. Intra op cultures isolated Strep Agalactiae (Group B) Plan: Dressing changed at bedside. Both toes healing uneventfully. Antibiotic recommendations per ID. Will most likely need 6 weeks of IV antibiotics. Protective weight bearing to right foot with post op shoe, Non weight bearing to left foot with walker or crutches once patient is medically stable. Weight to only be applied to left heel with transferring. Will continue to monitor both great toes. Patient will need to follow up with Dr. Barbosa a week after discharge from the hospital. Qualifiers: Site of cellulitis: extremity Site of cellulitis of extremity: toe Laterality: unspecified laterality Qualified Code(s): L03.039 - Cellulitis of unspecified toe (2) Diabetes Current Visit: Yes Status: Chronic Glucose control and close monitoring to aid in wound healing. Qualifiers: Diabetes mellitus type: other specified (including SAMANTHA) Diabetes mellitus complication status: with circulatory complication Diabetes mellitus complication detail: with peripheral angiopathy without gangrene Diabetes mellitus middle or intermediate school principal insulin use: without middle or intermediate school principal use Qualified Code(s): E13.51 - Other specified diabetes mellitus with diabetic peripheral angiopathy without gangrene (3) Ischemia of foot Current Visit: Yes Status: Acute Arterial study completed on 09/15/17: Right HERMANN demonstrates moderate arterial insufficiency on the right at rest. Left HERMANN demonstrates mild arterial insufficiency on the left at rest. Vascular consulted. Subjective Principal diagnosis: foot infection Interval history: Patient is lying in bed with dressings intact to both feet with sisters at bedside. Patient is s/p Incision and drainage left and right foot with amputation of left great toe by Dr. Barbosa on 09/18/17. Patient is scheduled to have a [facility]. No c/o pain, fever or chills. Objective - Vital Signs Vital Signs: Vital Signs Temp Pulse Resp BP Pulse Ox 09/23/17 11:49 97.4 F L 48 14 118/72 99 09/23/17 11:38 16 92 09/23/17 07:42 16 92 09/23/17 07:29 98.2 F 54 16 111/66 92 09/23/17 04:30 98.3 F 59 16 109/66 97 09/23/17 00:14 98.2 F 66 16 125/81 97 09/22/17 23:24 16 98 09/22/17 20:02 18 98 09/22/17 19:38 98.8 F 64 16 120/71 99 09/22/17 15:50 16 96 09/22/17 15:40 98.2 F 57 16 111/62 95 Intake and Output 09/22/17 09/23/17 09/23/17 23:59 07:59 15:59 Intake Total 100 / 100 0 / 0 30 / 30 Output Total 400 / 400 1020 / 1020 Balance -300 / -300 0 / 0 -990 / -990 Intake: IV Fluids 100 / 100 Ancef Premix DUPLEX 2,000 mg In 100 / 100 50 ml @ 100 mls/hr IVPB Q8HR [facility] Rx#:[id number] Oral 0 / 0 30 / 30 Output: Urine 400 / 400 1000 / 1000 Estimated Blood Loss 20 / 20 Other: Weight 80.3 kg Blood Glucose* 147 124 119 Patient Weight 09/23/17 23:59 Weight 80.3 kg - Exam Exam: General appearance: alert awake oriented X 3. Calm and pleasant, no acute distress.. Vascular: Pedal pulses palpable, Edema graded at 1+/4, Skin Temperature warm, No calf pain with manual compression. capillary refill time is immediate to digits. Neurologic: Sensation intact with light touch to both feet. Integument: S/p: retention sutures intact to the left foot, light periwound erythema, no streaking, scant amount of bloody drainage observed to dressing, no pus, no odor. Right great toe: medial aspect of right great toe with red granulation tissue, lateral aspect with intact eschar to the dorsal lateral aspect extending to the plantar aspect with light periwound erythema to dorsal aspect, no streaking, no pus, no odor, no active drainage. - Lab Result Diagrams: 09/24/17 05:01 09/24/17 05:01 Labs: Abnormal lab results RBC 3.73 M/mcL (4.19-5.50) L 09/23/17 05:18 Hgb 10.6 g/dL (12.9-16.9) L 09/23/17 05:18 Hct 31.6 % (37.5-50.1) L 09/23/17 05:18 Nucleated RBCs/100 WBC 0.6 /100 WBC (0) H 09/19/17 07:49 Reactive Lymphocytes Present (Not Present) A 09/19/17 07:49 ESR 116 mm/hr (0-10) H 09/15/17 22:18 PT 15.8 Seconds (9.4-12.1) H 09/15/17 09:19 APTT 61.3 Seconds (26.0-36.0) H 09/20/17 03:19 Heparin Anti-Xa, Unfract 1.17 IU/mL (0.30-0.70) H* 09/18/17 08:45 ABG pH 7.49 pH Units (7.32-7.45) H 09/19/17 07:51 ABG pO2 119 mmHg (85-104) H 09/19/17 07:51 ABG HCO3 32 mEq/L (21-27) H 09/19/17 07:51 ABG Total CO2 33 mEq/L (20-26) H 09/19/17 07:51 ABG O2 Saturation 99 % (95-98) H 09/19/17 07:51 ABG Base Excess 8 mEq/L (-2 to 3) H 09/19/17 07:51 VBG pH 7.45 pH Units (7.32-7.42) H 09/19/17 06:17 Sodium 135 mEq/L (136-145) L 09/23/17 05:18 Potassium 3.4 mEq/L (3.5-5.1) L 09/23/17 05:18 Glucose 125 mg/dL (70-105) H 09/23/17 05:18 POC Glucose 147 (58-89) H 09/22/17 19:47 Hemoglobin A1c 7.2 % (-5.6) H 09/14/17 22:25 Venous Ioniz Calcium 1.04 mmol/L (1.15-1.35) L 09/19/17 06:17 AST 84 Units/L (13-39) H 09/15/17 02:58 ALT 61 Units/L (7-52) H 09/15/17 02:58 Alkaline Phosphatase 168 Units/L (34-104) H 09/15/17 02:58 Troponin I 0.49 ng/mL (< 0.04) H* 09/16/17 23:54 C-Reactive Protein 203 mg/L (Less than 10) H 09/15/17 22:18 B-Natriuretic Peptide 787 pg/mL (Less than 100) H 09/16/17 23:21 Serum Total Protein 6.1 g/dL (6.4-8.9) L 09/15/17 02:58 Albumin 2.8 g/dL (3.5-5.7) L 09/15/17 02:58 Albumin/Globulin Ratio 0.8 (1.1-2.2) L 09/15/17 02:58 Triglycerides 226 mg/dL (< 150) H 09/16/17 05:20 VLDL Cholesterol, Calc 45 mg/dL (< 31) H 09/16/17 05:20 HDL Cholesterol 7 mg/dL (40-59) L 09/16/17 05:20 Cholesterol/HDL Ratio 13.3 (0-4.9) H 09/16/17 05:20 Ur Specific [place] > 1.030 (1.010-1.025) H 09/14/17 14:36 Urine Protein 30 mg/dL (Neg-Trace) H 09/14/17 14:36 Urine Glucose (UA) 100 mg/dL (Normal) H 09/14/17 14:36 Urine Microscopic RBC 5-15 per hpf (0-3) H 09/14/17 14:36 Urine Microscopic WBC 5-15 per hpf (0-3) H 09/14/17 14:36 Ur Squamous Epith Cells Moderate per lpf (None-Few) H 09/14/17 14:36 Vancomycin Trough 13 mcg/mL (5-10) H 09/16/17 11:12 Enterobacteriac sp PCR DETECTED (Not Detect) A 09/14/17 14:50 E. coli (PCR) DETECTED (Not Detect) A 09/14/17 14:50 Microbiology, Last 48 Hours 09/18/17 18:09 Anaerobic Culture - Final Left Foot No anaerobes were recovered. 09/21/17 09:07 Blood Culture - Preliminary Peripheral Venipuncture No growth. 09/21/17 09:07 Blood Culture - Preliminary Peripheral Venipuncture No growth. 09/20/17 10:51 Blood Culture - Preliminary Peripheral Venipuncture No growth. 09/20/17 10:51 Blood Culture - Preliminary Peripheral Venipuncture No growth. 09/16/17 22:19 Blood Culture - Final Peripheral Venipuncture No growth. - VTE Documentation of Mechanical Device: Intermittent pneumatic compression device Consult Discharge Plan - Plan Referrals: [facility] [Other] [facility] [Primary Care Provider] - Prescriptions: ceFAZolin [Ancef] 2,000 mg IVPB Q8HR 42 Days #126 vial
--- NOTE | 2017-09-23 15:27 | Invasive Diagnostic Lab Proc ---
Name: Chaparro Magana Date of Study: 09/23/2017 Date: 1950 Ht: 70.1in Medical Record#: [id number] Age: 67 Wt: 186.73lb Gender: Male BSA: 2.03 Order #: [id number] BMI: 26.73 Physicians Procedure Physician: Chelsey Carrillo MD Referring MD: Referring MD: Staff Name Position Time In Rama Parker RT (R) Monitor 02:42 PM Arielle Manzanares RT (R) Scrub 02:42 PM Amadeo Lee RN Returns Supervisor 02:42 PM Indications Indication Non-Stemi Procedures Performed Procedure L HRT ARTERY/VENTRICLE ANGIO Pre-Procedure Checklist Informed consent is complete signed and on chart. H&P is on chart. ID band is on and ID verified with patient. Patient NPO for procedure The procedure was described for the patient and questions were answered. Blood Pressure: 140/78 ECG is on chart. Rhythm: Sinus Bradycardia Plan of Care Patient will tolerate the procedure without complications. Adequate level of comfort will be maintained. Hemodynamics will remain stable Patient will recover from procedure without complications. Respiratory function will be maintained. Cardiac rhythm will remain stable. Patient temperature will be maintained. Patient and/or family have verbalized understanding of the procedure. Patient Education Chief Complaint/Reason for Test: Cardiac Cath Developmental Category: Adult (18-64 years) Developmentally Appropriate for Age: Yes Learning Barriers: None Education Needs: Procedure Education Method: Verbal Information Taught: Cardiac Cath Educational Evaluation: Able to repeat information Intravenous Access Time IV Size Location DC'd Fluid/Drip Rate Units RN 02:38 PM 18g 1 08/22" Patent On Arrival Rt Antecubital 0.9NaCl ml/hr PICC Line Lt Antecubital 25 ml/hr Allergies Penicillins sucralfate aspirin bee venom protein (honey bee) Vital Signs Time BP (mmHg) HR (bpm) O2 Sat. RR (bpm) LOC 02:40 PM 140 / 78 48 100 % 16 5 = Fully awake and oriented or at pre-proc level 02:46 PM / % 3 = Answers simple questions/follows commands 02:46 PM / % 4 = Oriented but drowsy Procedural Medications Time Medication Dose Units Method Given By 02:43 PM Oxygen 2 L/min nasal cannula Amadeo Lee RN 02:43 PM Versed 1 mg Intravenous Amadeo Lee RN 02:44 PM Fentanyl 50 mcg Intravenous Stefanie Archer RN 02:48 PM Lidocaine 2% 10 ml Subcutaneous Chelsey Carrillo MD ASA Classification: CLASS II- Mild systemic disease (i.e. well-controlled diabetes, hypertension, asthma, cigarette smoking) Merlin Score Preprocedure Postprocedure Activity 2- Moves 4 extremities sustained head lift Activity 2- Moves 4 extremities sustained head lift Circulation 2- SBP +/= 20 points of pre-anesthetic level Circulation 2- SBP +/= 20 points of pre-anesthetic level Consciousness 2- Awake and alert oriented x 3 Consciousness 2- Awake and alert oriented x 3 O2 Saturation 2- Able to maintain O2 satruation of 92% on room air O2 Saturation 2- Able to maintain O2 satruation of 92% on room air Respiratory 2- Able to deep breathe and cough well Respiratory 2- Able to deep breathe and cough well Total Score 10 Total Score 10 Contrast Agent: Isovue Diagnostic Contrast: 75 ml Total Contrast: 75 ml Fluoro Dose: 396 mGy Procedure Log Time Note Enter By 02:42 PM Pt arrived to bundle tier and labeler 2 at 14:42 scoates 02:42 PM Rama Parker RT (R) Position: Monitor Time in: 14:42 scoates 02:42 PM Arielle Manzanares RT (R) Position: Scrub Time in: 14:42 scoates 02:42 PM Amadeo Lee RN Position: Returns Supervisor Time in: 14:42 scoates 02:42 PM Patient charges- Angio tray pack, Navilyst 3mm J, Pulse Oximetry and ACIST tubing and transducer scoates 02:43 PM Case Delayed No scoates 02:43 PM Hair removed from procedure site in holding area using clippers. Bilateral groin prepped with Chloraprep by Rama Parker RT (R), safety strap applied then patient was draped. Skin intact. scoates 02:43 PM Physican paged/called 14:43. scoates 02:43 PM Physician arrived 14:43 scoates 02:43 PM ASA Class CLASS II- Mild systemic disease (i.e. well-controlled diabetes, hypertension, asthma, cigarette smoking) scoates 02:43 PM Meet and greet completed scoates 02:43 PM Sign in performed according to hospital policy. scoates 02:43 PM Procedure start 14:43 scoates 02:43 PM Time: 14:43 Oxygen on at 2 L/min per nasal cannula by Amadeo Lee RN scoates 02:44 PM Time: 14:43 Versed 1 mg Intravenous Given by Amadeo Lee RN scoates 02:44 PM Time: 14:44 Fentanyl 50 mcg Intravenous Given by Stefanie Archer RN scoates 02:46 PM Time: 14:46 Patient comfortable and pain free: Yes [email or web address] 02:46 PM Time: 14:46LOC: 3 = Answers simple questions/follows commands [email or web address] 02:47 PM Time out performed according to hospital policy [email or web address] 02:48 PM Time: 14:48 10 ml Lidocaine 2% to right groin Subcutaneous Given by Chelsey Carrillo MD [email or web address] 02:49 PM Micro-Introducer Kit utilized for sheath placement [email or web address] 02:49 PM 3 mls of contrast injected into rt groin. [email or web address] 02:51 PM Access obtained by percutaneous puncture. 6Fr 10cm Terumo [place] sheath placed in right Femoral artery. [id number] [email or web address] 02:51 PM 0.035 145cm Navilyst 3mmJ wire [id number] [email or web address] 02:51 PM 5Fr FR 4 catheter inserted over the wire DN [email or web address] 02:53 PM RCA angiography performed in multiple views. [email or web address] 02:53 PM Lesion found in Mid RCA. Pre Stenosis: 60 Pre GEOVANNI Flow: 3: Complete and Brisk Flow/Perfusion [email or web address] 02:54 PM Coronary Dominance: right [email or web address] 02:54 PM Catheter removed [email or web address] 02:54 PM 5Fr FL 4 catheter inserted over the wire DN [email or web address] 02:55 PM LCA angiography performed in multiple views. [email or web address] 02:56 PM Catheter removed [email or web address] 02:56 PM 5Fr Pigtail catheter inserted over the wire DN [email or web address] 02:56 PM Catheter selectively placed in left ventricle [email or web address] 02:59 PM Catheter removed [email or web address] 03:01 PM Time: 14:46 Patient comfortable and pain free: Yes [email or web address] 03:01 PM Time: 14:46LOC: 4 = Oriented but drowsy [email or web address] 03:03 PM 6Fr FL 4 catheter inserted over the wire DNC [email or web address] 03:04 PM LCA angiography performed in multiple views. [email or web address] 03:05 PM Catheter removed [email or web address] 03:07 PM Procedure completed at 15:07 [email or web address] 03:07 PM Did you address GEOVANNI flow and Dominance? Yes [email or web address] 03:07 PM Sign out completed: Radiation Dose 395.74 mGy Fluoro Time: 2.0 Isovue 370 - 200ml contrast 75 ml given by Chelsey Carrillo MD. Complications: NoneCardiac Rehab Consult needed: NoConfirmed administered medications: Yes [email or web address] 03:07 PM Isovue 370 - 200ml,1 Bottle(s) used. [email or web address] 03:08 PM Arterial sheath pulled, Mynx closure device used and was Successful S/N. [email or web address] 03:08 PM Estimated Blood Loss: minimal [email or web address] 03:08 PM Post ECG Sinus Bradycardia [email or web address] 03:08 PM Post Blood Pressure 156/85 [email or web address] 03:08 PM Information taught Cardiac Cath and Mynx [email or web address] 03:08 PM Education needs Procedure, Plan of Care, and Disease Process [email or web address] 03:08 PM Learning barriers :None [email or web address] 03:08 PM Education Methods Verbal [email or web address] 03:08 PM Education evaluation Able to repeat information [email or web address] 03:09 PM Delay to floor No [email or web address] 03:09 PM Family placed in consult room. [email or web address] 03:09 PM Complications: None [email or web address] 03:09 PM Fluoro Time: 2.0 [email or web address] 03:09 PM Isovue 370 - 200ml contrast 75 ml given by Chelsey Carrillo MD. [email or web address] 03:09 PM Radiation Dose 395.74 mGy [email or web address] 03:10 PM Site status No bleeding/hematoma - Rt Groin as reported by Arielle Manzanares RT (R) at 15:10 [email or web address] 03:10 PM Opsite applied [email or web address] 03:16 PM Report given to Alejandra WALSH Pt taken to 2A Room #43. 15:16 [email or web address] 03:19 PM Family placed in consult room. [email or web address] 03:19 PM Patient out of room: 15:19 [email or web address] Complications Complication None None Hemodynamics Pressures Site Systolic/A Wave Diastolic/V Wave Mean AO 116 68 88 AO 139 3 64 AO 119 64 86 LV 135 13 16 LV 137 11 11 Post Procedure Information Blood Pressure: 156/85 mmHg Rhythm: Sinus Bradycardia Post procedural instructions were not given Closure Device Time Device Success/Fail 09/23/2017 3:09:00 PM MynxGrip yes Site Checks Time Location Status Staff Sheath In? Note 03:10 PM Rt Groin No bleeding/hematoma Arielle Manzanares RT (R) Pulses Time Site Pre-Procedure Post-Procedure Note Bilateral radial 2+ 2+ Bilateral DP & PT 1+ 1+ Updated by Rama Parker, RT(R) on 09/23/2017 3:19:11 PM electronically signed on 09/23/2017 3:19:40 PM with status of Final
--- NOTE | 2017-09-23 15:45 | Event Note ---
Date of Encounter: 09/23/17 Time of Encounter: 15:30 - Cardiology Event Note [facility] results reviewed with Dr. Carrillo. Mild-moderate non-obstructive CAD, medical management recommended. Continue GDMT for CAD/CHF including asa, statin, betablocker (coreg), and ACEi. Will add nitrate. No further testing recommended as inpatient. Cardiology will sign-off, please re-consult if needed. Will coordinate outpatient follow-up. The patient was discussed and reviewed with Dr. Aguilar.
[2017-09-23] MEDS: Apixaban 5 MG TABLET PO SCH (20:55)
[2017-09-24] MEDS: CeFAZolin Premix DUPLEX 2,000 MG/50 ML BAG IVPB SCH ×3 (00:08→16:50)
[2017-09-24] MEDS: *HR* HYDROcodone/Acet 5/325 mg TABLET PO PRN ×4 (00:09→20:53)
[2017-09-24] MEDS: Ipratropium/Albuterol Neb 3 ML IH SCH ×6 (03:42→23:59)
[2017-09-24] MEDS: *HR* OxyCODONE Immed Rel 15 MG TABLET PO PRN ×2 (05:37→16:49)
[2017-09-24 05:57] LABS: BUN/Creatinine Ratio 17 (6-26); Basophils % 0.3 %; Blood Urea Nitrogen 15 mg/dL (8-23); Calcium 8.7 mg/dL (8.6-10.3); Carbon Dioxide 29 mEq/L (23-29); Chloride 103 mEq/L (98-107); Eosinophils # 0.1 K/mcL (0.0-0.6); Eosinophils % 1.4 %; Glucose 120 mg/dL (70-105); Hematocrit 33.5 % (37.5-50.1); Hemoglobin 11.1 g/dL (12.9-16.9); Immature Granulocytes % 0.3 % (0-4); Lymphocytes # 1.9 K/mcL (0.6-4.6); Lymphocytes % 21.8 %; Mean Corpuscular HGB Conc 33.1 g/dL (31.6-35.5); Mean Corpuscular Hemoglobin 28.6 pg (28.0-33.3); Mean Corpuscular Volume 86.3 fL (83.0-100.0); Mean Platelet Volume 10.5 fL (9.4-12.4); Monocytes # 0.6 K/mcL (0.0-1.3); Monocytes % 6.6 %; Osmolality,Calculated 288 (280-300); Phosphorous 3.4 mg/dL (2.7-4.5); Platelet Count 220 K/mcL (140-400); Potassium 3.5 mEq/L (3.5-5.1); Red Blood Count 3.88 M/mcL (4.19-5.50); Red Cell Distribution Width 13.7 % (11.5-14.5); Segmented Neutrophils % 69.6 %; Sodium 138 mEq/L (136-145); eGFR For African Americans > 60 (> 60); eGFR For Non-African Americans > 60 (> 60)
[2017-09-24] MEDS: Insulin LISPRO 300 UNITS/3 ML VIAL SQ SCH ×4 (07:49→21:24)
[2017-09-24] MEDS: Sennosides/Docusate Sodium TABLET PO SCH ×2 (09:26→20:53)
[2017-09-24] MEDS: Apixaban 5 MG TABLET PO SCH ×2 (09:27→20:50)
[2017-09-24] MEDS: Furosemide 20 MG TABLET PO SCH (09:27)
[2017-09-24] MEDS: Aspirin 81 MG TAB.CHEW PO SCH (09:28)
[2017-09-24] MEDS: Isosorbide MONOnitrate (24 HR) 30 MG TAB.ER.24H PO SCH (09:28)
--- NOTE | 2017-09-24 11:10 | Infectious Disease Progress No ---
Date of Encounter: 09/24/17 Time of Encounter: 11:04 - Assessment and Plan (1) Severe sepsis Current Visit: Yes Status: Resolved The patient had fever and leukocytosis on admission to the [facility]. He had tachycardia and leukocytosis on the day he was transferred here. He developed tachycardia and leukocytosis with hypotension and lactic acidosis yesterday. Likely secondary to bacteremia and foot cellulitis. Improved. WBC normal. Tachycardia and hypotension have resolved.. Blood cultures obtained at the [facility] 09/12/17 x 1 set was positive for MSSA. Repeat culture obtained at the [facility] 09/15/17 is negative x 1 set. Additional blood cultures drawn here are positive 2/2 sets for E. coli and 1/2 sets for MSSA (per PCR) and GBS. Repeat blood cultures drawn 09/16/17 are positive x 1/2 sets for GPC and E. coli. GPC not able to be isolated on the culture. Additional repeat blood cultures drawn 09/20/17 and 09/21/17 are NGTD x 4 sets. (2) Bacteremia Current Visit: Yes Status: Acute Causative organism: MSSA, E. coli, GBS. Source likely foot cellulitis. Blood cultures obtained at the [facility] 09/12/17 x 1 set was positive for MSSA. Repeat culture obtained at the [facility] 09/15/17 is negative x 1 set. Additional blood cultures drawn here are positive 2/2 sets for E. coli and 1/2 sets for MSSA (per PCR) and GBS. Repeat blood cultures drawn 09/16/17 are positive x 1/2 sets for GPC and E. coli. Unable to grow GPC out on culture, but likely GBS. Complicated due to OM. TTE negative for vegetations. GAMALIEL negative for vegetations. The patient has a documented allergy to PCN with anaphylactic reaction. Discussed this with the patient's sisters who state the patient got a rash when he had PCN several years ago. Continue cefazolin 2 grams IV Q8H. He has been tolerating it without evidence of reaction. Duration of treatment depends on the clinical picture, but the patient will likely require a prolonged course of IV antibiotics due to the infection in his feet. Monitor renal function and for drug toxicity and dose-adjust antibiotics. (3) Cellulitis Current Visit: Yes Status: Acute Location: Bilateral feet, left>right Secondary to bilateral foot trauma. Causative organism E. coli, GBS, and MSSA per wound culture of the left foot obtained at the [facility]. E. coli is randolph-sensitive. X-ray of the left foot done at the [facility] showed no evidence of OM or subcutaneous gas. Podiatry consulted and following. Status post I & D of the left foot with great toe amputation and right great toe I & D. Operative note reviewed. Some pus noted. Ischemic changes of the bone noted as well. Pathology shows findings consistent with gangrenous changes. Culture positive for GBS. ESR 116, CRP 203. Antibiotics as above. Wound care per podiatry's recommendations. Duration of treatment depends on the clinical picture, but likely 6 weeks of antibiotics based on the extent of the infection. Treat through 11/01/17. Qualifiers: Site of cellulitis: extremity Site of cellulitis of extremity: toe Laterality: unspecified laterality Qualified Code(s): L03.039 - Cellulitis of unspecified toe (4) Respiratory failure with hypoxia Current Visit: Yes Status: Resolved Likely secondary to fluid volume overload. The patient became hypoxic, dyspneic,hypotensive, and tachycardic requiring emergent intubation. CXR shows findings consistent with pulmonary edema vs. multilobar pneumonia. Given the clinical picture, this was more likely fluid overload. CXR 09/18/17 improved. Self-extubated 09/18/17. Doing well on nasal cannula O2 at this time. Further management per the pulmonology team. Flu PCR negative. Qualifiers: Chronicity: acute Qualified Code(s): J96.01 - Acute respiratory failure with hypoxia (5) Lung nodule Current Visit: Yes Status: Acute Noted on CT scan at the [facility]. Further evaluation and management per the pulmonology team. (6) PVD (peripheral vascular disease) Current Visit: Yes Status: Acute ABIs consistent with moderate RLE disease, left was normal. Vascular surgery consulted. No intervention required at this time. (7) Diabetes Current Visit: Yes Status: Chronic HgbA1C 7.2%. Recommend aggressive glucose monitoring and control to promote wound healing and prevent re-infection. Qualifiers: Diabetes mellitus type: other specified (including SAMANTHA) Diabetes mellitus complication status: with circulatory complication Diabetes mellitus complication detail: with peripheral angiopathy without gangrene Diabetes mellitus mcc insulin use: without extermination inspector use Qualified Code(s): E13.51 - Other specified diabetes mellitus with diabetic peripheral angiopathy without gangrene (8) HTN (hypertension) Current Visit: Yes Status: Acute Qualifiers: Hypertension type: essential hypertension Qualified Code(s): I10 - Essential (primary) hypertension (9) CAD (coronary artery disease) Current Visit: Yes Status: Chronic Cardiology consulted and following. Status post [facility] 09/23/17. No stents placed. Medical management per the primary and cardiology teams. Qualifiers: Coronary Disease-Associated Artery/Lesion type: unspecified vessel or lesion type [place] vs. transplanted heart: [place] heart Associated angina: without angina Qualified Code(s): I25.10 - Atherosclerotic heart disease of [place] coronary artery without angina pectoris (10) Atrial fibrillation Current Visit: Yes Status: Chronic Currently is NSR with rate controlled. Cardiology consulted and following. Qualifiers: Atrial fibrillation type: paroxysmal Qualified Code(s): I48.0 - Paroxysmal atrial fibrillation (11) NSTEMI (non-ST elevated myocardial infarction) Current Visit: Yes Status: Acute Troponin peaked at 0.75. Cardiology consulted and following. Status post [facility] 09/23/17. (12) Aspirin allergy Current Visit: Yes Status: Acute Ib[place] Allergy consulted. Status post ASA desensitization. (13) COPD (chronic obstructive pulmonary disease) Current Visit: Yes Status: Chronic Qualifiers: COPD type: unspecified COPD Qualified Code(s): J44.9 - Chronic obstructive pulmonary disease, unspecified - Subjective Interval history: Patient seen and examined. No acute events noted overnight. Patient on nasal cannula O2, tolerating well. Denies fevers, chills, or rigors. Denies chest pain , shortness of breath, or cough. Reports neuropathic pain to the BLE, but denies pain at the surgical site. Denies nausea, vomiting, or diarrhea. States his appetite is getting better. Denies abdominal pain. Denies urinary complaints since aquino catheter removal. Denies oral thrush or new skin lesions. Infect Dis PN-Objective Data - Labs CBC & Chem 7: 09/25/17 04:25 09/25/17 04:25 Labs: Laboratory Results - last 24 hr 09/23/17 09/23/17 09/23/17 07:34 11:46 16:46 WBC RBC Hgb Hct MCV MCH MCHC RDW Plt Count MPV Immature Gran % Seg Neutrophils % Lymphocytes % Monocytes % Eosinophils % Basophils % Neutrophils # Lymphocytes # Monocytes # Eosinophils # Basophils # Sodium Potassium Chloride Carbon Dioxide BUN Creatinine Est GFR ( Amer) Est GFR (Non-Af Amer) BUN/Creatinine Ratio Glucose POC Glucose 124 H 119 H 107 H Calculated Osmolality Calcium Phosphorus Magnesium 09/23/17 09/24/17 09/24/17 20:52 05:01 05:01 WBC 8.7 RBC 3.88 L Hgb 11.1 L Hct 33.5 L MCV 86.3 MCH 28.6 MCHC 33.1 RDW 13.7 Plt Count 220 MPV 10.5 Immature Gran % 0.3 Seg Neutrophils % 69.6 Lymphocytes % 21.8 Monocytes % 6.6 Eosinophils % 1.4 Basophils % 0.3 Neutrophils # 6.0 Lymphocytes # 1.9 Monocytes # 0.6 Eosinophils # 0.1 Basophils # 0.0 Sodium 138 Potassium 3.5 Chloride 103 Carbon Dioxide 29 BUN 15 Creatinine 0.87 Est GFR ( Amer) > 60 Est GFR (Non-Af Amer) > 60 BUN/Creatinine Ratio 17 Glucose 120 H POC Glucose 192 H Calculated Osmolality 288 Calcium 8.7 Phosphorus 3.4 Magnesium 2.0 Cultures: Cultures 09/18/17 18:09 Anaerobic Culture - Final Left Foot No anaerobes were recovered. 09/21/17 09:07 Blood Culture - Preliminary Peripheral Venipuncture No growth. 09/21/17 09:07 Blood Culture - Preliminary Peripheral Venipuncture No growth. 09/20/17 10:51 Blood Culture - Preliminary Peripheral Venipuncture No growth. 09/20/17 10:51 Blood Culture - Preliminary Peripheral Venipuncture No growth. 09/16/17 22:19 Blood Culture - Final Peripheral Venipuncture No growth. 09/16/17 22:19 Blood Culture - Final Peripheral Venipuncture Escherichia coli Gram Positive Cocci 09/18/17 18:09 Wound Culture - Final Left Foot Strep agalactiae - (Group B) Serology 09/17/17 Range/Units 15:50 Influenza Type A (PCR) Negative (Negative) Influenza Type B (PCR) Negative (Negative) Exam - Constitutional Vitals: Temp Pulse Resp BP Pulse Ox 98.7 F 60 15 100/57 98 09/24/17 11:00 09/24/17 11:00 09/24/17 11:00 09/24/17 11:00 09/24/17 11:00 General appearance: average body habitus, cooperative, no acute distress - Head Head exam: Present: atraumatic, normal inspection, normocephalic - Eye Eye exam: Present: EOMI, normal appearance, PERRL Pupils: Present: normal accommodation Additional comments: No subconjunctival hemorrhage noted. - ENT ENT exam: Present: mucous membranes moist - Neck Neck exam: Present: normal inspection - Respiratory Respiratory exam: Present: CTAB. Absent: rales, respiratory distress, rhonchi, wheezes - Cardiovascular Cardiovascular exam: Present: RRR, +S1, +S2 - GI/Abdominal GI/Abdominal exam: Present: normal bowel sounds, soft. Absent: distended, tenderness - Extremities Exam Extremities exam: Absent: joint swelling, pedal edema, tenderness Additional comments: Bilateral foot dressings C/D/I. - Back Exam Back exam: Absent: vertebral tenderness - Neurological Exam Neurological exam: Present: alert, oriented X3, no focal deficits - Psychiatric Psychiatric exam: Present: normal affect, normal mood - Skin Skin exam: Present: dry, intact, normal color, warm Additional comments: No endocarditis stigmata noted. - VTE Documentation of Mechanical Device: Intermittent pneumatic compression device Consult Discharge Plan - Plan Referrals: [facility] [Other] [facility] [Primary Care Provider[facility] - Prescriptions: ceFAZolin [Ancef] 2,000 mg IVPB Q8HR 42 Days #126 vial - Attending Attestation I examined this patient and my medical decision-making was reviewed with the Resident Physician. I agree with the documented findings, disposition and treatment plan as described except to the extent set forth below.
[2017-09-24] MEDS ORDERED: Lidocaine -MPF 1% 5 ML AMPUL INFILT ONE (12:14)
--- NOTE | 2017-09-24 14:30 | Internal Med Progress Note ---
Date of Encounter: 09/24/17 Time of Encounter: 14:30 - Assessment and plan (1) Respiratory failure with hypoxia Current Visit: Yes Status: Resolved Assessment and plan: Resolved secondary to volume overload in the setting of CHF decompensation Continue PO dose of lasix O2 supplementation continue to closely monitor fluid restriction diet monitor daily weight strict I/Os Qualifiers: Chronicity: acute Qualified Code(s): J96.01 - Acute respiratory failure with hypoxia (2) Severe sepsis Current Visit: Yes Status: Resolved Assessment and plan: Secondary to E.coli bacteremia and Staph bacteremia clinically improving repeat blood culture prelim reported No growth ID on board continue Cefazolin at this time (will need 6 weeks of IV abx as per Id) PICC line in place 2D echo negative for vegatations (3) Bacteremia Current Visit: Yes Status: Acute Assessment and plan: as listed above (4) Acute exacerbation of CHF (congestive heart failure) Current Visit: Yes Status: Acute Assessment and plan: 2D echo reported LVEF of 30-35% with global LV systolic dysfunction, this is an acute change in his LVEF s/p [facility] resumed eliquis Cardiology on board and consultation appreciated Qualifiers: Congestive heart failure type: systolic Qualified Code(s): I50.23 - Acute on chronic systolic (congestive) heart failure (5) Cellulitis Current Visit: Yes Status: Acute Assessment and plan: continue IV abx daily wound care as per podiatry podiatry evaluation appreciated Qualifiers: Site of cellulitis: extremity Site of cellulitis of extremity: toe Laterality: unspecified laterality Qualified Code(s): L03.039 - Cellulitis of unspecified toe (6) Atherosclerosis of [place] arteries of extremities with gangrene, bilateral legs Current Visit: Yes Status: Chronic Assessment and plan: s/p left great toe amputation and I&D of right great toe (date of procedure: ) continue daily dressing changes podiatry on board and consultation appreciated wound cultures positive for Strep Agalactiae (Group B) pain control (7) Aspirin allergy Current Visit: Yes Status: Acute Assessment and plan: pt underwent aspirin desensitization in the ICU (8) Atrial fibrillation Current Visit: Yes Status: Chronic Assessment and plan: rate controlled with BB resumed eliquis Qualifiers: Atrial fibrillation type: paroxysmal Qualified Code(s): I48.0 - Paroxysmal atrial fibrillation (9) CAD (coronary artery disease) Current Visit: Yes Status: Chronic Assessment and plan: scheduled for LHC today(09/23/17) continue ASA, PLavix, STatin, BB Qualifiers: Coronary Disease-Associated Artery/Lesion type: unspecified vessel or lesion type [place] vs. transplanted heart: [place] heart Associated angina: without angina Qualified Code(s): I25.10 - Atherosclerotic heart disease of [place] coronary artery without angina pectoris (10) COPD (chronic obstructive pulmonary disease) Current Visit: Yes Status: Chronic Assessment and plan: not in acute exacerbation continue home meds Qualifiers: COPD type: unspecified COPD Qualified Code(s): J44.9 - Chronic obstructive pulmonary disease, unspecified (11) Diabetes Current Visit: Yes Status: Chronic Assessment and plan: continue sliding scale insulin algorithm monitor FS and BG ADA diet Qualifiers: Diabetes mellitus type: other specified (including SAMANTHA) Diabetes mellitus complication status: with circulatory complication Diabetes mellitus complication detail: with peripheral angiopathy without gangrene Diabetes mellitus patient relations director insulin use: without penitentiary use Qualified Code(s): E13.51 - Other specified diabetes mellitus with diabetic peripheral angiopathy without gangrene (12) DVT prophylaxis Current Visit: Yes Status: Acute Assessment and plan: SCD (13) NSTEMI (non-ST elevated myocardial infarction) Current Visit: Yes Status: Acute Assessment and plan: Cardio on board s/p LHC (09/23/17), Mild-moderate non-obstructive CAD reported continue medical management (ASA, Statin, BB, Plavix) (14) PVD (peripheral vascular disease) Current Visit: Yes Status: Acute Assessment and plan: vascular consult appreciated (15) Hypokalemia Current Visit: Yes Status: Resolved - Subjective Interval history: Patient is a 67y/o male who is transferred from the ICU overnight(09/21/17) Pt was admitted to the ICU for acute respiratory failure secondary to pulmonary edema/CHF decompensation requiring intubation. He was extubated on 09/18/17. Pt was also treated for severe sepsis secondary to bacteremia and infected foot ulcer. Was reported to have gangrenous left great toe requiring amputation. He also was found to have elevated TNI concerning for NSTEMI and LHC has been recommended however pt has been changing his mind on daily basis due to which is LHC has been postponed. At this time he is in agreement to getting LHC, cardiology on board, and tentatively scheduled for LHC on Saturday(09/23/17). Pt seen and examined at bedside. Resting in bed and denies any distress at this time. s/p LHC which reported Mild-moderate non-obstructive CAD and medical management recommended. Pt stable for discharge, pending PT evaluation and arrangement of services for IV abx upon discharge technical services representative aware and on board for discharge disposition. - Constitutional Vitals: Temp Pulse Resp BP Pulse Ox 98.7 F 60 15 100/57 98 09/24/17 11:00 09/24/17 11:00 09/24/17 11:00 09/24/17 11:09/24/17 11:00 General appearance: Present: A&O X 3, no acute distress, answers questions appropriately - Head Head exam: Present: atraumatic, normocephalic - Eye Eye exam: Present: conjuntiva pink, sclera anicteric - Respiratory Respiratory exam: Present: CTAB. Absent: accessory muscle use, rales, rhonchi, wheezes - Cardiovascular Cardiovascular exam: Present: RRR, +S1, +S2. Absent: diastolic murmur, gallop, rubs, systolic murmur - GI/Abdominal GI/Abdominal exam: Present: normal bowel sounds, soft, no peritoneal signs. Absent: distended, tenderness - Extremities Exam Extremities exam: Present: warm, radial pulses palpable and symmetrical. Absent : calf tenderness, pedal edema Additional comments: bilateral feet dressing intact - Neurological Exam Neurological exam: Present: alert, oriented X3 - Psychiatric Psychiatric exam: Present: normal affect, normal mood Internal Medicine: Result - Labs CBC & Chem 7: 09/24/17 05:01 09/24/17 05:01 Labs: Short CBC 09/24/17 Range/Units 05:01 WBC 8.7 (4.3-11.1) K/mcL Hgb 11.1 L (12.9-16.9) g/dL Hct 33.5 L (37.5-50.1) % Plt Count 220 (140-400) K/mcL Neutrophils # 6.0 (1.6-8.9) K/mcL BMP 09/24/17 05:01 Sodium 138 Potassium 3.5 Chloride 103 Carbon Dioxide 29 BUN 15 Creatinine 0.87 Glucose 120 H Calcium 8.7 - ABG Interpretation ABG results: ABG ABG pH 7.49 pH Units (7.32-7.45) H 09/19/17 07:51 ABG pCO2 42 mmHg (35-45) 09/19/17 07:51 ABG pO2 119 mmHg (85-104) H 09/19/17 07:51 ABG O2 Saturation 99 % (95-98) H 09/19/17 07:51 PT/INR, D-dimer PT 15.8 Seconds (9.4-12.1) H 09/15/17 09:19 - VTE Documentation of Mechanical Device: Intermittent pneumatic compression device Consult Discharge Plan - Plan Referrals: [facility] [Other] [facility] [Primary Care Provider] - Prescriptions: ceFAZolin [Ancef] 2,000 mg IVPB Q8HR 42 Days #126 vial
[2017-09-25] MEDS: CeFAZolin Premix DUPLEX 2,000 MG/50 ML BAG IVPB SCH ×3 (00:12→17:09)
[2017-09-25] MEDS: *HR* OxyCODONE Immed Rel 15 MG TABLET PO PRN ×3 (00:14→17:08)
[2017-09-25] MEDS: Ipratropium/Albuterol Neb 3 ML IH SCH ×6 (03:52→23:23)
[2017-09-25] MEDS: *HR* HYDROcodone/Acet 5/325 mg TABLET PO PRN ×3 (04:07→21:10)
[2017-09-25 04:39] LABS: Basophils % 0.2 %; Eosinophils # 0.1 K/mcL (0.0-0.6); Eosinophils % 1.2 %; Hematocrit 30.4 % (37.5-50.1); Immature Granulocytes % 0.3 % (0-4); Lymphocytes # 2.4 K/mcL (0.6-4.6); Lymphocytes % 22.4 %; Mean Corpuscular HGB Conc 32.9 g/dL (31.6-35.5); Mean Corpuscular Hemoglobin 28.5 pg (28.0-33.3); Mean Corpuscular Volume 86.6 fL (83.0-100.0); Mean Platelet Volume 10.3 fL (9.4-12.4); Monocytes # 0.5 K/mcL (0.0-1.3); Neutrophils # 7.7 K/mcL (1.6-8.9); Platelet Count 249 K/mcL (140-400); Red Blood Count 3.51 M/mcL (4.19-5.50); Red Cell Distribution Width 13.8 % (11.5-14.5); Segmented Neutrophils % 70.9 %
[2017-09-25 04:57] LABS: BUN/Creatinine Ratio 19 (6-26); Blood Urea Nitrogen 16 mg/dL (8-23); Calcium 8.6 mg/dL (8.6-10.3); Carbon Dioxide 26 mEq/L (23-29); Chloride 101 mEq/L (98-107); Glucose 253 mg/dL (70-105); Magnesium 1.8 mg/dL (1.6-2.6); Osmolality,Calculated 286 (280-300); Phosphorous 2.8 mg/dL (2.7-4.5); Potassium 3.5 mEq/L (3.5-5.1); Sodium 133 mEq/L (136-145); eGFR For African Americans > 60 (> 60); eGFR For Non-African Americans > 60 (> 60)
[2017-09-25] MEDS: Furosemide 20 MG TABLET PO SCH (08:11)
[2017-09-25] MEDS: Insulin LISPRO 300 UNITS/3 ML VIAL SQ SCH ×4 (08:11→21:01)
[2017-09-25] MEDS: Apixaban 5 MG TABLET PO SCH ×2 (08:11→21:10)
[2017-09-25] MEDS: Aspirin 81 MG TAB.CHEW PO SCH (08:12)
[2017-09-25] MEDS: Isosorbide MONOnitrate (24 HR) 30 MG TAB.ER.24H PO SCH (08:12)
[2017-09-25] MEDS: Sennosides/Docusate Sodium TABLET PO SCH ×2 (08:13→21:04)
--- NOTE | 2017-09-25 12:30 | Discharge Summary ---
Date of Encounter: 09/25/17 Time of Encounter: 12:13 - Discharge Diagnosis (1) Respiratory failure with hypoxia Priority: Primary Status: Resolved Qualifiers: Chronicity: acute Qualified Code(s): J96.01 - Acute respiratory failure with hypoxia (2) Severe sepsis Priority: Primary Status: Resolved (3) Bacteremia Priority: Primary Status: Acute (4) Acute exacerbation of CHF (congestive heart failure) Priority: Primary Status: Acute Qualifiers: Congestive heart failure type: systolic Qualified Code(s): I50.23 - Acute on chronic systolic (congestive) heart failure (5) Cellulitis Priority: Secondary Status: Acute Qualifiers: Site of cellulitis: extremity Site of cellulitis of extremity: toe Laterality: unspecified laterality Qualified Code(s): L03.039 - Cellulitis of unspecified toe (6) Atherosclerosis of [place] arteries of extremities with gangrene, bilateral legs Priority: Secondary Status: Chronic (7) Aspirin allergy Priority: Secondary Status: Acute (8) Atrial fibrillation Priority: Secondary Status: Chronic Qualifiers: Atrial fibrillation type: paroxysmal Qualified Code(s): I48.0 - Paroxysmal atrial fibrillation (9) CAD (coronary artery disease) Priority: Secondary Status: Chronic Qualifiers: Coronary Disease-Associated Artery/Lesion type: unspecified vessel or lesion type [place] vs. transplanted heart: [place] heart Associated angina: without angina Qualified Code(s): I25.10 - Atherosclerotic heart disease of [place] coronary artery without angina pectoris (10) COPD (chronic obstructive pulmonary disease) Priority: Secondary Status: Chronic Qualifiers: COPD type: unspecified COPD Qualified Code(s): J44.9 - Chronic obstructive pulmonary disease, unspecified (11) Diabetes Priority: Secondary Status: Chronic Qualifiers: Diabetes mellitus type: other specified (including SAMANTHA) Diabetes mellitus complication status: with circulatory complication Diabetes mellitus complication detail: with peripheral angiopathy without gangrene Diabetes mellitus jail insulin use: without termite control servicer use Qualified Code(s): E13.51 - Other specified diabetes mellitus with diabetic peripheral angiopathy without gangrene (12) DVT prophylaxis Priority: Secondary Status: Acute (13) NSTEMI (non-ST elevated myocardial infarction) Priority: Secondary Status: Acute (14) PVD (peripheral vascular disease) Priority: Secondary Status: Acute (15) Hypokalemia Priority: Secondary Status: Resolved - Discharge Medications Prescriptions: HYDROcodone/Acet 5/325 mg [[place] 5-325 mg] 1 tab PO Q6HR PRN 4 Days #20 tablet PRN Reason: Breakthrough Pain ceFAZolin [Ancef] 2,000 mg IVPB Q8HR 42 Days #126 vial Aspirin 81 mg PO DAILY #30 tab.chew Atorvastatin [Lipitor] 80 mg PO HS #30 tablet Carvedilol [Coreg] 6.25 mg PO BIDWM #60 tablet Furosemide [Lasix] 20 mg PO DAILY #30 tablet Lisinopril [Zestril] 2.5 mg PO DAILY #30 tablet Home Medications: Apixaban [Eliquis] 5 mg PO BID 09/14/17 [History] Buspirone HCl [Buspar] 10 mg PO TID 09/14/17 [History] Chlorhexidine Rinse 15 ml MM BID 09/14/17 [History] Cholecalciferol (Vitamin D3) [Vitamin D3] 1,000 unit PO DAILY 09/14/17 [History] Clopidogrel [Plavix] 75 mg PO DAILY 09/14/17 [History] Insulin LISPRO [HumaLOG] 3 - 8 units SQ TIDWM PRN 09/14/17 [History] Ipratropium/Albuterol Neb [Duoneb] 3 ml IH Q6HR PRN 09/14/17 [History] Metformin HCl [Glucophage Xr] 750 mg PO BID 09/14/17 [History] Naproxen [Naprosyn] 500 mg PO BID 09/14/17 [History] OxyCODONE Immed Rel [Roxicodone 30 MG] 30 mg PO TID 09/14/17 [History] Pantoprazole Sodium [Protonix] 40 mg PO BID 09/14/17 [History] Potassium Chloride [K-Tab ER] 20 meq PO DAILY 09/14/17 [History] Pregabalin [Lyrica] 100 mg PO QID 09/14/17 [History] Tamsulosin HCl [Flomax] 0.4 mg PO DAILY 09/14/17 [History] ceFAZolin [Ancef] 2,000 mg IVPB Q8HR 42 Days #126 vial 09/24/17 [Rx] Aspirin 81 mg PO DAILY #30 tab.chew 09/25/17 [Rx] Atorvastatin [Lipitor] 80 mg PO HS #30 tablet 09/25/17 [Rx] Carvedilol [Coreg] 6.25 mg PO BIDWM #60 tablet 09/25/17 [Rx] Furosemide [Lasix] 20 mg PO DAILY #30 tablet 09/25/17 [Rx] HYDROcodone/Acet 5/325 mg [[place] 5-325 mg] 1 tab PO Q6HR PRN 4 Days #20 tablet 09/25/17 [Rx] Lisinopril [Zestril] 2.5 mg PO DAILY #30 tablet 09/25/17 [Rx] Allergies/Adverse Reactions: 3 Allergy/AdvReac Type Severity Reaction Status Date / Time aspirin Allergy Anaphylaxis Verified 09/14/17 16:21 bee venom protein (honey bee) Allergy Anaphylaxis Verified 09/14/17 16:21 Penicillins Allergy Anaphylaxis Verified 09/14/17 16:21 sucralfate Allergy Anaphylaxis Verified 09/14/17 16:21 Procedures/tests Complete & Pending: Procedures Performed prior 72 hours Category Date Time Status CL Cardiac Catheterization [CL] Routine 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 Discussed with Dr. Barbosa Time Notified: 18:05 Call Completed: Yes 09/14/17 19:21 Consult to Print Line Supervisor [CONS] Routine Reason for SW Consult: Pt has O2 thru [facility] 2L/NC PRN, also, possible HH for wound care. Plan for IV antibiotic upon discharge 09/15/17 08:40 Consult to Cardiology [CONS] Routine Comment: Consulting Provider: Cardiology [facility] Reason for Consult: Chest pain, elev trop Time Notified: 08:41 Call Completed: Yes 09/15/17 08:41 Consult to Vascular Surgery [CONS] Routine Consulting Provider: Vascular Surgery [facility] Reason for Consult: [place] PVD, ischemic LLE Time Notified: 08:42 Call Completed: No 09/15/17 08:42 Consult to Infectious Diseases [CONS] Routine Consulting Provider: Infectious Disease [facility] Reason for Consult: Staph Aureus and GNR Bacteremia Time Notified: 08:42 Call Completed: No 09/15/17 14:52 Consult to Occupational Therapy [CONS] Routine Comment: Evaluate, develop and implement POC Reason for Consult: eval and treat Consult to Physical Therapy [CONS] Routine Comment: Evaluate, develop and implement POC Reason for Consult: eval and treat 09/16/17 15:10 Consult to Allergy/Immunology [CONS] Routine Consulting Provider: Allergy [place] Reason for Consult: ASA desensitization Call Completed: Yes 09/16/17 15:58 Consult to Allergy/Immunology [CONS] Routine Consulting Provider: Allergy [facility] Reason for Consult: ASA desensitization Call Completed: Yes 09/17/17 02:33 Consult to Pulmonology [CONS] Routine Consulting Provider: Pulm [facility] [place] Reason for Consult: Resp failure Call Completed: Yes 09/20/17 09:40 Consult to PICC team [Consult to Invasive Line Access Team] [CONS] Routine Reason for Consult: will need 14 days of IV abx Line Type: PICC 09/23/17 13:23 Consult to Occupational Therapy [CONS] Routine Comment: Evaluate, develop and implement POC Reason for Consult: eval for poss ecf Consult to Physical Therapy [CONS] Routine Comment: Evaluate, develop and implement POC Reason for Consult: eval for poss ecf 09/24/17 12:14 Consult to Invasive Line Access Team [CONS] Routine Reason for Consult: Picc Line Insertion Line Type: PICC Discharging clinician: Collette De La Torre Anticipated date of discharge: 09/25/17 - Patient Status Disposition: Home Health Service Condition: Good Functional capacity at discharge: uses cane/walker Overall status at discharge: patient is progressing back to baseline - Discharge Instructions Follow Up With: AD[facility] [Other] [facility] [Primary Care Provider] - (will wait for d/c plans) Additional Instructions: Please follow up with your primary care physician within five days after your discharge from the hospital. Please follow up with podiatry, ID, and cardiology within one week after your discharge from the hospital. Your home medications have been changed as follows: 1. Atenolol, Flexeril, Vancomycin have been stopped 2. Lipitor has been increased to 80mg once a day 3. Aspirin 81mg once a day has been added 4. Carvedilol 6.25mg twice a day has been added 5. Lasix 20mg once a day has been added Continue Iv abx as prescribed. Continue aspirin, plavix as prescribed. Resume all other medications as prescribed by your primary care physician and plant pathologist. Seek medical help immediately if chest pain occurs. - Diet and Activity Activity: as per physical therapy Diet: diabetic diet, low fat, low cholesterol, low salt diet Hospital course: Mr. Magana is a 67 year old male with PMH Of COPD, Afib on Eliquis, PVD, DM, CHF who was admitted to the the ICU for acute respiratory failure secondary to pulmonary edema/CHF decompensation requiring intubation. He was extubated on . Pt was also treated for severe sepsis secondary to bacteremia and infected foot ulcer. Was reported to have gangrenous left great toe requiring amputation. He also was found to have elevated TNI concerning for NSTEMI and LHC. He underwent LHC which reported moderate CAD and medical management was recommended. Pt was evaluated by cardiology, ID, podiatry, and vascular surgery during this hospitalization. He will need 6 weeks of IV abx for his foot infection. Home health services to be arranged for IV abx infusion. Pt is currently stable for discharge to home pending arrangement of IV abx - Time Spent with Patient Total time spent providing and/or coordinating discharge services: Greater than 30 minutes - Constitutional Vitals: Temp Pulse Resp BP Pulse Ox 98.4 F 58 18 134/78 97 09/25/17 11:23 09/25/17 11:23 09/25/17 11:31 09/25/17 07:29 09/25/17 11:31 General appearance: Present: A&O X 3, no acute distress, answers questions appropriately - Head Head exam: Present: atraumatic, normocephalic - Eye Eye exam: Present: conjuntiva pink, sclera anicteric - Respiratory Respiratory exam: Present: CTAB. Absent: accessory muscle use, rales, rhonchi, wheezes - Cardiovascular Cardiovascular exam: Present: RRR, +S1, +S2. Absent: diastolic murmur, gallop, rubs, systolic murmur - GI/Abdominal GI/Abdominal exam: Present: normal bowel sounds, soft, no peritoneal signs. Absent: distended, tenderness - Extremities Exam Extremities exam: Present: warm, radial pulses palpable and symmetrical. Absent : calf tenderness, cyanotic, pedal edema (b/l LE dressing intact ) - Neurological Exam Neurological exam: Present: alert, oriented X3 - Psychiatric Psychiatric exam: Present: normal affect, normal mood - VTE Documentation of Mechanical Device: Intermittent pneumatic compression device
--- NOTE | 2017-09-25 12:37 | Physician Discharge Referral ---
Home Health/Hosp Referral Info Transfer to: Home Health Provider in Charge Post Discharge: PCP - Diagnosis (1) Respiratory failure with hypoxia Priority: Primary Status: Resolved (2) Severe sepsis Priority: Primary Status: Resolved (3) Bacteremia Priority: Primary Status: Acute (4) Acute exacerbation of CHF (congestive heart failure) Priority: Primary Status: Acute (5) Cellulitis Priority: Secondary Status: Acute (6) Atherosclerosis of [place] arteries of extremities with gangrene, bilateral legs Priority: Secondary Status: Chronic (7) Aspirin allergy Priority: Secondary Status: Acute (8) Atrial fibrillation Priority: Secondary Status: Chronic (9) CAD (coronary artery disease) Priority: Secondary Status: Chronic (10) COPD (chronic obstructive pulmonary disease) Priority: Secondary Status: Chronic (11) Diabetes Priority: Secondary Status: Chronic (12) DVT prophylaxis Priority: Secondary Status: Acute (13) NSTEMI (non-ST elevated myocardial infarction) Priority: Secondary Status: Acute (14) PVD (peripheral vascular disease) Priority: Secondary Status: Acute (15) Hypokalemia Priority: Secondary Status: Resolved - Respiratory Orders Smoking Cessation: Smoking cessation has been advised. For more information, call the [place] Tobacco Quit Line at 0-460-SEUC-NOW. - Services Needed Following services are medically necessary services: Nursing, Home Health Aide, Physical Therapy, Occupational Therapy, Med Social Work, Home Infusion - Transfer Medications Prescriptions: HYDROcodone/Acet 5/325 mg [[place] 5-325 mg] 1 tab PO Q6HR PRN 4 Days #20 tablet PRN Reason: Breakthrough Pain ceFAZolin [Ancef] 2,000 mg IVPB Q8HR 42 Days #126 vial Aspirin 81 mg PO DAILY #30 tab.chew Atorvastatin [Lipitor] 80 mg PO HS #30 tablet Carvedilol [Coreg] 6.25 mg PO BIDWM #60 tablet Furosemide [Lasix] 20 mg PO DAILY #30 tablet Lisinopril [Zestril] 2.5 mg PO DAILY #30 tablet Home Medications: Apixaban [Eliquis] 5 mg PO BID 09/14/17 [History] Buspirone HCl [Buspar] 10 mg PO TID 09/14/17 [History] Chlorhexidine Rinse 15 ml MM BID 09/14/17 [History] Cholecalciferol (Vitamin D3) [Vitamin D3] 1,000 unit PO DAILY 09/14/17 [History] Clopidogrel [Plavix] 75 mg PO DAILY 09/14/17 [History] Insulin LISPRO [HumaLOG] 3 - 8 units SQ TIDWM PRN 09/14/17 [History] Ipratropium/Albuterol Neb [Duoneb] 3 ml IH Q6HR PRN 09/14/17 [History] Metformin HCl [Glucophage Xr] 750 mg PO BID 09/14/17 [History] Naproxen [Naprosyn] 500 mg PO BID 09/14/17 [History] OxyCODONE Immed Rel [Roxicodone 30 MG] 30 mg PO TID 09/14/17 [History] Pantoprazole Sodium [Protonix] 40 mg PO BID 09/14/17 [History] Potassium Chloride [K-Tab ER] 20 meq PO DAILY 09/14/17 [History] Pregabalin [Lyrica] 100 mg PO QID 09/14/17 [History] Tamsulosin HCl [Flomax] 0.4 mg PO DAILY 09/14/17 [History] ceFAZolin [Ancef] 2,000 mg IVPB Q8HR 42 Days #126 vial 09/24/17 [Rx] Aspirin 81 mg PO DAILY #30 tab.chew 09/25/17 [Rx] Atorvastatin [Lipitor] 80 mg PO HS #30 tablet 09/25/17 [Rx] Carvedilol [Coreg] 6.25 mg PO BIDWM #60 tablet 09/25/17 [Rx] Furosemide [Lasix] 20 mg PO DAILY #30 tablet 09/25/17 [Rx] HYDROcodone/Acet 5/325 mg [[place] 5-325 mg] 1 tab PO Q6HR PRN 4 Days #20 tablet 09/25/17 [Rx] Lisinopril [Zestril] 2.5 mg PO DAILY #30 tablet 09/25/17 [Rx] Allergies/Adverse Reactions: 3 Allergy/AdvReac Type Severity Reaction Status Date / Time bee venom protein (honey bee) Allergy Anaphylaxis Verified 09/14/17 16:21 Penicillins Allergy Anaphylaxis Verified 09/14/17 16:21 sucralfate Allergy Anaphylaxis Verified 09/14/17 16:21 Certification: Further, I certify that my clinical findings support that this patient is homebound (i.e. absences from home require considerable and taxing effort and are for medical reasons or jainism services or infrequently or short duration when for other reasons) because: Homebound Reason: Patient requires assistance of a person or device to safely leave home Attestation: My signature below is to certify that this patient is under my care and that I, or nurse practitioner, or a physician's custody assistant working with me, has a face-to -face encounter with this patient.
--- NOTE | 2017-09-25 12:44 | Infectious Disease Progress No ---
Date of Encounter: 09/25/17 Time of Encounter: 12:44 - Assessment and Plan (1) Severe sepsis Current Visit: Yes Status: Resolved The patient had fever and leukocytosis on admission to the [facility]. He had tachycardia and leukocytosis on the day he was transferred here. He developed tachycardia and leukocytosis with hypotension and lactic acidosis yesterday. Likely secondary to bacteremia and foot cellulitis. Improved. WBC normal. Tachycardia and hypotension have resolved.. Blood cultures obtained at the [facility] 09/12/17 x 1 set was positive for MSSA. Repeat culture obtained at the [facility] 09/15/17 is negative x 1 set. Additional blood cultures drawn here are positive 2/2 sets for E. coli and 1/2 sets for MSSA (per PCR) and GBS. Repeat blood cultures drawn 09/16/17 are positive x 1/2 sets for GPC and E. coli. GPC not able to be isolated on the culture. Additional repeat blood cultures drawn 09/20/17 and 09/21/17 are NGTD x 4 sets. (2) Bacteremia Current Visit: Yes Status: Acute Causative organism: MSSA, E. coli, GBS. Source likely foot cellulitis. Blood cultures obtained at the [facility] 09/12/17 x 1 set was positive for MSSA. Repeat culture obtained at the [facility] 09/15/17 is negative x 1 set. Additional blood cultures drawn here are positive 2/2 sets for E. coli and 1/2 sets for MSSA (per PCR) and GBS. Repeat blood cultures drawn 09/16/17 are positive x 1/2 sets for GPC and E. coli. Unable to grow GPC out on culture, but likely GBS. Complicated due to OM. TTE negative for vegetations. GAMALIEL negative for vegetations. The patient has a documented allergy to PCN with anaphylactic reaction. Discussed this with the patient's sisters who state the patient got a rash when he had PCN several years ago. Continue cefazolin 2 grams IV Q8H. He has been tolerating it without evidence of reaction. Duration of treatment depends on the clinical picture, but the patient will likely require a prolonged course of IV antibiotics due to the infection in his feet. Monitor renal function and for drug toxicity and dose-adjust antibiotics. (3) Cellulitis Current Visit: Yes Status: Acute Location: Bilateral feet, left>right Secondary to bilateral foot trauma. Causative organism E. coli, GBS, and MSSA per wound culture of the left foot obtained at the [facility]. E. coli is randolph-sensitive. X-ray of the left foot done at the [facility] showed no evidence of OM or subcutaneous gas. Podiatry consulted and following. Status post I & D of the left foot with great toe amputation and right great toe I & D. Operative note reviewed. Some pus noted. Ischemic changes of the bone noted as well. Pathology shows findings consistent with gangrenous changes. Culture positive for GBS. ESR 116, CRP 203. Antibiotics as above. Wound care per podiatry's recommendations. Duration of treatment depends on the clinical picture, but likely 6 weeks of antibiotics based on the extent of the infection. Treat through 11/01/17. Will need weekly CBC, BUN/Cr, ESR, and CRP. Weekly IV line care per protocol. Follow up with ID 10/09/17 at 0920. Qualifiers: Site of cellulitis: extremity Site of cellulitis of extremity: toe Laterality: unspecified laterality Qualified Code(s): L03.039 - Cellulitis of unspecified toe (4) Respiratory failure with hypoxia Current Visit: Yes Status: Resolved Likely secondary to fluid volume overload. The patient became hypoxic, dyspneic,hypotensive, and tachycardic requiring emergent intubation. CXR shows findings consistent with pulmonary edema vs. multilobar pneumonia. Given the clinical picture, this was more likely fluid overload. CXR 09/18/17 improved. Self-extubated 09/18/17. Doing well on nasal cannula O2 at this time. Flu PCR negative. Resolved. Qualifiers: Chronicity: acute Qualified Code(s): J96.01 - Acute respiratory failure with hypoxia (5) Lung nodule Current Visit: Yes Status: Acute Noted on CT scan at the [facility]. Further evaluation and management per the pulmonology team. (6) PVD (peripheral vascular disease) Current Visit: Yes Status: Acute ABIs consistent with moderate RLE disease, left was normal. Vascular surgery consulted. No intervention required at this time. (7) Diabetes Current Visit: Yes Status: Chronic HgbA1C 7.2%. Recommend aggressive glucose monitoring and control to promote wound healing and prevent re-infection. Qualifiers: Diabetes mellitus type: other specified (including SAMANTHA) Diabetes mellitus complication status: with circulatory complication Diabetes mellitus complication detail: with peripheral angiopathy without gangrene Diabetes mellitus half-way insulin use: without intermediate project manager use Qualified Code(s): E13.51 - Other specified diabetes mellitus with diabetic peripheral angiopathy without gangrene (8) HTN (hypertension) Current Visit: Yes Status: Acute Qualifiers: Hypertension type: essential hypertension Qualified Code(s): I10 - Essential (primary) hypertension (9) CAD (coronary artery disease) Current Visit: Yes Status: Chronic Cardiology consulted and following. Status post [facility] 09/23/17. No stents placed. Medical management per the primary and cardiology teams. Qualifiers: Coronary Disease-Associated Artery/Lesion type: unspecified vessel or lesion type [place] vs. transplanted heart: [place] heart Associated angina: without angina Qualified Code(s): I25.10 - Atherosclerotic heart disease of [place] coronary artery without angina pectoris (10) Atrial fibrillation Current Visit: Yes Status: Chronic Currently is NSR with rate controlled. Cardiology consulted and following. Qualifiers: Atrial fibrillation type: paroxysmal Qualified Code(s): I48.0 - Paroxysmal atrial fibrillation (11) NSTEMI (non-ST elevated myocardial infarction) Current Visit: Yes Status: Acute Troponin peaked at 0.75. Cardiology consulted and following. Status post [facility] 09/23/17. (12) Aspirin allergy Current Visit: Yes Status: Acute [place] Allergy consulted. Status post ASA desensitization. (13) COPD (chronic obstructive pulmonary disease) Current Visit: Yes Status: Chronic Qualifiers: COPD type: unspecified COPD Qualified Code(s): J44.9 - Chronic obstructive pulmonary disease, unspecified - Subjective Interval history: Patient seen and examined. No acute events noted overnight. Patient on nasal cannula O2, tolerating well. Denies fevers, chills, or rigors. Denies chest pain , shortness of breath, or cough. Denies extremity pain. Does report some low back soreness from the bed. Denies nausea, vomiting, or diarrhea. States his appetite is getting better. Denies abdominal pain. Denies urinary complaints since aquino catheter removal. Denies oral thrush or new skin lesions. Infect Dis PN-Objective Data - Labs CBC & Chem 7: 09/25/17 04:25 09/25/17 04:25 Labs: Laboratory Results - last 24 hr 09/24/17 09/24/17 09/24/17 07:25 10:59 15:49 WBC RBC Hgb Hct MCV MCH MCHC RDW Plt Count MPV Immature Gran % Seg Neutrophils % Lymphocytes % Monocytes % Eosinophils % Basophils % Neutrophils # Lymphocytes # Monocytes # Eosinophils # Basophils # Sodium Potassium Chloride Carbon Dioxide BUN Creatinine Est GFR ( Amer) Est GFR (Non-Af Amer) BUN/Creatinine Ratio Glucose POC Glucose 138 H 205 H 120 H Calculated Osmolality Calcium Phosphorus Magnesium 09/25/17 09/25/17 04:25 04:25 WBC 10.8 RBC 3.51 L Hgb 10.0 L Hct 30.4 L MCV 86.6 MCH 28.5 MCHC 32.9 RDW 13.8 Plt Count 249 MPV 10.3 Immature Gran % 0.3 Seg Neutrophils % 70.9 Lymphocytes % 22.4 Monocytes % 5.0 Eosinophils % 1.2 Basophils % 0.2 Neutrophils # 7.7 Lymphocytes # 2.4 Monocytes # 0.5 Eosinophils # 0.1 Basophils # 0.0 Sodium 133 L Potassium 3.5 Chloride 101 Carbon Dioxide 26 BUN 16 Creatinine 0.85 Est GFR ( Amer) > 60 Est GFR (Non-Af Amer) > 60 BUN/Creatinine Ratio 19 Glucose 253 H POC Glucose Calculated Osmolality 286 Calcium 8.6 Phosphorus 2.8 Magnesium 1.8 Cultures: Cultures 09/24/17 21:20 Sputum Culture - Final Sputum 09/18/17 18:09 Anaerobic Culture - Final Left Foot No anaerobes were recovered. 09/21/17 09:07 Blood Culture - Preliminary Peripheral Venipuncture No growth. 09/21/17 09:07 Blood Culture - Preliminary Peripheral Venipuncture No growth. 09/20/17 10:51 Blood Culture - Preliminary Peripheral Venipuncture No growth. 09/20/17 10:51 Blood Culture - Preliminary Peripheral Venipuncture No growth. 09/16/17 22:19 Blood Culture - Final Peripheral Venipuncture No growth. 09/16/17 22:19 Blood Culture - Final Peripheral Venipuncture Escherichia coli Gram Positive Cocci 09/18/17 18:09 Wound Culture - Final Left Foot Strep agalactiae - (Group B) Serology 09/17/17 Range/Units 15:50 Influenza Type A (PCR) Negative (Negative) Influenza Type B (PCR) Negative (Negative) Exam - Constitutional Vitals: Temp Pulse Resp BP Pulse Ox 98.4 F 58 18 134/78 97 09/25/17 11:23 09/25/17 11:23 09/25/17 11:31 09/25/17 07:29 09/25/17 11:31 General appearance: average body habitus, cooperative, no acute distress - Head Head exam: Present: atraumatic, normal inspection, normocephalic - Eye Eye exam: Present: EOMI, normal appearance, PERRL Pupils: Present: normal accommodation Additional comments: No subcojunctival hemorrhage noted. - ENT ENT exam: Present: mucous membranes moist - Neck Neck exam: Present: normal inspection - Respiratory Respiratory exam: Present: CTAB. Absent: rales, respiratory distress, rhonchi, wheezes - Cardiovascular Cardiovascular exam: Present: RRR, +S1, +S2 - GI/Abdominal GI/Abdominal exam: Present: normal bowel sounds, soft. Absent: distended, tenderness - Extremities Exam Extremities exam: Absent: joint swelling, pedal edema, tenderness Additional comments: Bilateral foot dressings C/D/I. - Neurological Exam Neurological exam: Present: alert, oriented X3, no focal deficits - Psychiatric Psychiatric exam: Present: normal affect, normal mood - Skin Skin exam: Present: dry, intact, normal color, warm - VTE Documentation of Mechanical Device: Intermittent pneumatic compression device Consult Discharge Plan - Plan Additional Instructions: Please follow up with your primary care physician within five days after your discharge from the hospital. Please follow up with podiatry, ID, and cardiology within one week after your discharge from the hospital. Your home medications have been changed as follows: 1. Atenolol, Flexeril, Vancomycin have been stopped 2. Lipitor has been increased to 80mg once a day 3. Aspirin 81mg once a day has been added 4. Carvedilol 6.25mg twice a day has been added 5. Lasix 20mg once a day has been added Continue Iv abx as prescribed. Continue aspirin, plavix as prescribed. Resume all other medications as prescribed by your primary care physician and community service manager. Seek medical help immediately if chest pain occurs. Dressing changes to be performed every three days. Cleanse incision line of the left foot and right great toe with mild soap and water every three days, pat dry, apply adaptic to the incision line of the left foot, calcium alginate with adaptic to the right great toe with 4x4 dry sterile gauze, kerlix and tape. Protective weight bearing to right foot with post op shoe, Non weight bearing to left foot with post op shoe and walker. Weight to only be applied to left heel with transferring. Follow up with Dr. Barbosa in Podiatry clinic a week after discharge from the hospital. Referrals: [facility] [Other] [facility] Provider[facility] - (will wait for d/c plans) Lindsey Borrego, SALES REPRESENTATIVE [employer] [Advanced Practice Nurse] - 10/09/17 9:20 am Prescriptions: HYDROcodone/Acet 5/325 mg [[place] 5-325 mg] 1 tab PO Q6HR PRN 4 Days #20 tablet PRN Reason: Breakthrough Pain ceFAZolin [Ancef] 2,000 mg IVPB Q8HR 42 Days #126 vial Aspirin 81 mg PO DAILY #30 tab.chew Atorvastatin [Lipitor] 80 mg PO HS #30 tablet Carvedilol [Coreg] 6.25 mg PO BIDWM #60 tablet Furosemide [Lasix] 20 mg PO DAILY #30 tablet Lisinopril [Zestril] 2.5 mg PO DAILY #30 tablet Walker [WALKER] 1 each .ROUTE AD #1 each - Attending Attestation I examined this patient and my medical decision-making was reviewed with the Resident Physician. I agree with the documented findings, disposition and treatment plan as described except to the extent set forth below.
--- NOTE | 2017-09-25 14:06 | Podiatry Progress Note ---
Date of Encounter: 09/25/17 Time of Encounter: 13:50 - Assessment and Plan (1) Cellulitis Current Visit: Yes Status: Acute S/p Incision and drainage left and right foot with amputation of left great toe by Dr. Barbosa on 09/18/17. WBC: 10.8, a febrile. ESR 116, CRP 203. [facility] isolated E. coli, GBS, and MSSA. Intra op cultures isolated Strep Agalactiae (Group B) Plan: Dressing changed at bedside. Dressing changes to be performed every three days. Cleanse incision line of the left foot and right great toe with mild soap and water, pat dry, apply adaptic to the incision line of the left foot, calcium alginate with adaptic to the right great toe with 4x4 dry sterile gauze, kerlix and tape. Significant other at bedside, educated and instructed on dressing changes. Antibiotic recommendations per ID. Weight bearing: Protective weight bearing to right foot with post op shoe, Non weight bearing to left foot with post op shoe and walker. Weight to only be applied to left heel with transferring. Patient will need to follow up with Dr. Barbosa a week after discharge from the hospital. Qualifiers: Site of cellulitis: extremity Site of cellulitis of extremity: toe Laterality: unspecified laterality Qualified Code(s): L03.039 - Cellulitis of unspecified toe (2) Diabetes Current Visit: Yes Status: Chronic Glucose control and close monitoring to aid in wound healing. Qualifiers: Diabetes mellitus type: other specified (including SAMANTHA) Diabetes mellitus complication status: with circulatory complication Diabetes mellitus complication detail: with peripheral angiopathy without gangrene Diabetes mellitus intermediate frame tender insulin use: without intermediate frame tender use Qualified Code(s): E13.51 - Other specified diabetes mellitus with diabetic peripheral angiopathy without gangrene (3) Ischemia of foot Current Visit: Yes Status: Acute Arterial study completed on 09/15/17: Right HERMANN demonstrates moderate arterial insufficiency on the right at rest. Left HERMANN demonstrates mild arterial insufficiency on the left at rest. Vascular consulted. Subjective Principal diagnosis: foot infection Interval history: Patient is lying in bed with dressings intact to both feet with significant other at bedside. Patient is s/p Incision and drainage left and right foot with amputation of left great toe by Dr. Barbosa on 09/18/17. Patient is scheduled to be discharged home today. Patients significant other states she feels comfortable performing dressing changes and has done them in the past. No c/o pain, fever or chills. Objective - Vital Signs Vital Signs: Vital Signs Temp Pulse Resp BP Pulse Ox 09/25/17 11:31 18 97 09/25/17 11:23 98.4 F 58 16 98 09/25/17 08:19 18 100 09/25/17 07:29 98.1 F 50 16 134/78 98 09/25/17 03:57 98.3 F 72 16 126/67 93 09/25/17 00:06 97.9 F 69 16 123/68 98 09/24/17 19:49 14 98 09/24/17 18:54 98.3 F 70 16 114/72 94 09/24/17 16:00 16 96 09/24/17 15:52 98.1 F 70 15 126/63 99 Intake and Output 09/24/17 09/25/17 09/25/17 23:59 07:59 15:59 Intake Total 300 / 300 500 / 500 Output Total 450 / 450 1700 / 1700 Balance -150 / -150 -1200 / -1200 Intake: IV Fluids 50 / 50 50 / 50 Ancef Premix DUPLEX 2,000 mg In 50 / 50 50 / 50 50 ml @ 100 mls/hr IVPB Q8HR [facility] Rx#:[id number] Oral 250 / 250 450 / 450 Output: Urine 450 / 450 1700 / 1700 Other: Stool Size Moderate Copious Stool Consistency liquid soft soft formed Stool Color Brown Brown # Voids 1 1 # Bowel Movements 1 1 Weight 79.2 kg Blood Glucose* 143 152 218 Patient Weight 09/25/17 23:59 Weight 79.2 kg - Exam Exam: General appearance: alert awake oriented X 3. Calm and pleasant, no acute distress.. Vascular: Pedal pulses palpable, Edema graded at 1+/4, Skin Temperature warm, No calf pain with manual compression. capillary refill time is immediate to digits. Neurologic: Sensation intact with light touch to both feet. Integument: S/p: retention sutures intact to the left foot, light periwound erythema, no streaking, scant amount of bloody drainage observed to dressing, no pus, no odor. Right great toe: medial aspect of right great toe with red granulation tissue, lateral aspect with intact eschar to the dorsal lateral aspect extending to the plantar aspect with light periwound erythema to dorsal aspect, no streaking, no pus, no odor, no active drainage. - Lab Result Diagrams: 09/25/17 04:25 09/25/17 04:25 Labs: Abnormal lab results RBC 3.51 M/mcL (4.19-5.50) L 09/25/17 04:25 Hgb 10.0 g/dL (12.9-16.9) L 09/25/17 04:25 Hct 30.4 % (37.5-50.1) L 09/25/17 04:25 Nucleated RBCs/100 WBC 0.6 /100 WBC (0) H 09/19/17 07:49 Reactive Lymphocytes Present (Not Present) A 09/19/17 07:49 ESR 116 mm/hr (0-10) H 09/15/17 22:18 PT 15.8 Seconds (9.4-12.1) H 09/15/17 09:19 APTT 61.3 Seconds (26.0-36.0) H 09/20/17 03:19 Heparin Anti-Xa, Unfract 1.17 IU/mL (0.30-0.70) H* 09/18/17 08:45 ABG pH 7.49 pH Units (7.32-7.45) H 09/19/17 07:51 ABG pO2 119 mmHg (85-104) H 09/19/17 07:51 ABG HCO3 32 mEq/L (21-27) H 09/19/17 07:51 ABG Total CO2 33 mEq/L (20-26) H 09/19/17 07:51 ABG O2 Saturation 99 % (95-98) H 09/19/17 07:51 ABG Base Excess 8 mEq/L (-2 to 3) H 09/19/17 07:51 VBG pH 7.45 pH Units (7.32-7.42) H 09/19/17 06:17 Sodium 133 mEq/L (136-145) L 09/25/17 04:25 Glucose 253 mg/dL (70-105) H 09/25/17 04:25 POC Glucose 218 (58-89) H 09/25/17 11:42 Hemoglobin A1c 7.2 % (-5.6) H 09/14/17 22:25 Venous Ioniz Calcium 1.04 mmol/L (1.15-1.35) L 09/19/17 06:17 AST 84 Units/L (13-39) H 09/15/17 02:58 ALT 61 Units/L (7-52) H 09/15/17 02:58 Alkaline Phosphatase 168 Units/L (34-104) H 09/15/17 02:58 Troponin I 0.49 ng/mL (< 0.04) H* 09/16/17 23:54 C-Reactive Protein 203 mg/L (Less than 10) H 09/15/17 22:18 B-Natriuretic Peptide 787 pg/mL (Less than 100) H 09/16/17 23:21 Serum Total Protein 6.1 g/dL (6.4-8.9) L 09/15/17 02:58 Albumin 2.8 g/dL (3.5-5.7) L 09/15/17 02:58 Albumin/Globulin Ratio 0.8 (1.1-2.2) L 09/15/17 02:58 Triglycerides 226 mg/dL (< 150) H 09/16/17 05:20 VLDL Cholesterol, Calc 45 mg/dL (< 31) H 09/16/17 05:20 HDL Cholesterol 7 mg/dL (40-59) L 09/16/17 05:20 Cholesterol/HDL Ratio 13.3 (0-4.9) H 09/16/17 05:20 Ur Specific [place] > 1.030 (1.010-1.025) H 09/14/17 14:36 Urine Protein 30 mg/dL (Neg-Trace) H 09/14/17 14:36 Urine Glucose (UA) 100 mg/dL (Normal) H 09/14/17 14:36 Urine Microscopic RBC 5-15 per hpf (0-3) H 09/14/17 14:36 Urine Microscopic WBC 5-15 per hpf (0-3) H 09/14/17 14:36 Ur Squamous Epith Cells Moderate per lpf (None-Few) H 09/14/17 14:36 Vancomycin Trough 13 mcg/mL (5-10) H 09/16/17 11:12 Enterobacteriac sp PCR DETECTED (Not Detect) A 09/14/17 14:50 E. coli (PCR) DETECTED (Not Detect) A 09/14/17 14:50 Microbiology, Last 48 Hours 09/24/17 21:20 Sputum Culture - Final Sputum 09/18/17 18:09 Anaerobic Culture - Final Left Foot No anaerobes were recovered. - VTE Documentation of Mechanical Device: Intermittent pneumatic compression device Consult Discharge Plan - Plan Additional Instructions: Please follow up with your primary care physician within five days after your discharge from the hospital. Please follow up with podiatry, ID, and cardiology within one week after your discharge from the hospital. Your home medications have been changed as follows: 1. Atenolol, Flexeril, Vancomycin have been stopped 2. Lipitor has been increased to 80mg once a day 3. Aspirin 81mg once a day has been added 4. Carvedilol 6.25mg twice a day has been added 5. Lasix 20mg once a day has been added Continue Iv abx as prescribed. Continue aspirin, plavix as prescribed. Resume all other medications as prescribed by your primary care physician and starch treating assistant. Seek medical help immediately if chest pain occurs. Dressing changes to be performed every three days. Cleanse incision line of the left foot and right great toe with mild soap and water every three days, pat dry, apply adaptic to the incision line of the left foot, calcium alginate with adaptic to the right great toe with 4x4 dry sterile gauze, kerlix and tape. Protective weight bearing to right foot with post op shoe, Non weight bearing to left foot with post op shoe and walker. Weight to only be applied to left heel with transferring. Follow up with Dr. Barbosa in Podiatry clinic a week after discharge from the hospital. Referrals: [facility] [Other] Lindsey Borrego, SEGMENTAL PAVER INSTALLER [Advanced Practice Nurse] - 10/09/17 9:20 am [facility] - (will wait for d/c plans) Prescriptions: HYDROcodone/Acet 5/325 mg [[place] 5-325 mg] 1 tab PO Q6HR PRN 4 Days #20 tablet PRN Reason: Breakthrough Pain ceFAZolin [Ancef] 2,000 mg IVPB Q8HR 42 Days #126 vial Aspirin 81 mg PO DAILY #30 tab.chew Atorvastatin [Lipitor] 80 mg PO HS #30 tablet Carvedilol [Coreg] 6.25 mg PO BIDWM #60 tablet Furosemide [Lasix] 20 mg PO DAILY #30 tablet Lisinopril [Zestril] 2.5 mg PO DAILY #30 tablet Walker [WALKER] 1 each .ROUTE AD #1 each
[2017-09-26] MEDS: *HR* OxyCODONE Immed Rel 15 MG TABLET PO PRN ×2 (00:57→09:16)
[2017-09-26] MEDS: CeFAZolin Premix DUPLEX 2,000 MG/50 ML BAG IVPB SCH ×3 (01:07→15:00)
[2017-09-26] MEDS: Ipratropium/Albuterol Neb 3 ML IH SCH ×4 (03:21→15:38)
[2017-09-26] MEDS: Insulin LISPRO 300 UNITS/3 ML VIAL SQ SCH ×2 (08:34→12:26)
[2017-09-26] MEDS: Isosorbide MONOnitrate (24 HR) 30 MG TAB.ER.24H PO SCH (09:15)
[2017-09-26] MEDS: Aspirin 81 MG TAB.CHEW PO SCH (09:16)
[2017-09-26] MEDS: Apixaban 5 MG TABLET PO SCH (09:16)
[2017-09-26] MEDS: Sennosides/Docusate Sodium TABLET PO SCH (09:17)
[2017-09-26] MEDS: Furosemide 20 MG TABLET PO SCH (09:17)
--- NOTE | 2017-09-26 10:25 | Infectious Disease Progress No ---
Date of Encounter: 09/26/17 Time of Encounter: 10:23 - Assessment and Plan (1) Severe sepsis Current Visit: Yes Status: Resolved The patient had fever and leukocytosis on admission to the [facility]. He had tachycardia and leukocytosis on the day he was transferred here. He developed tachycardia and leukocytosis with hypotension and lactic acidosis yesterday. Likely secondary to bacteremia and foot cellulitis. Improved. WBC normal. Tachycardia and hypotension have resolved.. Blood cultures obtained at the [facility] 09/12/17 x 1 set was positive for MSSA. Repeat culture obtained at the [facility] 09/15/17 is negative x 1 set. Additional blood cultures drawn here are positive 2/2 sets for E. coli and 1/2 sets for MSSA (per PCR) and GBS. Repeat blood cultures drawn 09/16/17 are positive x 1/2 sets for GPC and E. coli. GPC not able to be isolated on the culture. Additional repeat blood cultures drawn 09/20/17 and 09/21/17 are negative x 4 sets. (2) Bacteremia Current Visit: Yes Status: Acute Causative organism: MSSA, E. coli, GBS. Source likely foot cellulitis. Blood cultures obtained at the [facility] 09/12/17 x 1 set was positive for MSSA. Repeat culture obtained at the [facility] 09/15/17 is negative x 1 set. Additional blood cultures drawn here are positive 2/2 sets for E. coli and 1/2 sets for MSSA (per PCR) and GBS. Repeat blood cultures drawn 09/16/17 are positive x 1/2 sets for GPC and E. coli. Unable to grow GPC out on culture, but likely GBS. Complicated due to OM. TTE negative for vegetations. GAMALIEL negative for vegetations. The patient has a documented allergy to PCN with anaphylactic reaction. Discussed this with the patient's sisters who state the patient got a rash when he had PCN several years ago. Recommend allergy testing as an outpatient to confirm/rule out PCN allergy. Continue cefazolin 2 grams IV Q8H. He has been tolerating it without evidence of reaction. Duration of treatment depends on the clinical picture, but the patient will likely require a prolonged course of IV antibiotics due to the infection in his feet. Monitor renal function and for drug toxicity and dose-adjust antibiotics. (3) Cellulitis Current Visit: Yes Status: Acute Location: Bilateral feet, left>right Secondary to bilateral foot trauma. Causative organism E. coli, GBS, and MSSA per wound culture of the left foot obtained at the [facility]. E. coli is randolph-sensitive. X-ray of the left foot done at the [facility] showed no evidence of OM or subcutaneous gas. Podiatry consulted and following. Status post I & D of the left foot with great toe amputation and right great toe I & D. Operative note reviewed. Some pus noted. Ischemic changes of the bone noted as well. Pathology shows findings consistent with gangrenous changes. Culture positive for GBS. ESR 116, CRP 203. Antibiotics as above. Wound care per podiatry's recommendations. Duration of treatment depends on the clinical picture, but likely 6 weeks of antibiotics based on the extent of the infection. Treat through 11/01/17. Will need weekly CBC, BUN/Cr, ESR, and CRP. Weekly IV line care per protocol. Follow up with ID 10/09/17 at 0920. Qualifiers: Site of cellulitis: extremity Site of cellulitis of extremity: toe Laterality: unspecified laterality Qualified Code(s): L03.039 - Cellulitis of unspecified toe (4) Respiratory failure with hypoxia Current Visit: Yes Status: Resolved Likely secondary to fluid volume overload. The patient became hypoxic, dyspneic,hypotensive, and tachycardic requiring emergent intubation. CXR shows findings consistent with pulmonary edema vs. multilobar pneumonia. Given the clinical picture, this was more likely fluid overload. CXR 09/18/17 improved. Self-extubated 09/18/17. Doing well on nasal cannula O2 at this time. Flu PCR negative. Resolved. Qualifiers: Chronicity: acute Qualified Code(s): J96.01 - Acute respiratory failure with hypoxia (5) Lung nodule Current Visit: Yes Status: Acute Noted on CT scan at the [facility]. Further evaluation and management per the pulmonology team. (6) PVD (peripheral vascular disease) Current Visit: Yes Status: Acute ABIs consistent with moderate RLE disease, left was normal. Vascular surgery consulted. No intervention required at this time. (7) Diabetes Current Visit: Yes Status: Chronic HgbA1C 7.2%. Recommend aggressive glucose monitoring and control to promote wound healing and prevent re-infection. Qualifiers: Diabetes mellitus type: other specified (including SAMANTHA) Diabetes mellitus complication status: with circulatory complication Diabetes mellitus complication detail: with peripheral angiopathy without gangrene Diabetes mellitus shelter insulin use: without shelter use Qualified Code(s): E13.51 - Other specified diabetes mellitus with diabetic peripheral angiopathy without gangrene (8) HTN (hypertension) Current Visit: Yes Status: Acute Qualifiers: Hypertension type: essential hypertension Qualified Code(s): I10 - Essential (primary) hypertension (9) CAD (coronary artery disease) Current Visit: Yes Status: Chronic Cardiology consulted and following. Status post [facility] 09/23/17. No stents placed. Medical management per the primary and cardiology teams. Qualifiers: Coronary Disease-Associated Artery/Lesion type: unspecified vessel or lesion type [place] vs. transplanted heart: [place] heart Associated angina: without angina Qualified Code(s): I25.10 - Atherosclerotic heart disease of [place] coronary artery without angina pectoris (10) Atrial fibrillation Current Visit: Yes Status: Chronic Currently is NSR with rate controlled. Cardiology consulted and following. Qualifiers: Atrial fibrillation type: paroxysmal Qualified Code(s): I48.0 - Paroxysmal atrial fibrillation (11) NSTEMI (non-ST elevated myocardial infarction) Current Visit: Yes Status: Acute Troponin peaked at 0.75. Cardiology consulted and following. Status post [facility] 09/23/17. (12) Aspirin allergy Current Visit: Yes Status: Acute [place] Allergy consulted. Status post ASA desensitization. (13) COPD (chronic obstructive pulmonary disease) Current Visit: Yes Status: Chronic Qualifiers: COPD type: unspecified COPD Qualified Code(s): J44.9 - Chronic obstructive pulmonary disease, unspecified - Subjective Interval history: Patient seen and examined. No acute events noted overnight. Patient waiting for home health to be set up by the [facility] before he can go home. Patient on nasal cannula O2, tolerating well. Denies fevers, chills, or rigors. Denies chest pain , shortness of breath, or cough. Denies extremity pain. Does report some low back soreness from the bed and states he did not get any pain medication overnight and he is in a lot of pain this morning. Denies nausea, vomiting, or diarrhea. States his appetite is getting better. Denies abdominal pain. Denies urinary complaints since aquino catheter removal. Denies oral thrush or new skin lesions. Infect Dis PN-Objective Data - Labs CBC & Chem 7: 09/25/17 04:25 09/25/17 04:25 Labs: Laboratory Results - last 24 hr 09/25/17 09/25/17 09/25/17 07:28 11:42 16:32 POC Glucose 152 H 218 H 185 H 09/26/17 08:04 POC Glucose 102 H Cultures: Cultures 09/20/17 10:51 Blood Culture - Final Peripheral Venipuncture No growth. 09/20/17 10:51 Blood Culture - Final Peripheral Venipuncture No growth. 09/24/17 21:20 Sputum Culture - Final Sputum 09/18/17 18:09 Anaerobic Culture - Final Left Foot No anaerobes were recovered. 09/21/17 09:07 Blood Culture - Preliminary Peripheral Venipuncture No growth. 09/21/17 09:07 Blood Culture - Preliminary Peripheral Venipuncture No growth. 09/16/17 22:19 Blood Culture - Final Peripheral Venipuncture No growth. 09/16/17 22:19 Blood Culture - Final Peripheral Venipuncture Escherichia coli Gram Positive Cocci 09/18/17 18:09 Wound Culture - Final Left Foot Strep agalactiae - (Group B) Serology 09/17/17 Range/Units 15:50 Influenza Type A (PCR) Negative (Negative) Influenza Type B (PCR) Negative (Negative) Exam - Constitutional Vitals: Temp Pulse Resp BP Pulse Ox 98.2 F 58 16 122/62 99 09/26/17 08:00 09/26/17 08:00 09/26/17 08:00 09/26/17 08:00 09/26/17 08:00 General appearance: average body habitus, cooperative, no acute distress - Head Head exam: Present: atraumatic, normal inspection, normocephalic - Eye Eye exam: Present: EOMI, normal appearance, PERRL Pupils: Present: normal accommodation Additional comments: No subconjunctival hemorrhage noted. - ENT ENT exam: Present: mucous membranes moist - Neck Neck exam: Present: normal inspection - Respiratory Respiratory exam: Present: CTAB. Absent: rales, respiratory distress, rhonchi, wheezes - Cardiovascular Cardiovascular exam: Present: RRR, +S1, +S2 - GI/Abdominal GI/Abdominal exam: Present: normal bowel sounds, soft. Absent: distended, tenderness - Extremities Exam Extremities exam: Absent: joint swelling, pedal edema, tenderness Additional comments: Bilateral foot dressings C/D/I. - Back Exam Back exam: Present: normal inspection, paraspinal tenderness (lower back). Absent: vertebral tenderness - Neurological Exam Neurological exam: Present: alert, oriented X3, no focal deficits - Psychiatric Psychiatric exam: Present: normal affect, normal mood - Skin Skin exam: Present: dry, intact, normal color, warm - VTE Documentation of Mechanical Device: Intermittent pneumatic compression device Consult Discharge Plan - Plan Additional Instructions: Please follow up with your primary care physician within five days after your discharge from the hospital. Please follow up with podiatry, ID, and cardiology within one week after your discharge from the hospital. Your home medications have been changed as follows: 1. Atenolol, Flexeril, Vancomycin have been stopped 2. Lipitor has been increased to 80mg once a day 3. Aspirin 81mg once a day has been added 4. Carvedilol 6.25mg twice a day has been added 5. Lasix 20mg once a day has been added Continue Iv abx as prescribed. Continue aspirin, plavix as prescribed. Resume all other medications as prescribed by your primary care physician and medical liaison. Seek medical help immediately if chest pain occurs. Dressing changes to be performed every three days. Cleanse incision line of the left foot and right great toe with mild soap and water every three days, pat dry, apply adaptic to the incision line of the left foot, calcium alginate with adaptic to the right great toe with 4x4 dry sterile gauze, kerlix and tape. Protective weight bearing to right foot with post op shoe, Non weight bearing to left foot with post op shoe and walker. Weight to only be applied to left heel with transferring. Follow up with Dr. Barbosa in Podiatry clinic a week after discharge from the hospital. Referrals: [facility] [Other] Miguel Yepez MD [Partnered Physician] - 10/28/17 1:10 pm Lindsey Borrego CNP [Advanced Practice Nurse] - 10/09/17 9:20 am [facility]PCP [Primary Care Provider] - (will wait for d/c plans) Prescriptions: HYDROcodone/Acet 5/325 mg [[place] 5-325 mg] 1 tab PO Q6HR PRN 4 Days #20 tablet PRN Reason: Breakthrough Pain ceFAZolin [Ancef] 2,000 mg IVPB Q8HR 42 Days #126 vial Aspirin 81 mg PO DAILY #30 tab.chew Atorvastatin [Lipitor] 80 mg PO HS #30 tablet Carvedilol [Coreg] 6.25 mg PO BIDWM #60 tablet Furosemide [Lasix] 20 mg PO DAILY #30 tablet Lisinopril [Zestril] 2.5 mg PO DAILY #30 tablet Walker [WALKER] 1 each .ROUTE AD #1 each - Attending Attestation I examined this patient and my medical decision-making was reviewed with the Resident Physician. I agree with the documented findings, disposition and treatment plan as described except to the extent set forth below.
[2017-09-26] MEDS: *HR* HYDROcodone/Acet 5/325 mg TABLET PO PRN (11:25)
[2017-09-26 12:21] VITALS: BP 102/63
--- NOTE | 2017-09-26 12:42 | Internal Med Progress Note ---
Date of Encounter: 09/26/17 Time of Encounter: 12:39 - Assessment and plan (1) Respiratory failure with hypoxia Current Visit: Yes Status: Resolved Qualifiers: Chronicity: acute Qualified Code(s): J96.01 - Acute respiratory failure with hypoxia (2) Severe sepsis Current Visit: Yes Status: Resolved (3) Bacteremia Current Visit: Yes Status: Acute (4) Acute exacerbation of CHF (congestive heart failure) Current Visit: Yes Status: Acute Qualifiers: Congestive heart failure type: systolic Qualified Code(s): I50.23 - Acute on chronic systolic (congestive) heart failure (5) Cellulitis Current Visit: Yes Status: Acute Qualifiers: Site of cellulitis: extremity Site of cellulitis of extremity: toe Laterality: unspecified laterality Qualified Code(s): L03.039 - Cellulitis of unspecified toe (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 transplanted heart: [place] heart Associated angina: without angina Qualified Code(s): I25.10 - Atherosclerotic heart disease of [place] coronary artery without angina pectoris (10) COPD (chronic obstructive pulmonary disease) Current Visit: Yes Status: Chronic Qualifiers: COPD type: unspecified COPD Qualified Code(s): J44.9 - Chronic obstructive pulmonary disease, unspecified (11) Diabetes Current Visit: Yes Status: Chronic Qualifiers: Diabetes mellitus type: other specified (including SAMANTHA) Diabetes mellitus complication status: with circulatory complication Diabetes mellitus complication detail: with peripheral angiopathy without gangrene Diabetes mellitus custodial insulin use: without custodial use Qualified Code(s): E13.51 - Other specified diabetes mellitus with diabetic peripheral angiopathy without gangrene (12) DVT prophylaxis Current Visit: Yes Status: Acute (13) NSTEMI (non-ST elevated myocardial infarction) Current Visit: Yes Status: Acute (14) PVD (peripheral vascular disease) Current Visit: Yes Status: Acute (15) Hypokalemia Current Visit: Yes Status: Resolved - Subjective Interval history: Patient is a 67y/o male who is transferred from the ICU overnight(09/21/17) Pt was admitted to the ICU for acute respiratory failure secondary to pulmonary edema/CHF decompensation requiring intubation. He was extubated on 09/18/17. Pt was also treated for severe sepsis secondary to bacteremia and infected foot ulcer. Was reported to have gangrenous left great toe requiring amputation. He also was found to have elevated TNI concerning for NSTEMI and LHC has been recommended however pt has been changing his mind on daily basis due to which is LHC has been postponed. s/p LHC Pt seen and examined at bedside. Denies any discomfort at this time pt was discharged to home yesterday however IV abx have not been arrangement with home health services, which is delaying patient's discharge. Once home health services are set up for IV abx, patient will be discharged. Podiatry recommendations noted for wound care pt to continue on all home medications and IV abx while hospitalized and continue the same management after discharge. - Constitutional Vitals: Temp Pulse Resp BP Pulse Ox 98.1 F 98 18 102/63 98 09/26/17 12:15 09/26/17 12:15 09/26/17 12:15 09/26/17 12:15 09/26/17 12:15 General appearance: Present: A&O X 3, no acute distress, answers questions appropriately - Head Head exam: Present: atraumatic, normocephalic - Eye Eye exam: Present: conjuntiva pink, sclera anicteric - Respiratory Respiratory exam: Absent: respiratory distress, wheezes - Cardiovascular Cardiovascular exam: Present: RRR, +S1, +S2. Absent: diastolic murmur, gallop, rubs, systolic murmur - GI/Abdominal GI/Abdominal exam: Present: normal bowel sounds, soft, no peritoneal signs. Absent: distended, tenderness - Extremities Exam Extremities exam: Present: warm, radial pulses palpable and symmetrical (b/l feet dressing intact ). Absent: calf tenderness - Neurological Exam Neurological exam: Present: oriented X3 Internal Medicine: Result - Labs CBC & Chem 7: 09/25/17 04:25 09/25/17 04:25 - ABG Interpretation ABG results: ABG ABG pH 7.49 pH Units (7.32-7.45) H 02/01/18 07:51 ABG pCO2 42 mmHg (35-45) 09/19/17 07:51 ABG pO2 119 mmHg (85-104) H 09/19/17 07:51 ABG O2 Saturation 99 % (95-98) H 09/19/17 07:51 PT/INR, D-dimer PT 15.8 Seconds (9.4-12.1) H 09/15/17 09:19 - VTE Documentation of Mechanical Device: Intermittent pneumatic compression device Consult Discharge Plan - Plan Additional Instructions: Please follow up with your primary care physician within five days after your discharge from the hospital. Please follow up with podiatry, ID, and cardiology within one week after your discharge from the hospital. Your home medications have been changed as follows: 1. Atenolol, Flexeril, Vancomycin have been stopped 2. Lipitor has been increased to 80mg once a day 3. Aspirin 81mg once a day has been added 4. Carvedilol 6.25mg twice a day has been added 5. Lasix 20mg once a day has been added Continue Iv abx as prescribed. Continue aspirin, plavix as prescribed. Resume all other medications as prescribed by your primary care physician and ornament maker hand. Seek medical help immediately if chest pain occurs. Dressing changes to be performed every three days. Cleanse incision line of the left foot and right great toe with mild soap and water every three days, pat dry, apply adaptic to the incision line of the left foot, calcium alginate with adaptic to the right great toe with 4x4 dry sterile gauze, kerlix and tape. Protective weight bearing to right foot with post op shoe, Non weight bearing to left foot with post op shoe and walker. Weight to only be applied to left heel with transferring. Follow up with Dr. Barbosa in Podiatry clinic a week after discharge from the hospital. Referrals: [facility] [Other] Lindsey Borrego, CHEMIST [Advanced Practice Nurse] - 10/09/17 9:20 am [facility] [[facility] Care Provider[facility] - (will wait for d/c plans) Prescriptions: HYDROcodone/Acet 5/325 mg [[place] 5-325 mg] 1 tab PO Q6HR PRN 4 Days #20 tablet PRN Reason: Breakthrough Pain ceFAZolin [Ancef] 2,000 mg IVPB Q8HR 42 Days #126 vial Aspirin 81 mg PO DAILY #30 tab.chew Atorvastatin [Lipitor] 80 mg PO HS #30 tablet Carvedilol [Coreg] 6.25 mg PO BIDWM #60 tablet Furosemide [Lasix] 20 mg PO DAILY #30 tablet Lisinopril [Zestril] 2.5 mg PO DAILY #30 tablet Walker [WALKER] 1 each .ROUTE AD #1 each
== END 2017-09-26 15:41 | disposition home health service (06) | DRG 853 ==
LOC: EMEROO 14:21 → 3ANU 17:45 → SUATTDRO 17:45 → 3ANU 18:47 → 2NNU 09-16 20:17 → ICNU 09-16 22:00 → 2ANU 09-20 20:16
PROVIDERS: ADMIT Internal Medicine; ATTEND Internal Medicine